=== PATIENT | male | born 1945 | race Caucasian/White ===

== ENCOUNTER → 2020-04-25 10:01 | Outpatient (BNVA) | payer OTHER, SELFPAY | PROVIDERS: PCP Internal Medicine; Referring Provider Internal Medicine; Visit Provider Urology | DX: Z13.89 Encounter for screening for other disorder (principal) ==

== ENCOUNTER 2020-10-21 10:26 | Outpatient (REF) | payer OTHER, SELFPAY ==
[2020-10-21 12:50] LABS: PSA,Total (Free>4and<10) 3.11 ng/mL (0.00-4.00)
== END 2020-10-21 10:27 | disposition home or self-care (01) ==
LOC: HO.LAB 10:26
PROVIDERS: Visit Provider Urology
DX: Z12.5 Encounter for screening for malignant neoplasm of prostate (principal); N13.8 Other obstructive and reflux uropathy; N40.1 Benign prostatic hyperplasia with lower urinary tract symptoms
CPT/HCPCS: 36415; 84153

== ENCOUNTER → 2020-10-23 09:56 | Outpatient (BNVA) | payer OTHER, SELFPAY | PROVIDERS: Visit Provider Urology | DX: Z13.89 Encounter for screening for other disorder (principal) | CPT/HCPCS: 99212 ==

== ENCOUNTER → 2021-04-22 08:36 | Outpatient (BNVA) | payer OTHER, SELFPAY | PROVIDERS: PCP Internal Medicine; Visit Provider Urology | DX: N52.9 Male erectile dysfunction, unspecified (principal); N40.1 Benign prostatic hyperplasia with lower urinary tract symptoms; R31.0 Gross hematuria | CPT/HCPCS: 99212 ==

== ENCOUNTER 2022-02-08 10:19 | Outpatient (REF) | payer OTHER, SELFPAY ==
[2022-02-08 14:07] LABS: Prostate Specific Antigen 2.03 ng/mL (<0.05-4.0)
== END 2022-02-08 10:20 | disposition home or self-care (01) ==
LOC: HO.10HDL 10:19
PROVIDERS: Visit Provider Urology
DX: Z12.5 Encounter for screening for malignant neoplasm of prostate (principal); N13.8 Other obstructive and reflux uropathy; N40.1 Benign prostatic hyperplasia with lower urinary tract symptoms
CPT/HCPCS: 36415; 84153

== ENCOUNTER → 2022-02-09 12:34 | Outpatient (BNVA) | payer OTHER, SELFPAY | PROVIDERS: PCP Internal Medicine; Visit Provider Urology | DX: N40.0 Benign prostatic hyperplasia without lower urinary tract symptoms (principal); N52.9 Male erectile dysfunction, unspecified | CPT/HCPCS: 51798; 99212 ==

== ENCOUNTER 2023-03-08 13:13 | Outpatient (AMB) | payer OTHER, SELFPAY ==
--- NOTE | 2023-03-08 13:35 | A.OFFVIS_ITS ---
Intake Intake Visit Reasons: 1Y PSA(will bring report) Intake Note: Patient is Present for Follow Up PSA Urology Medication: Finasteride Antibiotic Allergies: None Blood Thinners: Eliquis Allergies gabapentin Allergy (Unknown, Verified 03/08/23 13:36) Unknown No Known Allergies [No Known Allergies*] Allergy (Verified 03/08/23 13:36) HPI HPI Comments History of Present Illness Details Timo is a pleasant male. He is a patient of Dr.Nadazdin- Mathew. He is seen for the following urologic conditions - lower urinary tract symptoms - gross hematuria PSA 1.0 Continues with finasteride Tuesday, Tuesday, Tuesday Noted to have an since to voiding and occasional bowel urgency Involved in bathroom planning Discussed trial of overactive bladder medications Oxybutynin prescription provided May benefit from InterStim to control both fecal incontinence and urinary urge Follow-up 2 months for oxybutynin review Gross hematuria Repeat episode of gross hematuria Investigations - cystoscopy 05/09 neovascularity of pros herrera Gross hematuria response to finasteride Continue finasteride Lower urinary tract symptoms Underwent laser prostatectomy 2018 Improved symptoms since then with effective stream and emptying Has had episode of hematuria Placed on finasteride for recurrent hematuria PSA 11/05 3.1, 02/06 2.0, 02/07 1.0 PFSH Medical History Spinal stenosis Hyperlipidemia Erectile dysfunction Benign prostatic hyperplasia with lower urinary tract symptoms Surgical History History of prostate surgery Review of Systems Const Denies chills and Denies fever(s) Card Reports no additional complaints and Denies syncope Resp Denies cough GI Denies abdominal pain and Denies heartburn Reports as per HPI and Denies change in libido Neuro Denies syncope Psych Denies change in libido Endo Denies change in libido Physical Exam Const General: cooperative, healthy appearing, comfortable and no acute distress Orientation/consciousness: patient oriented x3 HEENT Face and sinus: Yes normal facial exam Mouth: moist mucous membranes Neck Neck: Yes normal visual inspection, Yes full ROM and Yes trachea midline Chest Chest palpation & inspection: normal inspection of the chest Resp Effort & Inspection: normal respiratory effort, able to speak in complete sente nces and no respiratory distress GI Inspection: Yes normal to inspection Back/Spine/Pelvis Cervical Spine: normal cervical lordosis Thoracic/Lumbar Spine: thoracic and lumbar spine normal to inspection Skin General skin exam: no rashes or lesions noted Neuro General: patient oriented x3, gait normal, tone normal and moves all extremities Extrem General: Yes normal to inspection and Yes capillary refill normal Assessment & Plan Assessment & Plan (1) Overactive bladder: Code(s): N32.81 - Overactive bladder (2) Benign prostatic hyperplasia with lower urinary tract symptoms: Code(s): N40.1 - Benign prostatic hyperplasia with lower urinary tract symptoms Plan Three month follow-up review Medications: New oxybutynin chloride ER 10 mg PO DAILY 90 days 90 tabs 0RF N32.81 - Overactive bladder Patient Instructions: Imaging studies, laboratory and physical exam results were discussed and reviewed in detail. No major barriers to patient understanding were identified. An opportunity to ask questions regarding the treatment plan was provided. All questions were answered. The patient expressed understanding and agreement with the above treatment plan. The patient is aware they should contact our office by phone for worsening of their current condition or the appearance of new urologic symptoms. Compliance is encouraged with any medications and followup testing that is ordered. It is a privilege to participate in the urologic care of your patient. If you have any questions or concerns regarding treatment for the above conditions, or other urologic issues, please do not hesitate to contact me. The office telephone contact is [phone]. This note is constructed using voice recognition software. While every effort has been made to ensure accuracy grain origination specialist errors may have been included. Yours sincerely, Dr Jignesh Mckeon MD, [facility] - Urology Providers of Expert, Compassionate Care for the Genitourinary System Coding Level of Care Code Est Pt Level 4 (37403) Diagnoses Overactive bladder N32.81 Benign prostatic hyperplasia with lower urinary tract symptoms N40.1
== END 2023-03-08 14:09 | disposition home or self-care (01) ==
PROVIDERS: Visit Provider Urology
DX: N32.81 Overactive bladder (principal); N40.1 Benign prostatic hyperplasia with lower urinary tract symptoms
CPT/HCPCS: 99214

== ENCOUNTER → 2023-03-08 13:13 | Outpatient (BNVA) | payer OTHER, SELFPAY | PROVIDERS: Visit Provider Urology | DX: N40.1 Benign prostatic hyperplasia with lower urinary tract symptoms (principal); N32.81 Overactive bladder | CPT/HCPCS: 99212 ==

== ENCOUNTER 2023-06-15 09:03 | Outpatient (AMB) | payer OTHER, SELFPAY ==
--- NOTE | 2023-06-15 09:08 | A.OFFVIS_ITS ---
Intake Intake Visit Reasons: 3M PVR/Med Review(Oxybutynin)Confirmed Intake Note: Patient is Present for Follow Up Med Review Urology Medication: Finasteride, Oxybutynin Antibiotic Allergies: None Blood Thinners: Eliquis PVR: 88 Patient states that medication oxybutynin has been great and he has seen improvement. Allergies gabapentin Allergy (Unknown, Verified 06/15/23 09:14) Unknown No Known Allergies [No Known Allergies*] Allergy (Verified 06/15/23 09:14) HPI HPI Comments History of Present Illness Details Timo is a pleasant male. He is a patient of Dr.Nadazdin- Mathew. He is seen for the following urologic conditions - lower urinary tract symptoms - gross hematuria PSA 1.0 Continues with finasteride Tuesday, Tuesday, Tuesday Here for oxybutynin review Involved in bathroom planning Completed trial of overactive bladder medications Success, discussed memory side effects with oxybutynin in patient's age over 65. Will prescribe tolterodine 4 mg. [facility] May benefit from InterSti to control both fecal incontinence and urinary urge Gross hematuria Repeat episode of gross hematuria Investigations - cystoscopy 05/09 neovascularity of pros herrera Gross hematuria response to finasteride Continue finasteride Lower urinary tract symptoms Underwent laser prostatectomy 2018 Improved symptoms since then with effective stream and emptying Has had episode of hematuria Placed on finasteride for recurrent hematuria PSA 11/05 3.1, 02/06 2.0, 02/07 1.0, 06/11 Urinary urgency and frequency PFSH Medical History Spinal stenosis Hyperlipidemia Erectile dysfunction Benign prostatic hyperplasia with lower urinary tract symptoms Surgical History History of prostate surgery Review of Systems Const Denies chills and Denies fever(s) Card Reports no additional complaints and Denies syncope Resp Denies cough GI Denies abdominal pain and Denies heartburn Reports as per HPI and Denies change in libido Neuro Denies syncope Psych Denies change in libido Endo Denies change in libido Physical Exam Const General: cooperative, healthy appearing, comfortable and no acute distress Orientation/consciousness: patient oriented x3 HEENT Face and sinus: Yes normal facial exam Mouth: moist mucous membranes Neck Neck: Yes normal visual inspection, Yes full ROM and Yes trachea midline Chest Chest palpation & inspection: normal inspection of the chest Resp Effort & Inspection: normal respiratory effort, able to speak in complete s entences and no respiratory distress GI Inspection: Yes normal to inspection Back/Spine/Pelvis Cervical Spine: normal cervical lordosis Thoracic/Lumbar Spine: thoracic and lumbar spine normal to inspection Skin General skin exam: no rashes or lesions noted Neuro General: patient oriented x3, gait normal, tone normal and moves all extremities Extrem General: Yes normal to inspection and Yes capillary refill normal Office Procedures Post Void Residual Post Residual Void Post Void Residual (PVR): 88 10984-Fokt Void Residual by ultrasound Assessment & Plan Assessment & Plan (1) Erectile dysfunction: Code(s): N52.9 - Male erectile dysfunction, unspecified (2) Benign prostatic hyperplasia with lower urinary tract symptoms: Code(s): N40.1 - Benign prostatic hyperplasia with lower urinary tract symptoms (3) Overactive bladder: Code(s): N32.81 - Overactive bladder Plan Six-month follow-up PVR Orders: Orders AMB Post Void Residual by ultrasound Today N32.81 - Overactive bladder Medications: New tolterodine ER 4 mg PO DAILY 90 days 90 caps 1RF N32.81 - Overactive bladder Patient Instructions: Imaging studies, laboratory and physical exam results were discussed and reviewed in detail. No major barriers to patient understanding were identified. An opportunity to ask questions regarding the treatment plan was provided. All questions were answered. The patient expressed understanding and agreement with the above treatment plan. The patient is aware they should contact our office by phone for worsening of their current condition or the appearance of new urologic symptoms. Compliance is encouraged with any medications and followup testing that is ordered. It is a privilege to participate in the urologic care of your patient. If you have any questions or concerns regarding treatment for the above conditions, or other urologic issues, please do not hesitate to contact me. The office telephone contact is [phone]. This note is constructed using voice recognition software. While every effort has been made to ensure accuracy liquor commissioner errors may have been included. Yours sincerely, Dr Jignesh Mckeon MD, [facility] - Urology Providers of Expert, Compassionate Care for the Genitourinary System Coding Level of Care Code Est Pt Level 3 (35161) Diagnoses Erectile dysfunction N52.9 Benign prostatic hyperplasia with lower urinary tract symptoms N40.1 Overactive bladder N32.81 CPT Codes Post Residual Void - PVR CPT Code: 29496-Rwsr Void Residual by ultrasound ([id number])
== END 2023-06-15 09:21 | disposition home or self-care (01) ==
PROVIDERS: PCP Internal Medicine; Visit Provider Urology
DX: N52.9 Male erectile dysfunction, unspecified (principal); N40.1 Benign prostatic hyperplasia with lower urinary tract symptoms; N32.81 Overactive bladder
CPT/HCPCS: 99213

== ENCOUNTER → 2023-06-15 09:03 | Outpatient (BNVA) | payer OTHER, SELFPAY | PROVIDERS: PCP Internal Medicine; Visit Provider Urology | DX: N52.9 Male erectile dysfunction, unspecified (principal); N40.1 Benign prostatic hyperplasia with lower urinary tract symptoms; N32.81 Overactive bladder | CPT/HCPCS: 51798; 99212 ==

== ENCOUNTER 2023-11-16 10:44 | Outpatient (REF) | payer OTHER, SELFPAY ==
[2023-11-16 13:29] LABS: Prostate Specific Antigen 1.66 ng/mL (<0.05-4.0)
== END 2023-11-16 10:45 | disposition home or self-care (01) ==
LOC: HO.10HDL 10:44
PROVIDERS: Visit Provider Urology
DX: N40.1 Benign prostatic hyperplasia with lower urinary tract symptoms (principal); Z12.5 Encounter for screening for malignant neoplasm of prostate
CPT/HCPCS: 36415; 84153

== ENCOUNTER 2024-01-31 09:54 | Outpatient (AMB) | payer OTHER, SELFPAY ==
--- NOTE | 2024-01-31 09:58 | A.OFFVIS_ITS ---
Intake Visit Reasons: Follow Up-PVR/PSA(set) Intake Note: Patient is present for PVR/PSA F/U Urology Medication:TOLTERODINE, FINASTERIDE, OXYBUTYNIN Antibiotic Allergy:GABAPENTIN Blood Thinner:ELIQUIS Last PVR:88ML'S Todays PVR: Lead Burner Apprentice Required: No Allergies gabapentin Allergy (Unknown, Verified 01/31/24 10:00) Unknown No Known Allergies [No Known Allergies*] Allergy (Verified 01/31/24 10:00) HPI Comments Details: Timo is a pleasant male. He is a patient of . He is seen for the following urologic conditions - lower urinary tract symptoms - gross hematuria Six-month follow-up PSA 1.4 PSA 1.0 Continues with finasteride Tuesday, Tuesday, Tuesday Has overactive bladder symptoms Prior response to oxybutynin, switched to tolterodine due to age over 77 and non tolerance May benefit from InterStim to control both fecal incontinence and urinary urge Found tolterodine to not be as effective as oxybutynin. Will trial Toviaz which is the strongest of the anticholinergics. May have to switch to beta 3 agonist Gross hematuria Repeat episode of gross hematuria Investigations - cystoscopy 05/09 neovascularity of prostate Gross hematuria response to finasteride Continue finasteride Lower urinary tract symptoms Underwent laser prostatectomy 2018 Improved symptoms since then with effective stream and emptying Has had episode of hematuria Placed on finasteride for recurrent hematuria PSA 11/05 3.1, 02/06 2.0, 02/07 1.0, 06/11 1.0, 11/08 1.7 Urinary urgency and frequency PFSH Medical History Spinal stenosis Hyperlipidemia Erectile dysfunction Benign prostatic hyperplasia with lower urinary tract symptoms Surgical History History of prostate surgery Review of Systems Const Denies chills and Denies fever(s) Card Reports no additional complaints and Denies syncope Resp Denies cough GI Denies abdominal pain and Denies heartburn Reports as per HPI and Denies change in libido Neuro Denies syncope Psych Denies change in libido Endo Denies change in libido Physical Exam Const General: cooperative, healthy appearing, comfortable and no acute distress Orientation/consciousness: patient oriented x3 HEENT Face and sinus: Yes normal facial exam Mouth: moist mucous membranes Neck Neck: Yes normal visual inspection, Yes full ROM and Yes trachea midline Chest Chest palpation & inspection: normal inspection of the chest Resp Effort & Inspection: normal respiratory effort, able to speak in complete sentences and no respiratory distress GI Inspection: Yes normal to inspection Back/Spine/Pelvis Cervical Spine: normal cervical lordosis Thoracic/Lumbar Spine: thoracic and lumbar spine normal to inspection Skin General skin exam: no rashes or lesions noted Neuro General: patient oriented x3, gait normal, tone normal and moves all extremities Extrem General: Yes normal to inspection and Yes capillary refill normal Results AMB Urinalysis, Automated UA Leukoctes 0 Bran/uL Last Edit by DREA Cisneros on 01/31/24 10:11 UA Nitrite Negative Last Edit by Julieta Almeida CCM on 01/31/24 10:11 UA Urobilinogen 0.2 mg/dL Last Edit by Julieta Almeida CCM on 01/31/24 10:1 1 UA Protein 15 mg/dL Last Edit by Julieta Almeida [facility] on 01/31/24 10:11 UA pH 5.5 Last Edit by Julieta Almeida CCM on 01/31/24 10:11 UA Blood 0 Chandana/uL Last Edit by Julieta Almeida CCM on 01/31/24 10:11 UA Specific Hundred 1.030 Last Edit by Julieta Almeida CCM on 01/31/24 10: 11 UA Ketone Positive Last Edit by Julieta Almeida CCM on 01/31/24 10:11 UA Bilirubin 1 mg/dL Last Edit by Julieta Almeida [facility] on 01/31/24 10:11 UA Glucose 0 mg/dL Last Edit by Julieta Almeida CCM on 01/31/24 10:11 Results Reviewed Results Reviewed: Laboratory Last Values Urine pH (Auto) 5.5 01/31/24 10:10 Specific Hundred (Auto) 1.030 01/31/24 10:10 Urine Protein (Auto) 15 mg/dL 01/31/24 10:10 Glucose (UA)(Auto) 0 mg/dL 01/31/24 10:10 Urine Ketones (Auto) Positive 01/31/24 10:10 Urine Blood (Auto) 0 Chandana/uL 01/31/24 10:10 Urine Nitrite (Auto) Negative 01/31/24 10:10 Urine Bilirubin (Auto) 1 mg/dL 01/31/24 10:10 Urine Urobilinogen (Auto) 0.2 mg/dL 01/31/24 10:10 Leukocyte Esterase (Auto) 0 Bran/uL 01/31/24 10:10 Assessment & Plan Assessment & Plan (1) Overactive bladder: Code(s): N32.81 - Overactive bladder Category: Medical (2) Erectile dysfunction: Code(s): N52.9 - Male erectile dysfunction, unspecified Category: Medical (3) Benign prostatic hyperplasia with lower urinary tract symptoms: Code(s): N40.1 - Benign prostatic hyperplasia with lower urinary tract symptoms Category: Medical Plan Two month follow-up tele Orders: Orders AMB Urinalysis Automated Today Z13.9 - Encounter for screening, unspecified Medications: New fesoterodine ER (Toviaz) 8 mg PO DAILY 30 days 30 tabs 1RF N32.81 - Overactive bladder Patient Instructions: Imaging studies, laboratory and physical exam results were discussed and reviewed in detail. No major barriers to patient understanding were identified. An opportunity to ask questions regarding the treatment plan was provided. All questions were answered. The patient expressed understanding and agreement with the above treatment plan. The patient is aware they should contact our office by phone for worsening of their current condition or the appearance of new urologic symptoms. Compliance is encouraged with any medications and followup testing that is ordered. It is a privilege to participate in the urologic care of your patient. If you have any questions or concerns regarding treatment for the above conditions, or other urologic issues, please do not hesitate to contact me. The office telephone contact is [phone]. This note is constructed using voice recognition software. While every effort has been made to ensure accuracy manager gallery errors may have been included. Yours sincerely, Dr Jignesh Mckeon MD, [facility] - Urology Providers of Expert, Compassionate Care for the Genitourinary System Coding Level of Care Code Est Pt Level 4 (55907) Diagnoses Overactive bladder N32.81 Erectile dysfunction N52.9 Benign prostatic hyperplasia with lower urinary tract symptoms N40.1
== END 2024-01-31 10:21 | disposition home or self-care (01) ==
PROVIDERS: PCP Internal Medicine; Visit Provider Urology
DX: N32.81 Overactive bladder (principal); N52.9 Male erectile dysfunction, unspecified; N40.1 Benign prostatic hyperplasia with lower urinary tract symptoms; Z13.9 Encounter for screening, unspecified
CPT/HCPCS: 99214

== ENCOUNTER → 2024-01-31 09:54 | Outpatient (BNVA) | payer OTHER, SELFPAY | PROVIDERS: PCP Internal Medicine; Visit Provider Urology | DX: N40.1 Benign prostatic hyperplasia with lower urinary tract symptoms (principal); N13.8 Other obstructive and reflux uropathy; N32.81 Overactive bladder; N52.9 Male erectile dysfunction, unspecified | CPT/HCPCS: 81003; 99212 ==

== ENCOUNTER 2024-04-03 10:34 | Outpatient (AMB) | payer OTHER, SELFPAY ==
--- NOTE | 2024-04-03 10:35 | A.OFFVIS_ITS ---
Intake Visit Reasons: 2M Med Review(fesoterodine ER) Intake Note: Patient is present for 2M MED REVIEW Urology Medication:TOLTERODINE,FINASTERIDE,FESOTERODINE Antibiotic Allergy:GABAPENTIN Blood Thinner:APIXABAN Fire Investigation Manager Required: No Allergies gabapentin Allergy (Unknown, Verified 04/03/24 10:49) Unknown No Known Allergies [No Known Allergies*] Allergy (Verified 04/03/24 10:49) HPI Comments Details: Timo is a pleasant male. He is a patient of . He is seen for the following urologic conditions - lower urinary tract symptoms - gross hematuria Telemedicine Evaluation 15 min Consultation [facility] Video attempted Two month follow-up Had episode of urinary frequency - associated with probable small stone - had some hematuria. Recommend holding Eliquis for a week. Has overactive bladder symptoms Prior response to oxybutynin, switched to Toviaz due to age over 75 and non tolerance Good response to Toviaz. Refill provided May benefit from InterStim to control both fecal incontinence and urinary urge Gross hematuria Repeat episode of gross hematuria Investigations - cystoscopy 05/09 neovascularity of prostate Gross hematuria response to finasteride - 3x a week Continue finasteride Lower urinary tract symptoms Underwent laser prostatectomy 2018 Improved symptoms since then with effective stream and emptying Has had episode of hematuria Placed on finasteride for recurrent hematuria PSA 11/05 3.1, 02/06 2.0, 02/07 1.0, 06/11 1.0, 11/08 1.7 Urinary urgency and frequency PFSH Medical History Spinal stenosis Hyperlipidemia Erectile dysfunction Benign prostatic hyperplasia with lower urinary tract symptoms Surgical History History of prostate surgery Review of Systems Const All systems reviewed & are unremarkable except as noted in HPI and below Reports no additional complaints Resp Reports no additional complaints GI Reports no additional complaints Reports as per HPI Musc Reports no additional complaints Physical Exam Telemedicine evaluation Appropriate responses Regular breathing rate and rhythm HEENT Head: Yes normal to inspection Ears: hearing grossly normal bilaterally Eyes General: appearance normal, both eyes and all related structures Neck Neck: Yes normal visual inspection Chest Chest palpation & inspection: normal inspection of the chest Resp Effort & Inspection: normal respiratory effort and able to speak in complete sentences Telehealth Telehealth Telehealth [facility]: [facility] Location of provider rendering services: practice address Location of patient: address on file Patient Identification confirmed using: Name, : Yes Telehealth method: video Patient verbally consented to treatment: Yes Patient verbally consented to billing insurance company: Yes Patient informed of any privacy concerns related to visit: Yes Minutes spent on Phone/Video with Pt.: 15 Assessment & Plan Assessment & Plan (1) Benign prostatic hyperplasia with lower urinary tract symptoms: Code(s): N40.1 - Benign prostatic hyperplasia with lower urinary tract symptoms Category: Medical (2) Overactive bladder: Code(s): N32.81 - Overactive bladder Category: Medical Plan Six-month follow-up office PVR Medications: Changed From fesoterodine ER (Toviaz) 8 mg PO DAILY 30 days 30 tabs 1RF N32.81 - Overactive bladder To fesoterodine ER (Toviaz) 8 mg PO DAILY 90 tabs 1RF 90 days N32.81 - Overactive bladder Patient Instructions: Imaging studies, laboratory and physical exam results were discussed and reviewed in detail. No major barriers to patient understanding were identified. An opportunity to ask questions regarding the treatment plan was provided. All questions were answered. The patient expressed understanding and agreement with the above treatment plan. The patient is aware they should contact our office by phone for worsening of their current condition or the appearance of new urologic symptoms. Compliance is encouraged with any medications and followup testing that is ordered. It is a privilege to participate in the urologic care of your patient. If you have any questions or concerns regarding treatment for the above conditions, or other urologic issues, please do not hesitate to contact me. The office telephone contact is [phone]. This note is constructed using voice recognition software. While every effort has been made to ensure accuracy maintenance technician 3rd shift errors may have been included. Yours sincerely, Dr Jignesh Mckeon MD, [facility] - Urology Providers of Expert, Compassionate Care for the Genitourinary System Coding Level of Care Code Tele Est Pt Level 3 (93844) Diagnoses Benign prostatic hyperplasia with lower urinary tract symptoms N40.1 Overactive bladder N32.81
--- OUTSIDE RECORDS SUMMARY | 2024-04-03 10:36 | XMS_ITS | Encounter Summary ---
Author Name [facility] [facility] [place] [facility] [place] Address [address] [place] [address] Care Team Providers Care Milk Hauler Name Role Phone JARETH MELGAR Primary Care Provide r Unavailable Insurance Providers: All historical and current Section Date Range: From patient's date of to the date document was created. This section includes the names of all active insurance providers for the patient. Insurance Provider Type of Coverage Plan Name Start of Policy Coverage End of Policy Coverage Group Number Member ID Insurance Provider's Telephone Number Policy Lucia's Name Patient's Relationship to Policy Lucia ANURAG [facility] MEDICARE SUPPLEMEN RONNA HAMPS HIRE COUNT Y LASHAE Apr 18, 2014 [id number] KODAK CESAR PATIENT BCBS [place] MEDICARE SUPPLEMEN RONNA MEDEX 2 Apr 18, 2014 [id number] KODAK CESAR PATIENT [place] MED[place] SUPPLEMEN RON[place] MEDEX 2 Apr 18, 2014 [id number] KODAK CESAR PATIENT [place] MED[place] SUPPLEMEN RONNA HAMPS HIRE COUNT Y LASHAE Apr 18, 2014 [id number] KODAK CESAR PATIENT BS [place] MEDICARE SUPPLEMEN RONNA MEDEX 2 Apr 18, 2014 [id number] KODAK CESAR PATIENT [place] MED[place] SUPPLEMEN RONNA HAMPS HIRE COUNT Y LASHAE Apr 18, 2014 [id number] KODAK CESAR PATIENT CAMP [place]WN R [place] SPECIAL CLASS C[place] August 23, 2023 NING DUTTA [id number] KODAK CESAR PATIENT MEDICARE (WNR) MEDICARE () PART A Nov 16, 2012 PART A [id number] MR49 KODAK CESAR PATIENT MEDICARE (WNR) MEDICARE () PART B Nov 16, 2012 PART B [id number] MR49 KODAK CESAR PATIENT MEDICARE (WNR) MEDICARE () PART A Nov 16, 2012 PART A [id number] [phone] KODAK CESAR PATIENT MEDICARE (WNR) MEDICARE () PART B Nov 16, 2012 PART B [id number] [phone] KODAK CESAR PATIENT MEDICARE (WNR) MEDICARE () PART A Nov 16, 2012 PART A [id number] MR49 KODAK CESAR PATIENT MEDICARE (WNR) MEDICARE () PART B Nov 16, 2012 PART B [id number] MR49 KODAK CESAR PATIENT MEDICARE (WNR) MEDICARE () PART A Nov 16, 2012 PART A [id number] KODAK CESAR PATIENT MEDICARE (WNR) MEDICARE (M) PART B Nov 16, 2012 PART B [id number] KODAK CESAR PATIENT MEDICARE (WNR) MEDICARE () PART A Nov 16, 2012 PART A [id number] MR49 KODAK CESAR PATIENT MEDICARE (WNR) MEDICARE (M) PART B Nov 16, 2012 PART B [id number] MR49 KODAK CESAR PATIENT MEDICARE (WNR) MEDICARE () PART A Nov 16, 2012 PART A [id number] MR49 [phone] KODAK CESAR PATIENT MEDICARE (WNR) MEDICARE (M) PART B Nov 16, 2012 PART B [id number] MR49 KODAK CESAR PATIENT Selected Encounter This section includes the information on record at [place] for the Encounter. Date/Time Encounter Type Encounter Description Reason Provider Source Apr 15, 2023 08:00 AM SELF CARE MNGMENT TRAINING PHYSICAL THERAPY ICD-10-CM M25.551 Pain in right hip RIOJAS,MILIND ABDUL [facility] Encounter Template Text not used by [place] Assessments - Encounter Diagnoses This section includes the primary and secondary diagnoses documented for the Encounter. Date/Time Primary/Secondary Diagnosis Diagnosis Name Provider Source Apr 27, 2023 02:02 PM PRIMARY Pain in right hip RIOJASMILIND [facility] Plan of Treatment: Future Appointments (+ 6 months) and Future Tests (+/- 45 days) The Plan of Treatment section includes future care activities for the patient from all [place] treatmentfacilities. This section includes future appointments and future orders which are active, pending or scheduled. Future Appointments This section includes appointments that were scheduled to occur 6 months from the date of the Encounter, up to a maximum of 20 appointments. The data comes from all [place] treatment facilities. Appointment Date/Time Appointment Type Appointme nt Facility Name Apr 25, 2023 02:30 PM AMBULATORY - RE[facility]AB [facility] May 27, 2023 07:15 AM AMBULATORY - NONE [place] [facility] [place] [facility] May 27, 2023 07:30 AM AMBULATORY - NONE [place] [facility] [place] [facility] May 30, 2023 03:30 PM AMBULATORY - MEDICINE [place] [facility] [place] [facility] Jun 28, 2023 12:50 PM AMBULATORY - MEDICINE [place] [facility] [place] [place] [facility] Jun 30, 2023 09:00 AM AMBULATORY - REHAB MEDICIN [facility] Jul 11, 2023 02:30 PM AMBULATORY - REHAB MEDIC[facility] [place] Jul 18, 2023 02:30 PM AMBULATORY - REHAB MEDICIN E [facility] [place] Jul 26, 2023 02:30 PM AMBULATORY - REHAB MEDICIN [facility] Aug 02, 2023 02:00 PM AM[facility]ULATORY [facility]INE [facility] Social History: Smoking Status (Most current) and Tobacco Use (All prior to encounter date) This section includes the most current, and the historical, smoking and tobacco- related health factors from the [place] facility where the Encounter took place. Current Smoking Status This section includes the most current smoking, or tobacco-related health factor, from the [place] facility where the Encounter took place. Date/Time Current Smoking Status Comment Conrad ity Feb 23, 2022 02:00 PM [place]-TOBACCO QUIT 15 YRS OR MORE [facility] [place] Tobacco Use History This section includes a history of the smoking, or tobacco-related health factors, that were collected on or before the date of the Encounter. The data comes from the [place] facility where the Encounter took place. Date/Time Smoking Status/Tobacco Use Comment F acility Feb 23, 2022 02:00 PM VA-TOBACCO QUIT 15 YRS OR MORE [facility] [place] Feb 23, 2021 01:30 PM VA-TOBACCO FORMER USER [facility] Feb 23, 2021 01:30 PM VA-TOBACCO QUIT 15 YRS OR MORE [facility] Jan 29, 2020 10:00 AM VA-TOBACCO FORMER USER [facility] [place] Jan 29, 2020 10:00 AM VA-TOBACCO QUIT 5 TO < 15 YRS [facility] Jun 27, 2018 10:40 AM VA-TOBACCO FORMER USER [facility] Jun 27, 2018 10:40 AM VA-TOBACCO QUIT 15 YRS OR MORE [facility] Jan 10, 2018 01:34 PM QUIT TOBACCO USE > 7 YEARS AGO [facility] Jun 01, 2016 08:49 AM LIFETIME NON-TOBACCO USER [facility] May 12, 2015 08:23 AM QUIT TOBACCO USE > 7 YEARS AGO quit > 30 yrs ago [facility] Nov 14, 2007 02:44 PM QUIT TOBACCO USE > 7 YEARS AGO Patient states he quit smoking in 1982. [facility] Advance Directives: All historical and current Section Date Range: From patient's date of to the date document was created. This section includes ALL of a patient's completed or amended [place] Advance and Rescinded Directives. The entries below indicate that a directive exists for the patient, but an actual copy is not included with this document. The data comes from all [facility]. Date Advance Directives Provider Source Feb 20, 2014 ADVANCE DIRECTIVE DISCUSSION KASANDRA [facility] September 15, 2012 ADVANCE DIRECTIVE ARISTEO LOVELL Encounter Notes: All associated encounter notes This section contains the clinical notes associated to the Encounter. Date/Time Encounter Note(s) Provider Source Apr 15, 2023 08:32 AM PHYSICAL THERAPY C ONSULT: LOCAL TITLE: PHYSICAL THERAPY CONSULT STANDARD TITLE: PHYSICAL THERAPY CONSULT DATE OF NOTE: APR 15, 2023@08:32 ENTRY DATE: APR 15, 2023@08:33:10 AUTHOR: VAN RIOJAS COSIGNER: URGENCY: STATUS: COMPLETED Initial Evaluation date: 04/15/23 Treatment #: eval Treatment time: 40 min Diagnosis: Pain in right Hip (ICD-10-CM M25.551) (Primary) Provider: ROB Pt. identified by full name and SUBJECTIVE: [place] states he began experiencing severe right hip pain 4-6 weeks ago from an unknown cause. He was advised to attend urgent care where x- rays were performed. He was informed that the right hip is bone on bone and expresses uncertainty that physical therapy will be helpful. Prior to the hip pain he endorses being able to walk 2-3 miles, however, recently it has been difficult to move from the couch. Four years ago he had a lumbar decompression surgery due to spinal stenosis. He does not feel this hip pain is related to nerve compression. Date of onset: 4-6 weeks ago ( ) Gradual (x) Rapid MARCOS: Unknown Since onset: (x) Worsening ( ) Improving ( ) Staying the same C/O: (x) Pain: Right hip, inner groin (x) ROM: Painful hip motions (x) Strength: Impaired right hip strength ( ) Sensation: Pain 0-10: Current 8/10 Improves w/: Rest Increases w/: Stairs, walking, carrying objects Pt. goal: Informed to attend by PCP, willing to try PT. OBJECTIVE: Observation: Large body habitus LE Neuro Screen: (R) (L) Reflexes: (0, 1+, 2+, 3+, 4+) L4 Patellar 2+ 2+ S1 Achilles 2+ 2+ Myotomes: See MMT LE Neural Tension Sitting slump (-) (-) SLR: (-) (-) Prone knee flex (-) (-) ROM: AROM: (R) (L) PROM (R) (L) *Pain Hip flex: WNL WNL Prone IR: 40 35 MMT / Myotomes (R) (L) *pain Hip flex L2 5 5 Int rot: 4 4 Ext rot: 4 4 Knee flex L5: 5 5 Extension L3 5 5 Hip Special Tests Scour test (+) (-) FADDIR Test (+) (-) Trendelenburg (-) (-) (Sn .73 Sp .77) PALPATION: Slight discomfort with palpation to the right glute med insertion ASSESSMENT: [place] is a 77 year old male presenting to PT with right hip pain. No significant crepitus was noted in the hip with passive range of motion, however, he did have some pain with FADDIR & hip scour testing. Suggest exam should be correlated with imaging (not available in [facility] records) or diagnostic injection to determine if hip OA is the cause of his primary complaint. Will begin with gentle physical therapy to improve the joint health and surrounding muscles. GOALS: 1.)Pain no greater than a 2/10 2.)No pain with stairs 3.)Walk 1 mile without difficulty 4.)Rx HEP in 4 appointments PLAN OF CARE: Aerobic exercise. Gentle hip and lower extremity stretches. Standing open chain strengthening. Balance and proprioception training. Functional movement patterns as tolerated. Posterior and lateral glute stabilization. Issue of cane or other assistive device as needed. 4 appointments scheduled. TODAYS TREATMENT: Edu on findings and plan of care Thank you for this consultation and allowing the PT team to participate in this patient's care. Please do not hesitate to contact us if you have any questions. All treatments to be implemented at tolerance of pt. and discretion of therapist(s). Pt is in agreement with above goals and plan of care and will be discharged when goals are met or pt. has plateaued in progress. /luis m/ VAN RIOJAS DPT Physical Therapist Signed: 04/15/2023 09:20 VAN RIOJAS [facility] [place]
--- OUTSIDE RECORDS SUMMARY | 2024-04-03 10:36 | XMS_ITS | Encounter Summary ---
Author Name [facility] [place] Address [address] [place] [address] Care Team Providers Care In Home Sales Consultant Name Role Phone JARETH MELGAR Primary Care [...] Name Patient's Relationship to Policy Lucia ANURAG [facility] MEDICARE SUPPLEMEN RONNA HAMPS HIRE COUNT Y LASHAE Apr 18, 2014 [id number] KODAK CESAR PATIENT [place] SUPPLEMEN RONNA MEDEX 2 Apr 18, 2014 [id number] KODAK CESAR PATIENT [place] MED[place] SUPPLEMEN RONNA MEDEX 2 Apr 18, 2014 [id number] KODAK CESAR PATIENT [place] MED[place] SUPPLEMEN RONNA HAMPS HIRE COUNT Y LASHAE Apr 18, 2014 [id number] KODAK CESAR PATIENT [place] SUPPLEMEN RONNA MEDEX 2 Apr 18, 2014 [id number] KODAK CESAR PATIENT BCBS OF [facility] MEDICARE SUPPLEMEN RONNA HAMPS HIRE COUNT Y LASHAE Apr 18, 2014 [id number] [phone] KODAK CESAR PATIENT CAMP LUZMARIA-WN R [place] SPECIAL CLASS CAMP [place] August 23, 2023 CAMP LUZMARIA [id number] [phone] KODAK CESAR PATIENT MEDICARE (WNR) MEDICARE () PART A Nov 16, 2012 PART A [id number] MR49 KODAK CESAR PATIENT MEDICARE (WNR) MEDICARE () PART B Nov 16, 2012 PART B [id number] MR49 KODAK CESAR PATIENT MEDICARE (WNR) MEDICARE () PART A Nov 16, 2012 PART A [id number] [phone] KODAK CESAR PATIENT MEDICARE (WNR) MEDICARE () PART A Nov 16, 2012 PART A [id number] KODAK CESAR PATIENT MEDICARE (WNR) MEDICARE () PART B Nov 16, 2012 PART B [id number] KODAK CESAR PATIENT MEDICARE (WNR) MEDICARE () PART B Nov 16, 2012 PART B [id number] [phone] KODAK CESAR PATIENT MEDICARE (WNR) MEDICARE () PART A Nov 16, 2012 PART A [id number] MR49 [phone] KODAK CESAR PATIENT MEDICARE (WNR) MEDICARE () PART B Nov 16, 2012 PART B [id number] MR49 [phone] KODAK CESAR PATIENT MEDICARE (WNR) MEDICARE () PART A Nov 16, 2012 PART A [id number] MR49 KODAK CESAR PATIENT MEDICARE (WNR) MEDICARE () PART B Nov 16, 2012 PART B [id number] MR49 [phone] KODAK CESAR PATIENT MEDICARE (WNR) MEDICARE () PART A Nov 16, 2012 PART A [id number] MR49 KODAK CESAR PATIENT MEDICARE (WNR) MEDICARE (M) PART B Nov 16, 2012 PART B [id number] MR49 KODAK CESAR PATIENT Selected Encounter This section includes the information on record at [place] for the Encounter. Date/Time Encounter Type Encounter Description Reason Pro vider Source Apr 15, 2023 08:37 AM Outpatient Encounter PRIMARY CARE/MEDICINE I[facility] Encounter Template Text not used by [place] Plan of Treatment: Future Appointments (+ 6 months) and Future Tests (+/- 45 days) The Plan of Treatment section includes future care activities for the patient [facility] [place] [facility] This section includes future appointments and future orders which are active, pending or scheduled. Future Appointments This section includes appointments that were scheduled to occur 6 months from the date of the Encounter, up to a maximum of 20 appointments. The data comes from all [place] treatment facilities. Appointment Date/Time Appointment Type Appointme nt Facility Name Apr 25, 2023 02:30 PM AMBULATORY - REHAB MEDICIN [facility] May 27, 2023 07:15 AM AMBULATORY - NONE [place] [facility] [place] [facility] May 27, 2023 07:30 AM AMBULATORY - NONE [place] [facility] [place] [facility] May 30, 2023 03:30 PM AMBULATORY - MEDICINE [place] [facility] Jun 28, 2023 12:50 PM AMBULATORY - MEDICINE [place] [facility] [place] [facility] Jun 30, 2023 09:00 AM AMBULATORY - REHAB MEDICIN [facility] Jul 11, 2023 02:30 PM AMBULATORY - REHAB MEDICIN [facility] Jul 18, 2023 02:30 PM AMBULATORY - REHAB MEDICIN [place] Jul 26, 2023 02:30 PM AMBULATORY - REHAB MEDICIN [facility] Aug 02, 2023 02:00 PM AMBULATORY - MEDICINE [facility] Social History: Smoking Status (Most current) and Tobacco Use (All prior to encounter date) This section includes the most current, and the historical, smoking and tobacco- related health factors from the [place] facility where the Encounter took place. Current Smoking Status This section includes the most current smoking, or tobacco-related health factor, from the [place] facility where the Encounter took place. Date/Time Current Smoking Status Comment Facil ity Feb 24, 2023 10:28 AM [place]-TOBACCO FORMER USER [facility] Tobacco Use History This section includes a history of the smoking, or tobacco-related health factors, that were collected on or before the date of the Encounter. The data comes from the [place] facility where the Encounter took place. Date/Time Smoking Status/Tobacco Use Comment F acility Feb 24, 2023 10:28 AM [place]-TOBACCO QUIT 15 YRS OR MORE [facility] Feb 20, 2014 02:07 PM TOBACCO INPATIENT NO USE 30 DAYS [facility] Advance Directives: All historical and current Section Date Range: From patient's date of to the date document was created. This section includes ALL of a patient's completed or amended [place] Advance and Rescinded Directives. The entries below indicate that a directive exists for the patient, but an actual copy is not included with this document. The data comes from all [place] facilities. Date Advance Directives Provider Source Feb 20, 2014 ADVANCE DIRECTIVE DISCUSSION KASANDRA HERMAN JR [facility] September 15, 2012 ADVANCE DIRECTIVE ARISTEO LOVELL Encounter Notes: All associated encounter notes This section contains the clinical notes associated to the Encounter. Date/Time Encounter Note(s) Provider Source Apr 15, 2023 08:37 AM PRIMARY CARE NOTE: LOCAL TITLE: WALK-IN NOTE PRIMARY CARE (T) STANDARD TITLE: PRIMARY CARE NOTE DATE OF NOTE: APR 15, 2023@08:37 ENTRY DATE: APR 15, 2023@08:37:28 AUTHOR: SAM HERNANDEZ COSIGNER: URGENCY: STATUS: COMPLETED <====Click to Start Advanced Medical Support Sheldon presents to the Primary Care clinic with the following request: [ X ]Medication Renewal/Refill [ ]Consultation with Team RN [ ]Symptoms [ ]Other The Sheldon states they are: [ X ]Waiting [ ]Not Waiting No Walk in visit scheduled with PACT Nurse [ X ] At this encounter the 's demographics were verified. [ X ] At this encounter the 's Insurance information was verified. [ X ] At this encounter the below scheduled visits for the Sheldon were discussed and appointment reminder card was offered. IS REQUESTING PRESCRIPTION RENEWAL/REFILL FOR DIVALPROEX. PLEASE MAIL OUT PRESCRIPTION TO . Future appointments: 04/25/2023 14:30 CWM/SO/PHYSICAL THERAPY B 05/06/2023 14:30 CWM/SO/PHYSICAL THERAPY B 05/09/2023 14:30 CWM/SO/PHYSICAL THERAPY B 05/13/2023 14:30 CWM/SO/PHYSICAL THERAPY B 05/27/2023 07:15 CWM/NO/DENTAL/RDH2 AM 08/19/2023 10:00 CWM/SO/PACT 5 /es/ ZAK HERNANDEZ ADVANCED ELECTRICAL DESIGN TECHNOLOGIST Signed: 04/15/2023 08:40 Receipt Acknowledged By: 04/15/2023 11:38 /es/ RYAN FINN RN REGISTERED NURSE 04/15/2023 09:44 /es/ THIERNO HUGHES LPN, SHARI K [place]
--- OUTSIDE RECORDS SUMMARY | 2024-04-03 10:36 | XMS_ITS | Continuity of Care Document ---
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 It does not include entries that were removed or entered in error. Problem Status Onset Date Problem Type Date of Resolution Comments Source Patient post angiography Active 017 Condition Oct 14, 2016 Entered By: DAHIANA VAN Comment: 07/29/16 Coronary angio showed 50% stenosis of the distal RCA and 30% left Cx [facility] Permanent cardiac pacemaker Active 016 Condition Oct 14, 2016 Entered By: JACOB JEFFERS Comment: 07/27/16 [facility]. [employer] MRI pacer DDD [id number] 14, 2016 Entered By: JACOB JEFFERS Comment: Dx: 07/26/16 with complete heart block, transient [facility] ADJUSTMENT Disorder with depressed mood (ICD-9-CM 309.0) Active Condition [facility] Adjustment reaction with mixed emotional features (ICD-9-CM 309.28) Active Condition [facility] AV block Active Condition [place] Basal cell carcinoma - primary Active Condition Feb 23, 2023 Entered By: JARETH MELGAR Comment: 2022 [facility] Benign prostatic hyperplasia Active Condition [facility] Cardiac pacemaker in situ Active Condition [place] Chronic post-traumatic stress disorder (SNOMED CT 573658081) Active Condition [facility] Colonoscopy Active Condition Nov 14, 2007 Entered By: TIMO ARANA Comment: 2004 [place] single benign polyp [facility] Coronary atherosclerosis Active Condition [facility] Exposure to potentially hazardous substance Active Condition Jul 05, 2023 Entered By: TYRON ESCALANTE Comment: Original DAIN Screen completed 05/13/22 [facility] Gastroesophageal Reflux Disorder Active Condition Nov 14, 2007 Entered By: TIMO ARANA Comment: EGD 2004 wnlNov 2007 Entered By: AMADEO HOOVER Comment: Pernicious Anemia (B12 defici) happened as result [facility] Gross hematuria Active Condition Feb 23, 2021 Entered By: JARETH MELGAR Comment: 2019 negative work up [facility] Headache disorder Active Condition [place] Hip pain Active Condition Aug 01 Entered By: JARETH MELGAR Comment: 2023 iliopsoas tendonitis right side - resolved with injection and PT [facility] Hyperlipidemia Active Condition 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 Inactive Condition 01/15/2015 [facility] Hyperlipidemia (SNOMED CT 21197437) Inactive Condition 07/02/2018 [facility] Impaired fasting glycaemia Inactive Condition 03/22/2018 Mar 04, 2014 Entered By: YARI HARO Comment: 4/3/14- Hgb A1C 5.7- pc follows [facility] Lumbar spinal stenosis Inactive Condition 03/22/2018 [facility] PMD Dr. Toney Inactive Condition 01/15/2015 Michael [place]AHONA Diagnosis: ICD-10-CM I48.91 Unspecified atrial fibrillation Active Diagnosis [facility] Diagnosis: ICD-10-CM K03.6 Deposits [accretions] on teeth Active Diagnosis [facility] Diagnosis: ICD-10-CM M25.551 Pain in right hip Active Diagnosis [facility] [place] [place] Diagnosis: ICD-10-CM K08.9 Disorder of teeth and supporting structures, unspecified Active Diagnosis [facility] Diagnosis: ICD-10-CM F43.12 Post-traumatic stress disorder, chronic Active Diagnosis [facility] Diagnosis: ICD-10-CM G47.33 Obstructive sleep apnea (adult) (pediatric) Active Diagnosis [facility] Medications Combined list of outpatient medications from Department of Defense and [facility] Affairs facilities.Medications provided include 1) outpatient medications from the last 15 months, and 2) patient-reported medications. Medication Details Route Status Patient Instructions Prescription Expires Prescription Number Last Dispense Date Ordering Provider Order Date Order Qty Source AMOXICILLIN TRIHYDRATE 875MG/CLAVU LANATE K 125MG TAB TAKE 1 TABLET BY MOUTH EVERY 12 HOURS FOR INFECTIO N ORAL ACTIVE 02/04/2023 [id number] Meredith LARA [address] [facility] [place] APIXABAN 5MG TAB TAKE ONE TABLET BY MOUTH TWICE DAILY ORAL ACTIVE 02/14/2025 [id number] 4 JARETH POSADAS [address] [facility] [place] APIXABAN 5MG TAB TAKE ONE TABLET BY MOUTH TWICE DAILY ORAL DISCONT INUED 12/16/2024 [id number] 4 Maury TANG [address] [facility] [place] [facility] APIXABAN 5MG TAB TAKE ONE TABLET BY MOUTH TWICE DAILY ORAL DISCONT INUED 05/21/2024 [id number] 4 JARETH POSADAS 2023 180 [place] APIXABAN 5MG TAB TAKE ONE TABLET BY MOUTH TWICE DAILY ORAL DISCONT INUED 11/11/2023 [id number] 3 ABRIL KENTKHRISRODNEY Titi 2022 180 [place] CHLORHEXIDI NE GLUCONATE 0.12% RINSE,ORAL RINSE 15ML BY MOUTH TWICE DAILY ORAL 02/04/2023 [id number] Meredith LARA 2022 473 [place] CYANOCOBALA MIN 1000MCG/ML INJ INJECT 1ML (1000 MCG) INTRAMUS CULARLY EVERY FOUR WEEKS INTRAM USCULA R ACTIVE 02/14/2025 [id number] 4 TYLER POSADASDIAZGONZÁLEZ Titi 2023 3 [place] CYANOCOBALA MIN 1000MCG/ML INJ INJECT 1ML (1000 MCG) INTRAMUS CULARLY EVERY FOUR WEEKS INTRAM USCULA R DISCONT INUED 10/26/2024 [id number] 4 TYLER POSADASDIAZGONZÁLEZ 2023 3 [place] CYANOCOBALA MIN 1000MCG/ML INJ INJECT 1ML (1000 MCG) INTRAMUS CULARLY EVERY FOUR WEEKS INTRAM USCULA R DISCONT INUED 10/23/2023 [id number] ABRIL YANITYLER QUINONESDIAZGONZÁLEZ Titi 2022 3 [place] DIVALPROEX NA 500MG TAB,SA TAKE ONE TABLET BY MOUTH EVERY MORNING FOR HEADACHE ORAL SUSPEND ED 01/25/2025 [id number] 4 Maury TANG 2023 90 [place] DIVALPROEX NA 500MG TAB,SA TAKE ONE TABLET BY MOUTH EVERY MORNING FOR HEADACHE ORAL DISCONT INUED 04/15/2024 [id number] 4 DEONDRE HOOVER 2023 90 [place] DIVALPROEX NA 500MG TAB,SA TAKE ONE TABLET BY MOUTH EVERY MORNING FOR HEADACHE ORAL DISCONT INUED 07/20/2023 [id number] 3 JARETH POSADAS Titi 2022 90 [place] DOXYCYCLINE HYCLATE 100MG TAB TAKE ONE TABLET BY MOUTH TWICE DAILY FOR NASAL INFECTIO N ORAL 09/01/2023 [id number] KHRIS POSADASSammDIAZSammCHHAYA Titi 2023 14 [place] FINASTERIDE 5MG TAB TAKE ONE TABLET BY MOUTH ONCE DAILY FOR PROSTATE ORAL ACTIVE 01/25/2025 [id number] 4 Maury TANG 2023 90 [place] FINASTERIDE 5MG TAB TAKE ONE TABLET BY MOUTH ONCE DAILY FOR PROSTATE ORAL DISCONT INUED 02/25/2024 [id number] KHRIS POSADASSammDIAZSammCHHAYA Titi 2022 90 [place] GALANTAMINE HYDROBROMID E 24MG CAP,SA TAKE ONE CAPSULE BY MOUTH EVERY MORNING (TAKE IN THE MORNING, PREFERAB LY WITH FOOD) ORAL ACTIVE 12/27/2024 [id number] TORREY CHAUDHARY 2023 90 [place] GALANTAMINE HYDROBROMID E 24MG CAP,SA TAKE ONE CAPSULE BY MOUTH EVERY MORNING (TAKE IN THE MORNING, PREFERAB LY WITH FOOD) ORAL DISCONT INUED 11/24/2023 [id number] 4 TORREY CHAUDHARY 2022 90 [place] OXYBUTYNIN CL 10MG TAB,SA TAKE ONE TABLET BY MOUTH ONCE DAILY ORAL DISCONT INUED 09/06/2023 [id number] 4 CONNIELEAHLia YOLI KHRISSammDIAZSammCHHAYA Titi 2023 90 [place] OXYBUTYNIN CL 10MG TAB,SA TAKE ONE TABLET BY MOUTH ONCE DAILY ORAL DISCONT INUED 06/06/2023 [id number] ALBERTINA MORA MD 2022 90 [facility] PAROXETINE HCL 30MG TAB TAKE TWO TABLETS BY MOUTH ONCE DAILY ORAL ACTIVE 07/05/2024 [id number] 4 TORREY CHAUDHARY 2023 180 [place] PAROXETINE HCL 30MG TAB TAKE TWO TABLETS BY MOUTH ONCE DAILY ORAL DISCONT INUED 06/09/2023 [id number] TORREY CHAUDHARY 2022 180 [place] PRAZOSIN HCL 1MG CAP TAKE ONE CAPSULE BY MOUTH AT BEDTIME -FOR NIGHTMAR ES ORAL ACTIVE 12/27/2024 [id number] 4 TORREY CHAUDHARY F 2023 90 [place] PRAZOSIN HCL 1MG CAP TAKE ONE CAPSULE BY MOUTH AT BEDTIME -FOR NIGHTMAR ES ORAL DISCONT INUED 11/24/2023 [id number] 4 TORREY CHAUDHARY 2022 90 [place] ROSUVASTATI N CA 40MG TAB TAKE ONE TABLET BY MOUTH ONCE DAILY FOR CHOLESTE ROL ORAL ACTIVE 01/25/2025 [id number] 4 Maury TANG 2023 90 [place] ROSUVASTATI N CA 40MG TAB TAKE ONE TABLET BY MOUTH ONCE DAILY FOR CHOLESTE ROL ORAL DISCONT INUED 06/29/2024 [id number] 4 JARETH POSADAS 2023 90 [place] ROSUVASTATI N CA 40MG TAB TAKE ONE TABLET BY MOUTH ONCE DAILY FOR CHOLESTE ROL ORAL DISCONT INUED 05/01/2023 [id number] 3 JARETH POSADAS 2022 90 [place] SODIUM FLUORIDE 1.1% TOOTHPASTE BRUSH SMALL AMOUNT TO TEETH TWICE DAILY DENTAL 02/16/2023 [id number] CAMILLE CONN 2021 100 [facility] TOLTERODINE TARTRATE 4MG CAP,SA TAKE ONE CAPSULE BY MOUTH ONCE DAILY ORAL ACTIVE 12/27/2024 [id number] ALBERTINA MORA MD 2023 90 [facility] TOLTERODINE TARTRATE 4MG CAP,SA TAKE ONE CAPSULE BY MOUTH ONCE DAILY FOR FREQUENT URINATIO N ORAL DISCONT INUED 06/15/2024 [id number] ALBERTINA MORA MD 2023 90 [facility] TOPIRAMATE 25MG TAB TAKE THREE TABLETS BY MOUTH AT BEDTIME FOR MIGRAINE PREVENTI ON ORAL DISCONT INUED BY MATHIEU R 06/08/2024 [id number] JARETH POSADAS [address] [facility] [place] TOPIRAMATE 25MG TAB TAKE ONE TABLET BY MOUTH ONCE DAILY AT DINNER TIME FOR 1 WEEK, INCREASE BY 1 TABLET UP TO 3 TABLETS AND CONTINUE AT DINNER TIME ORAL DISCONT INUED 11/19/2023 [id number] VDARI REAALL 2022 90 [facility] [place] TOPIRAMATE 50MG TAB TAKE ONE TABLET BY MOUTH TWICE DAILY ORAL ACTIVE 11/24/2024 [id number] VYDRINNJ KHALL 2023 60 [facility] [place] TRAZODONE HCL 100MG TAB TAKE ONE TABLET BY MOUTH AT BEDTIME FOR SLEEP ORAL ACTIVE 06/13/2024 [id number] TORREY CHAUDHARY [address] [facility] [place] TRAZODONE HCL 100MG TAB TAKE ONE TABLET BY MOUTH AT BEDTIME FOR SLEEP ORAL DISCONT INUED 06/09/2023 [id number] 3 TORREY CHAUDHARY [address] [facility] [place] UBROGEPANT 100MG TAB TAKE ONE TABLET BY MOUTH ONE TIME (TAKE AT ONSET OF HEADACHE . IF NEEDED, SECOND DOSE MAY BE TAKEN AT LEAST 2 HOURS AFTER INITIAL DOSE) ORAL DISCONT INUED 08/10/2024 [id number] 4 JARETH POSADAS 2023 9 [place] UBROGEPANT 100MG TAB TAKE ONE TABLET BY MOUTH ONE TIME (TAKE AT ONSET OF HEADACHE . IF NEEDED, SECOND DOSE MAY BE TAKEN AT LEAST 2 HOURS AFTER INITIAL DOSE) ORAL DISCONT INUED 09/21/2023 [id number] 4 JARETH POSADAS [address] [facility] UBROGEPANT 100MG TAB TAKE ONE TABLET BY MOUTH ONE TIME (TAKE AT ONSET OF HEADACHE . IF NEEDED, SECOND DOSE MAY BE TAKEN AT LEAST 2 HOURS AFTER INITIAL DOSE) ORAL 01/14/2024 [id number] JARETH POSADAS [address] [facility] [place] Allergies, Adverse Reactions, Alerts Combined list of allergies from Department of Defense and Veterans Affairs facilities. It does not include entries that were removed or entered in error. Substance Category Reaction Severity Reaction type Status Date Reported Comments Source GABAPENTIN Propensity to adverse reactions to drug (finding) Eruption active 8 [facility] Immunizations Combined list of available immunizations from the Department of Defense and Veterans Affairs facilities. Immunization Series Date Given Administered By Site Reaction Lot Number CVX Code Drug Outlet Manager Status Comments Source INFLUENZA, HIGH-DOSE, TRIVALENT, PF 2023 FABIENNE,SHOAIB ANISA RIGHT DELTO ID [id number] 135 [facility] INFLUENZA, HIGH-DOSE, QUADRIVALENT 2022 SHOAIB LOVING LEFT DELTO ID [id number] 197 complet [facility] COVID-19 (MODERNA), MRNA, LNP-S, BIVALENT BOOSTER, PF, 50 MCG/0.5 ML OR 25MCG/0.25 ML DOSE 4 2022 ANGELICA FINN LEFT DELTO ID [id number] 229 complet ed [place] INFLUENZA VACCINE, QUADRIVALENT, ADJUVANTED 2021 205 complet ed [place] COVID-19 (MODERNA), MRNA, LNP-S, PF, 100 MCG OR 50 MCG DOSE 3 2021 207 complet ed MOD; [id number]; 2 [facility] INFLUENZA VACCINE, QUADRIVALENT, ADJUVANTED 2020 205 complet ed [place] PNEUMOCOCCAL POLYSACCHARID E PPV23 2020 33 complet ed [place] COVID-19 (MODERNA), MRNA, LNP-S, PF, 100 MCG/0.5 ML DOSE 2 2020 207 complet ed MOD; [id number]; 1 [place] COVID-19 (MODERNA), MRNA, LNP-S, PF, 100 MCG/0.5 ML DOSE 1 2020 207 complet ed MOD; [id number]; 1 [place] TDAP 2019 115 complet ed [place] INFLUENZA VACCINE, QUADRIVALENT, ADJUVANTED 2019 205 complet ed MORENITA ALMANZA [facility] INFLUENZA, UNSPECIFIED FORMULATION 2019 88 complet ed [facility] HEP A-HEP B 3 2018 NONE 104 complet ed [place] INFLUENZA, INJECTABLE, QUADRIVALENT, PRESERVATIVE FREE 2018 150 complet ed Site: Right Deltoid [place] ZOSTER RECOMBINANT 2 2018 187 complet ed [place] HEP A-HEP B 2 2018 NONE 104 complet ed [place] HEP A-HEP B 1 2018 NONE 104 complet ed [place] ZOSTER RECOMBINANT 1 2018 187 complet ed [place] INFLUENZA, SEASONAL, INJECTABLE 2017 141 complet ed Site: Left Deltoid, Site: Right Deltoid [place] INFLUENZA, SEASONAL, INJECTABLE 2016 141 complet ed Site: Right Deltoid [place] FLU,3 YRS (HISTORICAL) 2015 88 complet ed Site: Left Deltoid [place] FLU,3 YRS (HISTORICAL) 2014 88 complet ed Site: Left Deltoid [place] PNEUMOCOCCAL CONJUGATE PCV 13 2014 133 complet ed [place] FLU,3 YRS (HISTORICAL) 2013 88 complet ed Site: Left Deltoid [place] FLU,3 YRS (HISTORICAL) 2012 88 complet ed Site: Left Deltoid [place] PNEUMOCOCCAL, UNSPECIFIED FORMULATION 2012 109 complet ed [place] ZOSTER LIVE 2012 121 complet ed [place] FLU,3 YRS (HISTORICAL) 2011 88 complet ed [facility] FLU,3 YRS (HISTORICAL) 2010 88 complet ed Site: Left Deltoid [place] DTAP, UNSPECIFIED FORMULATION 2010 107 complet ed Site: Right Deltoid [place] FLU,3 YRS (HISTORICAL) 2009 88 complet ed at work [facility] FLU,3 YRS (HISTORICAL) 2008 88 complet ed [facility] NOVEL INFLUENZA-H1N 1-09, ALL FORMULATIONS 2008 128 complet ed [facility] FLU,3 YRS (HISTORICAL) 2008 88 complet ed [facility] FLU,3 YRS (HISTORICAL) 2007 88 complet ed [facility] PNEUMOCOCCAL, UNSPECIFIED FORMULATION 2007 109 complet ed [place] Results Combined list of recent chemistry, hematology and other laboratory results from Department of Defense and Veterans Affairs, ranging from 15 months to all on record, depending upon the facility. Order Name Results Value Reference Range Date Interpretation Specimen Comments Source PSA PROSTATE SPECIFIC AG [MASS/VOLUM E] IN SERUM OR PLASMA 0.91 ng/mL 0.00 - 4.00 02/12 Specimen Type: SERUM No comment entered. Ordering Provider: ANDREEA BROWN Report Released Date/Time: Feb 10, 2024 03:59 PM Reporting [facility] [address] Performing Lab: [facility] [place] [address] [address] [place] LIPID PANEL, NON FASTING CHOLESTEROL [MASS/VOLUM E] IN SERUM OR PLASMA 155 mg/dL 02/12 Specimen Type: SERUM No comment entered. Ordering Provider: ANDREEA BROWN Report Released Date/Time: Feb 10, 2024 03:59 PM Reporting Lab: [facility] [place] [facility] [address] [address] Performing Lab: [facility] [address] [place] LIPID PANEL, NON FASTING TRIGLYCERID E [MASS/VOLUM E] IN SERUM OR PLASMA 248 mg/dL 0 - 150 02/12 H Specimen Type: SERUM No comment entered. Ordering Provider: ANDREEA BROWN Report Released Date/Time: Feb 10, 2024 03:59 PM Reporting Lab: [address] [address] Performing Lab: [address] [address] [place] LIPID PANEL, NON FASTING CHOLESTEROL IN LDL [MASS/VOLUM E] IN SERUM OR PLASMA BY CALCULATION 66 mg/dL 0 - 129 02/12 Specimen Type: SERUM No comment entered. Ordering Provider: ANDREEA BROWN Report Released Date/Time: Feb 10, 2024 03:59 PM Reporting Lab: [address] [address] Performing Lab: [address] [address] [place] LIPID PANEL, NON FASTING CHOLESTEROL .TOTAL/CHOL ESTEROL IN HDL [MASS RATIO] IN SERUM OR PLASMA 4.0 02/12 Specimen Type: SERUM No comment entered. Ordering Provider: ANDREEA BROWN Report Released Date/Time: Feb 10, 2024 03:59 PM Reporting Lab: [address] [address] Performing Lab: [address] [address] [place] LIPID PANEL, NON FASTING CHOLESTEROL IN HDL [MASS/VOLUM E] IN SERUM OR PLASMA 39 mg/dL 40 - 60 02/12 L Specimen Type: SERUM No comment entered. Ordering Provider: ANDREEA BROWN Report Released Date/Time: Feb 10, 2024 03:59 PM Reporting Lab: [address] [address] Performing Lab: [place] [address] [address] [address] [place] LIVER FUNCTION PROTEIN [MASS/VOLUM E] IN SERUM OR PLASMA 6.2 g/dL 6.0 - 8.3 02/12 Specimen Type: SERUM No comment entered. Ordering Provider: ANDREEA BROWN Report Released Date/Time: Feb 10, 2024 03:59 PM Reporting Lab: [facility] [address] Performing Lab: [facility] [address] [place] LIVER FUNCTION ALBUMIN [MASS/VOLUM E] IN SERUM OR PLASMA 3.8 g/dL 3.5 - 5.0 02/12 Specimen Type: SERUM No comment entered. Ordering Provider: ANDREEA BROWN Report Released Date/Time: Feb 10, 2024 03:59 PM Reporting Lab: [facility] [address] Performing Lab: [facility] [address] [place] LIVER FUNCTION ALKALINE PHOSPHATASE [ENZYMATIC ACTIVITY/VO LUME] IN SERUM OR PLASMA 48 U/L 40 - 150 02/12 Specimen Type: SERUM No comment entered. Ordering Provider: ANDREEA BROWN Report Released Date/Time: Feb 10, 2024 03:59 PM Reporting Lab: [facility] [address] [address] Performing Lab: [facility] [address] [address] [place] LIVER FUNCTION ASPARTATE AMINOTRANSF ERASE [ENZYMATIC ACTIVITY/VO LUME] IN SERUM OR PLASMA 12 U/L 5 - 34 02/12 Specimen Type: SERUM No comment entered. Ordering Provider: ANDREEA BROWN Report Released Date/Time: Feb 10, 2024 03:59 PM Reporting Lab: [facility] [address] Performing Lab: [facility]ITALN [facility] [address] [address] [place] LIVER FUNCTION ALANINE AMINOTRANSF ERASE [ENZYMATIC ACTIVITY/VO LUME] IN SERUM OR PLASMA 11 U/L 02/12 Specimen Type: SERUM No comment entered. Ordering Provider: ANDREEA BROWN Report Released Date/Time: Feb 10, 2024 03:59 PM Reporting Lab: [facility] TRN [address] [address] Performing Lab: [address] [address] [place] LIVER FUNCTION BILIRUBIN.T OTAL [MASS/VOLUM E] IN SERUM OR PLASMA 0.4 mg/dL 0.2 - 1.2 02/12 Specimen Type: SERUM No comment entered. Ordering Provider: ANDREEA BROWN Report Released Date/Time: Feb 10, 2024 03:59 PM Reporting Lab: [facility] [address] [address] Performing Lab: [facility]ITALN [address] [address] [place] BASIC METABOLIC PANEL (non-fast ing) UREA NITROGEN [MASS/VOLUM E] IN SERUM OR PLASMA 19 mg/dL 7 - 25 02/12 Specimen Type: SERUM No comment entered. Ordering Provider: ANDREEA BROWN Report Released Date/Time: Feb 10, 2024 03:59 PM Reporting Lab: [facility]ITALR[facility]ENTERTRN [address] [address] Performing Lab: [facility] [address] [place] BASIC METABOLIC PANEL (non-fast ing) GLUCOSE [MASS/VOLUM E] IN SERUM OR PLASMA 132 mg/dL 65 - 100 02/12 H Specimen Type: SERUM No comment entered. Ordering Provider: ANDREEA BROWN Report Released Date/Time: Feb 10, 2024 03:59 PM Reporting Lab: [facility] [address] [address] Performing Lab: [facility] [address] [address] [place] BASIC METABOLIC PANEL (non-fast ing) SODIUM [MOLES/VOLU ME] IN SERUM OR PLASMA 140 mmol/L 135 - 145 02/12 Specimen Type: SERUM No comment entered. Ordering Provider: ANDREEA BROWN Report Released Date/Time: Feb 10, 2024 03:59 PM Reporting Lab: [facility] [address] [address] Performing Lab: [address] [address] [place] BASIC METABOLIC PANEL (non-fast ing) POTASSIUM [MOLES/VOLU ME] IN SERUM OR PLASMA 4.0 mmol/L 3.5 - 5.0 02/12 Specimen Type: SERUM No comment entered. Ordering Provider: ANDREEA BROWN Report Released Date/Time: Feb 10, 2024 03:59 PM Reporting Lab: [facility] [address] [address] Performing Lab: [facility] [address] [address] [place] BASIC METABOLIC PANEL (non-fast ing) CHLORIDE [MOLES/VOLU ME] IN SERUM OR PLASMA 110 mmol/L 100 - 110 02/12 Specimen Type: SERUM No comment entered. Ordering Provider: ANDREEA BROWN Report Released Date/Time: Feb 10, 2024 03:59 PM Reporting Lab: [facility] [address] [address] Performing Lab: [facility] [address] [address] [place] BASIC METABOLIC PANEL (non-fast ing) CARBON DIOXIDE, TOTAL [MOLES/VOLU ME] IN SERUM OR PLASMA 22 meq/L 20 - 30 02/12 Specimen Type: SERUM No comment entered. Ordering Provider: ANDREEA BROWN Report Released Date/Time: Feb 10, 2024 03:59 PM Reporting Lab: [facility] [address] [address] Performing Lab: [address] [address] [place] BASIC METABOLIC PANEL (non-fast ing) CREATININE [MASS/VOLUM E] IN SERUM OR PLASMA 1.23 mg/dL 0.50 - 1.40 02/12 Specimen Type: SERUM No comment entered. Ordering Provider: ANDREEA BROWN Report Released Date/Time: Feb 10, 2024 03:59 PM Reporting Lab: [address] [address] Performing Lab: [address] [address] [place] BASIC METABOLIC PANEL (non-fast ing) GLOMERULAR FILTRATION RATE/1.73 SQ M.PREDICTED [VOLUME RATE/AREA] IN SERUM, PLASMA OR BLOOD BY CREATININE- BASED FORMULA (CKD-EPI 2020) 61 mL/min 60 02/12 Specimen Type: SERUM No comment entered. Ordering Provider: ANDREEA BROWN Report Released Date/Time: Feb 10, 2024 03:59 PM Reporting Lab: [address] [address] Performing Lab: [facility] [address] [address] [place] MICROALBU MIN CREATININ E RATIO PANEL MICROALBUMI N/CREATININ E [MASS RATIO] IN URINE 8.5 mg/g 0 - 29.9 02/12 Specimen Type: URINE No comment entered. Ordering Provider: ANDREEA BROWN Report Released Date/Time: Feb 10, 2024 03:59 PM Reporting Lab: [address] [address] Performing Lab: [facility] [place] [facility] [address] [address] [place] MICROALBU MIN CREATININ E RATIO PANEL MICROALBUMI N [MASS/VOLUM E] IN URINE 2.2 mg/dL 02/12 Specimen Type: URINE No comment entered. Ordering Provider: ANDREEA BROWN Report Released Date/Time: Feb 10, 2024 03:59 PM Reporting Lab: [facility] [place] [facility] [address] [address] Performing Lab: [facility]ITALRMOBI[facility] CENTERTRN [facility]USE[address] [address] [place] MICROALBU MIN CREATININ E RATIO PANEL CREATININE [MASS/VOLUM E] IN URINE 259.58 mg/dL 02/12 Specimen Type: URINE No comment entered. Ordering Provider: ANDREEA BROWN Report Released Date/Time: Feb 10, 2024 03:59 PM Reporting Lab: [facility] [place] [address] [address] Performing Lab: [facility] CENTERTRN [facility]ITALUSE[address] [address] [place] HEMOGLOBI N A1C PANEL HEMOGLOBIN A1C/HEMOGLO BIN.TOTAL IN BLOOD BY HPLC 5.7 4.0 - 5.6 02/12 H Specimen Type: BLOOD Comment: Values obtained from A1C measurement s can vary. For atypical A1C assays, a reported value of 7.0 could actually be between 6.72 and 7.28 if measured by a reference method. A reported value of 9.0 could actually be between 8.73 and 9.27. Ref: http://www. ngsp.org/[place] Pdata.asp Ordering Provider: ANDREEA BROWN Report Released Date/Time: Feb 10, 2024 03:59 PM Reporting Lab: [facility]ITALRMOODY HOSPITALN [address] [address] Performing Lab: [facility] [address] [address] [place] TSH THYROTROPIN [UNITS/VOLU ME] IN SERUM OR PLASMA 3.86 u[IU]/ mL 0.35 - 5.00 02/12 Specimen Type: SERUM No comment entered. Ordering Provider: ANDREEA BROWN Report Released Date/Time: Feb 10, 2024 03:59 PM Reporting Lab: [facility] [place] [address] [address] Performing Lab: [facility] [place] [address] [address] [place] CBC AND DIFF (AUTO) LEUKOCYTES [#/VOLUME] IN BLOOD BY AUTOMATED COUNT 8.03 10*3/u L 4.50 - 11.00 02/12 Specimen Type: BLOOD No comment entered. Ordering Provider: ANDREEA BROWN Report Released Date/Time: Feb 10, 2024 03:59 PM Reporting Lab: [facility] [place] [address] [address] Performing Lab: [facility] [place] [address] [address] [place] CBC AND DIFF (AUTO) ERYTHROCYTE S [#/VOLUME] IN BLOOD BY AUTOMATED COUNT 5.03 10*6/u L 4.23 - 5.66 02/12 Specimen Type: BLOOD No comment entered. Ordering Provider: ANDREEA BROWN Report Released Date/Time: Feb 10, 2024 03:59 PM Reporting Lab: [facility] [place] [place] [address] [address] Performing Lab: [facility] [place] [address] [address] [place] CBC AND DIFF (AUTO) HEMOGLOBIN [MASS/VOLUM E] IN BLOOD 14.1 g/dL 12.8 - 17 02/12 Specimen Type: BLOOD No comment entered. Ordering Provider: ANDREEA BROWN Report Released Date/Time: Feb 10, 2024 03:59 PM Reporting Lab: [facility] [address] [address] Performing Lab: [facility] [address] [address] [place] CBC AND DIFF (AUTO) HEMATOCRIT [VOLUME FRACTION] OF BLOOD BY AUTOMATED COUNT 43.1 39.2 - 50.4 02/12 Specimen Type: BLOOD No comment entered. Ordering Provider: ANDREEA BROWN Report Released Date/Time: Feb 10, 2024 03:59 PM Reporting Lab: [facility] [address] [address] Performing Lab: [address] [address] [place] CBC AND DIFF (AUTO) MCV [ENTITIC VOLUME] BY AUTOMATED COUNT 85.7 fL 82 - 99 02/12 Specimen Type: BLOOD No comment entered. Ordering Provider: ANDREEA BROWN Report Released Date/Time: Feb 10, 2024 03:59 PM Reporting Lab: [facility] [address] [address] Performing Lab: [facility] [address] [address] [place] CBC AND DIFF (AUTO) MCHC [MASS/VOLUM E] BY AUTOMATED COUNT 32.7 g/dL 30.8 - 35.1 02/12 Specimen Type: BLOOD No comment entered. Ordering Provider: ANDREEA BROWN Report Released Date/Time: Feb 10, 2024 03:59 PM Reporting Lab: [facility] [address] [address] Performing Lab: [address] [address] [place] CBC AND DIFF (AUTO) PLATELETS [#/VOLUME] IN BLOOD BY AUTOMATED COUNT 235 10*3/u L 140 - 360 02/12 Specimen Type: BLOOD No comment entered. Ordering Provider: ANDREEA BROWN Report Released Date/Time: Feb 10, 2024 03:59 PM Reporting Lab: [facility] [place] [facility] [address] [address] Performing Lab: [facility] [place] [address] [address] [place] CBC AND DIFF (AUTO) ERYTHROCYTE DISTRIBUTIO N WIDTH [RATIO] BY AUTOMATED COUNT 14.3 12.0 - 16.0 02/12 Specimen Type: BLOOD No comment entered. Ordering Provider: ANDREEA BROWN Report Released Date/Time: Feb 10, 2024 03:59 PM Reporting Lab: [facility] [place] [address] [address] Performing Lab: [facility]USE[address] [address] [place] CBC AND DIFF (AUTO) MONOCYTES [#/VOLUME] IN BLOOD BY AUTOMATED COUNT 0.72 10*3/u L 0.30 - 1.10 02/12 Specimen Type: BLOOD No comment entered. Ordering Provider: ANDREEA BROWN Report Released Date/Time: Feb 10, 2024 03:59 PM Reporting Lab: [facility] [place] [address] [address] Performing Lab: [facility] [place] [address] [address] [place] CBC AND DIFF (AUTO) MCH [ENTITIC MASS] BY AUTOMATED COUNT 28.0 pg 26.2 - 32.6 02/12 Specimen Type: BLOOD No comment entered. Ordering Provider: ANDREEA BROWN Report Released Date/Time: Feb 10, 2024 03:59 PM Reporting Lab: [facility] [place] [address] [address] Performing Lab: [facility] [place] [address] [address] [place] CBC AND DIFF (AUTO) NEUTROPHILS /100 LEUKOCYTES IN BLOOD BY AUTOMATED COUNT 51.9 43.7 - 75.8 02/12 Specimen Type: BLOOD No comment entered. Ordering Provider: ANDREEA BROWN Report Released Date/Time: Feb 10, 2024 03:59 PM Reporting Lab: [facility] [place] [address] [address] Performing Lab: [facility] [address] [address] [place] CBC AND DIFF (AUTO) LYMPHOCYTES /100 LEUKOCYTES IN BLOOD BY AUTOMATED COUNT 33.9 14.0 - 42.3 02/12 Specimen Type: BLOOD No comment entered. Ordering Provider: ANDREEA BROWN Report Released Date/Time: Feb 10, 2024 03:59 PM Reporting Lab: [facility]ITALCH[facility] [address] [address] Performing Lab: [facility] [address] [address] [place] CBC AND DIFF (AUTO) MONOCYTES/1 00 LEUKOCYTES IN BLOOD BY AUTOMATED COUNT 9.0 5.1 - 13.7 02/12 Specimen Type: BLOOD No comment entered. Ordering Provider: ANDREEA BROWN Report Released Date/Time: Feb 10, 2024 03:59 PM Reporting Lab: [facility] [address] [address] Performing Lab: [facility] [address] [address] [place] CBC AND DIFF (AUTO) EOSINOPHILS /100 LEUKOCYTES IN BLOOD BY AUTOMATED COUNT 4.5 0.4 - 6.8 02/12 Specimen Type: BLOOD No comment entered. Ordering Provider: ANDREEA BROWN Report Released Date/Time: Feb 10, 2024 03:59 PM Reporting Lab: [facility] [place] [address] [address] Performing Lab: [facility] [address] [address] [place] CBC AND DIFF (AUTO) BASOPHILS/1 00 LEUKOCYTES IN BLOOD BY AUTOMATED COUNT 0.5 0.1 - 2.0 10/28 /2024 Specimen Type: BLOOD No comment entered. Ordering Provider: ANDREEA BROWN Report Released Date/Time: Feb 10, 2024 03:59 PM Reporting Lab: [facility] [address] [address] Performing Lab: [facility] TRN [facility]ITALUSETS [address] [address] [place] CBC AND DIFF (AUTO) NEUTROPHILS [#/VOLUME] IN BLOOD BY AUTOMATED COUNT 4.17 10*3/u L 2.20 - 7.60 02/12 Specimen Type: BLOOD No comment entered. Ordering Provider: ANDREEA BROWN Report Released Date/Time: Feb 10, 2024 03:59 PM Reporting Lab: [facility] TR[facility]USE[address] [address] Performing Lab: [facility] TRN [facility]PITALUSETS [place] [address] [place] CBC AND DIFF (AUTO) LYMPHOCYTES [#/VOLUME] IN BLOOD BY AUTOMATED COUNT 2.72 10*3/u L 1.00 - 3.20 02/12 Specimen Type: BLOOD No comment entered. Ordering Provider: ANDREEA BROWN Report Released Date/Time: Feb 10, 2024 03:59 PM Reporting Lab: [facility]ITAL[facility] [address] [address] Performing Lab: [facility] [address] [address] [place] CBC AND DIFF (AUTO) EOSINOPHILS [#/VOLUME] IN BLOOD BY AUTOMATED COUNT 0.36 10*3/u L 0.03 - 0.44 02/12 Specimen Type: BLOOD No comment entered. Ordering Provider: ANDREEA BROWN Report Released Date/Time: Feb 10, 2024 03:59 PM Reporting Lab: [facility]ITAL[facility] [address] [address] Performing Lab: [facility] [address] [address] [place] CBC AND DIFF (AUTO) BASOPHILS [#/VOLUME] IN BLOOD BY AUTOMATED COUNT 0.04 10*3/u L 0.01 - 0.13 02/12 Specimen Type: BLOOD No comment entered. Ordering Provider: ANDREEA BROWN Report Released Date/Time: Feb 10, 2024 03:59 PM Reporting Lab: [facility]RL TRN [facility]USE[address] [address] Performing Lab: [facility]RL TRN [facility]USE[address] [address] [place] CBC AND DIFF (AUTO) IMMATURE GRANULOCYTE S/100 LEUKOCYTES IN BLOOD BY AUTOMATED COUNT 0.2 0.0 - 0.7 02/12 Specimen Type: BLOOD No comment entered. Ordering Provider: ANDREEA BROWN Report Released Date/Time: Feb 10, 2024 03:59 PM Reporting Lab: [facility]RL TRN [facility]USE[address] [address] Performing Lab: [facility]PITALRMOODY HOSPITALN [address] [address] [place] CBC AND DIFF (AUTO) IMMATURE GRANULOCYTE S [#/VOLUME] IN BLOOD 0.02 10*3/u L 0.00 - 0.06 02/12 Specimen Type: BLOOD No comment entered. Ordering Provider: ANDREEA BROWN Report Released Date/Time: Feb 10, 2024 03:59 PM Reporting Lab: [facility]RL TRN [facility]USE[address] [address] Performing Lab: [facility]PITALRMOODY HOSPITALN [facility]ITALUSE[address] [address] [place] CBC AND DIFF (AUTO) NRBC % 0.0 0.0 - 0.0 02/12 Specimen Type: BLOOD No comment entered. Ordering Provider: ANDREEA BROWN Report Released Date/Time: Feb 10, 2024 03:59 PM Reporting Lab: [facility]ITALRL [facility] [address] [address] Performing Lab: [address] [address] [place] CBC AND DIFF (AUTO) NRBC, ABS 0.00 10*3/u L 0.00 - 0.00 02/12 Specimen Type: BLOOD No comment entered. Ordering Provider: ANDREEA BROWN Report Released Date/Time: Feb 10, 2024 03:59 PM Reporting Lab: [address] [address] Performing Lab: [address] [address] [place] PSA PROSTATE SPECIFIC AG [MASS/VOLUM E] IN SERUM OR PLASMA 1.03 ng/mL 0.00 - 4.00 02/21 Specimen Type: SERUM No comment entered. Ordering Provider: ANDREEA BROWN Report Released Date/Time: May 16, 2022 02:07 PM Reporting Lab: [address] [address] Performing Lab: [address] [address] [place] LIPID PANEL FASTING CHOLESTEROL [MASS/VOLUM E] IN SERUM OR PLASMA 121 mg/dL 11/18 Specimen Type: SERUM No comment entered. Ordering Provider: ANDREEA BROWN Report Released Date/Time: Nov 05, 2022 10:04 AM Reporting Lab: [address] [address] Performing Lab: [address] [address] [place] LIPID PANEL FASTING TRIGLYCERID E [MASS/VOLUM E] IN SERUM OR PLASMA 219 mg/dL 0 - 150 11/18 H Specimen Type: SERUM No comment entered. Ordering Provider: ANDREEA BROWN Report Released Date/Time: Nov 05, 2022 10:04 AM Reporting Lab: [facility] [place] [facility] [address] [address] Performing Lab: FOR[facility]ITALRL WSTRN [facility]ITALUSETS [facility] [address] [address] [place] LIPID PANEL FASTING CHOLESTEROL IN LDL [MASS/VOLUM E] IN SERUM OR PLASMA BY CALCULATION 45 mg/dL 0 - 129 11/18 Specimen Type: SERUM No comment entered. Ordering Provider: ANDREEA BROWN Report Released Date/Time: Nov 05, 2022 10:04 AM Reporting Lab: [facility]ITALRMOBILE INF[facility] MEDICAL CENTERTRN [facility] [address] [address] Performing Lab: [facility]ITALRMOBILE IN[facility]IR[facility] CENTERTRN [facility]ITALUSEPECON[facility] [address] [address] [facility] LIPID PANEL FASTING CHOLESTEROL .TOTAL/CHOL ESTEROL IN HDL [MASS RATIO] IN SERUM OR PLASMA 3.8 11/18 Specimen Type: SERUM No comment entered. Ordering Provider: ANDREEA BROWN Report Released Date/Time: Nov 05, 2022 10:04 AM Reporting Lab: [facility]ITALRMOBILE IN[facility] CENTERTRN [facility]OSPITALUSETS [facility] [address] [address] Performing Lab: [facility]ITALRMOBI[facility] IN[facility] CENTERTRN [facility]OSPITALUSETS [facility] [address] [address] [place] LIPID PANEL FASTING CHOLESTEROL IN HDL [MASS/VOLUM E] IN SERUM OR PLASMA 32 mg/dL 40 - 60 11/18 L Specimen Type: SERUM No comment entered. Ordering Provider: ANDREEA BROWN Report Released Date/Time: Nov 05, 2022 10:04 AM Reporting Lab: [facility]ITALRMOBI[facility] CENTERTRN [facility]ITALUSEPECON[facility] [address] [address] Performing Lab: FOR[facility]PITALRMOODY HOSPITALN [facility]ITALUSE[address] [address] [facility] Vital Signs Combined list of inpatient and outpatient Vital Signs from Department of Defense and Veterans Affairs, ranging from 12 months to all on record, depending upon the facility. Vital Sign Value Date Comments Source SYSTOLIC BLOOD PRESSURE 119 02/14/20 24 12:38:11 [facility] DIASTOLIC BLOOD PRESSURE 79 024 12:38:11 [facility] PULSE OXIMETRY 95 02/14/2024 12:38:11 [facility] WEIGHT 260 02/14/2024 12:38:11 [facility] BMI 38kg/m2 02/14/2024 12:38:11 [facility] TEMPERATURE 98.2 02/14/2024 12:38:11 [facility] PULSE 92 02/14/2024 12:38:11 [facility] SYSTOLIC BLOOD PRESSURE 130 08/02/19 14:10:35 [facility] DIASTOLIC BLOOD PRESSURE 81 024 14:10:35 [facility] PULSE OXIMETRY 95 08/02/2023 14:10:35 [facility] WEIGHT 267 08/02/2023 14:10:35 [facility] BMI 39kg/m2 08/02/2023 14:10:35 [facility] TEMPERATURE 98.6 08/02/2023 14:10:35 [facility] PULSE 68 08/02/2023 14:10:35 [facility] SYSTOLIC BLOOD PRESSURE 131 05/27/19 07:21:46 [facility] [place] [facility] DIASTOLIC BLOOD PRESSURE 76 024 07:21:46 [facility] [place] [facility] PULSE OXIMETRY 05/27/2023 07:21:46 [facility] [place] [facility] WEIGHT 05/27/2023 07:21:46 [facility] [place] [facility] PAIN 05/27/2023 07:21:46 [facility] [place] [facility] HEIGHT 05/27/2023 07:21:46 [facility] [place] [facility] TEMPERATURE 05/27/2023 07:21:46 [facility] [place] [facility] PULSE 77 05/27/2023 07[facility]21:46 [facility] [place] [facility] RESPIRATION 05/27/2023 07:21:46 [facility] [place] [facility] Encounters Combined list of: 1) Encounters from Department of Veterans Affairs facilities going back up to thelast 18 months. 2) Encounters from the Department of Defense facilities going back up to 280 months. Location Location Details Encounter Type Encounter Number Reason For Visit Attending Provider ADM Date DC Date Status Disposition Source [facility] En[facility] [id number] 10[facility]21 [facility] En[facility] [id number] 11/03 [facility] En[facility] [id number] 11/03 [facility] [place] En[facility] [id number] 11/08 [facility] [place] Out[place] [facility] [id number] 11/12 [place] [facility] En[facility] [id number] 11/18 [facility] En[facility] [id number] 11/18 [facility] En[facility] [id number] 11/19 [facility] CASE MGMT-ORAL HE[facility] LIT [id number] Diagnos is: ICD-10- CM K03.6 Deposit s [accret ions] on teeth<b r/> BELBHARATHHEDwayne,N ADEZHDA 11/19 [facility] [place] Outpatient Encounter [id number] 11/22 [place] [facility] OFFICE O/P EST LOW 20-29 MIN [id number] Diagnos is: ICD-10- CM F43.12 Post-tr aumatic stress disorde r, chronic
YANIRA CHAUDHARY OY F 11/23 [place] EST LOW 20-29 MIN [id number] Diagnos is: ICD-10- CM I48.91 Unspeci fied atrial fibrill ation<b r/> NAKITA TANG A 11/25 [place] [facility] Outpatient Encounter [id number] 11/25 [facility] [place] [facility] Outpatient Encounter [id number] 12/28 [facility] POS AIRWAY PRESSURE CPAP [id number] Diagnos is: ICD-10- CM G47.33 Obstruc tive sleep apnea (adult) (pediat andre)
MARIETTA PEGUERO A 12/28 [facility] [place] [facility] Outpatient Encounter [id number] 01/05 [facility] [place] [facility] Outpatient Encounter [id number] 01/05 [facility] [place] [facility] Outpatient Encounter [id number] 01/18 [facility] [place] [facility] [place] Outpatient Encounter [id number] 01/21 [facility] [place] [facility] OFFICE O/P EST MOD 30-39 MIN [id number] Diagnos is: ICD-10- CM I48.91 Unspeci fied atrial fibrill ation<b r/> KHRIS LOPEZ M 02/24 [place] [facility] [place] ADMIN [id number] DORETHA KHRIS WILD 02/24 [facility] En[facility] [id number] 02/28 [facility] En[facility] [id number] 03/02 [facility] En[facility] [id number] SONU HALEY 03/02 [facility] En[facility] [id number] 03/03 [facility] En[facility] [id number] 03/07 [facility] En[facility] [id number] 03/17 [facility] Encounter [id number] 03/21 [facility] [place] [facility] [place] OFFICE O/P EST LOW 20-29 MIN [id number] Diagnos is: ICD-10- CM F43.12 Post-tr aumatic stress disorde r, chronic
YANIRA CHAUDHARY OY F 03[facility]22 [facility] [facility] MNG[facility] TRAINING [id number] Diagnos is: ICD-10- CM M25.551 Pain in right hip<br/ > VAN RIOJAS FRANKO 04/15 [place] [facility] En[facility] [id number] 04/15 [facility] En[facility] [id number] 04/15 [facility] En[facility] [id number] 04/18 [facility] [place] [place] [facility] THERAPEUTI C EXERCISES [id number] Diagnos is: ICD-10- CM M25.551 Pain in right hip<br/ > RIOJAS VAN FRANKO 04/25 [place] [facility] En[facility] [id number] 04/27 [facility] En[facility] [id number] 05/04 [facility] En[facility] [id number] 05/11 [facility] [id number] 05/11 [facility] En[facility] [id number] 05/18 [facility] CLEAN/INSP ECT ANDRE PART DENT [id number] Diagnos is: ICD-10- CM K03.6 Deposit s [accret ions] on teeth<b r/> BELYSHEVSamm ADEZHDA 05/27 [facility] DENTAL BITEWING FOUR IMAGES [id number] Diagnos is: ICD-10- CM 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
CAMILLE CONN 05/27 [facility] En[facility] [id number] 05/31 [facility] [id number] 06/08 [facility] En[facility] [id number] 06/08 [facility] En[facility] [id number] ONEAL VERDUGO 06/08 [facility] Encounter [id number] 06/15 [facility] [id number] 06/16 [facility] Encounter [id number] 06/27 [facility] SELF CARE MNGMENT TRAINING [id number] Diagnos is: ICD-10- CM M25.551 Pain in right hip<br/ > VAN RIOJAS 06/29 [place] [facility] Outpatient Encounter [id number] 07/03 [facility] LD THERAPEUTI C EXERCISES [id number] Diagnos is: ICD-10- CM M25.551 Pain in right hip<br/ > VAN RIOJAS 07/10 [place] THERAPEUTI C EXERCISES [id number] Diagnos is: ICD-10- CM M25.551 Pain in right hip<br/ > VAN RIOJAS 07/17 [place] THERAPEUTI C EXERCISES [id number] Diagnos is: ICD-10- CM M25.551 Pain in right hip<br/ > VAN RIOJAS 07/25 [place] [facility] Outpatient Encounter [id number] 08/01 [facility] OFFICE O/P EST MOD 30 MIN [id number] Diagnos is: ICD-10- CM I48.91 Unspeci fied atrial fibrill ation<b r/> KHRIS LOPEZ 08/01 [place] [facility] Out[facility] Encounter [id number] 08/07 [facility] En[facility] [id number] 09/29 [facility] [id number] 10/24 [facility] [id number] 11/08 [facility] [id number] 11/11 [facility] Outpatient Encounter [id number] 11/23 [facility] Encounter [id number] 11/23 [facility] Outpatient Encounter [id number] 11/23 [facility] CLEAN/INSP ECT ANDRE PART DENT [id number] Diagnos is: ICD-10- CM K03.6 Deposit s [accret ions] on teeth<b r/> Samm RODRIGUEZ 11/24 [facility] Outpatient Encounter [id number] 12/12 [facility] Outpatient Encounter [id number] 12/26 [facility] Out[facility] Encounter [id number] 01/22 [facility] Outpatient Encounter [id number] 01/30 [facility] IMMUNIZATI ON ADMIN [id number] KHRIS LOPEZ 02/09 [facility] OFFICE O/P EST MOD 30 MIN [id number] 1BY. 04 Diagnos is: ICD-10- CM I48.91 Unspeci fied atrial fibrill ation<b r/> DORETHA KHRIS WILD 02/13 [facility] ([place] [place]) IELD Social History Combined list of available smoking, tobacco, and other social history from Department of Defense and Veterans Affairs facilities. Social History Type Response Date Comment Source Tobacco smoking status NHIS [facility]BACCO [facility] History of tobacco use MD-TOBACCO QUIT 15 YRS OR MORE 02/10/20[facility] History of tobacco use MD-TOBACCO FORMER USER 02/[facility] History of tobacco use MD-TOBACCO FORMER USER 02/23/2022 [facility]21 [facility] 15 YRS 01/29/2020 [facility] History of tobacco use MD-TOBACCO QUIT 15 YRS OR MORE 06/27/2018 [facility] History of tobacco use QUIT TOBACCO USE > 7 YEARS AGO 01/10/2018 [facility] History of tobacco use LIFETIME NON-TOBACCO USER 06/01/2016 [facility] History of tobacco use QUIT TOBACCO USE > 7 YEARS AGO 05/12/2015 quit > 30 yrs ago [facility] History of tobacco use TOBACCO INPATIENT NO USE 30 DAYS 02/20[facility] History of tobacco use QUIT TOBACCO USE > 7 YEARS AGO 11/14/2007 Patient states he quit smoking in 1982. [facility] Plan of Care List of future care activities from [facility] facilities. Additional future care activities may be listed in the Assessment and Plan section. Date/Time Care Activity Care Activity Detail Facili ty 05/24/2024 [facility]BUL[facility] [place] [facility] 09/18/2024 AMBULATORY - MEDICINE [facility] - [facility]ICI [facility] Advance Directives List of completed, amended, or rescinded Advance Directives on record at Department of Veterans Affairs facilities. An actual copy of the Directive is not included. Date Advance Directive Provider Source 02/20/2014 ADVANCE DIRECTIVE DISCUSSION [facility]ASANDRA HERMAN [facility] 09/15/2012 ADVANCE DIRECTIVE ARISTEO LOVELL
--- OUTSIDE RECORDS SUMMARY | 2024-04-03 10:37 | XMS_ITS | Encounter Summary ---
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 Name Role Phone JARETH MELGAR Primary Care [...] Name Patient's Relationship to Policy Lucia ANURAG [facility] MEDICARE SUPPLEMEN RONNA HAMPS HIRE COUNT Y LASHAE Apr 18, 2014 [id number] KODAK CESAR PATIENT [place] SUPPLEMEN [place]ON[place] MEDEX 2 Apr 18, 2014 [id number] [place] 2 Apr 18, 2014 [id number] K[place] C[place] 2 Apr 18, 2014 [id number] [phone] [place] HAMPS HIRE COUNT Y LASHAE Apr 18, 2014 [id number] KODAK CESAR PATIENT [place] SUPPLEMEN RONNA LEIFPS HIRE COUNT Y LASHAE Apr 18, 2014 [id number] KODAK CEASR PATIENT CAMP LUZMARIA-WN R [place] SPECIAL CLASS CAMP [place] August 23, 2023 NING DUTTA [id number] KODAK CESAR PATIENT MEDICARE (WNR) MEDICARE () PART A Nov 16, 2012 PART A [id number] MR49 [phone] KODAK CESAR PATIENT MEDICARE (WNR) MEDICARE () PART B Nov 16, 2012 PART B [id number] MR49 [phone] KODAK CESAR PATIENT MEDICARE (WNR) MEDICARE () PART A Nov 16, 2012 PART A [id number] KODAK CESAR PATIENT MEDICARE (WNR) MEDICARE () PART B Nov 16, 2012 PART B [id number] [phone] KODAK CESAR PATIENT MEDICARE (WNR) MEDICARE () PART A Nov 16, 2012 PART A [id number] [phone] KODAK CESAR PATIENT MEDICARE (WNR) MEDICARE () PART A Nov 16, 2012 PART A [id number] MR49 [phone] KODAK CESAR PATIENT MEDICARE (WNR) MEDICARE () PART A Nov 16, 2012 PART A [id number] MR49 KODAK CESAR PATIENT MEDICARE (WNR) MEDICARE (M) PART B Nov 16, 2012 PART B [id number] [phone] KODAK CESAR PATIENT MEDICARE (WNR) MEDICARE (M) PART B Nov 16, 2012 PART B [id number] MR49 [phone] KODAK CESAR PATIENT MEDICARE (WNR) MEDICARE (M) PART A Nov 16, 2012 PART A [id number] MR49 KODAK CESAR PATIENT MEDICARE (WNR) MEDICARE (M) PART B Nov 16, 2012 PART B [id number] MR49 KODAK CESAR PATIENT MEDICARE (WNR) MEDICARE (M) PART B Nov 16, 2012 PART B [id number] MR49 KODAK CESAR PATIENT Selected Encounter This section includes the information on record at [place] for the Encounter. Date/Time Encounter Type Encounter Description Reason Provider Source Apr 25, 2023 02:30 PM THERAPEUTIC EXERCISES PHYSICAL THERAPY ICD-10-CM M25.551 Pain in right hip MIKAYLA RIOJAS [facility] Encounter Template Text not used by [place] Assessments - Encounter Diagnoses This section includes the primary and secondary diagnoses documented for the Encounter. Date/Time Primary/Secondary Diagnosis Diagnosis Name Provider Source May 04, 2023 02:23 PM PRIMARY Pain in right hip MILIND RIOJAS ROSHAN ABDUL [facility] Plan of Treatment: Future Appointments (+ 6 months) and Future Tests (+/- 45 days) The Plan of Treatment section includes future care activities for the patient from all [place] treatmentfacilities. This section includes future appointments and future orders which are active, pending or scheduled. Future Appointments This section includes appointments that were scheduled to occur 6 months from the date of the Encounter, up to a maximum of 20 appointments. The data comes from all [place] treatment facilities. Appointment Date/Time Appointment Type Appointme nt Facility Name May 27, 2023 07:15 AM AMBULATORY - NONE [place] [facility] [place] [facility] May 27, 2023 07:30 AM AMBULATORY - NONE [facility] [place] [facility] May 30, 2023 03:30 PM AMBULATORY - MEDICINE [facility] [place] [facility] Jun 28, 2023 12:50 PM AMBULATORY - MEDICINE [facility] [place] [facility] Jun 30, 2023 09:00 AM AMBULATORY - REHAB [facility] Jul 11, 2023 02:30 PM AMBULATORY - REHAB MEDICIN [facility] Jul 18, 2023 02:30 PM AMBULATORY - REHAB MEDICIN [facility] Jul 26, 2023 02:30 PM AMBULATORY - RE[facility]AB [facility] Aug 02, 2023 02:00 PM AMBULATORY - MEDICINE [facility] Social History: Smoking Status (Most current) and Tobacco Use (All prior to encounter date) This section includes the most current, and the historical, smoking and tobacco- related health factors from the [place] facility where the Encounter took place. Current Smoking Status This section includes the most current smoking, or tobacco-related health factor, from the [place] facility where the Encounter took place. Date/Time Current Smoking Status Comment Conrad ity Feb 23, 2022 02:00 PM VA-TOBACCO FORMER USER [facility] Tobacco Use History This section includes a history of the smoking, or tobacco-related health factors, that were collected on or before the date of the Encounter. The data comes from the [place] facility where the Encounter took place. Date/Time Smoking Status/Tobacco Use Comment F acility Feb 23, 2022 02:00 PM VA-TOBACCO QUIT 15 YRS OR MORE [facility] Feb 23, 2021 01:30 PM VA-TOBACCO FORMER USER [facility] Feb 23, 2021 01:30 PM VA-TOBACCO QUIT 15 YRS OR MORE [facility] Jan 29, 2020 10:00 AM VA-TOBACCO FORMER USER [facility] Jan 29, 2020 10:00 AM VA-TOBACCO QUIT 5 TO < 15 YRS [facility] Jun 27, 2018 10:40 AM VA-TOBACCO FORMER USER [facility] Jun 27, 2018 10:40 AM VA-TOBACCO QUIT 15 YRS OR MORE [facility] Jan 10, 2018 01:34 PM QUIT TOBACCO USE > 7 YEARS AGO [facility] Jun 01, 2016 08:49 AM LIFETIME NON-TOBACCO USER [facility] May 12, 2015 08:23 AM QUIT TOBACCO USE > 7 YEARS AGO quit > 30 yrs ago [facility] Nov 14, 2007 02:44 PM QUIT TOBACCO USE > 7 YEARS AGO Patient states he quit smoking in 1982. [facility] Advance Directives: All historical and current Section Date Range: From patient's date of to the date document was created. This section includes ALL of a patient's completed or amended [place] Advance and Rescinded Directives. The entries below indicate that a directive exists for the patient, but an actual copy is not included with this document. The data comes from all [facility]. Date Advance Directives Provider Source Feb 20, 2014 ADVANCE DIRECTIVE DISCUSSION KASANDRA HERMAN [facility] September 15, 2012 ADVANCE DIRECTIVE ARISTEO LOVELL Encounter Notes: All associated encounter notes This section contains the clinical notes associated to the Encounter. Date/Time Encounter Note(s) Provider Source Apr 25, 2023 02:24 PM PHYSICAL THERAPY N OTE: LOCAL TITLE: PHYSICAL THERAPY STANDARD TITLE: PHYSICAL THERAPY NOTE DATE OF NOTE: APR 25, 2023@14:24 ENTRY DATE: APR 25, 2023@14:24:26 AUTHOR: NEGRO RIOJAS COSIGNER: URGENCY: STATUS: COMPLETED Initial Evaluation date: 04/15/23 Treatment #: eval+1 Treatment time: 30 min Diagnosis: Pain in right Hip (ICD-10-CM M25.551) (Primary) Provider: ROB Pt. identified by full name and SUBJECTIVE: [place] states that the hip was sore after the initial evaluation. Ready to begin PT. OBJECTIVE: Today's treatment: THERAPEUTIC EXERCISE: MINUTES: 28 Access Code: [email or web address] URL: [email or web address] Date: 04/25/2023 Prepared by: Negro Riojas Exercises - Nu step 5 min - Standing Hamstring Stretch with Step - 1 x daily - 5 x weekly - 2 sets - 2 reps - 30 hold - Standing Hip Abduction with Counter Support - 1 x daily - 5 x weekly - 2 sets - 15-25 reps - Standing Hip Adduction with Anchored Resistance - 1 x daily - 5 x weekly - 2 sets - 15-25 reps - Standing Hip Flexor Stretch - 1 x daily - 5 x weekly - 2 sets - 2 reps - 30 hold SELF CARE/EDUCATION: MINUTES: -- was educated on the implementation of the home exercise routine. They were able to verbalize and comprehend the purpose of the movements and could perform the activities independently. ASSESSMENT: Focused on gentle hip strengthening and stretching exercises during today's session. Encouraged gentle cycling. PLAN: Cont. per POC /es/ NEGRO RIOJAS DPT Physical Therapist Signed: 04/25/2023 14:58 NEGRO RIOJAS [facility]
--- OUTSIDE RECORDS SUMMARY | 2024-04-03 10:38 | XMS_ITS | Encounter Summary ---
Author Name [place] Address [address] [place] [address] Care Team Providers Care Supervisor Volunteer Services Name Role Phone JARETH MELGAR Primary Care [...] Patient's Relationship to Policy Lucia ANURAG [facility] MEDICARE SUPPLEMEN RONNA HAMPS HIRE COUNT Y LASHAE Apr 18, 2014 [id number] KODAK CESAR PATIENT [place] SUPPLE[place]ON[place] MEDEX 2 Apr 18, 2014 [id number] KODAK CESAR [place] MEDEX 2 Apr 18, 2014 [id number] KODAK CESAR [place] HAMPS HIRE COUNT Y LASHAE Apr 18, 2014 [id number] KODAK CESAR PAT[place] MEDEX 2 Apr 18, 2014 [id number] KODAK CESAR PATIENT [place] SUPPLEMEN RONNA HAMPS HIRE COUNT Y LASHAE Apr 18, 2014 [id number] KODAK CESAR PATIENT CAMP LUZMARIA-WN R [place] SPECIAL CLASS CAMP [place] August 23, 2023 NING DUTTA [id number] KODAK CESAR PATIENT MEDICARE (WNR) MEDICARE () PART A Nov 16, 2012 PART A [id number] MR49 KODAK CESAR PATIENT MEDICARE (WNR) MEDICARE () PART B Nov 16, 2012 PART B [id number] MR49 [phone] KODAK CESAR PATIENT MEDICARE (WNR) MEDICARE () PART A Nov 16, 2012 PART A [id number] KODAK CESAR PATIENT MEDICARE (WNR) MEDICARE () PART B Nov 16, 2012 PART B [id number] KODAK CESAR PATIENT MEDICARE (WNR) MEDICARE () PART A Nov 16, 2012 PART A [id number] MR49 [phone] KODAK CESAR PATIENT MEDICARE (WNR) MEDICARE () PART B Nov 16, 2012 PART B [id number] MR49 KODAK CESAR PATIENT MEDICARE (WNR) MEDICARE () PART A Nov 16, 2012 PART A [id number] KODAK CESAR PATIENT MEDICARE (WNR) MEDICARE () PART B Nov 16, 2012 PART B [id number] [phone] KODAK CESAR PATIENT MEDICARE (WNR) MEDICARE () PART A Nov 16, 2012 PART A [id number] MR49 KODAK CESAR PATIENT MEDICARE (WNR) MEDICARE () PART B Nov 16, 2012 PART B [id number] MR49 KODAK CESAR PATIENT MEDICARE (WNR) MEDICARE () PART A Nov 16, 2012 PART A [id number] MR49 [phone] KODAK CESAR PATIENT MEDICARE (WNR) MEDICARE (M) PART B Nov 16, 2012 PART B [id number] MR49 KODAK CESAR PATIENT Selected Encounter This section includes the information on record at [place] for the Encounter. Date/Time Encounter Type Encounter Description Reason Pro vider Source Apr 27, 2023 02:09 PM Outpatient Encounter PHYSICAL THERAPY IHE Encounter Template Text not used by [place] Plan of Treatment: Future Appointments (+ 6 months) and Future Tests (+/- 45 days) The Plan of Treatment section includes future care activities for the patient from all [place] treatmentfacilities. This section includes future appointments and future orders which are active, pending or scheduled. Future Appointments This section includes appointments that were scheduled to occur 6 months from the date of the Encounter, up to a maximum of 20 appointments. The data comes from all [place] treatment facilities. Appointment Date/Time Appointment Type Appointme nt Facility Name May 27, 2023 07:15 AM AMBULATORY - NONE [place] [facility] [place] [facility] May 27, 2023 07:30 AM AMBULATORY - NONE [place] [facility] [place] [facility] May 30, 2023 03:30 PM AMBULATORY - MEDICINE [facility] [place] [facility] Jun 28, 2023 12:50 PM AMBULATORY - MEDICINE [facility] [place] [facility] Jun 30, 2023 09:00 AM AMBULATORY - REHAB [facility]IC[facility] Jul 11, 2023 02:30 PM AMBULATORY - REHAB MEDICIN [facility] Jul 18, 2023 02:30 PM AMBULATORY - REHAB MEDICIN [facility] Jul 26, 2023 02:30 PM AMBULATORY - REHAB [facility]IC[facility] Aug 02, 2023 02:00 PM AMBULATORY - MEDICINE [facility] Social History: Smoking Status (Most current) and Tobacco Use (All prior to encounter date) This section includes the most current, and the historical, smoking and tobacco- related health factors from the [place] facility where the Encounter took place. Current Smoking Status This section includes the most current smoking, or tobacco-related health factor, from the [place] facility where the Encounter took place. Date/Time Current Smoking Status Dilia hinds Feb 24, 2023 10:28 AM VA-TOBACCO FORMER USER [place] [facility] Tobacco Use History This section includes a history of the smoking, or tobacco-related health factors, that were collected on or before the date of the Encounter. The data comes from the [place] facility where the Encounter took place. Date/Time Smoking Status/Tobacco Use Comment F acility Feb 24, 2023 10:28 AM [place]-TOBACCO QUIT 15 YRS OR MORE [facility] Feb 20, 2014 02:07 PM TOBACCO INPATIENT NO USE 30 DAYS [facility] Advance Directives: All historical and current Section Date Range: From patient's date of to the date document was created. This section includes ALL of a patient's completed or amended [place] Advance and Rescinded Directives. The entries below indicate that a directive exists for the patient, but an actual copy is not included with this document. The data comes from all [facility]. Date Advance Directives Provider Source Feb 20, 2014 ADVANCE DIRECTIVE DISCUSSION KASANDRA HERMAN JR [facility] September 15, 2012 ADVANCE DIRECTIVE ARISTEO LOVELL Encounter Notes: All associated encounter notes This section contains the clinical notes associated to the Encounter. Date/Time Encounter Note(s) Provider Source May 03, 2023 01:07 PM ADDENDUM: LOCAL TITLE: Addendum STANDARD TITLE: ADDENDUM DATE OF NOTE: MAY 03, 2023@13:07:17 ENTRY DATE: MAY 03, 2023@13:07:19 AUTHOR: RYAN FINN EXP COSIGNER: URGENCY: STATUS: COMPLETED Consult placed and held for provider signature. /luis m/ RYAN FINN RN REGISTERED NURSE Signed: 05/03/2023 13:07 Receipt Acknowledged By: 05/03/2023 14:02 /luis m/ JRAETH MELGAR MD PHYSICIAN --- Original Document --- 01/10/24 ADMINISTRATIVE NOTE: called and is cancelling appt for 05/06. He would like Negro to speak with PCP and get him a referral to [facility] for his hip. Fell down the stairs yesterday in [place] and hurt his shoulder and hip. Confirmed phone number /es/ MATT SCHUSTER GEOR[place]IANAEY Signed: 04/27/2023 14:11 Receipt Acknowledged By: 04/28/2023 08:46 /es/ NEGRO DIAZT Physical Therapist 04/28/2023 ADDENDUM STATUS: COMPLETED Alerting PCP to this request. /es/ NEGRO RIOJAS DPT Physical Therapist Signed: 04/28/2023 08:46 Receipt Acknowledged By: 05/02/2023 21:06 /luis m/ JARETH MELGAR MD PHYSICIAN 05/02/2023 ADDENDUM STATUS: COMPLETED Please place referral to [facility] for right hip pain Right hip x-ray showed osteoarthritis, calcific tendinitis/bursitis. /luis m/ JARETH MELGAR MD PHYSICIAN Signed: 05/02/2023 21:07 Receipt Acknowledged By: 05/03/2023 13:07 /luis m/ RYAN FINN RN REGISTERED NURSE RYAN FINN May 02, 2023 09:06 PM ADDENDUM: LOCAL TITLE: Addendum STANDARD TITLE: ADDENDUM DATE OF NOTE: MAY 02, 2023@21:06:14 ENTRY DATE: MAY 02, 2023@21:06:15 AUTHOR: Keaton MELGAR COSIGNER: URGENCY: STATUS: COMPLETED Please place referral to [facility] for right hip pain Right hip x-ray showed osteoarthritis, calcific tendinitis/bursitis. /luis m/ JARETH MELGAR MD PHYSICIAN Signed: 05/02/2023 21:07 Receipt Acknowledged By: 05/03/2023 13:07 /luis m/ RYAN FINN RN REGISTERED NURSE --- Original Document --- 04/27/23 ADMINISTRATIVE NOTE: [place] called and is cancelling appt for 05/06. He would like Negro to speak with PCP and get him a referral to [facility] for his hip. Fell down the stairs yesterday in [place] and hurt his shoulder and hip. Confirmed phone number /es/ MATT LANDEN KRYSTAL Signed: 04/27/2023 14:11 Receipt Acknowledged By: 04/28/2023 08:46 /es/ NEGRO RIOJAS DPT Physical Therapist 04/28/2023 ADDENDUM STATUS: COMPLETED Alerting PCP to this request. /luis m/ NEGRO RIOJAS DPT Physical Therapist Signed: 04/28/2023 08:46 Receipt Acknowledged By: 05/02/2023 21:06 /luis m/ JARETH MELGAR MD PHYSICIAN ANDREEA MELGARFIELD Apr 28, 2023 08:46 AM ADDENDUM: LOCAL TITLE: Addendum STANDARD TITLE: ADDENDUM DATE OF NOTE: APR 28, 2023@08:46:10 ENTRY DATE: APR 28, 2023@08:46:11 AUTHOR: NEGRO RIOJAS COSIGNER: URGENCY: STATUS: COMPLETED Alerting PCP to this request. /lius m/ NEGRO RIOJAS DPStella Physical Therapist Signed: 04/28/2023 08:46 Receipt Acknowledged By: 05/02/2023 21:06 /luis m/ JARETH MELGAR MD PHYSICIAN --- Original Document --- 04/27/23 ADMINISTRATIVE NOTE: [place] called and is cancelling appt for 05/06. He would like Negro to speak with PCP and get him a referral to [facility] for his hip. Fell down the stairs yesterday in [place] and hurt his shoulder and hip. Confirmed phone number /es/ MATT RICE Signed: 04/27/2023 14:11 Receipt Acknowledged By: 04/28/2023 08:46 /luis m/ NEGRO RIOJAS DPT Physical Therapist 05/02/2023 ADDENDUM STATUS: UNSIGNED You may not VIEW this UNSIGNED Addendum. NEGRO RIOJAS FRANKO [place] Apr 27, 2023 02:09 PM ADMINISTRATIVE NOT E: LOCAL TITLE: ADMINISTRATIVE NOTE STANDARD TITLE: ADMINISTRATIVE NOTE DATE OF NOTE: APR 27, 2023@14:09 ENTRY DATE: APR 27, 2023@14:09:57 AUTHOR: MATT RICE COSIGNER: URGENCY: STATUS: COMPLETED ADMINISTRATIVE NOTE Has ADDENDA [place] called and is cancelling appt for 05/06. He would like Negro to speak with PCP and get him a referral to [facility] for his hip. Fell down the stairs yesterday in [place] and hurt his shoulder and hip. Confirmed phone number /es/ MATT RICE Signed: 04/27/2023 14:11 Receipt Acknowledged By: 04/28/2023 08:46 /es/ NEGRO RIOJAS DPT Physical Therapist 04/28/2023 ADDENDUM STATUS: COMPLETED Alerting PCP to this request. /luis m/ NEGRO RIOJAS DPT Physical Therapist Signed: 04/28/2023 08:46 Receipt Acknowledged By: 05/02/2023 21:06 /luis m/ JARETH MELGAR MD PHYSICIAN 05/02/2023 ADDENDUM STATUS: COMPLETED Please place referral to [facility] for right hip pain Right hip x-ray showed osteoarthritis, calcific tendinitis/bursitis. /luis m/ JARETH MELGAR MD PHYSICIAN Signed: 05/02/2023 21:07 Receipt Acknowledged By: 05/03/2023 13:07 /luis m/ RYAN FINN RN REGISTERED NURSE 05/03/2023 ADDENDUM STATUS: COMPLETED Consult placed and held for provider signature. /luis m/ RYAN FINN RN REGISTERED NURSE Signed: 05/03/2023 13:07 Receipt Acknowledged By: * AWAITING SIGNATURE * JARETH MELGAREY,MATT SAMPSON
--- OUTSIDE RECORDS SUMMARY | 2024-04-03 10:38 | XMS_ITS | Encounter Summary ---
Author Name [place] Address [address] [place] [address] Care Team Providers Care Information Technology Manager Name Role Phone JARETH MELGAR Primary Care [...] Patient's Relationship to Policy Lucia ANURAG REYES [facility] MEDICARE SUPPLEMEN RONNA HAMPS HIRE COUNT Y LASHAE Apr 18, 2014 [id number] KODAK CESAR PATIENT [place] SUPPLEMEN RONNA MEDEX 2 Apr 18, 2014 [id number] KODAK CESAR PATIENT BCBS [place] MEDICARE SUPPLEMEN RONNA MEDEX 2 Apr 18, 2014 [id number] KODAK CESAR PATIENT [place] HAMPS HIRE COUNT Y LASHAE Apr 18, 2014 [id number] KODAK CESAR PATIENT [place] MEDEX 2 Apr 18, 2014 [id number] KODAK CESAR PATIENT [facility] MEDICARE SUPPLEMEN RONNA LEIFPS HIRE COUNT Y LASHAE Apr 18, 2014 [id number] KODAK CESAR PATIENT [place] [facility] [place] August 23, 2023 CAMP LUZMARIA [id number] [phone] KODAK CESAR PATIENT MEDICARE (WNR) MEDICARE () PART A Nov 16, 2012 PART A [id number] MR49 KODAK CESAR PATIENT MEDICARE (WNR) MEDICARE () PART B Nov 16, 2012 PART B [id number] MR49 KODAK CESAR PATIENT MEDICARE (WNR) MEDICARE () PART A Nov 16, 2012 PART A [id number] KODAK CESAR PATIENT MEDICARE (WNR) MEDICARE () PART B Nov 16, 2012 PART B [id number] KODAK CESAR PATIENT MEDICARE (WNR) MEDICARE () PART A Nov 16, 2012 PART A [id number] MR49 [id number] KODAK CESAR PATIENT MEDICARE (WNR) MEDICARE () PART B Nov 16, 2012 PART B [id number] MR49 [id number] KODAK CESAR PATIENT MEDICARE (WNR) MEDICARE () PART A Nov 16, 2012 PART A [id number] KODAK CESAR PATIENT MEDICARE (WNR) MEDICARE () PART B Nov 16, 2012 PART B [id number] KODAK CESAR PATIENT MEDICARE (WNR) MEDICARE () PART A Nov 16, 2012 PART A [id number] MR49 KODAK CESAR PATIENT MEDICARE (WNR) MEDICARE () PART B Nov 16, 2012 PART B [id number] MR49 KODAK CESAR PATIENT MEDICARE (WNR) MEDICARE () PART A Nov 16, 2012 PART A [id number] MR49 KODAK CESAR PATIENT MEDICARE (WNR) MEDICARE (M) PART B Nov 16, 2012 PART B [id number] MR49 KODAK CESAR PATIENT Selected Encounter This section includes the information on record at [place] for the Encounter. Date/Time Encounter Type Encounter Description Reason Pro vider Source May 11, 2023 09:56 AM Outpatient Encounter ADMIN PAT ACTIVTIES (MASNONCT) IHE Encounter Template Text not used by [place] Plan of Treatment: Future Appointments (+ 6 months) and Future Tests (+/- 45 days) The Plan of Treatment section includes future care activities for the patient from all [place] treatmentfacilities. This section includes future appointments and future orders which are active, pending or scheduled. Future Appointments This section includes appointments that were scheduled to occur 6 months from the date of the Encounter, up to a maximum of 20 appointments. The data comes from all [place] treatment facilities. Appointment Date/Time Appointment Type Appointme nt Facility Name May 27, 2023 07:15 AM AMBULATORY - NONE [place] [facility] [facility] May 27, 2023 07:30 AM AMBULATORY - NONE [place] [facility] [place] [facility] May 30, 2023 03:30 PM [place] [place] [facility] [place] [facility] Jun 28, 2023 12:50 PM AMBULATORY - MEDICINE [facility] [place] [facility] Jun 30, 2023 09:00 AM AMBULATORY - [facility] Jul 11, 2023 02:30 PM AMBULATORY - REHAB [facility] Jul 18, 2023 02:30 PM AMBULATORY - [facility] [place] Jul 26, 2023 02:30 PM AMBULATORY - REHAB [facility] Aug 02, 2023 02:00 PM AMBULATORY - MEDICINE [facility] Social History: Smoking Status (Most current) and Tobacco Use (All prior to encounter date) This section includes the most current, and the historical, smoking and tobacco- related health factors from the [place] facility where the Encounter took place. Current Smoking Status This section includes the most current smoking, or tobacco-related health factor, from the [place] facility where the Encounter took place. Date/Time Current Smoking Status Comment Conrad hinds Feb 24, 2023 10:28 AM [place]-TOBACCO FORMER USER [facility] Tobacco Use History This section includes a history of the smoking, or tobacco-related health factors, that were collected on or before the date of the Encounter. The data comes from the [place] facility where the Encounter took place. Date/Time Smoking Status/Tobacco Use Comment Danny acility Feb 24, 2023 10:28 AM [place]-TOBACCO QUIT 15 YRS OR MORE [facility] Feb 20, 2014 02:07 PM TOBACCO INPATIENT NO USE 30 DAYS [facility] Advance Directives: All historical and current Section Date Range: From patient's date of to the date document was created. This section includes ALL of a patient's completed or amended [place] Advance and Rescinded Directives. The entries below indicate that a directive exists for the patient, but an actual copy is not included with this document. The data comes from all [place] facilities. Date Advance Directives Provider Source Feb 20, 2014 ADVANCE DIRECTIVE DISCUSSION KASANDRA HERMAN JR [facility] September 15, 2012 ADVANCE DIRECTIVE ARISTEO LOVELL Encounter Notes: All associated encounter notes This section contains the clinical notes associated to the Encounter. Date/Time Encounter Note(s) Provider Source May 11, 2023 09:56 AM ADMINISTRATIVE NOT E: LOCAL TITLE: CCC: SCHEDULING ADMINISTRATION STANDARD TITLE: ADMINISTRATIVE NOTE DATE OF NOTE: MAY 11, 2023@09:56:51 ENTRY DATE: MAY 11, 2023@09:56:51 AUTHOR: ARIEL SINGH EXP COSIGNER: URGENCY: STATUS: COMPLETED CCC: SCHEDULING ADMINISTRATION Has ADDENDA Patient Demographics Patient Name: KODAK CESAR Patient Primary Phone: [phone] Patient Primary Address: [address] [place] [id number] Patient : 1945 Patient Age: 77 Call Back Number: [phone] Caller/Recipient Relation to Patient: Self Scheduling Scheduling Note Comments: Patient is requesting a call back. Reason: Patient would like to mixing picker tender the disc of his right hip that he dropped of a couple of weeks ago. The patient can be reached anytime for a call back. Administrative Administrative Note Reason: Other Administrative Note Comments: pact /es/ ARIEL FUENTES 1 [facility] AMSA Signed: 05/11/2023 09:56 Receipt Acknowledged By: 05/11/2023 12:25 /luis m/ RYAN FINN RN REGISTERED NURSE 05/11/2023 13:45 /luis m/ BYRON LOVING LPN LPN 05/11/2023 ADDENDUM STATUS: COMPLETED [place] walked inot the clinic looking for the imaging disc. Advised that the provider does not have the disc and suggested going back to the he went to in order to get another disc. /luis m/ RYAN FINN RN REGISTERED NURSE Signed: 05/11/2023 12:26 05/11/2023 ADDENDUM STATUS: COMPLETED [place] contacted and advised that he can come mixing picker tender the disc, it will be left at the front end mechanic. /luis m/ BYRON LOVING LPN LPN Signed: 05/11/2023 13:48 ARIEL SINGH [place] [facility]
--- OUTSIDE RECORDS SUMMARY | 2024-04-03 10:38 | XMS_ITS | Encounter Summary ---
Author Name [facility] [place] Address [address] [place] [address] Care Team Providers Care Ice Cream Scooper Name Role Phone JARETH MELGAR Primary Care [...] Patient's Relationship to Policy Lucia ANURAG REYES [facility] MEDICARE SUPPLEMEN RONNA HAMPS HIRE COUNT Y LASHAE Apr 18, 2014 [id number] KODAK CESAR PATIENT [place] SUPPLEMEN RONNA MEDEX 2 Apr 18, 2014 [id number] KODAK CESAR PATIENT BCBS [place] MEDICARE SUPPLEMEN RONNA MEDEX 2 Apr 18, 2014 [id number] KODAK CESAR PATIENT [place] SUPPLEMEN RONNA HAMPS HIRE COUNT Y LASHAE Apr 18, 2014 [id number] [phone] KODAK CESAR PATIENT [place] SUPPLEMEN RONNA MEDEX 2 Apr 18, 2014 [id number] KODAK CESAR PATIENT [facility] MEDICARE SUPPLEMEN RONNA LEIFPS HIRE COUNT Y LASHAE Apr 18, 2014 [id number] [phone] KODAK CESAR PATIENT CAMP [place]-WN R [place] SPECIAL CLASS CAMP [place] August 23, 2023 CAMP LUZMARIA [id number] [phone] KODAK CESAR PATIENT MEDICARE (WNR) MEDICARE () PART A Nov 16, 2012 PART A [id number] MR49 KODAK CESAR PATIENT MEDICARE (WNR) MEDICARE () PART B Nov 16, 2012 PART B [id number] MR49 [phone] [id number] KODAK CESAR PATIENT MEDICARE (WNR) MEDICARE () PART A Nov 16, 2012 PART A [id number] KODAK CESAR PATIENT MEDICARE (WNR) MEDICARE () PART B Nov 16, 2012 PART B [id number] KODAK CESAR PATIENT MEDICARE (WNR) MEDICARE () PART A Nov 16, 2012 PART A [id number] MR49 [id number] KODAK CESAR PATIENT MEDICARE (WNR) MEDICARE () PART B Nov 16, 2012 PART B [id number] [id number] KODAK CESAR PATIENT MEDICARE (WNR) MEDICARE () PART A Nov 16, 2012 PART A [id number] KODAK CESAR PATIENT MEDICARE (WNR) MEDICARE () PART B Nov 16, 2012 PART B [id number] KODAK CESAR PATIENT MEDICARE (WNR) MEDICARE () PART A Nov 16, 2012 PART A [id number] MR49 KODAK CESAR PATIENT MEDICARE (WNR) MEDICARE () PART B Nov 16, 2012 PART B [id number] MR49 KODAK CESAR PATIENT MEDICARE (WNR) MEDICARE () PART A Nov 16, 2012 PART A [id number] MR49 KODAK CESAR PATIENT MEDICARE (WNR) MEDICARE (M) PART B Nov 16, 2012 PART B [id number] MR49 KODAK CESAR PATIENT Selected Encounter This section includes the information on record at [place] for the Encounter. Date/Time Encounter Type Encounter Description Reason Pro vider Source May 04, 2023 10:40 AM Outpatient Encounter ADMIN PAT ACTIVTIES (MASNONCT) IHE Encounter Template Text not used by [place] Plan of Treatment: Future Appointments (+ 6 months) and Future Tests (+/- 45 days) The Plan of Treatment section includes future care activities for the patient [facility] [place] [facility] This section includes future appointments and [...] AMBULATORY - NONE [place] [facility] [facility] May 27, 2023 07:30 AM AMBULATORY - NONE [place] [facility] [place] [facility] May 30, 2023 03:30 PM [facility] [place] [facility] Jun 28, 2023 12:50 PM AMBULATORY - MEDICINE [facility] [place] [facility] Jun 30, 2023 09:00 AM AMBULATORY - REHAB [facility]IC[facility] Jul 11, 2023 02:30 PM AMBULATORY - REHAB [facility] Jul 18, 2023 02:30 PM AM[place]ORY [place] Jul 26, 2023 02:30 PM AMBULATORY - [...] 24, 2023 10:28 AM VA-TOBACCO FORMER USER [facility] Tobacco Use History This section includes a history of the smoking, or tobacco-related health factors, that were collected on or before the date of the Encounter. The data comes from the [place] facility where the Encounter took place. Date/Time Smoking Status/Tobacco Use Comment F acility Feb 24, 2023 10:28 AM [place]-TOBACCO QUIT 15 YRS OR MORE [facility] Feb 20, 2014 02:07 PM TOBACCO INPATIENT NO USE 30 DAYS [facility] Advance Directives: All historical and current [...] 2014 ADVANCE DIRECTIVE DISCUSSION KASANDRA HERMAN JR [facility] September 15, 2012 ADVANCE DIRECTIVE ARISTEO LOVELL Encounter Notes: All associated encounter notes This section contains the clinical notes associated to the Encounter. Date/Time Encounter Note(s) Provider Source May 04, 2023 10:40 AM ADMINISTRATIVE NOT E: LOCAL TITLE: CCC: SCHEDULING ADMINISTRATION STANDARD TITLE: ADMINISTRATIVE NOTE DATE OF NOTE: MAY 04, 2023@10:40:26 ENTRY DATE: MAY 04, 2023@10:40:26 AUTHOR: MICHAELA DEAN EXP COSIGNER: URGENCY: STATUS: COMPLETED CCC: SCHEDULING ADMINISTRATION Has ADDENDA Patient Demographics Patient Name: KODAK CESAR Patient Primary Phone: [phone] Patient Primary Address: [address] [place] [id number] Patient : 1945 Patient Age: 77 Caller/Recipient Relation to Patient: Self Administrative Administrative Note Reason: Other Administrative Note Comments: PT states that Physical Therapy is NOT working for him. PT also states that he is still falling. Please call PT with options. /luis m/ MICHAELA DEAN amsa Signed: 05/04/2023 10:40 Receipt Acknowledged By: 05/04/2023 13:27 /es/ RYAN FINN RN REGISTERED NURSE 05/05/2023 10:43 /es/ BYRON LOVING LPN LPN 05/04/2023 15:49 /es/ JARETH MELGAR MD PHYSICIAN 05/04/2023 ADDENDUM STATUS: COMPLETED Will defer to provider to review and advise. /finn FINN RN REGISTERED NURSE Signed: 05/04/2023 13:27 05/04/2023 ADDENDUM STATUS: COMPLETED Left a VM for the stating that a consult was placed for him to be seen by [facility] and to be on a lookout for a call from the CC team. /finn FINN RN REGISTERED NURSE Signed: 05/04/2023 15:58 MICHAELA DEAN [place] [facility]
--- OUTSIDE RECORDS SUMMARY | 2024-04-03 10:39 | XMS_ITS | Encounter Summary ---
Author Name Department [place] Organization [place] Address [address] [place] [address] Care Team Providers Care Test Automation Architect Name Role Phone JARETH MELGAR Primary Care [...] Patient's Relationship to Policy Lucia ANURAG REYES [facility] MEDICARE SUPPLEMEN RONNA HAMPS HIRE COUNT Y LASHAE Apr 18, 2014 [id number] KODAK CESAR PATIENT [place] SUPPLEMEN RONNA MEDEX 2 Apr 18, 2014 [id number] KOADK CESAR PATIENT [place] MED[place] SUPPLEMEN RONNA MEDEX 2 Apr 18, 2014 [id number] KODAK CESAR PATIENT [place]ARE SUPPLEMEN RONNA HAMPS HIRE COUNT Y LASHAE Apr 18, 2014 [id number] KODAK CESAR PATIENT [place] MED[place]ARE SUPPLEMEN RONNA MEDEX 2 Apr 18, 2014 [id number] KODAK CESAR PATIENT [facility] MEDICARE SUPPLEMEN RONNA HAMPS HIRE COUNT Y LASHAE Apr 18, 2014 [id number] KODAK CESAR PATIENT CAMP [place]-WN R [place] SPECIAL CLASS CAMP [place] August 23, 2023 CAMP LUZMARIA [id number] [phone] KODAK CESAR PATIENT MEDICARE (WNR) MEDICARE () PART B Nov 16, 2012 PART B [id number] MR49 KODAK CESAR PATIENT MEDICARE (WNR) MEDICARE () PART A Nov 16, 2012 PART A [id number] MR49 [phone] [id number] KODAK CESAR PATIENT MEDICARE (WNR) MEDICARE () PART A Nov 16, 2012 PART A [id number] KODAK CESAR PATIENT MEDICARE (WNR) MEDICARE () PART B Nov 16, 2012 PART B [id number] [phone] KODAK CESAR PATIENT MEDICARE (WNR) MEDICARE () PART A Nov 16, 2012 PART A [id number] KODAK CESAR PATIENT MEDICARE (WNR) MEDICARE () PART B Nov 16, 2012 PART B [id number] KODAK CESAR PATIENT MEDICARE (WNR) MEDICARE () PART A Nov 16, 2012 PART A [id number] MR49 [phone] KODAK CESAR PATIENT MEDICARE (WNR) MEDICARE () PART B Nov 16, 2012 PART B [id number] MR49 KODAK CESAR PATIENT MEDICARE (WNR) MEDICARE () PART A Nov 16, 2012 PART A [id number] MR49 [phone] KODAK CESAR PATIENT MEDICARE (WNR) MEDICARE () PART B Nov 16, 2012 PART B [id number] MR49 KODAK CESAR PATIENT MEDICARE (WNR) MEDICARE () PART A Nov 16, 2012 PART A [id number] MR49 KODAK CESAR PATIENT MEDICARE (WNR) MEDICARE (M) PART B Nov 16, 2012 PART B [id number] MR49 KODAK CESAR PATIENT Selected Encounter This section includes the information on record at [place] for the Encounter. Date/Time Encounter Type Encounter Description Reason Pro vider Source Jun 08, 2023 09:55 AM Outpatient Encounter ADMIN PAT ACTIVTIES (MASNONCT) IHE Encounter Template Text not used by [place] Plan of Treatment: Future Appointments (+ 6 months) and Future Tests (+/- 45 days) The Plan of Treatment section includes future care activities for the patient from [facility] [place] [facility] This section includes future appointments and future orders which are active, pending or scheduled. Future Appointments This section includes appointments that were scheduled to occur 6 months from the date of the Encounter, up to a maximum of 20 appointments. The data comes from all [place] treatment facilities. Appointment Date/Time Appointment Type Appointme nt Facility Name Jun 28, 2023 12:50 PM AMBULATORY - MEDICINE [facility] [place] [place] [facility] Jun 30, 2023 09:00 AM AMBULATORY - REHAB [facility] Jul 11, 2023 02:30 PM AMBULATORY - REHAB MEDICIN [facility] Jul 18, 2023 02:30 PM AMBULATORY - REHAB MEDICIN [facility] Jul 26, 2023 02:30 PM AMBULATORY - REHAB MEDICIN [facility] Aug 02, 2023 02:00 PM AMBULATORY - MEDICINE [facility] Nov 24, 2023 12:30 PM AMBULATORY - MEDICINE [facility] [place] [facility] Nov 24, 2023 03:30 PM AMBULATORY - MEDICINE [facility] [place] [facility] Nov 25, 2023 08:30 AM [facility]AT[facility] - NONE [place] [facility] Social History: Smoking Status (Most current) and Tobacco Use (All prior to encounter date) This section includes the most current, and the historical, smoking and tobacco- related health factors from the [place] facility where the Encounter took place. Current Smoking Status This section includes the most current smoking, or tobacco-related health factor, from the [place] facility where the Encounter took place. Date/Time Current Smoking Status Dilia hinds Feb 24, 2023 10:28 AM [place]-TOBACCO QUIT 15 YRS OR MORE [facility] Tobacco Use History This section includes a history of the smoking, or tobacco-related health factors, that were collected on or before the date of the Encounter. The data comes from the [place] facility where the Encounter took place. Date/Time Smoking Status/Tobacco Use Comment F acility Feb 24, 2023 10:28 AM [place]-TOBACCO QUIT 15 YRS OR MORE [facility] Feb 20, 2014 02:07 PM TOBACCO INPATIENT NO USE 30 DAYS [facility] Advance Directives: All historical and current Section Date Range: From patient's date of to the date document was created. This section includes ALL of a patient's completed or amended [place] Advance and Rescinded Directives. The entries below indicate that a directive exists for the patient, but an actual copy is not included with this document. The data comes from all [facility]. Date Advance Directives Provider Source Feb 20, 2014 ADVANCE DIRECTIVE DISCUSSION KASANDRA HERMAN JR [facility] September 15, 2012 ADVANCE DIRECTIVE ARISTEO LOVELL Encounter Notes: All associated encounter notes This section contains the clinical notes associated to the Encounter. Date/Time Encounter Note(s) Provider Source Jun 08, 2023 08:37 PM ADDENDUM: LOCAL TITLE: Addendum STANDARD TITLE: ADDENDUM DATE OF NOTE: JUN 08, 2023@20:37:49 ENTRY DATE: JUN 08, 2023@20:37:50 AUTHOR: Keaton MELGAR COSIGNER: URGENCY: STATUS: COMPLETED Forwarding to prescribing provider TRAZODONE HCL 100MG TAB TAKE ONE TABLET BY MOUTH AT BEDTIME FOR SLEEP /es/ JARETH MELGAR MD PHYSICIAN Signed: 06/08/2023 20:38 Receipt Acknowledged By: 06/13/2023 13:16 /luis m/ Leonel Chaudhary APRN, STAFF CLINICAL NURSE SPECIALIST === --- Original Document --- 06/08/23 CCC: SCHEDULING ADMINISTRATION: Patient Demographics Patient Name: KODAK CESAR Patient Primary Phone: [phone] Patient Primary Address: [place] [address] Patient : 1945 Patient Age: 77 Caller/Recipient Relation to Patient: Self Administrative Administrative Note Reason: Medication Renewal Medications Refill/Renewal Request: Medication Renewal Request Caller is requesting medication renewal of TOPIRAMATE 25MG TAB TAKE ONE TABLET BY MOUTH ONCE DAILYAT DINNER TIME FOR 1 WEEK, INCREASE BY 1 TABLET UP TO 3 TABLETS AND CONTINUE ATDINNER TIME OXYBUTYNIN CHLORIDE 10MG SA TAB TAKE ONE TABLET BY MOUTH ONCE DAILY TRAZODONE HCL 100MG TAB TAKE ONE TABLET BY MOUTH AT BEDTIME FOR SLEEP Caller is requesting to have prescription renewed and mailed to address on file. Thank you /luis m/ JOAN FUENTES 1 [facility] Signed: 06/08/2023 09:56 Receipt Acknowledged By: 06/10/2023 15:04 /luis m/ BOO SILVA RN REGISTERED NURSE 06/08/2023 20:37 /luis m/ JARETH MELGAR MD PHYSICIAN Keaton MELGAR [place] [facility] Jun 08, 2023 09:55 AM ADMINISTRATIVE NOTE: LOCAL TITLE: CCC: SCHEDULING ADMINISTRATION STANDARD TITLE: ADMINISTRATIVE NOTE DATE OF NOTE: JUN 08, 2023@09:55:53 ENTRY DATE: JUN 08, 2023@09:55:53 AUTHOR: JOAN DEAN COSIGNER: URGENCY: STATUS: COMPLETED CCC: SCHEDULING ADMINISTRATION Has ADDENDA Patient Demographics Patient Name: KODAK CESAR Patient Primary Phone: [phone] Patient Primary Address: [place] [address] Patient : 1945 Patient Age: 77 Caller/Recipient Relation to Patient: Self Administrative Administrative Note Reason: Medication Renewal Medications Refill/Renewal Request: Medication Renewal Request Caller is requesting medication renewal of TOPIRAMATE 25MG TAB TAKE ONE TABLET BY MOUTH ONCE DAILYAT DINNER TIME FOR 1 WEEK, INCREASE BY 1 TABLET UP TO 3 TABLETS AND CONTINUE ATDINNER TIME OXYBUTYNIN CHLORIDE 10MG SA TAB TAKE ONE TABLET BY MOUTH ONCE DAILY TRAZODONE HCL 100MG TAB TAKE ONE TABLET BY MOUTH AT BEDTIME FOR SLEEP Caller is requesting to have prescription renewed and mailed to address on file. Thank you /luis m/ JOAN FUENTES 1 [facility] Signed: 06/08/2023 09:56 Receipt Acknowledged By: 06/10/2023 15:04 /luis m/ BOO SILVA RN REGISTERED NURSE 06/08/2023 20:37 /luis m/ JARETH MELGAR MD PHYSICIAN 06/08/2023 ADDENDUM STATUS: COMPLETED Forwarding to prescribing provider TRAZODONE HCL 100MG TAB TAKE ONE TABLET BY MOUTH AT BEDTIME FOR SLEEP /luis m/ JARETH MELGAR MD PHYSICIAN Signed: 06/08/2023 20:38 Receipt Acknowledged By: * AWAITING SIGNATURE * LEONEL CHAUDHARY JENNIFER A [facility]
--- OUTSIDE RECORDS SUMMARY | 2024-04-03 10:39 | XMS_ITS | Encounter Summary ---
Author Name [place] Address [address] [place] [address] Care Team Providers Care Life Insurance Salesperson Name Role Phone JARETH MELGAR Primary Care [...] Patient's Relationship to Policy Lucia ANURAG [facility] MEDICARE SUPPLEMEN RONNA HAMPS HIRE COUNT Y LASHAE Apr 18, 2014 [id number] KODAK CESAR PATIENT [place] MED[place] SUPPLEMEN RONNA MEDEX 2 Apr 18, 2014 [id number] KODAK CESAR PATIENT [place] MED[place] SUPPLEMEN RONNA MEDEX 2 Apr 18, 2014 [id number] KODAK CESAR PAT[place] SUPPLEMEN RONNA HAMPS HIRE COUNT Y LASHAE Apr 18, 2014 [id number] KODAK CESAR PATIENT [place] SUPPLEMEN RON[place] MEDEX 2 Apr 18, 2014 [id number] KODAK CESAR PATIENT [facility] MEDICARE SUPPLEMEN RONNA LEIFPS HIRE COUNT Y LASHAE Apr 18, 2014 [id number] KODAK CESAR PATIENT [place] SPECIAL [place] August 23, 2023 CAMP LUZMARIA [id number] [phone] KODAK CESAR PATIENT MEDICARE (WNR) MEDICARE () PART A Nov 16, 2012 PART A [id number] MR49 KODAK CESAR PATIENT MEDICARE (WNR) MEDICARE () PART B Nov 16, 2012 PART B [id number] MR49 KODAK CESAR PATIENT MEDICARE (WNR) MEDICARE () PART A Nov 16, 2012 PART A [id number] KODAK CESAR PATIENT MEDICARE (WNR) MEDICARE () PART B Nov 16, 2012 PART B [id number] KODAK CESAR PATIENT MEDICARE (WNR) MEDICARE () PART A Nov 16, 2012 PART A [id number] MR49 [id number] KODAK CESAR PATIENT MEDICARE (WNR) MEDICARE () PART B Nov 16, 2012 PART B [id number] MR49 [id number] KODAK CESAR PATIENT MEDICARE (WNR) MEDICARE () PART A Nov 16, 2012 PART A [id number] KODAK CESAR PATIENT MEDICARE (WNR) MEDICARE () PART B Nov 16, 2012 PART B [id number] [phone] KODAK CESAR PATIENT MEDICARE (WNR) MEDICARE () PART A Nov 16, 2012 PART A [id number] MR49 KODAK CESAR PATIENT MEDICARE (WNR) MEDICARE () PART B Nov 16, 2012 PART B [id number] MR49 KODAK CESAR PATIENT MEDICARE (WNR) MEDICARE () PART A Nov 16, 2012 PART A [id number] MR49 KODAK CESAR PATIENT MEDICARE (WNR) MEDICARE (M) PART B Nov 16, 2012 PART B [id number] MR49 KODAK CESAR PATIENT Selected Encounter This section includes the information on record at [place] for the Encounter. Date/Time Encounter Type Encounter Description Reason Pro vider Source May 18, 2023 11:28 AM Outpatient Encounter ADMIN PAT ACTIVTIES (MASNONCT) IHE Encounter Template Text not used by [place] Plan of Treatment: Future Appointments (+ 6 months) and Future Tests (+/- 45 days) The Plan of Treatment section includes future care activities for the patient from all [place] treatmentfacilities. This section includes future appointments and future orders which are active, pending or scheduled. Future Appointments This section includes appointments that were scheduled to occur 6 months from the date of the Encounter, up to a maximum of 20 appointments. The data comes from all [place] treatment facilities. Appointment Date/Time Appointment Type Appointme nt Facility Name May 27, 2023 07:15 AM AMBULATORY - NONE [place] [facility] [facility] May 27, 2023 07:30 AM AMBULATORY - NONE [place] [facility] [place] [facility] May 30, 2023 03:30 PM [facility] Jun 28, 2023 12:50 PM [facility] [place] [facility] Jun 30, 2023 09:00 AM AMBULATORY - RE[facility]AB [facility] Jul 11, 2023 02:30 PM AMBULATORY - REHAB MEDICIN [facility] Jul 18, 2023 02:30 PM AMBULATORY - [facility]AB [facility] [place] Jul 26, 2023 02:30 PM AMBULATORY - REHAB MEDICIN [facility] Aug 02, 2023 02:00 PM AMBULATORY - MEDICINE [facility] Social History: Smoking Status (Most current) and Tobacco Use (All prior to encounter date) This section includes the most current, and the historical, smoking and tobacco- related health factors from the [place] facility where the Encounter took place. Current Smoking Status This section includes the most current smoking, or tobacco-related health factor, from the [place] facility where the Encounter took place. Date/Time Current Smoking Status Comment Conrad hinds Feb 24, 2023 10:28 AM VA-TOBACCO FORMER USER [facility] Tobacco Use History This section includes a history of the smoking, or tobacco-related health factors, that were collected on or before the date of the Encounter. The data comes from the [place] facility where the Encounter took place. Date/Time Smoking Status/Tobacco Use Comment F acility Feb 24, 2023 10:28 AM [place]-TOBACCO QUIT 15 YRS OR MORE [facility] Feb 20, 2014 02:07 PM TOBACCO INPATIENT NO USE 30 DAYS [facility] Advance Directives: All historical and current Section Date Range: From patient's date of to the date document was created. This section includes ALL of a patient's completed or amended [place] Advance and Rescinded Directives. The entries below indicate that a directive exists for the patient, but an actual copy is not included with this document. The data comes from all [place] facilities. Date Advance Directives Provider Source Feb 20, 2014 ADVANCE DIRECTIVE DISCUSSION KASANDRA HERMAN JR [facility] September 15, 2012 ADVANCE DIRECTIVE ARISTEO LOVELL Encounter Notes: All associated encounter notes This section contains the clinical notes associated to the Encounter. Date/Time Encounter Note(s) Provider Source May 18, 2023 11:28 AM ADMINISTRATIVE NOT E: LOCAL TITLE: CCC: SCHEDULING ADMINISTRATION STANDARD TITLE: ADMINISTRATIVE NOTE DATE OF NOTE: MAY 18, 2023@11:28 ENTRY DATE: MAY 18, 2023@11:28:36 AUTHOR: RL SQUIRES EXP COSIGNER: URGENCY: STATUS: COMPLETED [place] requested to renewal and mail the medication (s) below. APIXABAN TAB,ORAL 5MG /luis m/ RL SQUIRES Signed: 05/18/2023 11:30 Receipt Acknowledged By: 05/21/2023 11:16 /es/ JARETH MELGAR MD PHYSICIAN 05/18/2023 12:10 /es/ RYAN FINN RN REGISTERED NURSE RL SQUIRES [facility]
--- OUTSIDE RECORDS SUMMARY | 2024-04-03 10:39 | XMS_ITS | Encounter Summary ---
Author Name [place] Address [address] [place] [address] Care Team Providers Care Operations Program Manager Name Role Phone JARETH MELGAR Primary [...] Name Patient's Relationship to Policy Lucia ANURAG [facility] MEDICARE SUPPLEMEN RONNA HAMPS HIRE COUNT Y LASHAE Apr 18, 2014 [id number] KODAK CESAR PATIENT [place] MED[place] SUPPLEMEN RONNA MEDEX 2 Apr 18, 2014 [id number] KODAK CESAR PATIENT [place] SUPPLEMEN RONNA MEDEX 2 Apr 18, 2014 [id number] KODAK CESAR [place] SUPPLEMEN RONNA HAMPS HIRE COUNT Y LASHAE Apr 18, 2014 [id number] KODAK CESAR PATIENT [place] MED[place] SUPPLEMEN RONNA MEDEX 2 Apr 18, 2014 [id number] KODAK CESAR PATIENT [place] MED[place] SUPPLEMEN RONNA LEIFPS HIRE COUNT Y LASHAE Apr 18, 2014 [id number] [phone] KODAK CESAR PATIENT [place]WN [place] SPECIAL [place] C[place] August 23, 2023 CAMP LUZMARIA [id number] [phone] KODAK CESAR PATIENT MEDICARE (WNR) MEDICARE () PART B Nov 16, 2012 PART B [id number] MR49 [phone] KODAK CESAR PATIENT MEDICARE (WNR) MEDICARE () PART A Nov 16, 2012 PART A [id number] MR49 KODAK CESAR PATIENT MEDICARE (WNR) MEDICARE () PART A Nov 16, 2012 PART A [id number] KODAK CESAR PATIENT MEDICARE (WNR) MEDICARE () PART B Nov 16, 2012 PART B [id number] KODAK CESAR PATIENT MEDICARE (WNR) MEDICARE () PART A Nov 16, 2012 PART A [id number] [id number] KODAK CESAR PATIENT MEDICARE (WNR) MEDICARE () PART B Nov 16, 2012 PART B [id number] KODAK CESAR PATIENT MEDICARE (WNR) MEDICARE () PART A Nov 16, 2012 PART A [id number] [id number] KODAK CESAR PATIENT MEDICARE (WNR) MEDICARE () PART B Nov 16, 2012 PART B [id number] MR49 [id number] KODAK CESAR PATIENT MEDICARE (WNR) MEDICARE () PART A Nov 16, 2012 PART A [id number] MR49 KODAK CESAR PATIENT MEDICARE (WNR) MEDICARE () PART B Nov 16, 2012 PART B [id number] MR49 [phone] KODAK CESAR PATIENT MEDICARE (WNR) MEDICARE () PART A Nov 16, 2012 PART A [id number] MR49 KODAK CESAR PATIENT MEDICARE (WNR) MEDICARE (M) PART B Nov 16, 2012 PART B [id number] MR49 KODAK CESAR PATIENT Selected Encounter This section includes the information on record at [place] for the Encounter. Date/Time Encounter Type Encounter Description Reason Provider Source May 27, 2023 07:30 AM DENTAL BITEWING FOUR IMAGES DENTAL ICD-10-CM K08.9 Disorder of teeth and supporting structures, unspecified CAMILLE CONN [facility] Encounter Template Text not used by [place] Assessments - Encounter Diagnoses This section includes the primary and secondary diagnoses documented for the Encounter. Date/Time Primary/Secondary Diagnosis Diagnosis Name Provider Source May 27, 2023 11:25 AM PRIMARY Disorder of teeth and supporting structures, unspecified CAMILLE CONN [place] [facility] [place] [facility] Plan of Treatment: Future Appointments (+ 6 months) and Future Tests (+/- 45 days) The Plan of Treatment section includes future care activities for the patient [facility] [place] [facility] This section includes future appointments and future orders which are active, pending or scheduled. Future Appointments This section includes appointments that were scheduled to occur 6 months from the date of the Encounter, up to a maximum of 20 appointments. The data comes from all [place] treatment facilities. Appointment Date/Time Appointment Type Appointme nt Facility Name May 30, 2023 03:30 PM AMBULATORY - MEDICINE [place] [facility] [place] [place] [facility] Jun 28, 2023 12:50 PM AMBULATORY - MEDICINE [place] [facility] [place] [facility] Jun 30, 2023 09:00 AM AMBULATORY - [facility] [place] Jul 11, 2023 02:30 PM AMBULATORY - [facility] [place] Jul 18, 2023 02:30 PM AMBULATORY - [facility] Jul 26, 2023 02:30 PM AMBULATORY - [facility]AB [facility] [place] Aug 02, 2023 02:00 PM AMBULATORY - MEDICINE [facility] Nov 24, 2023 12:30 PM AMBULATORY - MEDICINE [place] [facility] [place] [place] [facility] Nov 24, 2023 03:30 PM AMBULATORY - MEDICINE [place] [facility] [place] [place] [facility] Nov 25, 2023 08:30 AM AMBULATORY - NONE [facility] Vital Signs: All taken on the encounter date This section contains inpatient and outpatient Vital Signs collected on the date of the Encounter. Date/Time Temperature Pulse Blood Pressure Respiratory Rate SP02 Pain Height Weight Body Mass Index Source May 27, 2023 07:21 AM 77 131/76 [facility] Social History: Smoking Status (Most current) and Tobacco Use (All prior to encounter date) This section includes the most current, and the historical, smoking and tobacco- related health factors from the [place] facility where the Encounter took place. Current Smoking Status This section includes the most current smoking, or tobacco-related health factor, from the [place] facility where the Encounter took place. Date/Time Current Smoking Status Comment Facil ity Feb 24, 2023 10:28 [facility] Tobacco Use History This section includes a history of the smoking, or tobacco-related health factors, that were collected on or before the date of the Encounter. The data comes from the [place] facility where the Encounter took place. Date/Time Smoking Status/Tobacco Use Comment F acility Feb 24, 2023 10:28 AM [place]-TOBACCO QUIT 15 YRS OR MORE [facility] Feb 20, 2014 02:07 PM TOBACCO INPATIENT NO USE 30 DAYS [facility] Advance Directives: All historical and current Section Date Range: From patient's date of to the date document was created. This section includes ALL of a patient's completed or amended [place] Advance and Rescinded Directives. The entries below indicate that a directive exists for the patient, but an actual copy is not included with this document. The data comes from all [facility]. Date Advance Directives Provider Source Feb 20, 2014 ADVANCE DIRECTIVE DISCUSSION KASANDRA HERMAN JR [facility] September 15, 2012 ADVANCE DIRECTIVE ARISTEO LOVELL Encounter Notes: All associated encounter notes This section contains the clinical notes associated to the Encounter. Date/Time Encounter Note(s) Provider Source May 27, 2023 11:24 AM DENTISTRY NOTE: LOCAL TITLE: DENTAL NOTE STANDARD TITLE: DENTISTRY NOTE DATE OF NOTE: MAY 27, 2023@11:24 ENTRY DATE: MAY 27, 2023@11:25:16 AUTHOR: CAMILLE CONN COSIGNER: URGENCY: STATUS: COMPLETED Patient Name: KODAK CESAR, : 1945, Age: 77 Visit: V: May 27, 2023@07:30 CWM/NO/DENTAL/DMD3 AM. Primary PCE Diagnosis: K08.9 (DISORDER OF TEETH AND SUPPORTING STRUCTURES, UNSPECIFIED). Dental Category: 15-OPC, Class IV. Treatment Status: Maintenance. Completed Care: (D0120) PERIODIC ORAL EVAL EST. DX: K08.9 Disorder of Teeth and Supporting Structures, unspecified (D0274) DENTAL BITEWING FOUR IMAGES. DX: K08.9 Disorder of Teeth and Supporting Structures, unspecified The patient was identified by full name and social security number Reviewed the patient's medical/dental history, medications and allergies. I performed medication reconciliation within the scope of my practice. All medications related to dentistry are up to date. Discussed above proposed treatment plan. Patient understands and agrees with the treatment plan. Presentation/Chief Complaint: Patient presents for periodic oral evaluation Patient has no dental complaints Vital Signs: Dental Pain (0-10): 0 Blood Pressure (mmHg): 131/76 05/27/2023 07:21 Pulse (BPM): 77 05/27/2023 07:21 Past Medical History and Medications: No significant changes since the last dental visit Intraoral and Extraoral Screening Exam Findings: 05/27/2023 Head and neck assessment with oral cancer screening is negative: no apparent pathology noted. Oral Examination: Oral Health Assessment Findings: Create Date: 05/27/2023 - TRENT RODRIGUEZ Plaque Index: 1 - Slight Xerostomia: 0 - None Caries Risk: 3 - High Oral Hygiene: 3 - Poor Dentition exhibits no apparent evidence of dental pathology at this visit No Significant Tooth Mobility Noted PSR Exam: Create Date: 05/27/2023 - TRENT RODRIGUEZ X-X-X - - - 3-3-3 Periodontal Assessment: Chronic Moderate Generalized Periodontitis Assessment/Plan: No urgent dental needs or acute dental infections noted on examination. No treatment required at this time Disposition: Next visit: recall/prn - - - - - - - - - - - - - - - - - - - - - - - - - - - - - - /es/ CAMILLE CONN DMD Staff Dentist Signed: 05/27/2023 11:25 CAMILLE CONN [place] [facility] [place] [facility] May 27, 2023 10:11 AM DENTISTRY CONSULT: LOCAL TITLE: CONSULT REPORT/DENTAL STANDARD TITLE: DENTISTRY CONSULT DATE OF NOTE: MAY 27, 2023@10:11 ENTRY DATE: MAY 27, 2023@10:11:30 AUTHOR: CAMILLE CONN EXP COSIGNER: URGENCY: STATUS: COMPLETED Current PC Provider: JARETH MELGAR Current PC Team: SASCHA PACT 5 Current Pat. 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 Date: May 27, 2023 DST ID: Orderable Item: DENTAL IMAGING Consult: Consult Request Provisional Diagnosis: Dental Caries, unspecified(ICD-10-CM K02.9) Reason For Request: Orthopan Inter-facility Information This is not an inter-facility consult request. Status: PENDING Last Action: CPRS RELEASED ORDER Facility Activity Date/Time/Zone Responsible Person Entered By CPRS RELEASED ORDER 05/27/23 07:17 TRENT RODRIGUEZ NADEZHDA Note: TIME ZONE is local if not indicated No local GIORGIO results or Medicine results available for this consult ======= END ======== /luis m/ CAMILLE CONN DMD Staff Dentist Signed: 05/27/2023 10:11 CAMILLE CONN [facility] [place] [facility]
--- OUTSIDE RECORDS SUMMARY | 2024-04-03 10:39 | XMS_ITS ---
Author Name [place] Address [address] [place] [address] Care Team Providers Care Media Traffic Manager Name Role Phone JARETH MELGAR Primary [...] to Policy Lucia ANURAG REYES [facility] MEDICARE SUPPLEMEN RONNA HAMPS HIRE COUNT Y LASHAE Apr 18, 2014 [id number] KODAK CESAR PATIENT [place] MED[place] SUPPLEMEN RONNA MEDEX 2 Apr 18, 2014 [id number] KODAK CESAR PATIENT [place] MED[place] SUPPLEMEN RONNA MEDEX 2 Apr 18, 2014 [id number] KODAK CESAR PATIENT [place] SUPPLEMEN RONNA HAMPS HIRE COUNT Y LASHAE Apr 18, 2014 [id number] KODAK CESAR PATIENT [place] MEDICARE SUPPLEMEN RONNA MEDEX 2 Apr 18, 2014 [id number] [phone] KODAK CESAR PATIENT BCBS OF [facility] MEDICARE SUPPLEMEN RONNA HAMPS HIRE COUNT Y LASHAE Apr 18, 2014 [id number] KODAK CESAR PATIENT CAMP [place]WN R [place] SPECIAL [place] August 23, 2023 CAMP LUZMARIA [id number] KODAK CESAR PATIENT MEDICARE (WNR) MEDICARE () PART A Nov 16, 2012 PART A [id number] MR49 KODAK CESAR PATIENT MEDICARE (WNR) MEDICARE () PART B Nov 16, 2012 PART B [id number] MR49 KODAK CESAR PATIENT MEDICARE (WNR) MEDICARE () PART A Nov 16, 2012 PART A [id number] [phone] KODAK CESAR PATIENT MEDICARE (WNR) MEDICARE () PART B Nov 16, 2012 PART B [id number] KODAK CESAR PATIENT MEDICARE (WNR) MEDICARE () PART A Nov 16, 2012 PART A [id number] [phone] KODAK CESAR PATIENT MEDICARE (WNR) MEDICARE () PART B Nov 16, 2012 PART B [id number] KODAK CESAR PATIENT MEDICARE (WNR) MEDICARE () PART A Nov 16, 2012 PART A [id number] MR49 [phone] KODAK CESAR PATIENT MEDICARE (WNR) MEDICARE () PART B Nov 16, 2012 PART B [id number] [id number] KODAK CESAR PATIENT MEDICARE (WNR) MEDICARE () PART A Nov 16, 2012 PART A [id number] MR49 KODAK CESAR PATIENT MEDICARE (WNR) MEDICARE () PART A Nov 16, 2012 PART A [id number] MR49 KODAK CESAR PATIENT MEDICARE (WNR) MEDICARE () PART B Nov 16, 2012 PART B [id number] MR49 KODAK CESAR PATIENT MEDICARE (WNR) MEDICARE (M) PART B Nov 16, 2012 PART B [id number] MR49 KODAK CESAR PATIENT Selected Encounter This section includes the information on record at [place] for the Encounter. Date/Time Encounter Type Encounter Description Reason Pro vider Source May 11, 2023 12:02 PM Outpatient Encounter PRIMARY CARE/MEDICINE IHE Encounter Template Text not used by [place] Plan of Treatment: Future Appointments (+ 6 months) and Future Tests (+/- 45 days) The Plan of Treatment section includes future care activities for the patient [facility] all [place] [facility]. This section includes future appointments and future orders which are active, pending or scheduled. Future Appointments This section includes appointments that were scheduled to occur 6 months from the date of the Encounter, up to a maximum of 20 appointments. The data comes from all [place] treatment facilities. Appointment Date/Time Appointment Type Appointme nt Facility Name May 27, 2023 07:15 AM AMBULATORY - NONE [place] [facility] [place] [facility] May 27, 2023 07:30 AM AMBULATORY - NONE [place] [facility] [place] [facility] May 30, 2023 03:30 PM AMBULATORY - MEDICINE [facility] [place] [facility] Jun 28, 2023 12:50 PM AMBULATORY - MEDICINE [facility] [place] [facility] Jun 30, 2023 09:00 AM AMBULATORY - REHAB MEDICIN [facility] Jul 11, 2023 02:30 PM AMBULATORY - REHAB MEDICIN [facility] Jul 18, 2023 02:30 PM AMBULATORY - REHAB MEDICIN [facility] Jul 26, 2023 02:30 PM AMBULATORY - REHAB MEDICIN [facility] [place] Aug 02, 2023 02:00 PM AMBULATORY - MEDICINE [facility] Social History: Smoking Status (Most current) and Tobacco Use (All prior to encounter date) This section includes the most current, and the historical, smoking and tobacco- related health factors from the [place] facility where the Encounter took place. Current Smoking Status This section includes the most current smoking, or tobacco-related health factor, from the [place] facility where the Encounter took place. Date/Time Current Smoking Status Dilia hinds Feb 24, 2023 10:28 AM VA-TOBACCO FORMER USER [facility] Tobacco Use History This section includes a history of the smoking, or tobacco-related health factors, that were collected on or before the date of the Encounter. The data comes from the [place] facility where the Encounter took place. Date/Time Smoking Status/Tobacco Use Comment F acility Feb 24, 2023 10:28 AM [place]-TOBACCO QUIT 15 YRS OR MORE [facility] Feb 20, 2014 02:07 PM TOBACCO INPATIENT NO USE 30 DAYS [facility] Advance Directives: All historical and current Section Date Range: From patient's date of to the date document was created. This section includes ALL of a patient's completed or amended [place] Advance and Rescinded Directives. The entries below indicate that a directive exists for the patient, but an actual copy is not included with this document. The data comes from all [place] facilities. Date Advance Directives Provider Source Feb 20, 2014 ADVANCE DIRECTIVE DISCUSSION KASANDRA HERMAN JR [facility] September 15, 2012 ADVANCE DIRECTIVE ARISTEO LOVELL Encounter Notes: All associated encounter notes This section contains the clinical notes associated to the Encounter. Date/Time Encounter Note(s) Provider Source May 11, 2023 12:02 PM PRIMARY CARE NOTE: LOCAL TITLE: WALK-IN NOTE PRIMARY CARE (T) STANDARD TITLE: PRIMARY CARE NOTE DATE OF NOTE: MAY 11, 2023@12:02 ENTRY DATE: MAY 11, 2023@12:02:14 AUTHOR: SAM HERNANDEZ COSIGNER: URGENCY: STATUS: COMPLETED WALK-IN NOTE PRIMARY CARE (T) Has ADDENDA <====Click to Start Advanced Medical Support presents to the Primary Care clinic with the following request: [ ]Medication Renewal/Refill [ ]Consultation with Team RN [ ]Symptoms [ X ]Other The states they are: [ ]Waiting [ X ]Not Waiting No Walk in visit scheduled with PACT Nurse [ X ] At this encounter the 's demographics were verified. [ X ] At this encounter the [place]'s Insurance information was verified. [ X ] At this encounter the below scheduled visits for the were discussed and appointment reminder card was offered. IS REQUESTING CD IMAGING THAT WAS DROPPED OFF A FEW WEEKS TO PACT 5 PROVIDER. Future appointments: 05/27/2023 07:15 CWM/NO/DENTAL/RDH2 AM 08/19/2023 10:00 CWM/SO/PACT 5 /luis m/ ZAK HERNANDEZ ADVANCED CHEMICAL RESEARCH ENGINEER Signed: 05/11/2023 12:03 Receipt Acknowledged By: 05/11/2023 12:26 /luis m/ RYAN FINN RN REGISTERED NURSE 05/11/2023 13:45 /luis m/ BYRON LOVING LPN LPN 05/11/2023 ADDENDUM STATUS: COMPLETED See other note from today (05/11/23). /luis m/ RYAN FINN RN REGISTERED NURSE Signed: 05/11/2023 12:27 05/11/2023 ADDENDUM STATUS: COMPLETED contacted and made aware that disc is here and he can come pick it up. [place] reports he will come pick it up tomorrow morning, from the Production Analyst. /luis m/ BYRON LOVING LPN LPN Signed: 05/11/2023 13:49 ZAK HERNANDEZ
--- OUTSIDE RECORDS SUMMARY | 2024-04-03 10:39 | XMS_ITS | Encounter Summary ---
Author Name [facility] [place] Address [address] [place] [address] Care Team Providers Care Manager Heavy Equipment Name Role Phone JARETH MELGAR Primary Care [...] Name Patient's Relationship to Policy Lucia [facility] MEDIC[facility] SUPPLEMEN RONNA HAMPS HIRE COUNT Y LASHAE Apr 18, 2014 [id number] KODAK CESAR PATIENT [place] SUPPLEMEN RONNA MEDEX 2 Apr 18, 2014 [id number] KODAK CESAR PATIENT [place] MED[place] SUPPLEMEN RONNA MEDEX 2 Apr 18, 2014 [id number] KODAK CESAR [place] SUPPLEMEN [place] MEDEX 2 Apr 18, 2014 [id number] KODAK CESAR PATIENT [place] SUPPLEMEN RONNA HAMPS HIRE COUNT Y LASHAE Apr 18, 2014 [id number] [phone] KODAK CESAR PATIENT [place] MED[place] SUPPLEMEN RONNA LEIFPS HIRE COUNT Y LASHAE Apr 18, 2014 [id number] [phone] KODAK CESAR PATIENT [facility] [place] [facility] [place] August 23, 2023 CAMP LUZMARIA [id number] [phone] KODAK CESAR PATIENT MEDICARE (WNR) MEDICARE () PART A Nov 16, 2012 PART A [id number] MR49 KODAK CESAR PATIENT MEDICARE (WNR) MEDICARE () PART B Nov 16, 2012 PART B [id number] MR49 KODAK CESAR PATIENT MEDICARE (WNR) MEDICARE () PART A Nov 16, 2012 PART A [id number] KODAK CESAR PATIENT MEDICARE (WNR) MEDICARE () PART A Nov 16, 2012 PART A [id number] KODAK CESAR PATIENT MEDICARE (WNR) MEDICARE () PART B Nov 16, 2012 PART B [id number] KODAK CESAR PATIENT MEDICARE (WNR) MEDICARE () PART B Nov 16, 2012 PART B [id number] [phone] KODAK CESAR PATIENT MEDICARE (WNR) MEDICARE () PART A Nov 16, 2012 PART A [id number] [id number] [phone] KODAK CESAR PATIENT MEDICARE (WNR) MEDICARE () PART B Nov 16, 2012 PART B [id number] MR49 KODAK CESAR PATIENT MEDICARE (WNR) MEDICARE () PART A Nov 16, 2012 PART A [id number] MR49 [phone] KODAK CESAR PATIENT MEDICARE (WNR) MEDICARE () PART B Nov 16, 2012 PART B [id number] MR49 KODAK CESAR PATIENT MEDICARE (WNR) MEDICARE () PART A Nov 16, 2012 PART A [id number] MR49 KODAK CESAR PATIENT MEDICARE (WNR) MEDICARE (M) PART B Nov 16, 2012 PART B [id number] MR49 KODAK CESAR PATIENT Selected Encounter This section includes the information on record at [place] for the Encounter. Date/Time Encounter Type Encounter Description Reason Provider Source May 27, 2023 07:15 AM CLEAN/INSPECT ANDRE PART DENT DENTAL ICD-10-CM K03.6 Deposits [accretions] on teeth BELYSHEV,NADEZ HDA IHE Encounter Template Text not used by [place] Assessments - Encounter Diagnoses This section includes the primary and secondary diagnoses documented for the Encounter. Date/Time Primary/Secondary Diagnosis Diagnosis Name Provider Source May 27, 2023 11:20 AM PRIMARY Deposits [accretions] on teeth BELYSHEV,NADESTEFANIA HDA [facility] Plan of Treatment: Future Appointments (+ 6 months) and Future Tests (+/- 45 days) The Plan of Treatment section includes future care activities for the [facility] [place] [facility] This section includes future appointments and [...] 30, 2023 03:30 PM AMBULATORY - MEDICINE [facility] [place] [facility] Jun 28, 2023 12:50 PM AMBULATORY - MEDICINE [facility] [place] [facility] Jun 30, 2023 09:00 AM AMBULATORY - REHAB MEDICIN [facility] Jul 11, 2023 02:30 PM AMBULATORY - REHAB MEDICIN [facility] Jul 18, 2023 02:30 PM AM[facility]ULATORY - [facility] [place] Jul 26, 2023 02:30 PM AMBULATORY - [facility] [place] Aug 02, 2023 02:00 PM AMBULATORY - MEDICINE [facility] Nov 24, 2023 12:30 PM AMBULATORY - MEDICINE [facility] [place] [facility] Nov 24, 2023 03:30 PM AMBULATORY - MEDICINE [facility] [facility] Nov 25, 2023 08:30 AM AMBULATORY - NONE [facility] Vital Signs: All taken on the encounter date This section contains inpatient and outpatient Vital Signs collected on the date of the Encounter. Date/Time Temperature Pulse Blood Pressure Respiratory Rate SP02 Pain Height Weight Body Mass Index Source May 27, 2023 07:21 AM 77 131/76 [facility] Social History: Smoking Status (Most [...] Facil ity Feb 24, 2023 10:28 AM [place]-TOBACCO FORMER USER [facility] Tobacco Use History This section includes a history of the smoking, or tobacco-related health factors, that were collected on or before the date of the Encounter. The data comes from the [place] facility where the Encounter took place. Date/Time Smoking Status/Tobacco Use Comment F acility Feb 24, 2023 10:28 AM [place]-TOBAC[place] QUIT 15 YRS OR MORE [facility] Feb 20, 2014 02:07 PM TOBACCO INPATIENT NO USE 30 DAYS [facility] Advance Directives: All historical and current Section [...] 2014 ADVANCE DIRECTIVE DISCUSSION KASANDRA HERMAN JR [facility] September 15, 2012 ADVANCE DIRECTIVE ARISTEO LOVELL Encounter Notes: All associated encounter notes This section contains the clinical notes associated to the Encounter. Date/Time Encounter Note(s) Provider Source May 27, 2023 11:17 AM DENTISTRY NOTE: LOCAL TITLE: DENTAL NOTE STANDARD TITLE: DENTISTRY NOTE DATE OF NOTE: MAY 27, 2023@11:17 ENTRY DATE: MAY 27, 2023@11:20:11 AUTHOR: TRENT RODRIGUEZ EXP COSIGNER: URGENCY: STATUS: COMPLETED Patient Name: KODAK CESAR, : 1945, Age: 77 Visit: S: May 27, 2023@07:15 CWM/NO/DENTAL/RDH2 AM. Primary PCE Diagnosis: K03.6 (Deposits [accretions] on teeth). Dental Category: 15-OPC, Class IV. Treatment Status: Maintenance. Completed Care: (D1110) DENTAL PROPHYLAXIS ADULT. DX: K03.6 Deposits [Accretions] on Teeth (D1206) TOPICAL FLUORIDE VARNISH. DX: K03.6 Deposits [Accretions] on Teeth (D1330) ORAL HYGIENE INSTRUCTION. DX: K03.6 Deposits [Accretions] on Teeth (D9994) CASE MGMT-ORAL HEALTH LIT. DX: K03.6 Deposits [Accretions] on Teeth (D9932) CLEAN/INSPECT MAX COMP DENT. DX: K03.6 Deposits [Accretions] on Teeth (D9935) CLEAN/INSPECT ANDRE PART DENT. DX: K03.6 Deposits [Accretions] on Teeth Periodontal Screening/Recording (PSR): X-X-X - - - 3-3-3 TIME OUT/Safety goals were verified immediately prior to the procedure. (Correct patient, procedure, site, position) Full name and date used. STERILIZATION MONITOR IN INSTRUMENT PACK CHECKED AND CONFIRMED CC: NONE PAST MEDICAL HISTORY: Reviewed, no contraindications for treatment LAST RADIOGRAPHS: PANO 12/06 BWX 12/06 NEW RADIOGRAPHS: 5 pa SOFT TISSUE SCREENING: no abnormalities noted EXAMINATION: Dr Early see dr chan ORAL HYGIENE ASSESSMENT: plaque light stain light PERIODONTAL ASSESSMENT: calculus light inflamation moderate bop moderate probing deepth 2-4 mm recession general REVIEWED ORAL HEALTH REPORT: CARIES RISK: moderate GUM DISEASE: high ORAL CANCER RISK: low DENTAL TREATMENT PROVIDED: PROPHYLAXIS: hand scaling, piezo, croatian CLEAN/INSPECT MAX COMP DENT. CLEAN/INSPECT ANDRE PART DENT. TOPICAL FLUORIDE APPLICATION - V[place] pre post procedular rinse 30 sec ORAL HYGIENE INSTRUCTIONS GIVEN TO PATIENT: review cervical brushing technique recomended 2 times a day, review flossing technique 2 times a day. Explain importance of daily plaque removal. Discuss possible cause of recession. DISPOSITION: 6 MONTHS RECARE - - - - - - - - - - - - - - - - - - - - - - - - - - - - - - NV: 6 mo recall /luis m/ TRENT RODRIGUEZ RDH RD, DENTAL SERVICE Signed: 05/27/2023 11:20 TRENT RODRIGUEZ [facility]
--- OUTSIDE RECORDS SUMMARY | 2024-04-03 10:40 | XMS_ITS | Encounter Summary ---
Author Name [facility] [place] Address [address] [place] [address] Care Team Providers Care Director Of Automation Name Role Phone JARETH MELGAR Primary Care [...] Patient's Relationship to Policy Lucia ANURAG [facility] MEDICARE SUPPLEMEN RONNA HAMPS HIRE COUNT Y LASHAE Apr 18, 2014 [id number] KODAK CESAR PATIENT [place] MEDICARE SUPPLEMEN RONNA MEDEX 2 Apr 18, 2014 [id number] KODAK CEASR PATIENT [place] SUPPLEMEN RONNA MEDEX 2 Apr 18, 2014 [id number] [phone] KODAK CESAR PATIENT [place] SUPPLEMEN RONNA HAMPS HIRE COUNT Y LASHAE Apr 18, 2014 [id number] KODAK CESAR PATIENT [place] SUPPLEMEN RONNA MEDEX 2 Apr 18, 2014 [id number] KODAK CESAR PATIENT [facility] [place] MEDICARE SUPPLEMEN RONNA LEIFPS HIRE COUNT Y LASHAE Apr 18, 2014 [id number] [phone] KODAK CESAR PATIENT [place]WN [place] [facility] [place] [place] August 23, 2023 CAMP LUZMARIA [id number] KODAK CESAR PATIENT MEDICARE (WNR) MEDICARE () PART A Nov 16, 2012 PART A [id number] MR49 [phone] KODAK CESAR PATIENT MEDICARE (WNR) MEDICARE () PART B Nov 16, 2012 PART B [id number] MR49 KODAK CESAR PATIENT MEDICARE (WNR) MEDICARE () PART A Nov 16, 2012 PART A [id number] [phone] KODAK CESAR PATIENT MEDICARE (WNR) MEDICARE () PART B Nov 16, 2012 PART B [id number] KODAK CESAR PATIENT MEDICARE (WNR) MEDICARE () PART A Nov 16, 2012 PART A [id number] MR49 [id number] KODAK CESAR PATIENT MEDICARE (WNR) MEDICARE () PART B Nov 16, 2012 PART B [id number] [id number] [phone] KODAK CESAR PATIENT MEDICARE (WNR) MEDICARE () PART A Nov 16, 2012 PART A [id number] KODAK CESAR PATIENT MEDICARE (WNR) MEDICARE () PART B Nov 16, 2012 PART B [id number] KODAK CESAR PATIENT MEDICARE (WNR) MEDICARE () PART A Nov 16, 2012 PART A [id number] MR49 KODAK CESAR PATIENT MEDICARE (WNR) MEDICARE () PART B Nov 16, 2012 PART B [id number] MR49 KODAK CESAR PATIENT MEDICARE (WNR) MEDICARE () PART A Nov 16, 2012 PART A [id number] MR49 KODAK CESAR PATIENT MEDICARE (WNR) MEDICARE (M) PART B Nov 16, 2012 PART B [id number] MR49 KODAK CESAR PATIENT Selected Encounter This section includes the information on record at [place] for the Encounter. Date/Time Encounter Type Encounter Description Reason Pro vider Source Jun 28, 2023 02:48 PM Outpatient Encounter ADMIN PAT ACTIVTIES (MASNONCT) IHE Encounter Template Text not used by [place] Plan of Treatment: Future Appointments (+ 6 months) and Future Tests (+/- 45 days) The Plan of Treatment section includes future care activities for the patient from all [place] treatmentfacilities. This section includes future appointments and future orders which are active, pending or scheduled. Future Appointments This section includes appointments that were scheduled to occur 6 months from the date of the Encounter, up to a maximum of 20 appointments. The data comes from all [place] treatment [facility]. Appointment Date/Time Appointment Type Appointme nt Facility Name Jun 30, 2023 09:00 AM AMBULATORY - [facility] [place] Jul 11, 2023 02:30 PM AMBULATORY - RE[facility]AB [facility] [place] Jul 18, 2023 02:30 PM AMBULATORY - RE[facility]AB [facility] [place] Jul 26, 2023 02:30 PM AMBULATORY - RE[facility]AB [facility] [place] Aug 02, 2023 02:00 PM AMBULATORY - MEDICINE [facility] Nov 24, 2023 12:30 PM AM[place]UL[place]ORY [place] [facility] Nov 24, 2023 03:30 PM AM[facility]ULATORY - [place]IC[place] [facility] Nov 25, 2023 08:30 AM [facility] Active, Pending, and Scheduled Orders This section includes a listing of several types of active, pending, and scheduled orders, including clinic medications orders, diagnostic test orders, procedure orders and consult orders; where the start date of the order is 45 days before the date of the Encounter or 45 days after the date of theEncounter. The data comes from all [facility]. Test Date/Time Test Type Test Details Facility Name Aug 02, 2023 12:00 AM Laboratory - Chemi amy Order MICROALBUMIN CREATININE RATIO PANEL URINE (RANDOM) [facility] [place] Aug 02, 2023 12:00 AM Laboratory - Chemi stry Order BASIC METABOLIC PANEL (non-fasting) BLOOD (SST-SERUM) [facility] Aug 02, 2023 12:00 AM Laboratory - Chemi stry Order LIPID PANEL, NON FASTING BLOOD (SST-SERUM) [facility] Aug 02, 2023 12:00 AM Laboratory - Chemi stry Order LIVER FUNCTION BLOOD (SST-SERUM) [facility] Aug 02, 2023 12:00 AM Laboratory - Chemi stry Order TSH BLOOD (SST-SERUM) [facility] Aug 02, 2023 12:00 AM Laboratory - Chemi stry Order PSA BLOOD (SST-SERUM) [facility] Aug 02, 2023 12:00 AM Laboratory - Chemi stry Order HEMOGLOBIN A1C PANEL BLOOD (LAV-BLOOD) [facility] Aug 02, 2023 12:00 AM Laboratory - Chemi stry Order CBC AND DIFF (AUTO) BLOOD (LAV-BLOOD) [facility] Social History: Smoking Status (Most current) and Tobacco Use (All prior to encounter date) This section includes the most current, and the historical, smoking and tobacco- related health factors from the [place] facility where the Encounter took place. Current Smoking Status This section includes the most current smoking, or tobacco-related health factor, from the [place] facility where the Encounter took place. Date/Time Current Smoking Status Comment Facil ity Feb 24, 2023 10:28 AM [place]-TOBACCO FORMER USER [facility] Tobacco Use History This section includes a history of the smoking, or tobacco-related health factors, that were collected on or before the date of the Encounter. The data comes from the [place] facility where the Encounter took place. Date/Time Smoking Status/Tobacco Use Comment F acility Feb 24, 2023 10:28 AM [place]-TOBACCO QUIT 15 YRS OR MORE [facility] Feb 20, 2014 02:07 PM TOBACCO INPATIENT NO USE 30 DAYS [facility] Advance Directives: All historical and current Section Date Range: From patient's date of to the date document was created. This section includes ALL of a patient's completed or amended [place] Advance and Rescinded Directives. The entries below indicate that a directive exists for the patient, but an actual copy is not included with this document. The data comes from all [place] facilities. Date Advance Directives Provider Source Feb 20, 2014 ADVANCE DIRECTIVE DISCUSSION KASANDRA HERMAN JR [facility] September 15, 2012 ADVANCE DIRECTIVE ARISTEO LOVELL Encounter Notes: All associated encounter notes This section contains the clinical notes associated to the Encounter. Date/Time Encounter Note(s) Provider Source Jun 28, 2023 02:49 PM ADMINISTRATIVE NOT E: LOCAL TITLE: CCC: SCHEDULING ADMINISTRATION STANDARD TITLE: ADMINISTRATIVE NOTE DATE OF NOTE: JUN 28, 2023@14:49:07 ENTRY DATE: JUN 28, 2023@14:49:07 AUTHOR: PARRISH MACK EXP COSIGNER: URGENCY: STATUS: COMPLETED Patient Demographics Patient Name: KODAK CESAR Patient Primary Phone: [phone] Patient Primary Address: [address] [place] [address] [place] [address] Patient : 1945 Patient Age: 77 Caller/Recipient Relation to Patient: Self Administrative Administrative Note Reason: Medication Renewal Medications Refill/Renewal Request: Rx #[id number] - ROSUVASTATIN CA 40MG TAB Administrative Note Comments: Mail to address on file /luis m/ PARRISH MACK VISSamm [facility] Signed: 06/28/2023 14:49 Receipt Acknowledged By: 06/30/2023 11:53 /es/ BOO SILVA RN REGISTERED NURSE 06/29/2023 01:02 /es/ JARETH MELGAR MD PHYSICIAN PARRISH MACK [facility]
--- OUTSIDE RECORDS SUMMARY | 2024-04-03 10:40 | XMS_ITS | Encounter Summary ---
Author Name [facility] [place] Address [address] [place] [address] Care Team Providers Care Promotions Firm Accounts Manager Name Role Phone JARETH MELGAR Primary [...] Name Patient's Relationship to Policy Lucia ANURAG [facility] MEDICARE SUPPLEMEN RONNA HAMPS HIRE COUNT Y LASHAE Apr 18, 2014 [id number] [phone] KODAK CESAR PATIENT [place] MEDIC[place] SUPPLEMEN [place]ON[place] MEDEX 2 Apr 18, 2014 [id number] KODAK CESAR PATIENT [place] MED[place] SUPPLEMEN [place] MEDEX 2 Apr 18, 2014 [id number] KODAK CESAR PATIENT [place] MED[place] SUPPLEMEN [place] MEDEX 2 Apr 18, 2014 [id number] KODAK CESAR PATIENT BS [place] MEDICARE SUPPLEMEN RONNA HAMPS HIRE COUNT Y LASHAE Apr 18, 2014 [id number] KODAK CESAR PATIENT [place] [facility] RONNA HAMPS HIRE COUNT Y LASHAE Apr 18, 2014 [id number] [phone] KODAK CESAR PATIENT CAMP LUZMARIA-WN R [place] SPECIAL CLASS CAMP [place] August 23, 2023 NING DUTTA [id number] KODAK CESAR PATIENT MEDICARE (WNR) MEDICARE () PART A Nov 16, 2012 PART A [id number] MR49 KODAK CESAR PATIENT MEDICARE (WNR) MEDICARE () PART B Nov 16, 2012 PART B [id number] MR49 KODAK CESAR PATIENT MEDICARE (WNR) MEDICARE () PART A Nov 16, 2012 PART A [id number] KODAK CESAR PATIENT MEDICARE (WNR) MEDICARE () PART A Nov 16, 2012 PART A [id number] 97A KODAK CESAR PATIENT MEDICARE (WNR) MEDICARE () PART B Nov 16, 2012 PART B [id number] 97A KODAK CESAR PATIENT MEDICARE (WNR) MEDICARE () PART B Nov 16, 2012 PART B [id number] KODAK CESAR PATIENT MEDICARE (WNR) MEDICARE () PART A Nov 16, 2012 PART A [id number] [id number] [phone] KODAK CESAR PATIENT MEDICARE (WNR) MEDICARE () PART B Nov 16, 2012 PART B [id number] MR49 KODAK CESAR PATIENT MEDICARE (WNR) MEDICARE () PART A Nov 16, 2012 PART A [id number] MR49 [phone] KODAK CESAR PATIENT MEDICARE (WNR) MEDICARE () PART B Nov 16, 2012 PART B [id number] MR49 KODAK CESAR PATIENT MEDICARE (WNR) MEDICARE () PART A Nov 16, 2012 PART A [id number] MR49 KODAK CESAR PATIENT MEDICARE (WNR) MEDICARE (M) PART B Nov 16, 2012 PART B [id number] MR49 KODAK CESAR PATIENT Selected Encounter This section includes the information on record at [place] for the Encounter. Date/Time Encounter Type Encounter Description Reason Provider Source Jun 30, 2023 09:00 AM SELF CARE MNGMENT TRAINING PHYSICAL THERAPY ICD-10-CM M25.551 Pain in right hip BEULAHMILIND ABDUL [facility] Encounter Template Text not used by [place] Assessments - Encounter Diagnoses This section includes the primary and secondary diagnoses documented for the Encounter. Date/Time Primary/Secondary Diagnosis Diagnosis Name Provider Source Jul 13, 2023 08:57 AM PRIMARY Pain in right hip BEULAHMILIND ABDUL [facility] Plan of Treatment: Future Appointments (+ 6 [...] The data comes from all [place] treatment facilities. Appointment Date/Time Appointment Type Appointme nt Facility Name Jul 11, 2023 02:30 PM AMBULATORY [facility] Jul 18, 2023 02:30 [facility] Jul 26, 2023 02:30 PM [facility] - [facility]AB [facility] Aug 02, 2023 02:00 PM AMBULATORY - MEDICINE [facility] Nov 24, 2023 12:30 PM AMBULATORY [place]ICINE [place] [facility] Nov 24, 2023 03:30 PM AMBULATORY - MEDICINE [place] [facility] Nov 25, 2023 08:30 AM AMBULATORY - NONE [place] [facility] Active, Pending, and Scheduled Orders This section includes a listing of several types of active, pending, and scheduled orders, including clinic medications orders, diagnostic test orders, procedure orders and consult orders; where the start date of the order is 45 days before the date of the Encounter or 45 days after the date of theEncounter. The data comes from all [place] treatment facilities. Test Date/Time Test Type Test Details Facility Name Aug 02, 2023 12:00 AM Laboratory - Chemi stry Order MICROALBUMIN CREATININE RATIO PANEL URINE (RANDOM) [facility] Aug 02, 2023 12:00 AM Laboratory - Chemi stry Order BASIC METABOLIC PANEL (non-fasting) BLOOD (SST-SERUM) [facility] Aug 02, 2023 12:00 AM Laboratory - Chemi stry Order LIPID PANEL, NON FASTING BLOOD (SST-SERUM) [facility] Aug 02, 2023 12:00 AM Laboratory - Chemi stry Order LIVER FUNCTION BLOOD (SST-SERUM) [facility] Aug 02, 2023 12:00 AM Laboratory - Chemi stry Order CBC AND DIFF (AUTO) BLOOD (LAV-BLOOD) [facility] Aug 02, 2023 12:00 AM Laboratory - Chemi stry Order HEMOGLOBIN A1C PANEL BLOOD (LAV-BLOOD) [facility] Aug 02, 2023 12:00 AM Laboratory - Chemi stry Order TSH BLOOD (SST-SERUM) [facility] Aug 02, 2023 12:00 AM Laboratory - Chemi stry Order PSA BLOOD (SST-SERUM) [facility] Social History: Smoking Status (Most current) [...] Current Smoking Status Comment Facil ity Feb 23, 2022 02:00 PM VA-TOBACCO QUIT 15 YRS OR MORE [facility] Tobacco Use History This section includes a history of the smoking, or tobacco-related health factors, that were collected on or before the date of the Encounter. The data comes from the [place] facility where the Encounter took place. Date/Time Smoking Status/Tobacco Use Comment F acility Feb 23, 2022 02:00 PM VA-TOBACCO QUIT 15 YRS OR MORE [facility] Feb 23, 2021 01:30 PM VA-TOBACCO FORMER USER [facility] Feb 23, 2021 01:30 PM VA-TOBACCO QUIT 15 YRS OR MORE [facility] Jan 29, 2020 10:00 AM VA-TOBACCO FORMER USER [facility] Jan 29, 2020 10:00 AM VA-TOBACCO QUIT 5 TO < 15 YRS [facility] Jun 27, 2018 10:40 AM VA-TOBACCO FORMER USER [facility] Jun 27, 2018 10:40 AM VA-TOBACCO QUIT 15 YRS OR MORE [place] Jan 10, 2018 01:34 PM QUIT TOBACCO USE > 7 YEARS AGO [facility] Jun 01, 2016 08:49 AM LIFETIME NON-TOBACCO USER [facility] May 12, 2015 08:23 AM QUIT TOBACCO USE > 7 YEARS AGO quit > 30 yrs ago [facility] Nov 14, 2007 02:44 PM QUIT TOBACCO USE > 7 YEARS AGO Patient states he quit smoking in 1982. [place] Advance Directives: All historical and current Section [...] 20, 2014 ADVANCE DIRECTIVE DISCUSSION KASANDRA [facility] [place] [place] [facility] September 15, 2012 ADVANCE DIRECTIVE ARISTEO LOVELL Encounter Notes: All associated encounter notes This section contains the clinical notes associated to the Encounter. Date/Time Encounter Note(s) Provider Source Jun 30, 2023 09:35 AM PHYSICAL THERAPY I NITIAL EVALUATION NOTE: LOCAL TITLE: PHYSICAL THERAPY INITIAL NOTE STANDARD TITLE: PHYSICAL THERAPY INITIAL EVALUATION NOTE DATE OF NOTE: JUN 30, 2023@09:35 ENTRY DATE: JUN 30, 2023@09:35:33 AUTHOR: VAN RIOJAS COSIGNER: URGENCY: STATUS: COMPLETED Initial Evaluation date: 06/30/23 Treatment #: eval Treatment time: 38 min Diagnosis: Pain in right Hip (ICD-10-CM M25.551) (Primary) Provider: ROB Quinteros. identified by full name and [place] presents with a written prescription external from the [place] from Sen Waggoner PA-C at [facility] dated 05/31/23. He was diagnosed with iliopsoas tendonitis right side with recommendation to perform PT for 4-6 weeks. SUBJECTIVE: Enterprise states he initially injured his right hip in February 2023 from an unknown cause. He trialed 2 visits of physical therapy in early 2023 and felt the region was too painful to continue with exercise based PT. He received a hip injection two days ago and pain has reduced to a 0/10 today. He describes the injection being placed near the anterior hip, inside the joint. Pain can increase to a 4/10 at night but overall he is very pleased with the reduction in symptoms. He is hoping to begin PT to strength the muscles and tendons. Date of onset: Feb 2023 (x) Gradual ( ) Rapid MARCOS: ? Since onset: ( ) Worsening (x) Improving ( ) Staying the same C/O: (x) Pain: Right hip ( ) ROM: ( ) Strength: ( ) Sensation: Pain 0-10: Current 0/10; worst 4/10 Pt. goal: Strengthen the muscles and hip tendon OBJECTIVE: BP: 129/83 HR: 83 bpm Observation: Ambulates without a visible limp LE Neuro Screen: (R) (L) Reflexes: (0, 1+, 2+, 3+, 4+) L4 Patellar 2+ 2+ S1 Achilles 2+ 2+ Myotomes: See MMT Dermatomes: (N=Normal, D=Diminished) L1 Inguinal N N L2 Lat thigh N N L3 Medial knee N N L4 Great toe N N L5 2nd toe N N S1 Pinkey toe N N S2 Post thigh N N LE Neural Tension Sitting slump (-) (-) ROM: AROM: (R) (L) PROM (R) (L) *Pain Hip flex: 122 120 Prone IR: 40 30 Prone ER: 55 60 MMT / Myotomes (R) (L) *pain Hip flex L2 5 5 Int rot: 4 4 Ext rot: 4 4 Abduction: 4 4 Knee flex L5: 5 5 Extension L3 5 5 Hip Special Tests Scour test (-) (-) FADDIR Test (-) (-) Trendelenburg (-) (-) (Sn .73 Sp .77) SANDRO test (-) (-) SLS Greater than 5 seconds bilaterally ASSESSMENT: is a 77 year old presenting to PT with a history of right hip pain that has improved due to a recent injection. Suspect he was suffering from irritation to the surrounding hip tendons and possible labral tissues. Range of motion and strength was encouraging as he does not appear to demonstrate a capsular pattern consistent with compromising osteoarthritis. He should respond well with conservative PT. GOALS: 1.)Pain no greater than a 2/10 2.)30 minutes of cardio daily 3.)10 seconds of SLS 4.)Hip strength at least a 4+/5 5.)Rx HEP in 4 visits PLAN OF CARE: Aerobic exercises such as cycling, nu step, walking. Gentle hip flexor and ITB stretches. Gluteal and lateral hip strengthening. Balance and proprioception training. Modalities as required. 4 appointments scheduled. TODAYS TREATMENT: Edu on pathology and plan of care. Encouraged regular walking or cycling for joint health. Thank you for this consultation and allowing [...] plateaued in progress. /luis m/ VAN RIOJAS DPStella Physical Therapist Signed: 06/30/2023 09:55 VAN RIOJAS [facility]
--- OUTSIDE RECORDS SUMMARY | 2024-04-03 10:40 | XMS_ITS | Encounter Summary ---
Author Name [facility] [place] Organization [place] Address [address] [place] [id number] Care Team Providers [facility] Name Role Phone JARETH MELGAR Primary Care [...] Name Patient's Relationship to Policy Lucia [facility]AG [facility] MEDIC[facility] SUPPLEMEN RONNA HAMPS HIRE COUNT Y LASHAE Apr 18, 2014 [id number] KODAK CESAR PATIENT BCBS [place] MEDICARE SUPPLEMEN RONNA MEDEX 2 Apr 18, 2014 [id number] KODAK CESAR PATIENT BCBS [place] MEDICARE SUPPLEMEN RONNA MEDEX 2 Apr 18, 2014 [id number] [phone] KODAK CESAR PATIENT [place] MEDICARE SUPPLEMEN RONNA HAMPS HIRE COUNT Y LASHAE Apr 18, 2014 [id number] KODAK CESAR PATIENT BCBS [place] MEDICARE SUPPLEMEN RONNA MEDEX 2 Apr 18, 2014 [id number] KODAK CESAR [place] SUPPLEMEN RONNA LEIFPS HIRE COUNT Y LASHAE Apr 18, 2014 [id number] KODAK CESAR PATIENT CAMP LUZMARIA-WN R [place] SPECIAL CLASS CAMP [place] August 23, 2023 NING DUTTA [id number] [phone] KODAK CESAR PATIENT MEDICARE (WNR) MEDICARE () PART B Nov 16, 2012 PART B [id number] MR49 KODAK CESAR PATIENT MEDICARE (WNR) MEDICARE () PART A Nov 16, 2012 PART A [id number] [id number] [phone] KODAK CESAR PATIENT MEDICARE (WNR) MEDICARE () PART A Nov 16, 2012 PART A [id number] KODAK CESAR PATIENT MEDICARE (WNR) MEDICARE () PART B Nov 16, 2012 PART B [id number] KODAK CESAR PATIENT MEDICARE (WNR) MEDICARE () PART A Nov 16, 2012 PART A [id number] [phone] KODAK CESAR PATIENT MEDICARE (WNR) MEDICARE () PART B Nov 16, 2012 PART B [id number] [phone] KODAK CESAR PATIENT MEDICARE (WNR) MEDICARE () PART A Nov 16, 2012 PART A [id number] MR49 KODAK CESAR PATIENT MEDICARE (WNR) MEDICARE () PART B Nov 16, 2012 PART B [id number] MR49 KODAK CESAR PATIENT MEDICARE (WNR) MEDICARE () PART A Nov 16, 2012 PART A [id number] MR49 KODAK CESAR PATIENT MEDICARE (WNR) MEDICARE () PART B Nov 16, 2012 PART B [id number] MR49 KODAK CESAR PATIENT MEDICARE (WNR) MEDICARE () PART A Nov 16, 2012 PART A [id number] MR49 KODAK CESAR PATIENT MEDICARE (WNR) MEDICARE (M) PART B Nov 16, 2012 PART B [id number] MR49 KODAK CESAR PATIENT Selected Encounter This section includes the information on record at [place] for the Encounter. Date/Time Encounter Type Encounter Description Reason Provider Source Jul 18, 2023 02:30 PM THERAPEUTIC EXERCISES PHYSICAL THERAPY ICD-10-CM M25.551 Pain in right hip MIKAYLA RIOJAS [facility] Encounter Template Text not used by [place] Assessments - Encounter Diagnoses This section includes the primary and secondary diagnoses documented for the Encounter. Date/Time Primary/Secondary Diagnosis Diagnosis Name Provider Source Aug 04, 2023 01:58 PM PRIMARY Pain in right hip MILIND RIOJAS FRANKO [place] Plan of Treatment: Future Appointments (+ 6 months) and Future Tests (+/- 45 days) The Plan of Treatment section includes future care activities for the patient from all [place] treatmentfacilities. This section includes future appointments and future orders which are active, pending or scheduled. Future Appointments This section includes appointments that were scheduled to occur 6 months from the date of the Encounter, up to a maximum of 20 appointments. The data comes from all [place] treatment facilities. Appointment Date/Time Appointment Type Appointme nt Facility Name Jul 26, 2023 02:30 PM AMBULATORY - REHAB [facility] Aug 02, 2023 02:00 PM AMBULATORY - MEDICINE [facility] [place] Nov 24, 2023 12:30 PM AMBULATORY - MEDICINE [place] [facility] Nov 24, 2023 03:30 PM AMBULATORY - MEDICINE [place] C [place] [facility] Nov 25, 2023 08:30 AM AMBULATORY - NONE [facility] Active, Pending, and Scheduled Orders This section includes a listing of several types of active, pending, and scheduled orders, including clinic medications orders, diagnostic test orders, procedure orders and consult orders; where the start date of the order is 45 days before the date of the Encounter or 45 days after the date of theEncounter. The data comes from all [place] treatment facilities. Test Date/Time Test Type Test Details Facility Name Aug 02, 2023 12:00 AM Laboratory - Chemi stry Order MICROALBUMIN CREATININE RATIO PANEL URINE (RANDOM) [facility] Aug 02, 2023 12:00 AM Laboratory - Chemi stry Order BASIC METABOLIC PANEL (non-fasting) BLOOD (SST-SERUM) [facility] Aug 02, 2023 12:00 AM Laboratory - Chemi stry Order LIPID PANEL, NON FASTING BLOOD (SST-SERUM) [facility] Aug 02, 2023 12:00 AM Laboratory - Chemi stry Order LIVER FUNCTION BLOOD (SST-SERUM) [facility] Aug 02, 2023 12:00 AM Laboratory - Chemi stry Order CBC AND DIFF (AUTO) BLOOD (LAV-BLOOD) [facility] Aug 02, 2023 12:00 AM Laboratory - Chemi stry Order HEMOGLOBIN A1C PANEL BLOOD (LAV-BLOOD) [facility] Aug 02, 2023 12:00 AM Laboratory - Chemi stry Order TSH BLOOD (SST-SERUM) [facility] Aug 02, 2023 12:00 AM Laboratory - Chemi stry Order PSA BLOOD (SST-SERUM) [facility] Social History: Smoking Status (Most current) and Tobacco Use (All prior to encounter date) This section includes the most current, and the historical, smoking and tobacco- related health factors from the [place] facility where the Encounter took place. Current Smoking Status This section includes the most current smoking, or tobacco-related health factor, from the [place] facility where the Encounter took place. Date/Time Current Smoking Status Comment Facil [facility] Feb 23, 2022 02:00 PM VA-TOBACCO QUIT 15 YRS OR MORE [place] Tobacco Use History This section includes a history of the smoking, or tobacco-related health factors, that were collected on or before the date of the Encounter. The data comes from the [place] facility where the Encounter took place. Date/Time Smoking Status/Tobacco Use Comment F acility Feb 23, 2022 02:00 PM VA-TOBACCO QUIT 15 YRS OR MORE [place] Feb 23, 2021 01:30 PM VA-TOBACCO FORMER USER [place] Feb 23, 2021 01:30 PM VA-TOBACCO QUIT 15 YRS OR MORE [place] Jan 29, 2020 10:00 AM VA-TOBACCO FORMER USER [place] Jan 29, 2020 10:00 AM VA-TOBACCO QUIT 5 TO < 15 YRS [place] Jun 27, 2018 10:40 AM VA-TOBACCO FORMER USER [place] Jun 27, 2018 10:40 AM VA-TOBACCO QUIT 15 YRS OR MORE [place] Jan 10, 2018 01:34 PM QUIT TOBACCO USE > 7 YEARS AGO [place] Jun 01, 2016 08:49 AM LIFETIME NON-TOBACCO USER [place] May 12, 2015 08:23 AM QUIT TOBACCO USE > 7 YEARS AGO quit > 30 yrs ago [place] Nov 14, 2007 02:44 PM QUIT TOBACCO USE > 7 YEARS AGO Patient states he quit smoking in 1982. [place] Advance Directives: All historical and current Section Date Range: From patient's date of to the date document was created. This section includes ALL of a patient's completed or amended [place] Advance and Rescinded Directives. The entries below indicate that a directive exists for the patient, but an actual copy is not included with this document. The data comes from all [place] facilities. Date Advance Directives Provider Source Feb 20, 2014 ADVANCE DIRECTIVE DISCUSSION KASANDRA HERMAN [facility] [place] [facility] September 15, 2012 ADVANCE DIRECTIVE ARISTEO LOVELL Encounter Notes: All associated encounter notes This section contains the clinical notes associated to the Encounter. Date/Time Encounter Note(s) Provider Source Jul 18, 2023 02:50 PM PHYSICAL THERAPY N OTE: LOCAL TITLE: PHYSICAL THERAPY STANDARD TITLE: PHYSICAL THERAPY NOTE DATE OF NOTE: JUL 18, 2023@14:50 ENTRY DATE: JUL 18, 2023@14:50:28 AUTHOR: VAN RIOJAS COSIGNER: URGENCY: STATUS: COMPLETED Initial Evaluation date: 06/30/23 Treatment #: eval Treatment time: 30 min Diagnosis: Pain in right Hip (ICD-10-CM M25.551) (Primary) Provider: ROB prefers Jesus, service dog is Nicolas SUBJECTIVE: states that his hip continues to have no pain. He has been able to chop wood and walk without difficulty. Attributes symptom relief from his hip injection. OBJECTIVE: Today's treatment: THERAPEUTIC EXERCISE: MINUTES: 28 - Nu step 10 min level 6 - Sidelying Hip Abduction - 1 x daily - 5 x weekly - 2 sets - 15-25 reps - Standing Hamstring Stretch with Step - 1 x daily - 5 x weekly - 2 sets - 4 reps - 30 hold - Standing Hip Abduction with Counter Support - 1 x daily - 5 x weekly - 2 sets - 15-25 reps - Forward Step Up with Counter Support - 1 x daily - 5 x weekly - 2 sets - 15- 25 reps SELF CARE/EDUCATION: MINUTES: -- was educated on the implementation of the home exercise routine. They were able to verbalize and comprehend the purpose of the movements and could perform the activities independently. ASSESSMENT: Tolerated treatment well. Continue to focus on balance and stability of the hip while providing gentle lower extremity stretches. PLAN: 1 f/u scheduled. /es/ VAN RIOJAS DPT Physical Therapist Signed: 07/18/2023 14:54 [facility]AS [facility]
--- OUTSIDE RECORDS SUMMARY | 2024-04-03 10:40 | XMS_ITS | Encounter Summary ---
Author Name [facility] [place] Organization [place] Address [address] [place] [address] Care Team Providers Care Sizing End Bander Name Role Phone JARETH MELGAR Primary Care [...] Patient's Relationship to Policy Lucia ANURAG REYES [facility] MEDICARE SUPPLEMEN RONNA HAMPS HIRE COUNT Y LASHAE Apr 18, 2014 [id number] KODAK CESAR PATIENT [place]BS [place] MED[place] SUPPLEMEN RONNA MEDEX 2 Apr 18, 2014 [id number] KODAK CESAR PATIENT BCBS [place] MEDIC[place] SUPPLEMEN RONNA MEDEX 2 Apr 18, 2014 [id number] KODAK CESAR PATIENT [place] MED[place] SUPPLEMEN RONNA HAMPS HIRE COUNT Y LASHAE Apr 18, 2014 [id number] KODAK CESAR PATIENT [place] MED[place] SUPPLEMEN RON[place] MEDEX 2 Apr 18, 2014 [id number] [phone] KODAK CESAR PATIENT [facility] [place] MEDICARE SUPPLEMEN RONNA HAMPS HIRE COUNT Y LASHAE Apr 18, 2014 [id number] KODAK CESAR PATIENT CAMP [place]-WN R [place] [facility] [place] August 23, 2023 CAMP LUZMARIA [id number] KODAK CESAR PATIENT MEDICARE (WNR) MEDICARE () PART A Nov 16, 2012 PART A [id number] MR49 KODAK CESAR PATIENT MEDICARE (WNR) MEDICARE () PART B Nov 16, 2012 PART B [id number] MR49 [phone] KODAK CESAR PATIENT MEDICARE (WNR) MEDICARE () PART B Nov 16, 2012 PART B [id number] MR49 [phone] KODAK CESAR PATIENT MEDICARE (WNR) MEDICARE () PART A Nov 16, 2012 PART A [id number] MR49 KODAK CESAR PATIENT MEDICARE (WNR) MEDICARE () PART A Nov 16, 2012 PART A [id number] KODAK CESAR PATIENT MEDICARE (WNR) MEDICARE () PART B Nov 16, 2012 PART B [id number] KODAK CESAR PATIENT MEDICARE (WNR) MEDICARE () PART A Nov 16, 2012 PART A [id number] MR49 KODAK CESAR PATIENT MEDICARE (WNR) MEDICARE () PART A Nov 16, 2012 PART A [id number] KODAK CESAR PATIENT MEDICARE (WNR) MEDICARE () PART B Nov 16, 2012 PART B [id number] MR49 [phone] KODAK CESAR PATIENT MEDICARE (WNR) MEDICARE () PART B Nov 16, 2012 PART B [id number] KODAK CESAR PATIENT MEDICARE (WNR) MEDICARE () PART A Nov 16, 2012 PART A [id number] MR49 KODAK CESAR PATIENT MEDICARE (WNR) MEDICARE (M) PART B Nov 16, 2012 PART B [id number] MR49 KODAK CESAR PATIENT Selected Encounter This section includes the information on record at [place] for the Encounter. Date/Time Encounter Type Encounter Description Reason Pro vider Source Jul 04, 2023 11:05 AM Outpatient Encounter ADMIN PAT ACTIVTIES (MASNONCT) IHE Encounter Template Text not used by [place] Plan of Treatment: Future Appointments (+ 6 months) and Future Tests (+/- 45 days) The Plan of Treatment section includes future care activities for the patient from all [place] treatmentfacilities. This section includes future appointments and future orders which are active, pending or scheduled. Future Appointments This section includes appointments that were scheduled to occur 6 months from the date of the Encounter, up to a maximum of 20 appointments. The data comes from all [facility]. Appointment Date/Time Appointment Type Appointme nt Facility Name Jul 11, 2023 02:30 PM AMBULATORY - [facility] [place] Jul 18, 2023 02:30 PM [facility]BULATORY [facility] [place] Jul 26, 2023 02:30 PM AMBULATORY [facility] [place] Aug 02, 2023 02:00 PM [facility] Nov 24, 2023 12:30 PM [facility] [place] [facility] [place] [facility] Nov 24, 2023 03:30 PM AMBULATORY - MEDICINE [place] [facility] [place] [facility] Nov 25, 2023 08:30 AM [facility] Active, Pending, and Scheduled Orders This section includes a listing of several types of active, pending, and scheduled orders, including clinic medications orders, diagnostic test orders, procedure orders and consult orders; where the start date of the order is 45 days before the date of the Encounter or 45 days after the date of theEncounter. The data comes from all [facility]. Test Date/Time Test Type Test Details Facility Name Aug 02, 2023 12:00 AM Laboratory - Chemi stry Order MICROALBUMIN CREATININE RATIO PANEL URINE (RANDOM) [facility] Aug 02, 2023 12:00 AM Laboratory - Chemi stry Order BASIC METABOLIC PANEL (non-fasting) BLOOD (SST-SERUM) [facility] Aug 02, 2023 12:00 AM Laboratory - Chemi stry Order LIPID PANEL, NON FASTING BLOOD (SST-SERUM) [facility] Aug 02, 2023 12:00 AM Laboratory - Chemi stry Order LIVER FUNCTION BLOOD (SST-SERUM) [facility] Aug 02, 2023 12:00 AM Laboratory - Chemi stry Order CBC AND DIFF (AUTO) BLOOD (LAV-BLOOD) [facility] Aug 02, 2023 12:00 AM Laboratory - Chemi stry Order TSH BLOOD (SST-SERUM) [facility] Aug 02, 2023 12:00 AM Laboratory - Chemi stry Order PSA BLOOD (SST-SERUM) [facility] Aug 02, 2023 12:00 AM Laboratory - Chemi stry Order HEMOGLOBIN A1C PANEL BLOOD (LAV-BLOOD) [facility] Social History: Smoking Status (Most current) and Tobacco Use (All prior to encounter date) This section includes the most current, and the historical, smoking and tobacco- related health factors from the [place] facility where the Encounter took place. Current Smoking Status This section includes the most current smoking, or tobacco-related health factor, from the [place] facility where the Encounter took place. Date/Time Current Smoking Status Comment Facil ity Feb 24, 2023 10:28 AM [place]-TOBACCO FORMER USER [facility] Tobacco Use History This section includes a history of the smoking, or tobacco-related health factors, that were collected on or before the date of the Encounter. The data comes from the [place] facility where the Encounter took place. Date/Time Smoking Status/Tobacco Use Comment F acility Feb 24, 2023 10:28 AM CO-TOBACCO QUIT 15 YRS OR MORE [facility] Feb 20, 2014 02:07 PM TOBACCO INPATIENT NO USE 30 DAYS [facility] Advance Directives: All historical and current Section Date Range: From patient's date of to the date document was created. This section includes ALL of a patient's completed or amended [place] Advance and Rescinded Directives. The entries below indicate that a directive exists for the patient, but an actual copy is not included with this document. The data comes from all [place] facilities. Date Advance Directives Provider Source Feb 20, 2014 ADVANCE DIRECTIVE DISCUSSION [facility]DRA HERMAN JR [facility] September 15, 2012 ADVANCE DIRECTIVE ARISTEO LOVELL NANO Encounter Notes: All associated encounter notes This section contains the clinical notes associated to the Encounter. Date/Time Encounter Note(s) Provider Source Jul 04, 2023 12:49 PM ADDENDUM: LOCAL TITLE: Addendum STANDARD TITLE: ADDENDUM DATE OF NOTE: JUL 04, 2023@12:49:57 ENTRY DATE: JUL 04, 2023@12:49:58 AUTHOR: Keaton MELGAR EXP COSIGNER: URGENCY: STATUS: COMPLETED Forwarding to prescribing provider /luis m/ JARETH MELGAR MD PHYSICIAN Signed: 07/04/2023 12:50 Receipt Acknowledged By: 07/05/2023 07:57 /luis m/ Leonel Chaudhary APRN STAFF CLINICAL NURSE SPECIALIST === --- Original Document --- 07/04/23 CCC: SCHEDULING ADMINISTRATION: Patient Demographics Patient Name: KODAK CESAR Patient Primary Phone: [phone] Patient Primary Address: [address] [place] [id number] Patient : 1945 Patient Age: 77 Caller/Recipient Relation to Patient: Self Administrative Administrative Note Reason: Medication Renewal [place] Medications Refill/Renewal Request: Rx #[id number] - PAROXETINE HCL 30MG TAB Administrative Note Comments: Pt. requests refill/renewal of medication/s listed above, be mailed to address on file. /es/ JULY Lisseth FUENTES [facility] AMS[facility] Signed: 07/04/2023 11:05 Receipt Acknowledged By: 07/04/2023 16:00 /es/ BOO SILVA RN REGISTERED NURSE 07/04/2023 12:49 /luis m/ JARETH MELGAR MD PHYSICIAN Keaton MELGAR [facility] Jul 04, 2023 11:05 AM ADMINISTRATIVE NOTE: LOCAL TITLE: CCC: SCHEDULING ADMINISTRATION STANDARD TITLE: ADMINISTRATIVE NOTE DATE OF NOTE: JUL 04, 2023@11:05:35 ENTRY DATE: JUL 04, 2023@11:05:35 AUTHOR: KATE LARA EXP COSIGNER: URGENCY: STATUS: COMPLETED CCC: SCHEDULING ADMINISTRATION Has ADDENDA Patient Demographics Patient Name: KODAK CESAR Patient Primary Phone: [phone] Patient Primary [address]: [address] [place] [address] [place] [address] Patient : 1945 Patient Age: 77 Caller/Recipient Relation to Patient: Self Administrative Administrative Note Reason: Medication Renewal [place] Medications Refill/Renewal Request: Rx #[id number] - PAROXETINE HCL 30MG TAB Administrative Note Comments: Pt. requests refill/renewal of medication/s listed above, be mailed to address on file. /luis m/ KATE FUENTES [facility] AMS[facility] Signed: 07/04/2023 11:05 Receipt Acknowledged By: 07/04/2023 16:00 /es/ BOO SILVA RN REGISTERED NURSE 07/04/2023 12:49 /es/ JARETH MELGAR MD PHYSICIAN 07/04/2023 ADDENDUM STATUS: COMPLETED Forwarding to prescribing provider /luis m/ JARETH MELGAR MD PHYSICIAN Signed: 07/04/2023 12:50 Receipt Acknowledged By: * AWAITING SIGNATURE * LEONEL CHAUDHARY APRIL J [place] [facility]
--- OUTSIDE RECORDS SUMMARY | 2024-04-03 10:40 | XMS_ITS | Encounter Summary ---
Author Name [facility] [place] Address [address] [place] [address] Care Team Providers Care Skating Rink Ice Maker Name Role Phone JARETH MELGAR Primary Care [...] Patient's Relationship to Policy Lucia ANURAG REYES [facility] MEDICARE SUPPLEMEN RONNA HAMPS HIRE COUNT Y LASHAE Apr 18, 2014 [id number] KODAK CESAR PATIENT [place] MED[place] SUPPLEMEN RONNA MEDEX 2 Apr 18, 2014 [id number] KODAK CESAR PATIENT [place] MED[place] SUPPLEMEN RONNA MEDEX 2 Apr 18, 2014 [id number] KODAK CESAR PATIENT [place] MED[place] SUPPLEMEN RONNA HAMPS HIRE COUNT Y LASHAE Apr 18, 2014 [id number] KODAK CESAR PATIENT [place] MED[place]ARE SUPPLEMEN RONNA MEDEX 2 Apr 18, 2014 [id number] KODAK CESAR PATIENT [place] SUPPLEMEN RONNA HAMPS HIRE COUNT Y LASHAE Apr 18, 2014 [id number] KODAK CESAR PATIENT CAMP [place]-WN R [place] SPECIAL CLASS CAMP [place] August 23, 2023 CAMP LUZMARIA [id number] [phone] KODAK CESAR PATIENT MEDICARE (WNR) MEDICARE () PART A Nov 16, 2012 PART A [id number] MR49 KODAK CESAR PATIENT MEDICARE (WNR) MEDICARE () PART B Nov 16, 2012 PART B [id number] MR49 KODAK CESRA PATIENT MEDICARE (WNR) MEDICARE () PART A Nov 16, 2012 PART A [id number] KODAK CESAR PATIENT MEDICARE (WNR) MEDICARE () PART B Nov 16, 2012 PART B [id number] KODAK CESAR PATIENT MEDICARE (WNR) MEDICARE () PART A Nov 16, 2012 PART A [id number] KODAK CESAR PATIENT MEDICARE (WNR) MEDICARE () PART B Nov 16, 2012 PART B [id number] KODAK CESAR PATIENT MEDICARE (WNR) MEDICARE () PART A Nov 16, 2012 PART A [id number] MR49 KODAK CESAR PATIENT MEDICARE (WNR) MEDICARE () PART B Nov 16, 2012 PART B [id number] MR49 [id number] KODAK CESAR PATIENT MEDICARE (WNR) MEDICARE () PART A Nov 16, 2012 PART A [id number] MR49 [phone] KODAK CESAR PATIENT MEDICARE (WNR) MEDICARE () PART A Nov 16, 2012 PART A [id number] MR49 KODAK CESAR PATIENT MEDICARE (WNR) MEDICARE () PART B Nov 16, 2012 PART B [id number] MR49 [phone] [id number] KODAK CESAR PATIENT MEDICARE (WNR) MEDICARE (M) PART B Nov 16, 2012 PART B [id number] MR49 KODAK CESAR PATIENT Selected Encounter This section includes the information on record at [place] for the Encounter. Date/Time Encounter Type Encounter Description Reason Provider Source Jun 08, 2023 10:02 AM Outpatient Encounter TELEPHONE TRIAGE ABUNDIO VERDUGO IHE Encounter Template Text not used by [place] Plan of Treatment: Future Appointments (+ 6 months) and Future Tests (+/- 45 days) The Plan of Treatment section includes future care activities for the patient from all [place] [facility]. This section includes future appointments and future orders which are active, pending or scheduled. Future Appointments This section includes appointments that were scheduled to occur 6 months from the date of the Encounter, up to a maximum of 20 appointments. The data comes from all [place] treatment facilities. Appointment Date/Time Appointment Type Appointme nt Facility Name Jun 28, 2023 12:50 PM AMBULATORY - MEDICINE [facility] [place] [facility] Jun 30, 2023 09:00 AM AMBULATORY - REHAB MEDICIN [facility] Jul 11, 2023 02:30 PM AMBULATORY - REHAB MEDICIN [facility] Jul 18, 2023 02:30 PM AMBULATORY - REHAB MEDICIN [facility] Jul 26, 2023 02:30 PM AMBULATORY - REHAB MEDICIN [facility] Aug 02, 2023 02:00 PM AMBULATORY - MEDICINE [facility] Nov 24, 2023 12:30 PM AMBULATORY - MEDICINE [facility] [place] [facility] Nov 24, 2023 03:30 PM AMBULATORY - MEDICINE [facility] [place] [facility] Nov 25, 2023 08:30 AM AM[facility]UL[place]ORY - NONE [place] [facility] Social History: Smoking Status (Most current) and Tobacco Use (All prior to encounter date) This section includes the most current, and the historical, smoking and tobacco- related health factors from the [place] facility where the Encounter took place. Current Smoking Status This section includes the most current smoking, or tobacco-related health factor, from the [place] facility where the Encounter took place. Date/Time Current Smoking Status Dilia hinds Feb 24, 2023 10:28 AM [place]-TOBACCO FORMER USER [facility] Tobacco Use History This section includes a history of the smoking, or tobacco-related health factors, that were collected on or before the date of the Encounter. The data comes from the [place] facility where the Encounter took place. Date/Time Smoking Status/Tobacco Use Comment F acility Feb 24, 2023 10:28 AM [place]-TOBACCO QUIT 15 YRS OR MORE [facility] Feb 20, 2014 02:07 PM TOBACCO INPATIENT NO USE 30 DAYS [facility] Advance Directives: All historical and current Section Date Range: From patient's date of to the date document was created. This section includes ALL of a patient's completed or amended [place] Advance and Rescinded Directives. The entries below indicate that a directive exists for the patient, but an actual copy is not included with this document. The data comes from all [place] facilities. Date Advance Directives Provider Source Feb 20, 2014 ADVANCE DIRECTIVE DISCUSSION KASANDRA HERMAN [facility] September 15, 2012 ADVANCE DIRECTIVE ARISTEO LOVELL Encounter Notes: All associated encounter notes This section contains the clinical notes associated to the Encounter. Date/Time Encounter Note(s) Provider Source Jun 11, 2023 02:16 PM ADDENDUM: LOCAL TITLE: Addendum STANDARD TITLE: ADDENDUM DATE OF NOTE: JUN 11, 2023@14:16:24 ENTRY DATE: JUN 11, 2023@14:16:25 AUTHOR: Keaton MELGAR COSIGNER: URGENCY: STATUS: COMPLETED Please place referral to [facility] /luis m/ JARETH MELGAR MD PHYSICIAN Signed: 06/11/2023 14:16 Receipt Acknowledged By: 06/13/2023 15:36 /luis m/ BOO SILVA RN REGISTERED NURSE ========= --- Original Document --- 06/08/23 CCC: CLINICAL TRIAGE: Patient Demographics Patient Name: KODAK CESAR Patient Primary Address: [address] [place] [address] [place] [address] Patient Primary Phone: [phone] Patient : 1945 Patient Age: 77 Call Back Number: [phone] Caller/Recipient Relation to Patient: Self Emergency Contact: MOMO CESAR Triage Summary Chief Complaint: Referral request Nursing Plan and Disposition Other course(s) of action Generated msg to PACT/Provider Nurse Summary Nurse Summary: had consult with Nany Gilmore and they referred him to [facility]. He needs referral to [facility] from [place] PCP they would like to do injections in the tendon Forwarding request to PC team for f/u on this request please Clinical Contact Center Codes Clinic/Location: V1 CWM PHONE [facility] RN /luis m/ ABUNDIO VERDUGO VISN1 [facility] RN Signed: 06/08/2023 10:03 Receipt Acknowledged By: 06/10/2023 14:15 /luis m/ BOO SILVA RN REGISTERED NURSE * AWAITING SIGNATURE * BYRON LOVING 06/10/2023 ADDENDUM STATUS: COMPLETED Forwarding request to PCP for review. [place] requests community care consult to [facility]. Please advise. /luis m/ BOO SILVA RN REGISTERED NURSE Signed: 06/10/2023 14:15 Receipt Acknowledged By: 06/11/2023 14:16 /luis m/ JARETH MELGAR MD PHYSICIAN Keaton MELGAR [place] [facility] [place] [facility] Jun 10, 2023 02:14 PM ADDENDUM: LOCAL TITLE: Addendum STANDARD TITLE: ADDENDUM DATE OF NOTE: JUN 10, 2023@14:14:31 ENTRY DATE: JUN 10, 2023@14:14:32 AUTHOR: BOO SILVA COSIGNER: URGENCY: STATUS: COMPLETED Forwarding request to PCP for review. requests community care consult to [facility]. Please advise. /luis m/ BOO SILVA RN REGISTERED NURSE Signed: 06/10/2023 14:15 Receipt Acknowledged By: 06/11/2023 14:16 /luis m/ JARETH MELGAR MD PHYSICIAN ========= --- Original Document --- 06/08/23 CCC: CLINICAL TRIAGE: Patient Demographics Patient Name: KODAK CESAR Patient Primary Address: [facility] [place] [address] Patient Primary Phone: [phone] Patient : 1945 Patient Age: 77 Call Back Number: [phone] Caller/Recipient Relation to Patient: Self Emergency Contact: [facility] Triage Summary Chief Complaint: Referral request Nursing Plan and Disposition Other course(s) of action Generated msg to PACT/Provider Nurse Summary Nurse Summary: had consult with Nany Gilmore and they referred him to [facility]. He needs referral to [facility] from [place]CP they would like to do injections in the tendon Forwarding request to PC team for f/u on this request please Clinical Contact Center Codes Clinic/Location: V1 CWM PHONE [facility] RN /luis m/ ABUNDIO VERDUGO VISN1 [facility] RN Signed: 06/08/2023 10:03 Receipt Acknowledged By: 06/10/2023 14:15 /luis m/ BOO SILVA RN REGISTERED NURSE * AWAITING SIGNATURE * BYRON LOVING 06/11/2023 ADDENDUM STATUS: UNSIGNED You may not VIEW this UNSIGNED Addendum. BOO SILVA [facility] [place] [facility] Jun 08, 2023 10:03 AM RN PROGRESS NOTE: LOCAL TITLE: CCC: CLINICAL TRIAGE STANDARD TITLE: RN PROGRESS NOTE DATE OF NOTE: JUN 08, 2023@10:03:07 ENTRY DATE: JUN 08, 2023@10:03:07 AUTHOR: ABUNDIO VERDUGO EXP COSIGNER: URGENCY: STATUS: COMPLETED CCC: CLINICAL TRIAGE Has ADDENDA Patient Demographics Patient Name: KODAK CESAR Patient Primary Address: [facility] [place] [address] Patient Primary Phone: [phone] Patient : 1945 Patient Age: 77 Call Back Number: [phone] Caller/Recipient Relation to Patient: Self Emergency Contact: [facility] Triage Summary Chief Complaint: Referral request Nursing Plan and Disposition Other course(s) of action Generated msg to PACT/Provider Nurse Summary Nurse Summary: [place] had consult with Nany Gilmore and they referred him to [facility]. He needs referral to [facility] from [place] they would like to do injections in the tendon Forwarding request to PC team for f/u on this request please Clinical Contact Center Codes Clinic/Location: V1 CWM PHONE [facility] RN /luis m/ ABUNDIO VERDUGO VISN1 [facility] RN Signed: 06/08/2023 10:03 Receipt Acknowledged By: 06/10/2023 14:15 /luis m/ BOO SILVA RN REGISTERED NURSE 06/14/2023 11:46 /luis m/ BYRON LOVING LPN LPN 06/10/2023 ADDENDUM STATUS: COMPLETED Forwarding request to PCP for review. [place] requests community care consult to [facility]. Please advise. /luis m/ BOO SILVA RN REGISTERED NURSE Signed: 06/10/2023 14:15 Receipt Acknowledged By: 06/11/2023 14:16 /luis m/ JARETH MELGAR MD PHYSICIAN 06/11/2023 ADDENDUM STATUS: COMPLETED Please place referral to [facility] /luis m/ JARETH MELGAR MD PHYSICIAN Signed: 06/11/2023 14:16 Receipt Acknowledged By: 06/13/2023 15:36 /luis m/ BOO SILVA RN REGISTERED NURSE ABUNDIO VERDUGO [place] [facility]
--- OUTSIDE RECORDS SUMMARY | 2024-04-03 10:41 | XMS_ITS ---
Author Name [facility] [place] Address [address] [place] [address] Care Team Providers Care House Wirer Helper Name Role Phone JARETH MELGAR Primary Care [...] Patient's Relationship to Policy Lucia ANURAG [facility] MEDICARE SUPPLEMEN RONNA HAMPS HIRE COUNT Y LASHAE Apr 18, 2014 [id number] KODAK CESAR PATIENT [place] MED[place] SUPPLEMEN RONNA MEDEX 2 Apr 18, 2014 [id number] KODAK CESAR PATIENT [place]BS [place] MEDIC[place] SUPPLEMEN RONNA MEDEX 2 Apr 18, 2014 [id number] KODAK CESAR PATIENT [place] SUPPLEMEN RNONA HAMPS HIRE COUNT Y LASHAE Apr 18, 2014 [id number] KODAK CESAR [place] SUPPLEMEN RONNA MEDEX 2 Apr 18, 2014 [id number] [phone] KODAK CESAR PATIENT BCBS OF [facility] MEDICARE SUPPLEMEN RONNA HAMPS HIRE COUNT Y LASHAE Apr 18, 2014 [id number] KODAK CESAR PATIENT CAMP LU[place]-WN R [place] SPECIAL CLASS CAMP [place] August 23, 2023 CAMP LUZMARIA [id number] KODAK CESAR PATIENT MEDICARE (WNR) MEDICARE () PART B Nov 16, 2012 PART B [id number] MR49 KODAK CESAR PATIENT MEDICARE (WNR) MEDICARE () PART A Nov 16, 2012 PART A [id number] MR49 KODAK CESAR PATIENT MEDICARE (WNR) MEDICARE () PART A Nov 16, 2012 PART A [id number] KODAK CESAR PATIENT MEDICARE (WNR) MEDICARE () PART B Nov 16, 2012 PART B [id number] KODAK CESAR PATIENT MEDICARE (WNR) MEDICARE () PART A Nov 16, 2012 PART A [id number] KODAK CESAR PATIENT MEDICARE (WNR) MEDICARE () PART B Nov 16, 2012 PART B [id number] KODAK CESAR PATIENT MEDICARE (WNR) MEDICARE () PART A Nov 16, 2012 PART A [id number] MR49 KODAK CESAR PATIENT MEDICARE (WNR) MEDICARE () PART B Nov 16, 2012 PART B [id number] [id number] KODAK CESAR PATIENT MEDICARE (WNR) MEDICARE () PART A Nov 16, 2012 PART A [id number] MR49 [phone] KODAK CESAR PATIENT MEDICARE (WNR) MEDICARE () PART B Nov 16, 2012 PART B [id number] MR49 [phone] [id number] KODAK CESAR PATIENT MEDICARE (WNR) MEDICARE () PART A Nov 16, 2012 PART A [id number] MR49 KODAK CESAR PATIENT MEDICARE (WNR) MEDICARE (M) PART B Nov 16, 2012 PART B [id number] MR49 KODAK CESAR PATIENT Selected Encounter This section includes the information on record at [place] for the Encounter. Date/Time Encounter Type Encounter Description Reason Pro vider Source Aug 02, 2023 02:00 PM Outpatient Encounter PRIMARY CARE/MEDICINE IHE Encounter Template Text not used by [place] Plan of Treatment: Future Appointments (+ 6 months) and Future Tests (+/- 45 days) The Plan of Treatment section includes future care activities for the patient [facility] [place] [facility] This section includes future appointments and future orders which are active, pending or scheduled. Future Appointments This section includes appointments that were scheduled to occur 6 months from the date of the Encounter, up to a maximum of 20 appointments. The data comes from all [facility]. Appointment Date/Time Appointment Type Appointme nt Facility Name Nov 24, 2023 12:30 PM AMBULATORY - MEDICINE [facility] Nov 24, 2023 03:30 PM AM[facility]ULAT[facility] - MEDICINE [facility] [place] [place] [facility] Nov 25, 2023 08:30 AM AMBULATORY - NONE [facility] [place] [facility] Jan 31, 2024 10:00 AM AMBULATORY - MEDICINE [facility] Active, Pending, and Scheduled Orders This section includes a listing of several types of active, pending, and scheduled orders, including clinic medications orders, diagnostic test orders, procedure orders and consult orders; where the start date of the order is 45 days before the date of the Encounter or 45 days after the date of theEncounter. The data comes from all [facility]. Test Date/Time Test Type Test Details Facility Name Aug 02, 2023 12:00 AM Laboratory - Chemi stry Order MICROALBUMIN CREATININE RATIO PANEL URINE (RANDOM) [facility] Aug 02, 2023 12:00 AM Laboratory - Chemi stry Order BASIC METABOLIC PANEL (non-fasting) BLOOD (SST-SERUM) [facility] Aug 02, 2023 12:00 AM Laboratory - Chemi stry Order LIPID PANEL, NON FASTING BLOOD (SST-SERUM) [facility] Aug 02, 2023 12:00 AM Laboratory - Chemi stry Order LIVER FUNCTION BLOOD (SST-SERUM) [facility] Aug 02, 2023 12:00 AM Laboratory - Chemi stry Order CBC AND DIFF (AUTO) BLOOD (LAV-BLOOD) [facility] Aug 02, 2023 12:00 AM Laboratory - Chemi stry Order HEMOGLOBIN A1C PANEL BLOOD (LAV-BLOOD) [facility] Aug 02, 2023 12:00 AM Laboratory - Chemi stry Order TSH BLOOD (SST-SERUM) [facility] Aug 02, 2023 12:00 AM Laboratory - Chemi stry Order PSA BLOOD (SST-SERUM) [facility] Social History: Smoking Status (Most current) and [...] Facil ity Feb [facility]23 10[facility] Tobacco Use History This section includes a history of the smoking, or tobacco-related health factors, that were collected on or before the date of the Encounter. The data comes from the [place] facility where the Encounter took place. Date/Time Smoking Status/Tobacco Use Comment F acility Feb 24, 2023 10:28 [facility] Feb 20, 2014 02:07 PM TOBACCO INPATIENT NO USE 30 DAYS [facility] Advance Directives: All historical and current [...] 2014 ADVANCE DIRECTIVE DISCUSSION KASANDRA HERMAN JR [facility] September 15, 2012 ADVANCE DIRECTIVE ARISTEO LOVELL Encounter Notes: All associated encounter notes This section contains the clinical notes associated to the Encounter. Date/Time Encounter Note(s) Provider Source Aug 02, 2023 02:23 PM PREVENTIVE MEDICIN E NURSING NOTE: LOCAL TITLE: CLINICAL REMINDERS/NURSING STANDARD TITLE: PREVENTIVE MEDICINE NURSING NOTE DATE OF NOTE: AUG 02, 2023@14:23 ENTRY DATE: AUG 02, 2023@14:23:31 AUTHOR: BYRON LOVING COSIGNER: URGENCY: STATUS: COMPLETED CLINICAL REMINDERS/NURSING Has ADDENDA Sexual Orientation: The patient thinks of their sexual orientation as: Straight or Heterosexual RHS Screen: RHS Screen Environmental Check Upon inquiry, the individual reports that the environment is safe to proceed. Informed Consent to Screen and Document The individual consents to proceed with screening. The individual consents to documentation of responses. PRIMARY SCREEN: In the past 12 months, how often did a current or former intimate partner (e.g., boyfriend, girlfriend, , , sexual partner): 1. Scream or curse at you Never 2. Insult or talk down to you Never 3. Threaten you with harm Never 4. Physically hurt you Never 5. Force or pressure you to have sexual contact against your will, or when you were unable to say no Never ?? The HITS tool (items 1-4 above) is [place] copyright protected by Dash Weems MD, and the user has full rights to use it throughout the [place] system. PRIMARY SCREEN RESULT: The Primary Screen is NEGATIVE. The individual answered never to all forms of IPV above (i.e., answered never to all 5 items) The individual accepts education and/or resources: No EDUCATION: The individual indicated readiness to learn. Education offered during this session as noted above. The individual indicated understanding by asking relevant questions and making appropriate comments. No barriers to learning were observed or identified. Advance Directive Screen MH AD: Patient has an Advance Directive on file at this [facility]. No updates are needed at this time. The patient received education about Advance Directives and written notification of his/her rights. COVID VACCINE - WILL SCHEDULE WHEN READY EYE CARE - PATIENT SEES DR. HART IN [place], [place] PLEASE REQUEST MOST RECENT EYE EXAM /luis m/ BYRON LOVING LPN LPN Signed: 08/02/2023 14:25 Receipt Acknowledged By: 08/03/2023 08:59 /es/ KADEN NICHOLSON 08/03/2023 ADDENDUM STATUS: COMPLETED MINING SUPPORT WORKER REQUESTED RECORDS. /luis m/ KADEN NICHOLSON Signed: 08/03/2023 08:59 BYRON LOVING
--- OUTSIDE RECORDS SUMMARY | 2024-04-03 10:41 | XMS_ITS | Encounter Summary ---
Author Name [facility] [place] Address [address] [place] [id number] Care Team Providers Care Scientific Research Manager Name Role Phone JARETH MELGAR Primary [...] Name Patient's Relationship to Policy Lucia [facility] SUPPLEMEN RONNA HAMPS HIRE COUNT Y LASHAE Apr 18, 2014 [id number] KODAK CESAR PATIENT [place] SUPPLEMEN RONNA MEDEX 2 Apr 18, 2014 [id number] KODAK CESAR [place] SUPPLEMEN RONNA MEDEX 2 Apr 18, 2014 [id number] KODAK CESAR PATIENT [place] MED[place] SUPPLEMEN RONNA HAMPS HIRE COUNT Y LASHAE Apr 18, 2014 [id number] KODAK CESAR [place] SUPPLEMEN RONNA MEDEX 2 Apr 18, 2014 [id number] KODAK CESAR [place] MEDICARE SUPPLEMEN RONNA LEIFPS HIRE COUNT Y LASHAE Apr 18, 2014 [id number] KODAK CESAR PATIENT CAMP LUZMARIA-WN R [place] SPECIAL CLASS CAMP [place] August 23, 2023 NING DUTTA [id number] KODAK CESAR PATIENT MEDICARE (WNR) MEDICARE () PART B Nov 16, 2012 PART B [id number] MR49 KODAK CESAR PATIENT MEDICARE (WNR) MEDICARE () PART A Nov 16, 2012 PART A [id number] MR49 KODAK CESAR PATIENT MEDICARE (WNR) MEDICARE () PART A Nov 16, 2012 PART A [id number] [phone] KODAK CESAR PATIENT MEDICARE (WNR) MEDICARE () PART A Nov 16, 2012 PART A [id number] KODAK CESAR PATIENT MEDICARE (WNR) MEDICARE () PART B Nov 16, 2012 PART B [id number] [phone] KODAK CESAR PATIENT MEDICARE (WNR) MEDICARE () PART B Nov 16, 2012 PART B [id number] KODAK CESAR PATIENT MEDICARE (WNR) MEDICARE () PART A Nov 16, 2012 PART A [id number] MR49 KODAK CESAR PATIENT MEDICARE (WNR) MEDICARE () PART B Nov 16, 2012 PART B [id number] MR49 [phone] KODAK CESAR PATIENT MEDICARE (WNR) MEDICARE () PART A Nov 16, 2012 PART A [id number] MR49 [phone] KODAK CESAR PATIENT MEDICARE (WNR) MEDICARE () PART B Nov 16, 2012 PART B [id number] MR49 KODAK CESAR PATIENT MEDICARE (WNR) MEDICARE () PART A Nov 16, 2012 PART A [id number] MR49 KODAK CESAR PATIENT MEDICARE (WNR) MEDICARE (M) PART B Nov 16, 2012 PART B [id number] MR49 [id number] KODAK CESAR PATIENT Selected Encounter This section includes the information on record at [place] for the Encounter. Date/Time Encounter Type Encounter Description Reason Provider Source Jul 26, 2023 02:30 PM THERAPEUTIC EXERCISES PHYSICAL THERAPY ICD-10-CM M25.551 Pain in right hip MIKAYLA LEACH [facility] Encounter Template Text not used by [place] Assessments - Encounter Diagnoses This section includes the primary and secondary diagnoses documented for the Encounter. Date/Time Primary/Secondary Diagnosis Diagnosis Name Provider Source Aug 12, 2023 03:25 PM PRIMARY Pain in right hip MILIND LEACH [facility] Plan of Treatment: Future Appointments (+ 6 months) and Future Tests (+/- 45 days) The Plan of Treatment section includes future care activities for the patient from all [place] treatmentfacilities. This section includes future appointments and future orders which are active, pending or scheduled. Future Appointments This section includes appointments that were scheduled to occur 6 months from the date of the Encounter, up to a maximum of 20 appointments. The data comes from all [place] treatment facilities. Appointment Date/Time Appointment Type Appointme nt Facility Name Aug 02, 2023 02:00 PM [facility] Nov 24, 2023 12:30 PM AM[place]UL[place]ORY - [place]ICINE [place] [facility] [place] [facility] Nov 24, 2023 03:30 PM AM[place]ORY - [place]ICINE [place] [facility] Nov 25, 2023 08:30 AM [facility] [place] [facility] Active, Pending, and Scheduled Orders This section includes a listing of several types of active, pending, and scheduled orders, including clinic medications orders, diagnostic test orders, procedure orders and consult orders; where the start date of the order is 45 days before the date of the Encounter or 45 days after the date of theEncounter. The data comes from all [place] treatment [facility]. Test Date/Time Test Type Test Details Facility Name Aug 02, 2023 12:00 AM Laboratory - Chemi stry Order BASIC METABOLIC PANEL (non-fasting) BLOOD (SST-SERUM) [facility] Aug 02, 2023 12:00 AM Laboratory - Chemi stry Order MICROALBUMIN CREATININE RATIO PANEL URINE (RANDOM) [facility] Aug 02, 2023 12:00 AM Laboratory - Chemi stry Order LIPID PANEL, NON FASTING BLOOD (SST-SERUM) [facility] Aug 02, 2023 12:00 AM Laboratory - Chemi stry Order LIVER FUNCTION BLOOD (SST-SERUM) [facility] Aug 02, 2023 12:00 AM Laboratory - Chemi stry Order CBC AND DIFF (AUTO) BLOOD (LAV-BLOOD) [facility] Aug 02, 2023 12:00 AM Laboratory - Chemi stry Order HEMOGLOBIN A1C PANEL BLOOD (LAV-BLOOD) [facility] Aug 02, 2023 12:00 AM Laboratory - Chemi stry Order TSH BLOOD (SST-SERUM) [facility] Aug 02, 2023 12:00 AM Laboratory - Chemi stry Order PSA BLOOD (SST-SERUM) [facility] Social History: Smoking Status (Most current) and Tobacco Use (All prior to encounter date) This section includes the most current, and the historical, smoking and tobacco- related health factors from the [place] facility where the Encounter took place. Current Smoking Status This section includes the most current smoking, or tobacco-related health factor, from the [place] facility where the Encounter took place. Date/Time Current Smoking Status Comment Facil [facility] Feb 23, 2022 02:00 PM VA-TOBACCO FORMER USER [facility] Tobacco Use History This section includes a history of the smoking, or tobacco-related health factors, that were collected on or before the date of the Encounter. The data comes from the [place] facility where the Encounter took place. Date/Time Smoking Status/Tobacco Use Comment F acility Feb 23, 2022 02:00 PM VA-TOBACCO QUIT 15 YRS OR MORE [facility] Feb 23, 2021 01:30 PM VA-TOBACCO FORMER USER [facility] Feb 23, 2021 01:30 PM VA-TOBACCO QUIT 15 YRS OR MORE [facility] Jan 29, 2020 10:00 AM VA-TOBACCO FORMER USER [facility] Jan 29, 2020 10:00 AM VA-TOBACCO QUIT 5 TO < 15 YRS [facility] Jun 27, 2018 10:40 AM VA-TOBACCO FORMER USER [facility] Jun 27, 2018 10:40 AM VA-TOBACCO QUIT 15 YRS OR MORE [facility] Jan 10, 2018 01:34 PM QUIT TOBACCO USE > 7 YEARS AGO [facility] Jun 01, 2016 08:49 AM LIFETIME NON-TOBACCO USER [facility] May 12, 2015 08:23 AM QUIT TOBACCO USE > 7 YEARS AGO quit > 30 yrs ago [facility] Nov 14, 2007 02:44 PM QUIT TOBACCO USE > 7 YEARS AGO Patient states he quit smoking in 1982. [facility] Advance Directives: All historical and current Section Date Range: From patient's date of to the date document was created. This section includes ALL of a patient's completed or amended [place] Advance and Rescinded Directives. The entries below indicate that a directive exists for the patient, but an actual copy is not included with this document. The data comes from all [place] facilities. Date Advance Directives Provider Source Feb 20, 2014 ADVANCE DIRECTIVE DISCUSSION KASANDRA HERMAN [facility] [place] September 15, 2012 ADVANCE DIRECTIVE ARISTEO LOVELL Encounter Notes: All associated encounter notes This section contains the clinical notes associated to the Encounter. Date/Time Encounter Note(s) Provider Source Jul 26, 2023 03:26 PM PHYSICAL THERAPY D ISCHARGE NOTE: LOCAL TITLE: PHYSICAL THERAPY DISCHARGE NOTE STANDARD TITLE: PHYSICAL THERAPY DISCHARGE NOTE DATE OF NOTE: JUL 26, 2023@15:26 ENTRY DATE: JUL 26, 2023@15:26:15 AUTHOR: NEGRO LEACH EXP COSIGNER: URGENCY: STATUS: COMPLETED Initial Evaluation date: 06/30/23 Treatment #: eval+3 Treatment time: 30 min Diagnosis: Pain in right Hip (ICD-10-CM M25.551) (Primary) Provider: ROB Hoytan prefers Jesus, service dog is Nicolas SUBJECTIVE: [place] states he has not had any hip pain for over the past week. He has resumed his full activities including chopping wood. He feels he is ready to discharge from one on one PT. He is walking more than 30 minutes daily with his service animal Nicolas. OBJECTIVE: Today's treatment: THERAPEUTIC EXERCISE: MINUTES: 10 Nu step 10 min level 6 SELF CARE/EDUCATION: MINUTES: -- [place] was educated on the implementation of the home exercise routine. They were able to verbalize and comprehend the purpose of the movements and could perform the activities independently. Access Code: [email or web address] URL: [email or web address] Date: 07/26/2023 Prepared by: Negro Leach Exercises - Recumbent Bike - 1 x daily - 3 x weekly - 2 sets - 1 reps - Supine Bridge - 1 x daily - 5 x weekly - 2 sets - 15-25 reps - Clamshell with Resistance - 1 x daily - 5 x weekly - 2 sets - 15-25 reps - Quadruped Hip Abduction and External Rotation - 1 x daily - 5 x weekly - 2 sets - 15-25 reps - Quadruped Alternating Leg Extensions - 1 x daily - 5 x weekly - 2 sets - 15- 25 reps - Bridge with Heels on [place] Ball - 1 x daily - 5 x weekly - 2 sets - 15-25 reps - Sidelying Hip Abduction - 1 x [...] - 2 sets - 15- 25 reps MMT / Myotomes (R) (L) *pain Hip flex L2 5 5 Int rot: 5 5 Ext rot: 5 5 Knee flex L5: 5 5 Extension L3 5 5 SLS greater than 10 seconds bilaterally ASSESSMENT: Excellent outcome in PT, all goals met. Advised to continue with the home exercises and daily walking routine. GOALS: 1.)Pain no greater than a 2/10 -MET 2.)30 minutes of cardio daily -MET 3.)10 seconds of SLS -MET 4.)Hip strength at least a 4+/5 -MET 5.)Rx HEP in 4 visits -MET PLAN: Discharged to a home exercise routine, all goals met. is in agreement with the plan of care. /luis m/ NEGRO LEACH DPStella Physical Therapist Signed: 07/26/2023 15:30 NEGRO LEACH [facility]
--- OUTSIDE RECORDS SUMMARY | 2024-04-03 10:41 | XMS_ITS | Encounter Summary ---
Author Name [facility] [place] Organization [facility] [place] Address [address] [place] [address] Care Team Providers Care Digital Campaign Specialist Name Role Phone JARETH MELGAR Primary Care [...] Name Patient's Relationship to Policy Lucia [facility] MEDICARE SUPPLEMEN RONNA HAMPS HIRE COUNT Y LASHAE Apr 18, 2014 [id number] K[place]AK CESAR [place]IENT [place] SUPP[place] MEDEX 2 Apr 18, 2014 [id number] [place] 2 Apr 18, 2014 [id number] KODAK CESAR PATIENT BCBS [place] MEDICARE SUPPLEMEN RONNA HAMPS HIRE COUNT Y LASHAE Apr 18, 2014 [id number] [place] C[place] SUPPLE[place] MED[place] 2 Apr 18, 2014 [id number] [phone] [place] C[place] PATIENT [place] SUPPLEMEN RONNA HAMPS HIRE COUNT Y LASHAE Apr 18, 2014 [id number] [phone] KODAK CESAR PATIENT CAMP LUZMARIA-WN R [place] SPECIAL CLASS NING [place] August 23, 2023 NING DUTTA [id number] KODKA CESAR PATIENT MEDICARE (WNR) MEDICARE () PART A Nov 16, 2012 PART A [id number] MR49 KODAK CESAR PATIENT MEDICARE (WNR) MEDICARE () PART B Nov 16, 2012 PART B [id number] MR49 K[place] CESAR PATIENT MEDICARE (WNR) MEDICARE () PART A Nov 16, 2012 PART A [id number] K[place]AK CESAR PATIENT MEDICARE (WNR) MEDICARE () PART B Nov 16, 2012 PART B [id number] [phone] [place] CESAR PATIENT MEDICARE (WNR) MEDICARE () PART A Nov 16, 2012 PART A [id number] MR49 KODAK CESAR PATIENT MEDICARE (WNR) MEDICARE () PART B Nov 16, 2012 PART B [id number] MR49 K[place]AK CESAR PATIENT MEDICARE (WNR) MEDICARE () PART A Nov 16, 2012 PART A [id number] [place] CESAR PATIENT MEDICARE (WNR) MEDICARE () PART B Nov 16, 2012 PART B [id number] [place]AK CESAR PATIENT MEDICARE (WNR) MEDICARE () PART A Nov 16, 2012 PART A [id number] MR49 KODAK CESAR PATIENT MEDICARE (WNR) MEDICARE (M) PART B Nov 16, 2012 PART B [id number] MR49 KODAK CESAR PATIENT MEDICARE (WNR) MEDICARE () PART A Nov 16, 2012 PART A [id number] [id number] [phone] KODAK CESAR PATIENT MEDICARE (WNR) MEDICARE (M) PART B Nov 16, 2012 PART B [id number] MR49 KODAK CESAR PATIENT Selected Encounter This section includes the information on record at [place] for the Encounter. Date/Time Encounter Type Encounter Description Reason Provider Source Aug 02, 2023 02:00 PM OFFICE O/P EST MOD 30 MIN PRIMARY CARE/MEDICINE ICD-10-CM I48.91 Unspecified atrial fibrillation JARETH SCHAEFFER Amando Encounter Template Text not used by [place] Assessments - Encounter Diagnoses This section includes the primary and secondary diagnoses documented for the Encounter. Date/Time Primary/Secondary Diagnosis Diagnosis Name Provider Source Aug 07, 2023 09:10 PM PRIMARY Unspecified atrial fibrillation ROB-BOSJARETH PAREDES [place] Aug 07, 2023 09:10 PM SECONDARY Athscl heart disease of [place] coronary artery w/o ang pctrs ROB-JARETH GONZALEZ [facility] Aug 07, 2023 09:10 PM SECONDARY Basal cell carcinoma of skin, unspecified CONNIEAZDIN-BOSKO JARETH BEAR [facility] Aug 07, 2023 09:10 PM SECONDARY Benign prostatic hyperplasia without lower urinry tract symp ROB-JARETH GONZALEZ [place] Aug 07, 2023 09:10 PM SECONDARY Gross hematuria ROB-BOSJARETH PAREDES [place] Aug 07, 2023 09:10 PM SECONDARY Headache, unspecified CONNIEAZDIN-BOSKO MARIANELA,JARETH Walls [place] Aug 07, 2023 09:10 PM SECONDARY Insomnia, unspecified NADAZDIN-BOSKO MARIANELA,JARETH [facility] Aug 07, 2023 09:10 PM SECONDARY Mixed hyperlipidemia YGDIN-BOSKO JARETH BEAR [facility] Aug 07, 2023 09:10 PM SECONDARY Obstructive sleep apnea (adult) (pediatric) ROB-BOSKO JARETH BEAR [place] Aug 07, 2023 09:10 PM SECONDARY Other obesity ROB-JARETH GONZALEZ [place] Aug 07, 2023 09:10 PM SECONDARY Pain in right hip NADJARETH MANCUSO [place] Aug 07, 2023 09:10 PM SECONDARY Pain in unspecified hip JARETH GIL [place] Aug 07, 2023 09:10 PM SECONDARY Post-traumatic stress disorder, chronic JARETH GIL [place] Aug 07, 2023 09:10 PM SECONDARY Presence of cardiac pacemaker JARETH GIL [place] Plan of Treatment: Future Appointments (+ 6 months) and Future Tests (+/- 45 days) The Plan of Treatment section includes future care activities for the patient from all [place] [facility] This section includes future appointments and future orders which are active, pending or scheduled. Future Appointments This section includes appointments that were scheduled to occur 6 months from the date of the Encounter, up to a maximum of 20 appointments. The data comes from all [facility]. Appointment Date/Time Appointment Type Appointme nt Facility Name Nov 24, 2023 12:30 PM AMBULATORY - [facility]ICINE [facility] Nov 24, 2023 03:30 PM AM[place]ULATORY [place] [facility] Nov 25, 2023 08:30 AM [facility] [place] [facility] Jan 31, 2024 10:00 AM [facility] Active, Pending, and Scheduled Orders This section includes a listing of several types of active, pending, and scheduled orders, including clinic medications orders, diagnostic test orders, procedure orders and consult orders; where the start date of the order is 45 days before the date of the Encounter or 45 days after the date of theEncounter. The data comes from all [facility]. Test Date/Time Test Type Test Details Facility Name Aug 02, 2023 12:00 AM Laboratory - Chemi stry Order MICROALBUMIN CREATININE RATIO PANEL URINE (RANDOM) [facility] Aug 02, 2023 12:00 AM Laboratory - Chemi stry Order BASIC METABOLIC PANEL (non-fasting) BLOOD (SST-SERUM) [facility] Aug 02, 2023 12:00 AM Laboratory - Chemi stry Order LIPID PANEL, NON FASTING BLOOD (SST-SERUM) [facility] Aug 02, 2023 12:00 AM Laboratory - Chemi stry Order LIVER FUNCTION BLOOD (SST-SERUM) [facility] Aug 02, 2023 12:00 AM Laboratory - Chemi stry Order TSH BLOOD (SST-SERUM) [facility] Aug 02, 2023 12:00 AM Laboratory - Chemi stry Order PSA BLOOD (SST-SERUM) [facility] Aug 02, 2023 12:00 AM Laboratory - Chemi stry Order HEMOGLOBIN A1C PANEL BLOOD (LAV-BLOOD) [facility] Aug 02, 2023 12:00 AM Laboratory - Chemi stry Order CBC AND DIFF (AUTO) BLOOD (LAV-BLOOD) [facility] Vital Signs: All taken on the encounter date This section contains inpatient and outpatient Vital Signs collected on the date of the Encounter. Date/Time Temperature Pulse Blood Pressure Respiratory Rate 02 Pain Height Weight Body Mass Index Source Aug 02, 2023 02:10 PM 98.6 68 130/81 95 267 39 [facility] I[facility] Social History: Smoking Status (Most current) and [...] PM VA-TOBACCO QUIT 15 YRS OR MORE [place] Tobacco Use History This section includes a history of the smoking, or tobacco-related health factors, that were collected on or before the date of the Encounter. The data comes from the [place] facility where the Encounter took place. Date/Time Smoking Status/Tobacco Use Comment F acility Feb 23, 2022 02:00 PM VA-TOBACCO QUIT 15 YRS OR MORE [place] Feb 23, 2021 01:30 PM VA-TOBACCO FORMER USER [place] Feb 23, 2021 01:30 PM VA-TOBACCO QUIT 15 YRS OR MORE [place] Jan 29, 2020 10:00 AM VA-TOBACCO FORMER USER [place] Jan 29, 2020 10:00 AM VA-TOBACCO QUIT 5 TO < 15 YRS [place] Jun 27, 2018 10:40 AM VA-TOBACCO FORMER USER [place] Jun 27, 2018 10:40 AM VA-TOBACCO QUIT 15 YRS OR MORE [place] Jan 10, 2018 01:34 PM QUIT TOBACCO USE > 7 YEARS AGO [place] Jun 01, 2016 08:49 AM LIFETIME NON-TOBACCO USER [place] May 12, 2015 08:23 AM QUIT TOBACCO USE > 7 YEARS AGO quit > 30 yrs ago [place] Nov 14, 2007 02:44 PM QUIT TOBACCO USE > 7 YEARS AGO Patient states he quit smoking in 1982. [place] Advance Directives: All historical and current Section Date Range: From patient's date of to the date document was created. This section includes ALL of a patient's completed or amended [place] Advance and Rescinded Directives. The entries below indicate that a directive exists for the patient, but an actual copy is not included with this document. The data comes from all [place] facilities. Date Advance Directives Provider Source Feb 20, 2014 ADVANCE DIRECTIVE DISCUSSION KASANDRA HERMAN [facility] [place] [facility] September 15, 2012 ADVANCE DIRECTIVE ARISTEO LOVELL Encounter Notes: All associated encounter notes This section contains the clinical notes associated to the Encounter. Date/Time Encounter Note(s) Provider Source Aug 09, 2023 10:23 AM MEDICATION MGT NOT E: LOCAL TITLE: OUTPATIENT MEDICATION REQUEST STANDARD TITLE: MEDICATION MGT NOTE DATE OF NOTE: AUG 09, 2023@10:23 ENTRY DATE: AUG 09, 2023@10:23:38 AUTHOR: BOO SILVA EXP COSIGNER: URGENCY: STATUS: COMPLETED Medication Request Date of Request: Jul UBROGEPANT TAB 100MG TAKE ONE TABLET BY MOUTH ONE TIME (TAKE AT ONSET OF HEADACHE. IF NEEDED, SECOND DOSE MAY BE TAKEN AT LEAST 2 HOURS AFTER INITIAL DOSE) Quantity: 9 Refills: 3 Requests for MAIL /luis m/ BOO SILVA RN REGISTERED NURSE Signed: 08/09/2023 10:24 Receipt Acknowledged By: 08/10/2023 16:25 /luis m/ JARETH MELGAR MD PHYSICIAN BOO SILVA Aug 02, 2023 09:18 AM PHYSICIAN NOTE: LOCAL TITLE: NOTE STANDARD TITLE: PHYSICIAN NOTE DATE OF NOTE: AUG 02, 2023@09:18 ENTRY DATE: AUG 02, 2023@09:18:04 AUTHOR: Keaton MELGAR EXP COSIGNER: URGENCY: STATUS: COMPLETED NOTE Has ADDENDA Pt is 77 y/o M with PMH of obesity, HL, CAD w/o hx of PR, PCM for CHB, paroxismal AFib on DOAC, FIONA, GERD, BCC, pernicious anemia and mild cognitive disorder on meds, lumbar spinal stenosis s/p decompression surgery 11/13/2018, PTSD Last visit 02/2023 PCP is [place] Other providers: --ortho Dr Ward -- back surgery --cardiology- Dr. Freeman in [facility] follows his pacer-remotely ,approved for MRI use- UTD --urology non [facility] - -[id number] -- [facility] --eye [facility] eye [facility]- [place] - annually UTD --neurology non [facility] -H/A RTC 6m --dermatology [facility] 2022 s/p BCC removal --> RTC 6m --physiatry [place] Patient reports feeling good here today with his service dog Nicolas since last visit: #02/2023 New right hip pain Seen in urgent care Right hip x-ray showed osteoarthritis, calcific tendinitis/bursitis. Patient started on NSAIDs/Tylenol prn per PT note [place] states he initially injured his right hip in February 2023 from an unknown cause. He trialed 2 visits of physical therapy in early 2023 and felt the region was too painful to continue with exercise based PT. Patient evaluated by [facility] 05/31/23.He received a hip injection 05/2023 and pain has reduced to a 0/10. He was diagnosed with iliopsoas tendonitis right side with recommendation to perform PT for 4-6 weeks. completed physical therapy 07/2023 Denies any hip pain since last week resumed his full activities including chopping wood, owns [address] land, walking, clearing wood He is walking the dog more than 30 minutes daily #obesity weight 286->267 lbs, BMI 42.4-->38 in november 2022 started topiramate by neurology for H/a and weight loss eating more frozen berries, vegetables and fish one cheating day/week avoiding cookies, chips/sandwiches #HL/CAD compliant with medications- apixaban/statin no h/o HTN denies CP/SOB/WING/palpitations/dizzi ness /claudication denies h/o CVA/PR #FIONA compliant with BiPAP #h/o BCC s/p MOHS 2022 --> needs new derm referral =scheduled for 11/2023 #LUTS - incontinence and frequency improved on tolteridone no nocturia if avoids liquids close to bed time denies recent hematuria complinat with finasteride/tolteridone #h/o Gross hematuria,2018, 09/2019 Urology evaluation in september/2019, had negative cystoscopy started on finasteride PSA 2, 01/2022 --> PSA 1.03 (02/2023) Cystoscopy 04/2021 showed neovascularity of prostate Urology Dr Mckeon -last visit 07/2023 #paroxismal AFib Dx 2021 PCM interrogation -> noted paroxismal AFib [id number] = 2 apixaban 5mg BID denies palpitations, dizziness,sx of bleeding #H/A: on divalproex, topiramate PPX and abortive Rx ubrogepant, often using abortive RX >3 times a week h/o Right temporal pain (ESR, CRP 2020- negative), none recently PAST MEDICAL HISTORY: -- Obesity -- HL -- prediabetes -- CAD cath 07/29/16 50% stenosis of the distal RCA and 30% left Cx -- CHB s/p PCM 07/27/16 [facility]. (h/o syncope) [employer] MRI pacer DDD 60-130 -- paroxismal AFib Dx 2021 on DOAC -- FIONA on BiAP -Respiratory Therapy [facility] follows -- GERD -EGD 2004 wnl -- Pernicious anemia B12 deficity -- Male hypogonadism -- BPH -- hematuria -- Lipomatosis -- BCC s/p Mohs 2022 -- Neuritis AND/OR radiculitis due to displacement of lumbar intervertebral dis -- Lumbar spinal stenosis 11/13/2018 lumbar laminotomy bilateral with decompression partial facetectomy, L4-L5 - pain resolved after surgery -- right shoulder pain,resolved after injection 2022 -- R hip pain 05/2023 iliopsoas tendonitis -resovled with PT and injection -- Insomnia -- Adjustment reaction with mixed emotional features -- PTSD PAST SURGICAL HISTORY: -- s/p LS decompression surgery 11/13/[address] Ward -- neck surgery -- PCM -- cholecystectomy -- laser prostate ALLERGIES: Gabapentin/swelling - rash MEDICATIONS: APIXABAN 5MG BID ROSUVASTATIN CA 40MG TOLTERODINE TARTRATE 4MG DAILY FOR FREQUENT URINATION FINASTERIDE 5MG GALANTAMINE HYDROBROMIDE 24MG FOR MEMORY --LORAZEPAM 0.5MG DAILY seldomly - for social anxiety PAROXETINE 60MG trazadone 100mg hs PRAZOSIN 1MG BEDTIME PRN CYANOCOBALAMIN 1000 MCG/ML monthly TOPIRAMATE 75MG AT DINNER TIME DIVALPROEX 500MG 24HR (ER) EVERY MORNING FOR HEADACHE UBROGEPANT 100MG TAB TAKE ONE TABLET BY MOUTH ONE TIME ACTIVE (TAKE AT ONSET OF HEADACHE. 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 --Caffeine:decaf daily once --EtOH: 1x/month one drink --Tob: former smoker, quit 40+ yrs ago --MJ:denies --Illicits:denies --Sexual activity: --Eye: non VAUTD --Dental: partial dentures --Hospitalizations: none recently ROS: Constitutional: no fever/no chills, no ns Eyes: no decreased vision/blurry vision Ears/Nose/Throat: no hearing change Respiratory: no cough/wheezing/SOB Cardiovascular: no CP /palpitations/leg edema Gastrointestinal: no abdominal pain/bloody/black stools,v,n,c,d :no dysuria/hematuria/LUTS + improved of tolteridone MSK: no pain Neuro: no dizziness walking w/o assistance PHYSICAL EXAM: Vital Signs: Blood Pressure: 130/81 (08/02/2023 14:10) 117/71 (02/24/2023 10:17) 135/83 (05/13/2022 12:05) 105/73 (02/23/2021 13:46) Pulse: 68 (08/02/2023 14:10) Respiration:16 Temperature: 98.6 F [37.0 C] (08/02/2023 14:10) BMI 39-->42.4--> 38.5 Patient Weight: 267 lb [121.11 kg] (08/02/2023 14:10) 265 lb [120.20 kg] (02/24/2023 10:17) 286.8 lb [130.09 kg] (05/13/2022 12:05) 265 lb [120.5 kg] (02/23/2021 13:46) 260 lb [118.2 kg] (12/28/2018 08:43) GA: obese male, NAD, alert and oriented HEENT: normal NECK: supple, no LAD CVS: RRR Lungs: CTA b/l abd: BS +, NT/ND EXT: no edema neuro: no focal deficits LABORATORY: --11/2022-- WBC: 7.72 HGB: 14.0 HCT: 43.7 MCV: 87.1 PLT: 250 MICROALB/CR RATIO: 11.8 MICROALBUMIN URINE: 3.8 CREATININE URINE: 321.49 HGB A1C (WR): 5.8 H GLUCOSE: 125 H UREA NITROGEN: 19 CREATININE-EGFR: 0.95 eGFR CKD-EPI 2020: 83 SODIUM: 140 POTASSIUM: 4.0 CHLORIDE: 107 CO2: 23 PROTEIN,TOTAL: 6.7 ALBUMIN: 4.1 ALKALINE PHOSPHATASE: 55 SGOT: 16 SGPT: 10 CHOLESTEROL: 121 TRIGLYCERIDE: 219 H LDL CHOL: 45 CHOL/HDL RATIO: 3.8 HDL: 32 L TSH (Access): 2.66 ---- PROSTATIC ASSAYS ---- SERUM Feb 21 Feb 18 Apr 29 Jan 17 Reference 2022 2020 2017 2014 PSA 1.03 2.94 1.27 2.54 ng/mL 0 - 4 2020 VITAMIN D TOTAL: 33 2019 VIT. B12 (WROX): 567 IMAGING: ECHO:12/2014 EF 63, mild LVH, mod diastolic disf, LAD EK NSR #02/2021 FOOT LEFT XR severe first MTP joint space narrowing (base of the Great toe), with marginal osteophytes at the articular margins, including prominent dorsal osteophyte at the first metatarsal head. Mild appearing hallux valgus. There is insertional Achilles tendon enthesophyte spurring (AKA posterior calcaneal spurring). ASSESSMENT/PLAN: Pt is 77 y/o M with PMH of obesity, HL, CAD w/o hx of PR, PCM for CHB, paroxismal AFib on DOAC, FIONA, GERD, BCC, pernicious anemia and mild cognitive disorder on meds, lumbar spinal stenosis s/p decompression surgery 11/13/2018, PTSD #paroxismal AFib Dx 2021 PCM interrogation - noted paroxismal AFib [id number] = 2 c/w apixaban 5mg BID #CAD: asymptomatic #HL LDL 45 -c/w rosuvastatin - dietary changes, weight loss #CHB s/p PCM-> followed by non [facility] cardiology #prediabetes A1C 5.8 #Obesity BMI 37-->42-> 38 -disscussed dietary changes, cut down pasta, bread, rice (high TG) -c/w regular exercise #FIONA encouraged daily BiPAP use # PTSD --> f/w MH # Ins[facility] improved [facility] Followed in weekly support group (high combat [place]) [facility] #h/o Gross hematuria,09/2019 : #BPH: sx well controlled Urology evaluation in september/2019, restarted on finasteride 02/2021-> PSA 1.03 (02/2023) TOLTERODINE 4MG daily had negative cystoscopy 2019 f/u urology #chronic headache with autonomic features -adequate sleep, hydration, BiPAP use -PPX DIVALPROEX 500MG 24HR (ER) -topiramate 75 mg hs -abortive UBROGEPANT -f/w non [facility] neurology --> next visit november 2023 #h/o BCC (back) s/p Mohs 2022 ->f/w dermatology #right hip pain 2/2 iliopsoas tendonitis right side: resolved with steroid injection and PT Healthcare maintenance: --Lipids: LDL 45 (11/2022) --Diabetes: A1c 5.8(11/2022) --Colon CA (50-75): stopped screening Colonoscopy 2004 [place] single benign polyp 04/2020 negative colonoscopy, hemorrhoids, repeat colonoscopy only for sx given pt's age --Lung CA: n/a --PSA PSA 1.03 (02/2023)-> f/w urology --AAA (smoker/65): 2020 no AAA --Influenza (yrly): 2022 --COVID-19 (MODERNA) x3 --PCV13 2014 --PCV23: --RZV (>50yrs, x2): 2018x2 --TDAP: 03/2020 --Hep C screen: 2015 neg --HIV screen: --DEXA: --Advanced Directives: Address at next visit: HL, HM, obesity Return to clinic to see me in _6__ months, sooner PRN. Virtual ( ), F2F ( x) ( x)fasting labs ordered prior to f/u routine ( )request records from outside providers --please place [facility] dermatology consults--> [place]- continuity of care h/o BCC - f/u scheduled for 11/2023 --please place [facility] neurology consults--> [place]- continuity of care H/A --please obtain most recent urology note Dr Mckeon . thanks Medication Reconciliation: Outpatient: Has the patient been taking medications as documented in the EMLR? YES: The patient has been taking medications as documented in the EMLR. Essential Medication List for Review used to complete this medication reconciliation. INCLUDED IN THIS LIST: Alphabetical list of active outpatient prescriptions dispensed from this [facility] (local) and dispensed from another [place] or DoD facility (remote) as well as inpatient orders (local, pending and active), local clinic medications, locally documented non-VA medications, and local prescriptions that have or been discontinued in the past 90 days. - All changes in medications, including all non-VA/Herbal/OTC medications were entered into CPRS. - If there were any medications the patient should no longer take, they were discontinued. - The patient/caregiver was instructed to update this list, discard old lists, and take this list to the next appointment, whether with a VA or non-VA provider. /luis m/ JARETH MELGAR MD PHYSICIAN Signed: 08/07/2023 21:10 Receipt Acknowledged By: 08/08/2023 10:57 /luis m/ KADEN NICHOLSON 08/08/2023 15:22 /luis m/ BOO SILVA RN REGISTERED NURSE 08/08/2023 ADDENDUM STATUS: COMPLETED BLADDER BLOWER REQUESTED RECORDS. /luis m/ KADEN NICHOLSON Signed: 08/08/2023 10:58 ANDREEA MELGAR [place]
--- OUTSIDE RECORDS SUMMARY | 2024-04-03 10:41 | XMS_ITS | Encounter Summary ---
Author Name [facility] [place] Address [address] [place] [address] Care Team Providers Care Emblem Drawer In Name Role Phone JARETH MELGAR Primary Care [...] Patient's Relationship to Policy Lucia ANURAG REYES [facility] MEDICARE SUPP[employer]MEN [employer]NA HAMPS HIRE COUNT Y LASHAE Apr 18, 2014 [id number] KODAK CESAR PATIENT [place] MED[place] SU[place]MEN [place] MEDEX 2 Apr 18, 2014 [id number] KODAK CESAR PATIENT [place] SU[place] MEDEX 2 Apr 18, 2014 [id number] KODAK CESAR [place] 2 Apr 18, 2014 [id number] KODAK CESAR PAT[place] HIRE COUNT Y LASHAE Apr 18, 2014 [id number] KODAK CESAR PATIENT [place] SU[employer] [place]NA [employer]AMPS HIRE COUNT Y LASHAE Apr 18, 2014 [id number] KODAK CESAR PATIENT [place] [facility] [place] August 23, 2023 CAMP LUZMARIA [id number] [phone] KODAK CESAR PATIENT MEDICARE (WNR) MEDICARE () PART A Nov 16, 2012 PART A [id number] MR49 KODAK CESAR PATIENT MEDICARE (WNR) MEDICARE () PART B Nov 16, 2012 PART B [id number] MR49 KODAK CESAR PATIENT MEDICARE (WNR) MEDICARE () PART A Nov 16, 2012 PART A [id number] KODAK CESAR PATIENT MEDICARE (WNR) MEDICARE () PART A Nov 16, 2012 PART A [id number] [phone] KODAK CESAR PATIENT MEDICARE (WNR) MEDICARE () PART B Nov 16, 2012 PART B [id number] KODAK CESAR PATIENT MEDICARE (WNR) MEDICARE () PART B Nov 16, 2012 PART B [id number] [phone] KODAK CESAR PATIENT MEDICARE (WNR) MEDICARE () PART A Nov 16, 2012 PART A [id number] MR49 KODAK CESAR PATIENT MEDICARE (WNR) MEDICARE () PART B Nov 16, 2012 PART B [id number] MR49 KODAK CESAR PATIENT MEDICARE (WNR) MEDICARE () PART A Nov 16, 2012 PART A [id number] MR49 KODAK CESAR PATIENT MEDICARE (WNR) MEDICARE () PART B Nov 16, 2012 PART B [id number] MR49 [phone] KODAK CESAR PATIENT MEDICARE (WNR) MEDICARE () PART A Nov 16, 2012 PART A [id number] MR49 KODAK CESAR PATIENT MEDICARE (WNR) MEDICARE (M) PART B Nov 16, 2012 PART B [id number] MR49 KODAK CESAR PATIENT Selected Encounter This section includes the information on record at [place] for the Encounter. Date/Time Encounter Type Encounter Description Reason Pro vider Source Aug 08, 2023 11:31 PM Outpatient Encounter ADMIN PAT ACTIVTIES (MASNONCT) IHE Encounter Template Text not used by [place] Plan of Treatment: Future Appointments (+ 6 months) and Future Tests (+/- 45 days) The Plan of Treatment section includes future care activities for the [facility] [place] [facility] This section includes future appointments and future orders which are active, pending or scheduled. Future Appointments This section includes appointments that were scheduled to occur 6 months from the date of the Encounter, up to a maximum of 20 appointments. The data comes from all [facility]. Appointment Date/Time Appointment Type Appointme nt Facility Name Nov 24, 2023 12:30 PM AMBULATORY - [facility] Nov 24, 2023 03:30 PM [place] [facility] Nov 25, 2023 08:30 AM [facility] Jan 31, 2024 10:00 AM [facility] - [facility] Active, Pending, and Scheduled Orders [...] MICROALBUMIN CREATININE RATIO PANEL URINE (RANDOM) [facility] Aug 02, 2023 12:00 AM Laboratory - Chemi stry Order BASIC METABOLIC PANEL (non-fasting) BLOOD (SST-SERUM) [facility] Aug 02, 2023 12:00 AM Laboratory - Chemi stry Order LIPID PANEL, NON FASTING BLOOD (SST-SERUM) [facility] Aug 02, 2023 12:00 AM Laboratory - Chemi stry Order LIVER FUNCTION BLOOD (SST-SERUM) [facility] Aug 02, 2023 12:00 AM Laboratory - Chemi stry Order CBC AND DIFF (AUTO) BLOOD (LAV-BLOOD) [facility] Aug 02, 2023 12:00 AM Laboratory - Chemi stry Order HEMOGLOBIN A1C PANEL BLOOD (LAV-BLOOD) [facility] Aug 02, 2023 12:00 AM Laboratory - Chemi stry Order TSH BLOOD (SST-SERUM) [facility] Aug 02, 2023 12:00 AM Laboratory - Chemi stry Order PSA BLOOD (SST-SERUM) [facility] Social History: Smoking Status (Most current) and Tobacco Use (All prior to encounter date) This section includes the most current, and the historical, smoking and tobacco- related health factors from the [place] facility where the Encounter took place. Current Smoking Status This section includes the most current smoking, or tobacco-related health factor, from the [place] facility where the Encounter took place. Date/Time Current Smoking Status Comment Facil ity Feb 24, 2023 10:28 AM [place]-TOBACCO FORMER USER [facility] Tobacco Use History This section includes a history of the smoking, or tobacco-related health factors, that were collected on or before the date of the Encounter. The data comes from the [place] facility where the Encounter took place. Date/Time Smoking Status/Tobacco Use Comment F acility Feb 24, 2023 10:28 AM [place]-TOBACCO QUIT 15 YRS OR MORE [facility] Feb 20, 2014 02:07 PM TOBACCO INPATIENT NO USE 30 DAYS [facility] Advance Directives: All historical and current Section Date Range: From patient's date of to the date document was created. This section includes ALL of a patient's completed or amended [place] Advance and Rescinded Directives. The entries below indicate that a directive exists for the patient, but an actual copy is not included with this document. The data comes from all [place] facilities. Date Advance Directives Provider Source Feb 20, 2014 ADVANCE DIRECTIVE DISCUSSION KASANDRA HERMAN JR [facility] September 15, 2012 ADVANCE DIRECTIVE ARISTEO LOVELL Encounter Notes: All associated encounter notes This section contains the clinical notes associated to the Encounter. Date/Time Encounter Note(s) Provider Source Aug 08, 2023 11:31 PM PHARMACY NOTE: LOCAL TITLE: V1 PHARMACY CUSTOMER CARE MEDICATION RENEWAL STANDARD TITLE: PHARMACY NOTE DATE OF NOTE: AUG 08, 2023@23:31 ENTRY DATE: AUG 08, 2023@23:31:41 AUTHOR: ROBBIE AYALA EXP COSIGNER: URGENCY: STATUS: COMPLETED Date: Jul Division: [facility] referred by Pharmacy Call Center for medication renewal: Non-controlled/maintenanc e medication Medications requested: [id number] UBROGEPANT 100MG TAB Defer to primary care provider To be mailed . Please review and renew if appropriate. *This note was generated by [facility] [facility] Customer Care. If you have any questions or need assistance, do not contact this author. Please refer all questions to your local, on-site pharmacy departments. /luis m/ ROBBIE AYALA CPhT Procurement Inspector, [place]/Pharmacy Customer Care Signed: 08/08/2023 23:31 Receipt Acknowledged By: 08/09/2023 10:24 /es/ BOO SILVA RN REGISTERED NURSE 08/10/2023 16:09 /es/ JARETH MELGAR MD PHYSICIAN ROBBIE AYALA [place] [facility]
--- OUTSIDE RECORDS SUMMARY | 2024-04-03 10:42 | XMS_ITS | Encounter Summary ---
Author Name [facility] [place] Address [address] [place] [address] Care Team Providers Care Sternman Name Role Phone JARETH MELGAR Primary Care [...] Patient's Relationship to Policy Lucia ANURAG REYES [facility] MEDICARE SUPP[employer]MEN [employer]ONNA HAMPS HIRE COUNT Y LASHAE Apr 18, 2014 [id number] KODAK CESAR PATIENT BCBS [place] MEDICARE SUPPLEMEN RONNA MEDEX 2 Apr 18, 2014 [id number] KODAK CESAR PATIENT [place] SUPP[employer] MEDEX 2 Apr 18, 2014 [id number] [phone] [id number] KODAK CESAR PATIENT [place] MEDICARE SUPP[employer]MEN [employer]NA HAMPS HIRE COUNT Y LASHAE Apr 18, 2014 [id number] [phone] KODAK CESAR PATIENT [place] MED[place] SUPP[place] MEDEX 2 Apr 18, 2014 [id number] KODAK CESAR PATIENT [facility] [place] MEDICARE SUPPLEMEN RONNA HAMPS HIRE COUNT Y LASHAE Apr 18, 2014 [id number] KODAK CESAR PATIENT CAMP [place]-WN R [place] SPECIAL CLASS CAMP [place] August 23, 2023 CAMP LUZMARIA [id number] [phone] KODAK CESAR PATIENT MEDICARE (WNR) MEDICARE () PART A Nov 16, 2012 PART A [id number] MR49 KODAK CESAR PATIENT MEDICARE (WNR) MEDICARE () PART B Nov 16, 2012 PART B [id number] MR49 KODAK CESAR PATIENT MEDICARE (WNR) MEDICARE () PART B Nov 16, 2012 PART B [id number] MR49 [phone] KODAK CESAR PATIENT MEDICARE (WNR) MEDICARE () PART A Nov 16, 2012 PART A [id number] MR49 KODAK CESAR PATIENT MEDICARE (WNR) MEDICARE () PART A Nov 16, 2012 PART A [id number] KODAK CESAR PATIENT MEDICARE (WNR) MEDICARE () PART B Nov 16, 2012 PART B [id number] 97A KODAK CESAR PATIENT MEDICARE (WNR) MEDICARE () PART A Nov 16, 2012 PART A [id number] MR49 KODAK CESAR PATIENT MEDICARE (WNR) MEDICARE () PART A Nov 16, 2012 PART A [id number] KODAK CESAR PATIENT MEDICARE (WNR) MEDICARE () PART B Nov 16, 2012 PART B [id number] MR49 KODAK CESAR PATIENT MEDICARE (WNR) MEDICARE () PART B Nov 16, 2012 PART B [id number] [phone] KODAK CESAR PATIENT MEDICARE (WNR) MEDICARE () PART A Nov 16, 2012 PART A [id number] MR49 KODAK CESAR PATIENT MEDICARE (WNR) MEDICARE (M) PART B Nov 16, 2012 PART B [id number] MR49 KODAK CESAR PATIENT Selected Encounter This section includes the information on record at [place] for the Encounter. Date/Time Encounter Type Encounter Description Reason Pro vider Source Oct 25, 2023 02:56 PM Outpatient Encounter ADMIN PAT ACTIVTIES (MASNONCT) IHE Encounter Template Text not used by [place] Plan of Treatment: Future Appointments (+ 6 months) and Future Tests (+/- 45 days) The Plan of Treatment section includes future care activities for the patient from all [place] treatmentfacilities. This section includes future appointments and future orders which are active, pending or scheduled. Future Appointments This section includes appointments that were scheduled to occur 6 months from the date of the Encounter, up to a maximum of 20 appointments. The data comes from all [place] treatment facilities. Appointment Date/Time Appointment Type Appointme nt Facility Name Nov 24, 2023 12:30 PM AMBULATORY - MEDICINE [facility] Nov 24, 2023 03:30 PM AMBULATORY - MEDICINE [facility] Nov 25, 2023 08:30 AM [facility] [place] [facility] Jan 31, 2024 10:00 AM AMBULATORY - MEDICINE [facility] [place] [facility] Feb 14, 2024 11:30 AM AMBULATORY - MEDICINE [facility] Mar 06, 2024 02:00 PM AMBULATORY - MEDICINE [facility] Social History: Smoking Status (Most current) and Tobacco Use (All prior to encounter date) This section includes the most current, and the historical, smoking and tobacco- related health factors from the [place] facility where the Encounter took place. Current Smoking Status This section includes the most current smoking, or tobacco-related health factor, from the [place] facility where the Encounter took place. Date/Time Current Smoking Status Dilia hinds Feb 24, 2023 10:28 AM [place] Tobacco Use History This section includes a history of the smoking, or tobacco-related health factors, that were collected on or before the date of the Encounter. The data comes from the [place] facility where the Encounter took place. Date/Time Smoking Status/Tobacco Use Comment F acility Feb 24, 2023 10:28 AM VA-TOBACCO QUIT 15 YRS OR MORE [facility] Feb 20, 2014 02:07 PM TOBACCO INPATIENT NO USE 30 DAYS [facility] Advance Directives: All historical and current Section Date Range: From patient's date of to the date document was created. This section includes ALL of a patient's completed or amended [place] Advance and Rescinded Directives. The entries below indicate that a directive exists for the patient, but an actual copy is not included with this document. The data comes from all [place] facilities. Date Advance Directives Provider Source Feb 20, 2014 ADVANCE DIRECTIVE DISCUSSION KASANDRA HERMAN JR [facility] September 15, 2012 ADVANCE DIRECTIVE ARISTEO LOVELL Encounter Notes: All associated encounter notes This section contains the clinical notes associated to the Encounter. Date/Time Encounter Note(s) Provider Source Oct 25, 2023 02:56 PM ADMINISTRATIVE NOT E: LOCAL TITLE: CCC: SCHEDULING ADMINISTRATION STANDARD TITLE: ADMINISTRATIVE NOTE DATE OF NOTE: OCT 25, 2023@14:56:31 ENTRY DATE: OCT 25, 2023@14:56:31 AUTHOR: MINNIE MOSES COSIGNER: URGENCY: STATUS: COMPLETED CCC: SCHEDULING ADMINISTRATION Has ADDENDA Patient Demographics Patient Name: KODAK CESAR Patient Primary Phone: [phone] Patient Primary Address: [address] [place] [id number] Patient : 1945 Patient Age: 77 Caller/Recipient Relation to Patient: Self Administrative Administrative Note Reason: Medication Renewal [place] Medications Refill/Renewal Request: please renew and mail TOPIRAMATE 25MG TAB Pt has none left CYANOCOBALAMIN 1000MCG/ML INJ /es/ MINNIE MOSES [id number] Signed: 10/25/2023 14:56 Receipt Acknowledged By: 10/26/2023 06:55 /es/ JARETH MELGAR MD PHYSICIAN 10/27/2023 19:41 /es/ DAVID MACEDO,RN-BC REGISTERED NURSE (RN) for MICHAELA ZAYNAB 10/26/2023 ADDENDUM STATUS: COMPLETED Vitamin B12 renewed, topiramate to be mailed beginning of November/ JARETH MELGAR MD PHYSICIAN Signed: 10/26/2023 06:56 MINNIE MOSES [facility]
--- OUTSIDE RECORDS SUMMARY | 2024-04-03 10:42 | XMS_ITS | Encounter Summary ---
Author Name [place] Address [address] [place] [address] Care Team Providers Care Nuclear Medicine Technologist Name Role Phone JARETH MELGAR Primary Care [...] Patient's Relationship to Policy Lucia ANURAG REYES [facility] MEDICARE SUPPLEMEN RONNA HAMPS HIRE COUNT Y LASHAE Apr 18, 2014 [id number] KODAK CESAR PATIENT [place]BS [place] MEDICARE SUPPLEMEN RONNA MEDEX 2 Apr 18, 2014 [id number] KODAK CESAR PATIENT [place] MED[place] SUPPLEMEN [place]ON[place] MEDEX 2 Apr 18, 2014 [id number] KODAK CESAR PATIENT [place] SUPP[place]MEN [place] HAMPS HIRE COUNT Y LASHAE Apr 18, 2014 [id number] KODAK CESAR PATIENT [place] SUPPLEMEN [place] MEDEX 2 Apr 18, 2014 [id number] KODAK CESAR PATIENT BCBS OF [facility] MEDICARE SUPPLEMEN RONNA HAMPS HIRE COUNT Y LASHAE Apr 18, 2014 [id number] KODAK CESAR PATIENT CAMP [place]-WN R [place] SPECIAL CLASS CAMP [place] August 23, 2023 NING DUTTA [id number] [phone] KODAK CESAR PATIENT MEDICARE (WNR) MEDICARE () PART A Nov 16, 2012 PART A [id number] MR49 KODAK CESAR PATIENT MEDICARE (WNR) MEDICARE () PART B Nov 16, 2012 PART B [id number] MR49 [phone] KODAK CESAR PATIENT MEDICARE (WNR) MEDICARE () PART A Nov 16, 2012 PART A [id number] KODAK CESAR PATIENT MEDICARE (WNR) MEDICARE () PART B Nov 16, 2012 PART B [id number] 97A KODAK CESAR PATIENT MEDICARE (WNR) MEDICARE () PART A Nov 16, 2012 PART A [id number] KODAK CESAR PATIENT MEDICARE (WNR) MEDICARE () PART B Nov 16, 2012 PART B [id number] KODAK CESAR PATIENT MEDICARE (WNR) MEDICARE () PART A Nov 16, 2012 PART A [id number] MR49 [phone] KODAK CESAR PATIENT MEDICARE (WNR) MEDICARE () PART B Nov 16, 2012 PART B [id number] MR49 KODAK CESAR PATIENT MEDICARE (WNR) MEDICARE () PART A Nov 16, 2012 PART A [id number] MR49 KODAK CESAR PATIENT MEDICARE (WNR) MEDICARE () PART A Nov 16, 2012 PART A [id number] MR49 [phone] KODAK CESAR PATIENT MEDICARE (WNR) MEDICARE () PART B Nov 16, 2012 PART B [id number] MR49 KODAK CESAR PATIENT MEDICARE (WNR) MEDICARE (M) PART B Nov 16, 2012 PART B [id number] MR49 KODAK CESAR PATIENT Selected Encounter This section includes the information on record at [place] for the Encounter. Date/Time Encounter Type Encounter Description Reason Pro vider Source May 31, 2023 12:00 AM Outpatient Encounter COMMUNITY CARE CONSULT IHE Encounter Template Text not used by [place] Plan of Treatment: Future Appointments (+ 6 months) and Future Tests (+/- 45 days) The Plan of Treatment section includes future care activities for the patient from all [place] [facility]. This section includes future appointments and future orders which are active, pending or scheduled. Future Appointments This section includes appointments that were scheduled to occur 6 months from the date of the Encounter, up to a maximum of 20 appointments. The data comes from all [place] treatment facilities. Appointment Date/Time Appointment Type Appointme nt Facility Name Jun 28, 2023 12:50 PM AMBULATORY - MEDICINE [facility] [place] [facility] Jun 30, 2023 09:00 AM AMBULATORY - REHAB [facility] Jul 11, 2023 02:30 PM AMBULATORY - REHAB [facility]IC[facility] Jul 18, 2023 02:30 PM AMBULATORY - REHAB [facility]IC[facility] Jul 26, 2023 02:30 PM AMBULATORY - REHAB [facility]IC[facility] Aug 02, 2023 02:00 PM AMBULATORY - MEDICINE [facility] Nov 24, 2023 12:30 PM AMBULATORY - MEDICINE [facility] [place] [facility] Nov 24, 2023 03:30 PM AMBULATORY - MEDICINE [facility] [place] [facility] Nov 25, 2023 08:30 AM [facility]ORY - NONE [facility] Social History: Smoking Status (Most current) and Tobacco Use (All prior to encounter date) This section includes the most current, and the historical, smoking and tobacco- related health factors from the [place] facility where the Encounter took place. Current Smoking Status This section includes the most current smoking, or tobacco-related health factor, from the [place] facility where the Encounter took place. Date/Time Current Smoking Status Dilia hinds Feb 24, 2023 10:28 AM VA-TOBACCO FORMER USER [place] [facility] Tobacco Use History This section includes a history of the smoking, or tobacco-related health factors, that were collected on or before the date of the Encounter. The data comes from the [place] facility where the Encounter took place. Date/Time Smoking Status/Tobacco Use Comment F acility Feb 24, 2023 10:28 AM [place]-TOBACCO QUIT 15 YRS OR MORE [facility] Feb 20, 2014 02:07 PM TOBACCO INPATIENT NO USE 30 DAYS [facility] Advance Directives: All historical and current Section Date Range: From patient's date of to the date document was created. This section includes ALL of a patient's completed or amended [place] Advance and Rescinded Directives. The entries below indicate that a directive exists for the patient, but an actual copy is not included with this document. The data comes from all [place] facilities. Date Advance Directives Provider Source Feb 20, 2014 ADVANCE DIRECTIVE DISCUSSION KASANDRA HERMAN JR [facility] September 15, 2012 ADVANCE DIRECTIVE ARISTEO LOVELL Encounter Notes: All associated encounter notes This section contains the clinical notes associated to the Encounter. Date/Time Encounter Note(s) Provider Source May 31, 2023 12:00 AM NONVA CONSULT: LOCAL TITLE: COMMUNITY CARE-CONSULT RESULT NOTE STANDARD TITLE: NONVA CONSULT DATE OF NOTE: MAY 31, 2023 ENTRY DATE: OCT 18, 2023@08:48:30 AUTHOR: AMARA BERNARD COSIGNER: URGENCY: STATUS: COMPLETED VistA Imaging - Scanned Document SCANNED DOCUMENT SIGNATURE NOT REQUIRED Electronically Filed: 10/18/2023 by: TAMMY BERNARD Telecommunication Tower Technician TAMMY BERNARD [facility]
--- OUTSIDE RECORDS SUMMARY | 2024-04-03 10:42 | XMS_ITS | Encounter Summary ---
Author Name [facility] [place] Address [address] [place] [address] Care Team Providers Care Operating Table Assembler Name Role Phone JARETH MELGAR Primary Care [...] Patient's Relationship to Policy Lucia ANURAG REYES [facility] MEDICARE SUPPLEMEN RONNA HAMPS HIRE COUNT Y LASHAE Apr 18, 2014 [id number] KODAK CESAR PATIENT [place] MEDIC[place] SUPPLEMEN RONNA MEDEX 2 Apr 18, 2014 [id number] KODAK CESAR PATIENT [place] MED[place] SUPPLEMEN RONNA MEDEX 2 Apr 18, 2014 [id number] OKDAK CESAR PATIENT [place] MED[place] SUPPLEMEN [place]ONNA HAMPS HIRE COUNT Y LASHAE Apr 18, 2014 [id number] KODAK CESAR PATIENT [place] SUPPLEMEN [place] MEDEX 2 Apr 18, 2014 [id number] KODAK CESAR PATIENT [place] SUPPLEMEN RONNA HAMPS HIRE COUNT Y LASHAE Apr 18, 2014 [id number] KODAK CESAR PATIENT CAMP [place]WN R [place] [facility] [place] August 23, 2023 CAMP LUZMARIA [id number] KODAK CESAR PATIENT MEDICARE (WNR) MEDICARE () PART A Nov 16, 2012 PART A [id number] MR49 [phone] KODAK CESAR PATIENT MEDICARE (WNR) MEDICARE () PART B Nov 16, 2012 PART B [id number] MR49 KODAK CESAR PATIENT MEDICARE (WNR) MEDICARE () PART A Nov 16, 2012 PART A [id number] 97A KODAK CESAR PATIENT MEDICARE (WNR) MEDICARE () PART B Nov 16, 2012 PART B [id number] 97A KODAK CESAR PATIENT MEDICARE (WNR) MEDICARE () PART A Nov 16, 2012 PART A [id number] MR49 [phone] KODAK CESAR PATIENT MEDICARE (WNR) MEDICARE () PART B Nov 16, 2012 PART B [id number] MR49 [phone] KODAK CESAR PATIENT MEDICARE (WNR) MEDICARE () PART A Nov 16, 2012 PART A [id number] MR49 KODAK CESAR PATIENT MEDICARE (WNR) MEDICARE () PART A Nov 16, 2012 PART A [id number] KODAK CESAR PATIENT MEDICARE (WNR) MEDICARE () PART B Nov 16, 2012 PART B [id number] 97A KODAK CESAR PATIENT MEDICARE (WNR) MEDICARE () PART B Nov 16, 2012 PART B [id number] MR49 KODAK CESAR PATIENT MEDICARE (WNR) MEDICARE () PART A Nov 16, 2012 PART A [id number] MR49 [id number] KODAK CESAR PATIENT MEDICARE (WNR) MEDICARE (M) PART B Nov 16, 2012 PART B [id number] MR49 KODAK CESAR PATIENT Selected Encounter This section includes the information on record at NH for the Encounter. Date/Time Encounter Type Encounter Description Reason Pro vider Source Nov 09, 2023 02:47 PM Outpatient Encounter ADMIN PAT ACTIVTIES (MASNONCT) IHE Encounter Template Text not used by NH Plan of Treatment: Future Appointments (+ 6 months) and Future Tests (+/- 45 days) The Plan of Treatment section includes future care activities for the patient from all NH treatmentfacilities. This section includes future appointments and future orders which are active, pending or scheduled. Future Appointments This section includes appointments that were scheduled to occur 6 months from the date of the Encounter, up to a maximum of 20 appointments. The data comes from all NH treatment facilities. Appointment Date/Time Appointment Type Appointme nt Facility Name Nov 24, 2023 12:30 PM [facility] Nov 24, 2023 03:30 PM [facility] Nov 25, 2023 08:30 AM [facility] [place] [facility] Jan 31, 2024 10:00 AM AMBULATORY - MEDICINE [facility] [place] [facility] Feb 14, 2024 11:30 AM AMBULATORY - MEDICINE [facility] Mar 06, 2024 02:00 PM AMBULATORY - MEDICINE [facility] Social History: Smoking Status (Most current) and Tobacco Use (All prior to encounter date) This section includes the most current, and the historical, smoking and tobacco- related health factors from the NH facility where the Encounter took place. Current Smoking Status This section includes the most current smoking, or tobacco-related health factor, from the NH facility where the Encounter took place. Date/Time Current Smoking Status Dilia hinds Feb 24, 2023 10:28 AM [facility]CO [facility] Tobacco Use History This section includes a history of the smoking, or tobacco-related health factors, that were collected on or before the date of the Encounter. The data comes from the NH facility where the Encounter took place. Date/Time Smoking Status/Tobacco Use Comment F acility Feb 24, 2023 10:28 AM NH-TOBACCO QUIT 15 YRS OR MORE [facility] Feb 20, 2014 02:07 PM TOBACCO INPATIENT NO USE 30 DAYS [facility] Advance Directives: All historical and current Section Date Range: From patient's date of to the date document was created. This section includes ALL of a patient's completed or amended [place] Advance and Rescinded Directives. The entries below indicate that a directive exists for the patient, but an actual copy is not included with this document. The data comes from all NH facilities. Date Advance Directives Provider Source Feb 20, 2014 ADVANCE DIRECTIVE DISCUSSION KASANDRA HERMAN JR [facility] September 15, 2012 ADVANCE DIRECTIVE ARISTEO LOVELL Encounter Notes: All associated encounter notes This section contains the clinical notes associated to the Encounter. Date/Time Encounter Note(s) Provider Source Nov 09, 2023 02:47 PM ADMINISTRATIVE NOTE: LOCAL TITLE: CCC: SCHEDULING ADMINISTRATION STANDARD TITLE: ADMINISTRATIVE NOTE DATE OF NOTE: NOV 09, 2023@14:47:09 ENTRY DATE: NOV 09, 2023@14:47:09 AUTHOR: PEDRO PABLO FERRARA EXP COSIGNER: URGENCY: STATUS: COMPLETED CCC: SCHEDULING ADMINISTRATION Has ADDENDA Patient Demographics Patient Name: KODAK CESAR Patient Primary Phone: [phone] Patient Primary Address: [address] [place] [id number] Patient : 1945 Patient Age: 77 Caller/Recipient Relation to Patient: Self Administrative Administrative Note Reason: Other NH Medications Refill/Renewal Request: Rx # - Medication Name - Dosage - SIG - Number of Refills - Facility - Status [id number] - TOLTERODINE TARTRATE 4MG SA CAP - 1 CAPSULE - TAKE ONE CAPSULE BY MOUTH ONCE DAILY FOR FREQUENT URINATION - 0 - [facility] - 631 - ACTIVE Administrative Note Comments: Refill medication /es/ PEDRO PABLO FERRARA VISN [facility] A[facility] Signed: 11/09/2023 14:47 Receipt Acknowledged By: 11/13/2023 15:12 /es/ BYRON LOVING LPN LPN 11/09/2023 23:25 /es/ JARETH MELGAR MD PHYSICIAN 11/09/2023 ADDENDUM STATUS: COMPLETED Prescribed by urology /luis m/ JARETH MELGAR MD PHYSICIAN Signed: 11/09/2023 23:28 PEDRO PABLO FERRARA [facility]
--- OUTSIDE RECORDS SUMMARY | 2024-04-03 10:42 | XMS_ITS | Encounter Summary ---
Author Name [facility] [place] Organization [place] Address [address] [place] [address] Care Team Providers Care Visitor Service Assistant Name Role Phone JARETH MELGAR Primary Care [...] HIRE COUNT Y LASHAE Apr 18, 2014 [id number] KODAK CESAR PATIENT [place] MEDICARE SUPPLEMEN RONNA MEDEX 2 Apr 18, 2014 [id number] KODAK CESAR PATIENT [place] SUPPLEMEN RON[place] MEDEX 2 Apr 18, 2014 [id number] KODAK CESAR PATIENT [place] SUPPLEMEN [place]NA HAMPS HIRE COUNT Y LASHAE Apr 18, 2014 [id number] KODAK CESAR PATIENT [place] MED[place] SUPPLEMEN RONNA MEDEX 2 Apr 18, 2014 [id number] KODAK CESAR PATIENT BCBS OF [facility] MEDICARE SUPPLEMEN [place]NNA HAMPS HIRE COUNT Y LASHAE Apr 18, 2014 [id number] KODAK CESAR PATIENT CAMP [place]-WN R [place] [facility] [place] August 23, 2023 NING DUTTA [id number] KODAK CESAR PATIENT MEDICARE (WNR) MEDICARE () PART A Nov 16, 2012 PART A [id number] MR49 [phone] KODAK CESAR PATIENT MEDICARE (WNR) MEDICARE () PART B Nov 16, 2012 PART B [id number] MR49 KODAK CESAR PATIENT MEDICARE (WNR) MEDICARE () PART B Nov 16, 2012 PART B [id number] MR49 KODAK CESAR PATIENT MEDICARE (WNR) MEDICARE () PART A Nov 16, 2012 PART A [id number] MR49 [phone] [id number] KODAK CESAR PATIENT MEDICARE (WNR) MEDICARE () PART A Nov 16, 2012 PART A [id number] [id number] [phone] KODAK CESAR PATIENT MEDICARE (WNR) MEDICARE () PART B Nov 16, 2012 PART B [id number] [id number] [phone] KODAK CESAR PATIENT MEDICARE (WNR) MEDICARE () PART A Nov 16, 2012 PART A [id number] MR49 [phone] KODAK CESAR PATIENT MEDICARE (WNR) MEDICARE () PART A Nov 16, 2012 PART A [id number] [id number] KODAK CESAR PATIENT MEDICARE (WNR) MEDICARE () PART B Nov 16, 2012 PART B [id number] MR49 KODAK CESAR PATIENT MEDICARE (WNR) MEDICARE () PART B Nov 16, 2012 PART B [id number] KODAK CESAR PATIENT MEDICARE (WNR) MEDICARE () PART A Nov 16, 2012 PART A [id number] MR49 KODAK CESAR PATIENT MEDICARE (WNR) MEDICARE (M) PART B Nov 16, 2012 PART B [id number] MR49 KODAK CESAR PATIENT Selected Encounter This section includes the information on record at [place] for the Encounter. Date/Time Encounter Type Encounter Description Reason Pro vider Source Nov 12, 2023 06:28 PM Outpatient Encounter PRIMARY CARE/MEDICINE IHE Encounter Template Text not used by [place] Plan of Treatment: Future Appointments (+ 6 months) and Future Tests (+/- 45 days) The Plan of Treatment section includes future care activities for the patient from all [place] treatmentfacilities. This section includes future appointments and future orders which are active, pending or scheduled. Future Appointments This section includes appointments that were scheduled to occur 6 months from the date of the Encounter, up to a maximum of 20 appointments. The data comes from all [place] treatment facilities. Appointment Date/Time Appointment Type Appointme nt Facility Name Nov 24, 2023 12:30 PM AMBULATORY - MEDICINE [facility] [facility] Nov 24, 2023 03:30 PM AMBULATORY - MEDICINE [facility] [place] [facility] Nov 25, 2023 08:30 AM AMBULATORY - NONE [place] [facility] [place] [facility] Jan 31, 2024 10:00 AM AMBULATORY - MEDICINE [facility] [place] [facility] Feb 14, 2024 11:30 AM AMBULATORY - MEDICINE [facility] Mar 06, 2024 02:00 PM AMBULATORY - MEDICINE [facility] [place] [facility] Social History: Smoking Status (Most current) and Tobacco Use (All prior to encounter date) This section includes the most current, and the historical, smoking and tobacco- related health factors from the [place] facility where the Encounter took place. Current Smoking Status This section includes the most current smoking, or tobacco-related health factor, from the [place] facility where the Encounter took place. Date/Time Current Smoking Status Dilia hinds Feb 24, 2023 10:28 AM VA-TOBACCO FORMER USER [place] [facility] Tobacco Use History This section includes a history of the smoking, or tobacco-related health factors, that were collected on or before the date of the Encounter. The data comes from the [place] facility where the Encounter took place. Date/Time Smoking Status/Tobacco Use Comment F acility Feb 24, 2023 10:28 AM [place]-TOBACCO QUIT 15 YRS OR MORE [facility] Feb 20, 2014 02:07 PM TOBACCO INPATIENT NO USE 30 DAYS [facility] Advance Directives: All historical and current Section Date Range: From patient's date of to the date document was created. This section includes ALL of a patient's completed or amended [place] Advance and Rescinded Directives. The entries below indicate that a directive exists for the patient, but an actual copy is not included with this document. The data comes from all [place] facilities. Date Advance Directives Provider Source Feb 20, 2014 ADVANCE DIRECTIVE DISCUSSION KASANDRA HERMAN JR [facility] September 15, 2012 ADVANCE DIRECTIVE ARISTEO LOVELL Encounter Notes: All associated encounter notes This section contains the clinical notes associated to the Encounter. Date/Time Encounter Note(s) Provider Source Nov 12, 2023 06:31 PM ADMINISTRATIVE NOT E: LOCAL TITLE: ADMINISTRATIVE NOTE STANDARD TITLE: ADMINISTRATIVE NOTE DATE OF NOTE: NOV 12, 2023@18:31 ENTRY DATE: NOV 12, 2023@18:32 AUTHOR: YUE BASILIO EXP COSIGNER: URGENCY: STATUS: COMPLETED Received fax from [facility] with most recent visit note and request for community care - urology for continuing care. Consult entered, held for provider review per policy. Note sent to [facility]. /luis m/ Yue Basilio RN Registered Nurse Signed: 11/12/2023 18:32 YUE BASILIOFIELD
--- OUTSIDE RECORDS SUMMARY | 2024-04-03 10:42 | XMS_ITS ---
Author Name [place] Address [address] [place] [address] Care Team Providers Care Iron Cutter Name Role Phone JARETH MELGAR Primary Care [...] Patient's Relationship to Policy Lucia ANURAG REYES [facility] MEDICARE SUPPLEMEN RONNA HAMPS HIRE COUNT Y LASHAE Apr 18, 2014 [id number] KODAK CESAR PATIENT [place] MED[place] SUPPLEMEN RONNA MEDEX 2 Apr 18, 2014 [id number] KODAK CESAR PATIENT [place] SUPPLEMEN RONNA MEDEX 2 Apr 18, 2014 [id number] KODAK CESAR PATIENT [place] SUPPLEMEN RONNA HAMPS HIRE COUNT Y LASHAE Apr 18, 2014 [id number] KODAK CESAR PATIENT [place] MED[place] SUPPLEMEN RONNA MEDEX 2 Apr 18, 2014 [id number] [phone] KODAK CESAR PATIENT [place] SUPPLEMEN RONNA HAMPS HIRE COUNT Y LASHAE Apr 18, 2014 [id number] KODAK CESAR PATIENT CAMP [place]-WN R [place] SPECIAL CLASS C[place] August 23, 2023 NING DUTTA [id number] [phone] KODAK CESAR PATIENT MEDICARE (WNR) MEDICARE () PART A Nov 16, 2012 PART A [id number] MR49 KODAK CESAR PATIENT MEDICARE (WNR) MEDICARE () PART B Nov 16, 2012 PART B [id number] MR49 KODAK CESAR PATIENT MEDICARE (WNR) MEDICARE () PART A Nov 16, 2012 PART A [id number] KODAK CESAR PATIENT MEDICARE (WNR) MEDICARE () PART B Nov 16, 2012 PART B [id number] KODAK CESAR PATIENT MEDICARE (WNR) MEDICARE () PART A Nov 16, 2012 PART A [id number] MR49 [phone] KODAK CESAR PATIENT MEDICARE (WNR) MEDICARE () PART B Nov 16, 2012 PART B [id number] MR49 KODAK CESAR PATIENT MEDICARE (WNR) MEDICARE () PART A Nov 16, 2012 PART A [id number] KODAK CESAR PATIENT MEDICARE (WNR) MEDICARE () PART B Nov 16, 2012 PART B [id number] KODAK CESAR PATIENT MEDICARE (WNR) MEDICARE () PART A Nov 16, 2012 PART A [id number] MR49 [phone] KODAK CESAR PATIENT MEDICARE (WNR) MEDICARE () PART B Nov 16, 2012 PART B [id number] MR49 KODAK CESAR PATIENT MEDICARE (WNR) MEDICARE () PART A Nov 16, 2012 PART A [id number] MR49 [id number] KODAK CESAR PATIENT MEDICARE (WNR) MEDICARE (M) PART B Nov 16, 2012 PART B [id number] MR49 KODAK CESAR PATIENT Selected Encounter This section includes the information on record at [place] for the Encounter. Date/Time Encounter Type Encounter Description Reason Pro vider Source Jun 17, 2023 12:00 PM Outpatient Encounter COMMUNITY CARE CONSULT IHE Encounter Template Text not used by [facility] Plan of Treatment: Future Appointments (+ 6 months) and Future Tests (+/- 45 days) The Plan of Treatment section includes [facility] [place] [facility] This section includes future appointments and future orders which are active, pending or scheduled. Future Appointments This section includes appointments that were scheduled to occur 6 months from the date of the Encounter, up to a maximum of 20 appointments. The data comes from all [place] treatment facilities. Appointment Date/Time Appointment Type Appointme nt Facility Name Jun 28, 2023 12:50 PM AMBULATORY - MEDICINE [facility] [place] [place] [facility] Jun 30, 2023 09:00 AM AMBULATORY - REHAB [facility]IC[facility] Jul 11, 2023 02:30 PM AMBULATORY - REHAB MEDICIN [facility] Jul 18, 2023 02:30 PM AMBULATORY - REHAB MEDICIN [facility] Jul 26, 2023 02:30 PM AMBULATORY - REHAB MEDICIN [facility] Aug 02, 2023 02:00 PM AMBULATORY - MEDICINE [facility] Nov 24, 2023 12:30 PM AM[facility]ULATORY - [facility]IC[facility] [place] [facility] Nov 24, 2023 03:30 PM AMBULATORY - MEDICINE [facility] [place] [facility] Nov 25, 2023 08:30 AM [facility] Social History: Smoking Status (Most current) and Tobacco Use (All prior to encounter date) This section includes the most current, and the historical, smoking and tobacco- related health factors from the [place] facility where the Encounter took place. Current Smoking Status This section includes the most current smoking, or tobacco-related health factor, from the [place] facility where the Encounter took place. Date/Time Current Smoking Status Dilia hinds Feb 24, 2023 10:28 AM [facility]ACCO [facility] Tobacco Use History This section includes a history of the smoking, or tobacco-related health factors, that were collected on or before the date of the Encounter. The data comes from the [place] facility where the Encounter took place. Date/Time Smoking Status/Tobacco Use Comment F acility Feb 24, 2023 10:28 AM [place]-TOBACCO QUIT 15 YRS OR MORE [facility] Feb 20, 2014 02:07 PM TOBACCO INPATIENT NO USE 30 DAYS [facility] Advance Directives: All historical and current Section Date Range: From patient's date of to the date document was created. This section includes ALL of a patient's completed or amended [place] Advance and Rescinded Directives. The entries below indicate that a directive exists for the patient, but an actual copy is not included with this document. The data comes from all [place] facilities. Date Advance Directives Provider Source Feb 20, 2014 ADVANCE DIRECTIVE DISCUSSION KASANDRA HERMAN JR [facility] September 15, 2012 ADVANCE DIRECTIVE ARISTEO LOVELL Encounter Notes: All associated encounter notes This section contains the clinical notes associated to the Encounter. Date/Time Encounter Note(s) Provider Source Jun 17, 2023 12:00 PM NONVA CONSULT: LOCAL TITLE: COMMUNITY CARE-CONSULT RESULT NOTE STANDARD TITLE: NONVA CONSULT DATE OF NOTE: JUN 17, 2023@12:00 ENTRY DATE: AUGUST 23, 2023@12:21:19 AUTHOR: VÍCTOR GARLAND EXP COSIGNER: URGENCY: STATUS: COMPLETED VistA Imaging - Scanned Document SCANNED DOCUMENT SIGNATURE NOT REQUIRED Electronically Filed: 08/23/2023 by: VÍCTOR GARLAND PARTY SUPPLY SPECIALIST VÍCTOR GARLAND [facility]
--- OUTSIDE RECORDS SUMMARY | 2024-04-03 10:42 | XMS_ITS | Encounter Summary ---
Author Name [place] Organization [place] Address [address] [place] [address] Care Team Providers Care Personal Counselor Name Role Phone JARETH MELGAR Primary Care [...] Patient's Relationship to Policy Lucia ANURAG REYES [facility] MEDICARE SUPPLEMEN RONNA HAMPS HIRE COUNT Y LASHAE Apr 18, 2014 [id number] KODAK CESAR PATIENT BCBS [place] MEDICARE SUPPLEMEN RONNA MEDEX 2 Apr 18, 2014 [id number] KODAK CESAR PATIENT [place] MED[place] SUPPLEMEN RONNA MEDEX 2 Apr 18, 2014 [id number] KODAK CESAR PATIENT [place] MED[place] SUPPLEMEN RONNA HAMPS HIRE COUNT Y LASHAE Apr 18, 2014 [id number] KODAK CESAR PATIENT [place] MEDIC[place] SUPPLEMEN RONNA MEDEX 2 Apr 18, 2014 [id number] KODAK CESAR PATIENT BCBS OF [facility] MEDICARE SUPPLEMEN RONNA HAMPS HIRE COUNT Y LASHAE Apr 18, 2014 [id number] KODAK CESAR PATIENT CAMP [place]-WN R [place] SPECIAL CLASS C[facility] [place] August 23, 2023 CAMP LUZMARIA [id number] KODAK CESAR PATIENT MEDICARE (WNR) MEDICARE () PART B Nov 16, 2012 PART B [id number] MR49 [phone] KODAK CESAR PATIENT MEDICARE (WNR) MEDICARE () PART A Nov 16, 2012 PART A [id number] MR49 KODAK CESAR PATIENT MEDICARE (WNR) MEDICARE () PART A Nov 16, 2012 PART A [id number] KODAK CESAR PATIENT MEDICARE (WNR) MEDICARE () PART B Nov 16, 2012 PART B [id number] 97A KODAK CESAR PATIENT MEDICARE (WNR) MEDICARE () PART A Nov 16, 2012 PART A [id number] KODAK CESAR PATIENT MEDICARE (WNR) MEDICARE () PART B Nov 16, 2012 PART B [id number] KODAK CESAR PATIENT MEDICARE (WNR) MEDICARE () PART A Nov 16, 2012 PART A [id number] MR49 KODAK CESAR PATIENT MEDICARE (WNR) MEDICARE () PART B Nov 16, 2012 PART B [id number] [id number] KODAK CESAR PATIENT MEDICARE (WNR) MEDICARE () PART A Nov 16, 2012 PART A [id number] MR49 [phone] [id number] KODAK CESAR PATIENT MEDICARE (WNR) MEDICARE () PART B Nov 16, 2012 PART B [id number] MR49 [phone] [id number] KODAK CESAR PATIENT MEDICARE (WNR) MEDICARE () PART A Nov 16, 2012 PART A [id number] MR49 KODAK CESAR PATIENT MEDICARE (WNR) MEDICARE (M) PART B Nov 16, 2012 PART B [id number] MR49 KODAK CESAR PATIENT Selected Encounter This section includes the information on record at [place] for the Encounter. Date/Time Encounter Type Encounter Description Reason Pro vider Source Sep 30, 2023 01:17 PM Outpatient Encounter PRIMARY CARE/MEDICINE IHE Encounter [...] 24, 2023 12:30 PM AMBULATORY - MEDICINE [facility] [place] [facility] Nov 24, 2023 03:30 PM AMBULATORY - MEDICINE [facility] [facility] Nov 25, 2023 08:30 AM AMBULATORY - NONE [place] [facility] [place] [facility] Jan 31, 2024 10:00 AM AMBULATORY - MEDICINE [facility] [place] [facility] Feb 14, 2024 11:30 AM AMBULATORY - MEDICINE [facility] Mar 06, 2024 02:00 PM AMBULATORY - MEDICINE [facility] Social History: Smoking Status (Most current) [...] Dilia hinds Feb 24, 2023 10:28 AM [facility] Tobacco Use History This section includes a history of the smoking, or tobacco-related health factors, that were collected on or before the date of the Encounter. The data comes from the [place] facility where the Encounter took place. Date/Time Smoking Status/Tobacco Use Comment F acility Feb 24, 2023 10:28 AM [place]-TOBACCO QUIT 15 YRS OR MORE [facility] Feb 20, 2014 02:07 PM TOBACCO INPATIENT NO USE 30 DAYS [facility] Advance Directives: All historical and current [...] 2014 ADVANCE DIRECTIVE DISCUSSION KASANDRA HERMAN JR [facility] September 15, 2012 ADVANCE DIRECTIVE ARISTEO LOVELL Encounter Notes: All associated encounter notes This section contains the clinical notes associated to the Encounter. Date/Time Encounter Note(s) Provider Source Sep 30, 2023 01:17 PM ADMINISTRATIVE NOT E: LOCAL TITLE: FAX/MAIL RECEIVED STANDARD TITLE: ADMINISTRATIVE NOTE DATE OF NOTE: SEP 30, 2023@13:17 ENTRY DATE: SEP 30, 2023@13:17:38 AUTHOR: MEAGAN VARGAS EXP COSIGNER: URGENCY: STATUS: COMPLETED Document Received On: Sep Document Type: Office Visit Note Date of Service: May Facility and or Provider: Contact Information: PCP of Record: JARETH MELGAR Next visit with PCP: 11/24/2023 12:30 COM CARE-NEUROLOGY 11/24/2023 15:30 COM CARE-DERMATOLOGY 11/25/2023 08:30 CWM/NO/DENTAL/RDH2 AM 01/17/2024 15:30 CWM/SO/PACT 5 Primary Care May keep copies of this document for up to 14 days and send the original for scanning. placed provider mailbox /luis m/ MEAGAN NICHOLSON Signed: 09/30/2023 13:18 MEAGAN VARGAS [place]
--- OUTSIDE RECORDS SUMMARY | 2024-04-03 10:42 | XMS_ITS | Encounter Summary ---
Author Name Department of [facility] [place]) Organization [facility] [place] [facility] [place] Address [address] [place] [address] Care Team Providers Care Jamb Cutter Name Role Phone JARETH MELGAR Primary [...] HIRE COUNT Y LASHAE Apr 18, 2014 [id number] KODAK CESAR PATIENT [place] SUPPLEMEN RONNA MEDEX 2 Apr 18, 2014 [id number] KODAK CESAR PATIENT [place] SUPPLEMEN [place]ON[place] MEDEX 2 Apr 18, 2014 [id number] KODAK CESAR PATIENT [place] MED[place] SUPPLEMEN RONNA HAMPS HIRE COUNT Y LASHAE Apr 18, 2014 [id number] KODAK CESAR PATIENT [place] SUPPLEMEN RONNA MEDEX 2 Apr 18, 2014 [id number] [phone] KODAK CESAR PATIENT BCBS OF [facility] MEDICARE SUPPLEMEN RONNA HAMPS HIRE COUNT Y LASHAE Apr 18, 2014 [id number] KODAK CESAR PATIENT CAMP LUZMARIA-WN R [place] SPECIAL CLASS CAMP [place] August 23, 2023 CAMP LUZMARIA [id number] KODAK CESAR PATIENT MEDICARE (WNR) MEDICARE () PART A Nov 16, 2012 PART A [id number] MR49 KODAK CESAR PATIENT MEDICARE (WNR) MEDICARE () PART B Nov 16, 2012 PART B [id number] MR49 KODAK CESAR PATIENT MEDICARE (WNR) MEDICARE () PART A Nov 16, 2012 PART A [id number] KODAK CESAR PATIENT MEDICARE (WNR) MEDICARE () PART A Nov 16, 2012 PART A [id number] MR49 KODAK CESAR PATIENT MEDICARE (WNR) MEDICARE () PART B Nov 16, 2012 PART B [id number] KODAK CESAR PATIENT MEDICARE (WNR) MEDICARE () PART B Nov 16, 2012 PART B [id number] MR49 KODAK CESAR PATIENT MEDICARE (WNR) MEDICARE () PART A Nov 16, 2012 PART A [id number] MR49 [phone] KODAK CESAR PATIENT MEDICARE (WNR) MEDICARE () PART B Nov 16, 2012 PART B [id number] MR49 KODAK CESAR PATIENT MEDICARE (WNR) MEDICARE () PART A Nov 16, 2012 PART A [id number] KODAK CESAR PATIENT MEDICARE (WNR) MEDICARE () PART B Nov 16, 2012 PART B [id number] 97A KODAK CESAR PATIENT MEDICARE (WNR) MEDICARE () PART A Nov 16, 2012 PART A [id number] MR49 [phone] KODAK CESAR PATIENT MEDICARE (WNR) MEDICARE (M) PART B Nov 16, 2012 PART B [id number] MR49 KODAK CESAR PATIENT Selected Encounter This section includes the information on record at MD for the Encounter. Date/Time Encounter Type Encounter Description Reason Pro vider Source Jun 08, 2023 12:00 AM Outpatient Encounter EVENT (HISTORICAL) IHE Encounter Template Text not used by MD Plan of Treatment: Future Appointments (+ 6 months) and Future Tests (+/- 45 days) The Plan of Treatment section includes future care activities for the patient from all MD treatmentfacilities. This section includes future appointments and [...] 2023 12:50 PM AMBULATORY - MEDICINE [facility] [place] [facility] Jun 30, 2023 09:00 AM AMBULATORY - REHAB MEDICIN [facility] Jul 11, 2023 02:30 PM AMBULATORY - REHAB MEDICIN [facility] Jul 18, 2023 02:30 PM AMBULATORY - REHAB MEDICIN [facility] Jul 26, 2023 02:30 PM AMBULATORY - REHAB MEDICIN [facility] Aug 02, 2023 02:00 PM AMBULATORY - MEDICINE [facility] Nov 24, 2023 12:30 PM AMBULATORY - MEDICINE [facility] [place] [facility] Nov 24, 2023 03:30 PM AMBULATORY - MEDICINE [facility] [place] [facility] Nov 25, 2023 08:30 AM AMBULATORY - NONE [place] [facility] [place] [facility] Social History: Smoking Status (Most current) [...] 24, 2023 10:28 AM VA-TOBACCO FORMER USER [facility] Tobacco Use History This section includes a history of the smoking, or tobacco-related health factors, that were collected on or before the date of the Encounter. The data comes from the MD facility where the Encounter took place. Date/Time Smoking Status/Tobacco Use Comment F acility Feb 24, 2023 10:28 AM VA-TOBACCO QUIT 15 YRS OR MORE [facility] Feb 20, 2014 02:07 PM TOBACCO INPATIENT NO USE 30 DAYS [facility] Advance Directives: All historical and current Section Date Range: From patient's date of to the date document was created. This section includes ALL of a patient's completed or amended MD Advance and Rescinded Directives. The entries below indicate that a directive exists for the patient, but an actual copy is not included with this document. The data comes from all MD facilities. Date Advance Directives Provider Source Feb 20, 2014 ADVANCE DIRECTIVE DISCUSSION KASANDRA HERMAN JR [facility] September 15, 2012 ADVANCE DIRECTIVE ARISTEO LOVELL Encounter Notes: All associated encounter notes This section contains the clinical notes associated to the Encounter. Date/Time Encounter Note(s) Provider Source Jun 08, 2023 12:00 AM NONVA NOTE: LOCAL TITLE: NON-VA OUTPATIENT NOTES STANDARD TITLE: NONVA NOTE DATE OF NOTE: JUN 08, 2023 ENTRY DATE: AUGUST 31, 2023@15:40:05 AUTHOR: VÍCTOR GARLAND EXP COSIGNER: URGENCY: STATUS: COMPLETED VistA Imaging - Scanned Document SCANNED DOCUMENT SIGNATURE NOT REQUIRED Electronically Filed: 08/31/2023 by: VÍCTOR GARLAND EPIC AMBULATORY ANALYSTS VÍCTOR GARLAND [facility]
--- OUTSIDE RECORDS SUMMARY | 2024-04-03 10:43 | XMS_ITS | Encounter Summary ---
Author Name Department of Vetera Affairs ([place]) Organization Department of Vetera Affairs ([place]) Address [address] [place] [address] Care Team Providers Care Duty Engineer Name Role Phone JARETH MELGAR Primary Care [...] Patient's Relationship to Policy Lucia ANURAG [facility] MEDICARE SUPPLEMEN RONNA HAMPS HIRE COUNT Y LASHAE Apr 18, 2014 [id number] KODAK CESAR PATIENT [place] SUPPLEMEN [place]ON[place] MEDEX 2 Apr 18, 2014 [id number] KODAK CESAR PATIENT [place] SUPPLEMEN [place] MEDEX 2 Apr 18, 2014 [id number] KODAK CESAR PATIENT [place] SUPPLEMEN [place]NA HAMPS HIRE COUNT Y LASHAE Apr 18, 2014 [id number] KODAK CESAR PATIENT [place] SUPPLEMEN RON[place] MEDEX 2 Apr 18, 2014 [id number] KODAK CESAR PATIENT [place] MEDICARE [id number] RONNA HAMPS HIRE COUNT Y LASHAE Apr 18, 2014 [id number] [phone] KODAK CESAR PATIENT CAMP LUZMARIA-WN R [place] SPECIAL CLASS CAMP [place] August 23, 2023 NING DUTTA [id number] KODAK CESAR PATIENT MEDICARE (WNR) MEDICARE () PART A Nov 16, 2012 PART A [id number] MR49 [phone] KODAK CESAR PATIENT MEDICARE (WNR) MEDICARE () PART B Nov 16, 2012 PART B [id number] MR49 KODAK CESAR PATIENT MEDICARE (WNR) MEDICARE () PART B Nov 16, 2012 PART B [id number] MR49 [phone] KODAK CESAR PATIENT MEDICARE (WNR) MEDICARE () PART A Nov 16, 2012 PART A [id number] MR49 KODAK CESAR PATIENT MEDICARE (WNR) MEDICARE () PART A Nov 16, 2012 PART A [id number] KODAK CESAR PATIENT MEDICARE (WNR) MEDICARE () PART B Nov 16, 2012 PART B [id number] 97A KODAK CESAR PATIENT MEDICARE (WNR) MEDICARE () PART A Nov 16, 2012 PART A [id number] MR49 KODAK CESAR PATIENT MEDICARE (WNR) MEDICARE () PART A Nov 16, 2012 PART A [id number] [phone] KODAK CESAR PATIENT MEDICARE (WNR) MEDICARE () PART B Nov 16, 2012 PART B [id number] MR49 KODAK CESAR PATIENT MEDICARE (WNR) MEDICARE () PART B Nov 16, 2012 PART B [id number] [phone] KODAK CESAR PATIENT MEDICARE (WNR) MEDICARE () PART A Nov 16, 2012 PART A [id number] MR49 [phone] KODAK CESAR PATIENT MEDICARE (WNR) MEDICARE (M) PART B Nov 16, 2012 PART B [id number] MR49 KODAK CESAR PATIENT Selected Encounter This section includes the information on record at OR for the Encounter. Date/Time Encounter Type Encounter Description Reason Pro vider Source Nov 24, 2023 08:14 AM Outpatient Encounter DENTAL IHE Encounter Template Text not used by OR Plan of Treatment: Future Appointments (+ 6 [...] Appointment Type Appointme nt Facility Name Nov 25, 2023 08:30 AM AMBULATORY - NONE [facility] Jan 31, 2024 10:00 AM AMBULATORY - MEDICINE [facility] Feb 14, 2024 11:30 AM AMBULATORY - MEDICINE [facility] Mar 06, 2024 02:00 PM [facility] May 24, 2024 09:45 AM AMBULATORY - NONE [facility] Social History: Smoking Status (Most current) [...] Facil ity Feb 24, 2023 10:28 AM OR-TOBACCO FORMER USER [facility] Tobacco Use History This section includes a history of the smoking, or tobacco-related health factors, that were collected on or before the date of the Encounter. The data comes from the [place] facility where the Encounter took place. Date/Time Smoking Status/Tobacco Use Comment F acility Feb 24, 2023 10:28 AM VA-TOBACCO QUIT 15 YRS OR MORE [facility] Feb 20, 2014 02:07 PM TOBACCO INPATIENT NO USE 30 DAYS [facility] Advance Directives: All historical and current [...] 2014 ADVANCE DIRECTIVE DISCUSSION KASANDRA HERMAN JR [facility] September 15, 2012 ADVANCE DIRECTIVE ARISTEO LOVELL Encounter Notes: All associated encounter notes This section contains the clinical notes associated to the Encounter. Date/Time Encounter Note(s) Provider Source Nov 24, 2023 08:14 AM DENTISTRY TELEPHON E ENCOUNTER NOTE: LOCAL TITLE: TELEPHONE NOTE/DENTAL STANDARD TITLE: DENTISTRY TELEPHONE ENCOUNTER NOTE DATE OF NOTE: NOV 24, 2023@08:14 ENTRY DATE: NOV 24, 2023@08:14:48 AUTHOR: SUJIT ROBERTO EXP COSIGNER: URGENCY: STATUS: COMPLETED Spoke with pt to confirm dental appointment on 11/25/2023 at 8:30 am. /luis m/ SUJIT ROBERTO ADVANCED TABLE HAND Signed: 11/24/2023 08:15 SUJIT ROBERTO [facility]
--- OUTSIDE RECORDS SUMMARY | 2024-04-03 10:43 | XMS_ITS | Encounter Summary ---
Author Name [facility] [place] Organization [place] Address [address] [place] [address] Care Team Providers Care Window Glass Installer Name Role Phone JARETH MELGAR Primary Care [...] HIRE COUNT Y LASHAE Apr 18, 2014 [id number] KODAK CESAR PATIENT [place] SUPPLEMEN RONNA MEDEX 2 Apr 18, 2014 [id number] KODAK CESAR [place] MEDEX 2 Apr 18, 2014 [id number] KODAK CESAR PATIENT [place] MED[place] SUPPLEMEN RONNA HAMPS HIRE COUNT Y LASHAE Apr 18, 2014 [id number] KODAK CESAR PAT[place]MEN R[place] MEDEX 2 Apr 18, 2014 [id number] KODAK CESAR PATIENT BCBS OF [facility] MEDICARE SUPPLEMEN RONNA HAMPS HIRE COUNT Y LASHAE Apr 18, 2014 [id number] [phone] KODAK CESAR PATIENT CAMP LUZ[place]-WN R [place] SPECIAL CLASS CAMP [place] August 23, 2023 CAMP LUZMARIA [id number] [phone] KODAK CESAR PATIENT MEDICARE (WNR) MEDICARE () PART A Nov 16, 2012 PART A [id number] MR49 KODAK CESAR PATIENT MEDICARE (WNR) MEDICARE () PART B Nov 16, 2012 PART B [id number] MR49 [phone] KODAK CESAR PATIENT MEDICARE (WNR) MEDICARE () PART A Nov 16, 2012 PART A [id number] KODAK CESAR PATIENT MEDICARE (WNR) MEDICARE () PART B Nov 16, 2012 PART B [id number] [phone] KODAK CESAR PATIENT MEDICARE (WNR) MEDICARE () PART A Nov 16, 2012 PART A [id number] KODAK CESAR PATIENT MEDICARE (WNR) MEDICARE () PART B Nov 16, 2012 PART B [id number] KODAK CESAR PATIENT MEDICARE (WNR) MEDICARE () PART A Nov 16, 2012 PART A [id number] MR49 KODAK CESAR PATIENT MEDICARE (WNR) MEDICARE () PART B Nov 16, 2012 PART B [id number] MR49 [id number] KODAK CESAR PATIENT MEDICARE (WNR) MEDICARE () PART A Nov 16, 2012 PART A [id number] MR49 KODAK CESAR PATIENT MEDICARE (WNR) MEDICARE () PART B Nov 16, 2012 PART B [id number] MR49 KODAK CESAR PATIENT MEDICARE (WNR) MEDICARE () PART A Nov 16, 2012 PART A [id number] MR49 KODAK CESAR PATIENT MEDICARE (WNR) MEDICARE (M) PART B Nov 16, 2012 PART B [id number] MR49 KODAK CESAR PATIENT Selected Encounter This section includes the information on record at [place] for the Encounter. Date/Time Encounter Type Encounter Description Reason Pro vider Source Dec 27, 2023 12:00 AM Outpatient Encounter EVENT (HISTORICAL) IHE Encounter Template Text not used by VA Plan of Treatment: Future Appointments (+ 6 months) and Future Tests (+/- 45 days) The Plan of Treatment section includes future care activities for the patient from all [place] treatmentfacilities. This section includes future appointments and future orders which are active, pending or scheduled. Future Appointments This section includes appointments that were scheduled to occur 6 months from the date of the Encounter, up to a maximum of 20 appointments. The data comes from all [place] treatment facilities. Appointment Date/Time Appointment Type Appointme nt Facility Name Jan 31, 2024 10:00 AM [facility] Feb 14, 2024 11:30 AM AMBULATORY - MEDICINE [facility] Mar 06, 2024 02:00 PM [facility] May 24, 2024 09:45 AM AMBULATORY - NONE [facility] Social History: Smoking Status (Most current) and Tobacco Use (All prior to encounter date) This section includes the most current, and the historical, smoking and tobacco- related health factors from the [place] facility where the Encounter took place. Current Smoking Status This section includes the most current smoking, or tobacco-related health factor, from the VA facility where the Encounter took place. Date/Time Current Smoking Status Comment Facil ity Feb 24, 2023 10:28 AM [place]-TOBACCO FORMER USER [facility] Tobacco Use History This section includes a history of the smoking, or tobacco-related health factors, that were collected on or before the date of the Encounter. The data comes from the [place] facility where the Encounter took place. Date/Time Smoking Status/Tobacco Use Comment F acility Feb 24, 2023 10:28 AM [place]-TOBACCO QUIT [facility] YRS OR MORE [facility] Feb 20, 2014 02:07 PM TOBACCO INPATIENT NO USE 30 DAYS [facility] Advance Directives: All historical and current Section Date Range: From patient's date of to the date document was created. This section includes ALL of a patient's completed or amended [place] Advance and Rescinded Directives. The entries below indicate that a directive exists for the patient, but an actual copy is not included with this document. The data comes from all [place] facilities. Date Advance Directives Provider Source Feb 20, 2014 ADVANCE DIRECTIVE DISCUSSION KASANDRA HERMAN JR [facility] September 15, 2012 ADVANCE DIRECTIVE ARISTEO LOVELL Encounter Notes: All associated encounter notes This section contains the clinical notes associated to the Encounter. Date/Time Encounter Note(s) Provider Source Dec 27, 2023 12:00 AM NURSING ADMINISTRATIVE NOTE: LOCAL TITLE: NON-VA PRESCRIPTION STANDARD TITLE: NURSING ADMINISTRATIVE NOTE DATE OF NOTE: DEC 27, 2023 ENTRY DATE: JAN 12, 2024@13:39:57 AUTHOR: AMARA BERNARD COSIGNER: URGENCY: STATUS: COMPLETED VistA Imaging - Scanned Document SCANNED DOCUMENT SIGNATURE NOT REQUIRED Electronically Filed: 01/12/2024 by: TAMMY BERNARD Hand Woven Carpet And Rug Mender AMARA BERNARD [facility]
--- OUTSIDE RECORDS SUMMARY | 2024-04-03 10:43 | XMS_ITS | Encounter Summary ---
Author Name Department [place] Organization [place] Address [address] [place] [address] Care Team Providers Care Sales Hunter Name Role Phone JARETH MELGAR Primary Care [...] Name Patient's Relationship to Policy [facility] SUPPLEMEN RONNA HAMPS HIRE COUNT Y LASHAE Apr 18, 2014 [id number] KODAK CESAR PATIENT [place] SUPPLEMEN RONNA MEDEX 2 Apr 18, 2014 [id number] KODAK CESAR PATIENT [place] SUPPLEMEN RON[place] MEDEX 2 Apr 18, 2014 [id number] KODAK CESAR PATIENT [place] SUPPLEMEN [place] HAMPS HIRE COUNT Y LASHAE Apr 18, 2014 [id number] KODAK CESAR PATIENT [place] SUPPLEMEN RON[place] MEDEX 2 Apr 18, 2014 [id number] KODAK CESAR PATIENT [place] SUPP[place]MEN RONNA [place]IFPS HIRE COUNT Y LASHAE Apr 18, 2014 [id number] KODAK CESAR PATIENT CAMP LU[place]-WN R [place] SPECIAL CLASS CAMP [place] August 23, 2023 CAMP LUZMARIA [id number] KODAK CESAR PATIENT MEDICARE (WNR) MEDICARE () PART B Nov 16, 2012 PART B [id number] MR49 KODAK CESAR PATIENT MEDICARE (WNR) MEDICARE () PART A Nov 16, 2012 PART A [id number] MR49 [phone] KODAK CESAR PATIENT MEDICARE (WNR) MEDICARE () PART A Nov 16, 2012 PART A [id number] KODAK CESAR PATIENT MEDICARE (WNR) MEDICARE () PART A Nov 16, 2012 PART A [id number] 97A KODAK CESAR PATIENT MEDICARE (WNR) MEDICARE () PART B Nov 16, 2012 PART B [id number] 97A KODAK CESAR PATIENT MEDICARE (WNR) MEDICARE () PART B Nov 16, 2012 PART B [id number] [phone] KODAK CESAR PATIENT MEDICARE (WNR) MEDICARE () PART A Nov 16, 2012 PART A [id number] MR49 KODAK CESAR PATIENT MEDICARE (WNR) MEDICARE () PART B Nov 16, 2012 PART B [id number] MR49 KODAK CESAR PATIENT MEDICARE (WNR) MEDICARE () PART A Nov 16, 2012 PART A [id number] MR49 [phone] KODAK CESAR PATIENT MEDICARE (WNR) MEDICARE () PART B Nov 16, 2012 PART B [id number] MR49 KODAK CESAR PATIENT MEDICARE (WNR) MEDICARE () PART A Nov 16, 2012 PART A [id number] MR49 KODAK CESAR PATIENT MEDICARE (WNR) MEDICARE (M) PART B Nov 16, 2012 PART B [id number] MR49 KODAK CESAR PATIENT Selected Encounter This section includes the information on record at [place] for the Encounter. Date/Time Encounter Type Encounter Description Reason Provider Source Nov 25, 2023 08:30 AM CLEAN/INSPECT ANDRE PART DENT DENTAL ICD-10-CM K03.6 Deposits [accretions] on teeth BELBHARATHHEV,NADESTEFANIA HDA IHE Encounter Template Text not used by [place] Assessments - Encounter Diagnoses This section includes the primary and secondary diagnoses documented for the Encounter. Date/Time Primary/Secondary Diagnosis Diagnosis Name Provider Source Nov 25, 2023 09:33 AM PRIMARY Deposits [accretions] on teeth [facility]DA[facility] [place] [facility] Plan of Treatment: Future Appointments (+ 6 months) and Future Tests (+/- 45 days) The Plan of Treatment section includes future care activities for the patient from all [place] treatmentfacilities. This section includes future appointments and future orders which are active, pending or scheduled. Future Appointments This section includes appointments that were scheduled to occur 6 months from the date of the Encounter, up to a maximum of 20 appointments. The data comes from all [place] treatment facilities. Appointment Date/Time Appointment Type Appointme nt Facility Name Jan 31, 2024 10:00 AM AM[facility]ULATORY - [facility] Feb 14, 2024 11:30 AM AMBULATORY - MEDICINE [facility] Mar 06, 2024 02:00 PM AMBULATORY - MEDICINE [facility] [place] [facility] May 24, 2024 09:45 AM [facility] Social History: Smoking Status (Most current) and Tobacco Use (All prior to encounter date) This section includes the most current, and the historical, smoking and tobacco- related health factors from the VA facility where the Encounter took place. Current Smoking Status This section includes the most current smoking, or tobacco-related health factor, from the VA facility where the Encounter took place. Date/Time Current Smoking Status Comment Conrad hinds Feb 24, 2023 10:28 AM VA-TOBACCO FORMER USER [facility] Tobacco Use History This section includes a history of the smoking, or tobacco-related health factors, that were collected on or before the date of the Encounter. The data comes from the [place] facility where the Encounter took place. Date/Time Smoking Status/Tobacco Use Comment Danny lai Feb 24, 2023 10:28 AM VA-TOBACCO QUIT 15 YRS OR MORE [facility] Feb 20, 2014 02:07 PM TOBACCO INPATIENT NO USE 30 DAYS [facility] Advance Directives: All historical and current Section Date Range: From patient's date of to the date document was created. This section includes ALL of a patient's completed or amended [place] Advance and Rescinded Directives. The entries below indicate that a directive exists for the patient, but an actual copy is not included with this document. The data comes from all [place] facilities. Date Advance Directives Provider Source Feb 20, 2014 ADVANCE DIRECTIVE DISCUSSION KASANDRA HERMAN JR [facility] September 15, 2012 ADVANCE DIRECTIVE ARISTEO LOVELL Encounter Notes: All associated encounter notes This section contains the clinical notes associated to the Encounter. Date/Time Encounter Note(s) Provider Source Nov 25, 2023 09:29 AM DENTISTRY NOTE: LOCAL TITLE: DENTAL NOTE STANDARD TITLE: DENTISTRY NOTE DATE OF NOTE: NOV 25, 2023@09:29 ENTRY DATE: NOV 25, 2023@09:33:08 AUTHOR: TRENT RODRIGUEZ EXP COSIGNER: URGENCY: STATUS: COMPLETED Patient Name: KODAK CESAR, : 1945, Age: 77 Visit: S: Nov 25, 2023@08:30 [facility] 2 AM. Primary PCE Diagnosis: K03.6 (Deposits [accretions] [...] treatment LAST RADIOGRAPHS: PANO 12/06 BWX 12/06 pa's 06/11 NEW RADIOGRAPHS:not due SOFT TISSUE SCREENING: no abnormalities noted EXAMINATION: not due ORAL HYGIENE ASSESSMENT: plaque light stain light PERIODONTAL ASSESSMENT: calculus moderate inflamation severe bop moderate probing deepth 2-4 mm recession general REVIEWED ORAL HEALTH REPORT: CARIES RISK: moderate GUM DISEASE: high ORAL CANCER RISK: low DENTAL TREATMENT PROVIDED: PROPHYLAXIS: hand scaling, piezo, sol[place] islander CLEAN/INSPECT MAX COMP DENT. CLEAN/INSPECT ANDRE PART DENT. TOPICAL FLUORIDE APPLICATION - [place] pre post procedular rinse 30 sec ORAL HYGIENE INSTRUCTIONS GIVEN TO PATIENT: review cervical brushing technique recomended 2 times a day, review flossing technique 2 times a day. Explain importance of daily plaque removal. Discuss possible cause of recession. Discuss perio condition w pt power brush recomended to effective plaque removal Pt understood DISPOSITION: 6 MONTHS RECARE - - - - - - - - - - - - - - - - - - - - - - - - - - - - - - NV: 6 mo recall pa's jorge luis mendes/ TRENT RODRIGUEZ RDH [facility], DENTAL SERVICE Signed: 11/25/2023 09:33 TRENT RODRIGUEZ [facility]
--- OUTSIDE RECORDS SUMMARY | 2024-04-03 10:43 | XMS_ITS ---
Author Name [facility] [place] Organization [facility] [place] Address [address] [place] [address] Care Team Providers Care Astrobiologist Name Role Phone JARETH MELGAR Primary Care [...] Patient's Relationship to Policy Lucia ANURAG REYES [facility] MEDICARE SUPPLEMEN RONNA HAMPS HIRE COUNT Y LASHAE Apr 18, 2014 [id number] KODAK CESAR PATIENT [place] MED[place] SUPPLEMEN RONNA MEDEX 2 Apr 18, 2014 [id number] KODAK CESAR PATIENT [place] MED[place] SUPPLEMEN RONNA MEDEX 2 Apr 18, 2014 [id number] KODAK CESAR PATIENT [place] SUPPLEMEN [employer]NA HAMPS HIRE COUNT Y LASHAE Apr 18, 2014 [id number] KODAK CESAR PATIENT [place] SUPPLEMEN RON[place] MEDEX 2 Apr 18, 2014 [id number] KODAK CESAR PATIENT BCBS OF [facility] MEDICARE SUPPLEMEN RONNA HAMPS HIRE COUNT Y LASHAE Apr 18, 2014 [id number] KODAK CESAR PATIENT CAMP LUZMARIA-WN R [place] SPECIAL CLASS CAMP [place] August 23, 2023 NING DUTTA [id number] [phone] KODAK CESAR PATIENT MEDICARE (WNR) MEDICARE () PART A Nov 16, 2012 PART A [id number] MR49 KODAK CESAR PATIENT MEDICARE (WNR) MEDICARE () PART B Nov 16, 2012 PART B [id number] MR49 KODAK CESAR PATIENT MEDICARE (WNR) MEDICARE () PART A Nov 16, 2012 PART A [id number] KODAK CESAR PATIENT MEDICARE (WNR) MEDICARE () PART B Nov 16, 2012 PART B [id number] [phone] KODAK CESAR PATIENT MEDICARE (WNR) MEDICARE () PART A Nov 16, 2012 PART A [id number] MR49 KODAK CESAR PATIENT MEDICARE (WNR) MEDICARE () PART B Nov 16, 2012 PART B [id number] MR49 KODAK CESAR PATIENT MEDICARE (WNR) MEDICARE () PART A Nov 16, 2012 PART A [id number] MR49 [phone] KODAK CESAR PATIENT MEDICARE (WNR) MEDICARE () PART A Nov 16, 2012 PART A [id number] KODAK CESAR PATIENT MEDICARE (WNR) MEDICARE (M) PART B Nov 16, 2012 PART B [id number] KODAK CESAR PATIENT MEDICARE (WNR) MEDICARE () PART B Nov 16, 2012 PART B [id number] MR49 KODAK CESAR PATIENT MEDICARE (WNR) MEDICARE () PART A Nov 16, 2012 PART A [id number] MR49 [phone] KODAK CESAR PATIENT MEDICARE (WNR) MEDICARE (M) PART B Nov 16, 2012 PART B [id number] MR49 [phone] KODAK CESAR PATIENT Selected Encounter This section includes the information on record at [place] for the Encounter. Date/Time Encounter Type Encounter Description Reason Pro vider Source Jun 15, 2023 12:00 AM Outpatient Encounter COMMUNITY CARE CONSULT IHE Encounter Template Text not used by VA Plan of Treatment: Future Appointments (+ 6 months) and Future Tests (+/- 45 days) The Plan of Treatment section includes future care activities for the patient [facility] [place] [facility] This section includes future appointments and future orders which are active, pending or scheduled. Future Appointments This section includes appointments that were scheduled to occur 6 months from the date of the Encounter, up to a maximum of 20 appointments. The data comes from all [place] treatment facilities. Appointment Date/Time Appointment Type Appointme nt Facility Name Jun 28, 2023 12:50 PM AMBULATORY - MEDICINE [facility] [place] [facility] Jun 30, 2023 09:00 AM AMBULATORY - REHAB MEDICIN [facility] Jul 11, 2023 02:30 PM AMBULATORY - REHAB MEDICIN [facility] Jul 18, 2023 02:30 PM AMBULATORY - REHAB MEDICIN [facility] Jul 26, 2023 02:30 PM AMBULATORY - REHAB MEDICIN [facility] Aug 02, 2023 02:00 PM AMBULATORY - MEDICINE [facility] Nov 24, 2023 12:30 PM AMBULATORY - MEDICINE [facility] [place] [facility] Nov 24, 2023 03:30 PM AMBULATORY - MEDICINE [facility] [place] [facility] Nov 25, 2023 08:30 AM AMBULATORY - NONE [place] [facility] Social History: Smoking Status (Most current) and Tobacco Use (All prior to encounter date) This section includes the most current, and the historical, smoking and tobacco- related health factors from the [place] facility where the Encounter took place. Current Smoking Status This section includes the most current smoking, or tobacco-related health factor, from the [place] facility where the Encounter took place. Date/Time Current Smoking Status Dilia hinds Feb 24, 2023 10:28 AM VA-TOBACCO FORMER USER PR [facility] Tobacco Use History This section includes a history of the smoking, or tobacco-related health factors, that were collected on or before the date of the Encounter. The data comes from the [place] facility where the Encounter took place. Date/Time Smoking Status/Tobacco Use Comment F acility Feb 24, 2023 10:28 AM VA-TOBACCO QUIT 15 YRS OR MORE [facility] Feb 20, 2014 02:07 PM TOBACCO INPATIENT NO USE 30 DAYS [facility] Advance Directives: All historical and current Section Date Range: From patient's date of to the date document was created. This section includes ALL of a patient's completed or amended [place] Advance and Rescinded Directives. The entries below indicate that a directive exists for the patient, but an actual copy is not included with this document. The data comes from all [place] facilities. Date Advance Directives Provider Source Feb 20, 2014 ADVANCE DIRECTIVE DISCUSSION KASANDRA HERMAN JR [facility] September 15, 2012 ADVANCE DIRECTIVE ARISTEO LOVELL Encounter Notes: All associated encounter notes This section contains the clinical notes associated to the Encounter. Date/Time Encounter Note(s) Provider Source Jun 15, 2023 12:00 AM NONVA CONSULT: LOCAL TITLE: COMMUNITY CARE-CONSULT RESULT NOTE STANDARD TITLE: NONVA CONSULT DATE OF NOTE: JUN 15, 2023 ENTRY DATE: NOV 24, 2023@08:26:23 AUTHOR: VÍCTOR GARLAND EXP COSIGNER: URGENCY: STATUS: COMPLETED VistA Imaging - Scanned Document SCANNED DOCUMENT SIGNATURE NOT REQUIRED Electronically Filed: 11/24/2023 by: VÍCTOR GARLAND PROPERTY MAINTENANCE SUPERVISOR VÍCTOR GARLAND [facility]
--- OUTSIDE RECORDS SUMMARY | 2024-04-03 10:43 | XMS_ITS | Encounter Summary ---
Author Name [facility] [place] Address [address] [place] [address] Care Team Providers Care Lab Rep Name Role Phone JARETH MELGAR Primary Care [...] Patient's Relationship to Policy Lucia ANURAG REYES [facility] MEDICARE SUPPLEMEN RONNA HAMPS HIRE COUNT Y LASHAE Apr 18, 2014 [id number] KODAK CESAR PATIENT BC[place] MED[place] SUPPLEMEN RONNA MEDEX 2 Apr 18, 2014 [id number] KODAK CESAR PATIENT [place] MED[place] SUPPLEMEN RONNA MEDEX 2 Apr 18, 2014 [id number] KODAK CESAR PATIENT BCBS [place] MEDICARE SUPPLEMEN RONNA HAMPS HIRE COUNT Y LASHAE Apr 18, 2014 [id number] KODAK CESAR PATIENT BCBS [place] MEDICARE SUPPLEMEN RONNA MEDEX 2 Apr 18, 2014 [id number] KODAK CESAR PATIENT [facility] MEDICARE SUPPLEMEN RONNA HAMPS HIRE COUNT Y LASHAE Apr 18, 2014 [id number] [phone] KODAK CESAR PATIENT CAMP LUZMARIA-WN R CT SPECIAL CLASS CAMP [place] August 23, 2023 CAMP LUZMARIA [id number] KODAK CESAR PATIENT MEDICARE (WNR) MEDICARE () PART A Nov 16, 2012 PART A [id number] MR49 KODAK CESAR PATIENT MEDICARE (WNR) MEDICARE () PART B Nov 16, 2012 PART B [id number] MR49 [phone] KODAK CESAR PATIENT MEDICARE (WNR) MEDICARE () PART B Nov 16, 2012 PART B [id number] MR49 KODAK CESAR PATIENT MEDICARE (WNR) MEDICARE () PART A Nov 16, 2012 PART A [id number] MR49 KODAK CESAR PATIENT MEDICARE (WNR) MEDICARE () PART A Nov 16, 2012 PART A [id number] KODAK CESAR PATIENT MEDICARE (WNR) MEDICARE () PART B Nov 16, 2012 PART B [id number] [phone] KODAK CESAR PATIENT MEDICARE (WNR) MEDICARE () PART A Nov 16, 2012 PART A [id number] MR49 KODAK CESAR PATIENT MEDICARE (WNR) MEDICARE () PART A Nov 16, 2012 PART A [id number] KODAK CESAR PATIENT MEDICARE (WNR) MEDICARE () PART B Nov 16, 2012 PART B [id number] MR49 [phone] KODAK CESAR PATIENT MEDICARE (WNR) MEDICARE () PART B Nov 16, 2012 PART B [id number] KODAK CESAR PATIENT MEDICARE (WNR) MEDICARE () PART A Nov 16, 2012 PART A [id number] MR49 KODAK CESAR PATIENT MEDICARE (WNR) MEDICARE (M) PART B Nov 16, 2012 PART B [id number] MR49 KODAK CESAR PATIENT Selected Encounter This section includes the information on record at CT for the Encounter. Date/Time Encounter Type Encounter Description Reason Pro vider Source Dec 13, 2023 11:41 AM Outpatient Encounter ADMIN PAT ACTIVTIES (MASNONCT) IHE Encounter Template Text not used by CT Plan of Treatment: Future Appointments (+ 6 months) and Future Tests (+/- 45 days) The Plan of Treatment section includes future care activities for the patient from all CT treatmentfacilities. This section includes future appointments and future orders which are active, pending or scheduled. Future Appointments This section includes appointments that were scheduled to occur 6 months from the date of the Encounter, up to a maximum of 20 appointments. The data comes from all [place] treatment facilities. Appointment Date/Time Appointment Type Appointme nt Facility Name Jan 31, 2024 10:00 AM [facility] Feb 14, 2024 11:30 AM AMBULATORY - MEDICINE [facility] Mar 06, 2024 02:00 PM [facility] May 24, 2024 09:45 AM AMBULATORY - NONE [facility] Social History: Smoking Status (Most current) and Tobacco Use (All prior to encounter date) This section includes the most current, and the historical, smoking and tobacco- related health factors from the [place] facility where the Encounter took place. Current Smoking Status This section includes the most current smoking, or tobacco-related health factor, from the [place] facility where the Encounter took place. Date/Time Current Smoking Status Comment Facil ity Feb 24, 2023 10:[address]-TOBACCO FORMER USER [facility] Tobacco Use History This section includes a history of the smoking, or tobacco-related health factors, that were collected on or before the date of the Encounter. The data comes from the CT facility where the Encounter took place. Date/Time Smoking Status/Tobacco Use Comment F acility Feb 24, 2023 10:[address]-TOBACCO QUIT 15 YRS OR MORE [facility] Feb 20, 2014 02:07 PM TOBACCO INPATIENT NO USE 30 DAYS [facility] Advance Directives: All historical and current Section Date Range: From patient's date of to the date document was created. This section includes ALL of a patient's completed or amended CT Advance and Rescinded Directives. The entries below indicate that a directive exists for the patient, but an actual copy is not included with this document. The data comes from all CT facilities. Date Advance Directives Provider Source Feb 20, 2014 ADVANCE DIRECTIVE DISCUSSION KASANDRA HERMAN JR [facility] September 15, 2012 ADVANCE DIRECTIVE ARISTEO LOVELL Encounter Notes: All associated encounter notes This section contains the clinical notes associated to the Encounter. Date/Time Encounter Note(s) Provider Source Dec 13, 2023 11:41 AM ADMINISTRATIVE NOTE: LOCAL TITLE: CCC: SCHEDULING ADMINISTRATION STANDARD TITLE: ADMINISTRATIVE NOTE DATE OF NOTE: DEC 13, 2023@11:41:34 ENTRY DATE: DEC 13, 2023@11:41:34 AUTHOR: FLYNN RODRIGUEZ EXP COSIGNER: URGENCY: STATUS: COMPLETED Patient Demographics Patient Name: KODAK CESAR Patient Primary Phone: [phone] Patient Primary Address: [address] [place] [id number] Patient : 1945 Patient Age: 78 Caller/Recipient Relation to Patient: Self Administrative Administrative Note Reason: Medication Renewal CT Medications Refill/Renewal Request: [place] has requested the below medication to be renewed and refill mailed. [id number] - APIXABAN 5MG TAB - 1 TABLET - TAKE ONE TABLET BY MOUTH TWICE DAILY - 0 - DUNKIRK - 631BY - ACTIVE IMPORTANT: This note was created by [facility] Clinical Contact Center staff. Please do not alert the staff member by adding them as a signer for future communications. Alerts are not monitored by this user. /luis m/ FLYNN RODRIGUEZ VISN 1 [facility] AMSA Signed: 12/13/2023 11:41 Receipt Acknowledged By: 12/16/2023 10:26 /luis m/ MONTSE TANG NP NURSE PRACTITIONER for JARETH MELGAR 12/16/2023 10:02 /es/ MICHAELA WORTHY RN REGISTERED NURSE MICHAELFLYNN [facility]
--- OUTSIDE RECORDS SUMMARY | 2024-04-03 10:43 | XMS_ITS | Encounter Summary ---
Author Name [facility] [place] Address [address] [place] [address] Care Team Providers Care Mop Maker Name Role Phone JARETH MELGAR Primary [...] Patient's Relationship to Policy Lucia ANURAG [facility] MEDICARE SUPPLEMEN RONNA HAMPS HIRE COUNT Y LASHAE Apr 18, 2014 [id number] KODAK CESAR PATIENT [place] MED[place] SUPPLEMEN RONNA MEDEX 2 Apr 18, 2014 [id number] KODAK CESAR PATIENT [place] MED[place] SUPPLEMEN RONNA MEDEX 2 Apr 18, 2014 [id number] KODAK CESAR PATIENT [place] MED[place] SUPPLEMEN RONNA HAMPS HIRE COUNT Y LASHAE Apr 18, 2014 [id number] KODAK CESAR PATIENT [place] MED[place] SUPPLEMEN RONNA MEDEX 2 Apr 18, 2014 [id number] KODAK CESAR PATIENT [place] SUPPLEMEN RONNA HAMPS HIRE COUNT Y LASHAE Apr 18, 2014 [id number] KODAK CESAR PATIENT CAMP LUZMARIA-WN R [place] SPECIAL CLASS CAMP [place] August 23, 2023 NING DUTTA [id number] KODAK CESAR PATIENT MEDICARE (WNR) MEDICARE () PART A Nov 16, 2012 PART A [id number] MR49 [phone] KODAK CESAR PATIENT MEDICARE (WNR) MEDICARE () PART B Nov 16, 2012 PART B [id number] MR49 [phone] KODAK CESAR PATIENT MEDICARE (WNR) MEDICARE () PART A Nov 16, 2012 PART A [id number] [phone] [id number] KODAK CESAR PATIENT MEDICARE (WNR) MEDICARE () PART B Nov 16, 2012 PART B [id number] KODAK CESAR PATIENT MEDICARE (WNR) MEDICARE () PART A Nov 16, 2012 PART A [id number] KODAK CESAR PATIENT MEDICARE (WNR) MEDICARE () PART B Nov 16, 2012 PART B [id number] KODAK CESAR PATIENT MEDICARE (WNR) MEDICARE () PART A Nov 16, 2012 PART A [id number] MR49 KODAK CESAR PATIENT MEDICARE (WNR) MEDICARE () PART B Nov 16, 2012 PART B [id number] MR49 [id number] KODAK CESAR PATIENT MEDICARE (WNR) MEDICARE () PART A Nov 16, 2012 PART A [id number] MR49 [phone] KODAK CESAR PATIENT MEDICARE (WNR) MEDICARE () PART B Nov 16, 2012 PART B [id number] MR49 KODAK CESAR PATIENT MEDICARE (WNR) MEDICARE () PART A Nov 16, 2012 PART A [id number] MR49 [phone] KODAK CESAR PATIENT MEDICARE (WNR) MEDICARE (M) PART B Nov 16, 2012 PART B [id number] MR49 KODAK CESAR PATIENT Selected Encounter This section includes the information on record at [place] for the Encounter. Date/Time Encounter Type Encounter Description Reason Pro vider Source Nov 24, 2023 12:00 AM Outpatient Encounter COMMUNITY CARE [...] 25, 2023 08:30 AM [facility] Jan 31, 2024 10:00 AM [facility]ULAT[facility] - MED[facility] Feb 14, 2024 11:30 AM AMBULATORY - MEDICINE [facility] Mar 06, 2024 02:00 PM AMBULATORY - MEDIC[facility] May 24, 2024 09:45 AM AMBULATORY - NONE [facility] Social History: Smoking Status (Most current) [...] Facil ity Feb 24, 2023 10:28 AM [place]-TOBACCO FORMER USER [facility] Tobacco Use [...] this document. The data comes from all [place] facilities. Date Advance Directives Provider Source Feb 20, 2014 ADVANCE DIRECTIVE DISCUSSION KASANDRA HERMAN JR [facility] September 15, 2012 ADVANCE DIRECTIVE ARISTEO LOVELL Encounter Notes: All associated encounter notes This section contains the clinical notes associated to the Encounter. Date/Time Encounter Note(s) Provider Source Nov 24, 2023 12:00 AM NONVA CONSULT: LOCAL TITLE: COMMUNITY CARE-CONSULT RESULT NOTE STANDARD TITLE: NONVA CONSULT DATE OF NOTE: NOV 24, 2023 ENTRY DATE: DEC 22, 2023@10:12:45 AUTHOR: AMARA BERNARD EXP COSIGNER: URGENCY: STATUS: COMPLETED VistA Imaging - Scanned Document SCANNED DOCUMENT SIGNATURE NOT REQUIRED Electronically Filed: 12/22/2023 by: TAMMY BERNARD Baker Apprentice TAMMY BERNARD [facility] Nov 24, 2023 12:00 AM NONVA CONSULT: LOCAL TITLE: COMMUNITY CARE-CONSULT RESULT NOTE STANDARD TITLE: NONVA CONSULT DATE OF NOTE: NOV 24, 2023 ENTRY DATE: DEC 22, 2023@06:14:18 AUTHOR: AMARA BERNARD EXP COSIGNER: URGENCY: STATUS: COMPLETED VistA Imaging - Scanned Document SCANNED DOCUMENT SIGNATURE NOT REQUIRED Electronically Filed: 12/22/2023 by: TAMMY BERNARD Baker Apprentice TAMMY BERNARD [facility]
--- OUTSIDE RECORDS SUMMARY | 2024-04-03 10:44 | XMS_ITS | Encounter Summary ---
Author Name [facility] [facility] [place] [facility] [place] Address [address] [place] [address] Care Team Providers Care Art Display Maker Name Role Phone JARETH MELGAR Primary [...] HIRE COUNT Y LASHAE Apr 18, 2014 [id number] KODAK CESAR PATIENT BCBS [place] MEDICARE SUPPLEMEN RONNA MEDEX 2 Apr 18, 2014 [id number] KODAK CESAR PATIENT [place] MED[place] SUPPLEMEN RONNA MEDEX 2 Apr 18, 2014 [id number] KODAK CESAR PATIENT [place] MED[place] SUPPLEMEN RONNA HAMPS HIRE COUNT Y LASHAE Apr 18, 2014 [id number] KODAK CESAR PATIENT BCBS [place] MEDICARE SUPPLEMEN RONNA MEDEX 2 Apr 18, 2014 [id number] [phone] KODAK CESAR PATIENT BCBS OF [facility] MEDICARE SUPPLEMEN RONNA HAMPS HIRE COUNT Y LASHAE Apr 18, 2014 [id number] [phone] KODAK CESAR PATIENT CAMP LUZ[place]-WN R [place] SPECIAL CLASS CAMP [place] August 23, 2023 NING DUTTA [id number] KODAK CESAR PATIENT MEDICARE (WNR) MEDICARE () PART A Nov 16, 2012 PART A [id number] MR49 KODAK CESAR PATIENT MEDICARE (WNR) MEDICARE () PART B Nov 16, 2012 PART B [id number] MR49 KODAK CESAR PATIENT MEDICARE (WNR) MEDICARE () PART B Nov 16, 2012 PART B [id number] [id number] [phone] [id number] KODAK CESAR PATIENT MEDICARE (WNR) MEDICARE () PART A Nov 16, 2012 PART A [id number] MR49 KODAK CESAR PATIENT MEDICARE (WNR) MEDICARE () PART A Nov 16, 2012 PART A [id number] [phone] KODAK CESAR PATIENT MEDICARE (WNR) MEDICARE () PART B Nov 16, 2012 PART B [id number] KODAK CESAR PATIENT MEDICARE (WNR) MEDICARE () PART A Nov 16, 2012 PART A [id number] MR49 KODAK CESAR PATIENT MEDICARE (WNR) MEDICARE () PART A Nov 16, 2012 PART A [id number] KODAK CESAR PATIENT MEDICARE (WNR) MEDICARE () PART B Nov 16, 2012 PART B [id number] MR49 KODAK CESAR PATIENT MEDICARE (WNR) MEDICARE () PART B Nov 16, 2012 PART B [id number] [phone] KODAK CESAR PATIENT MEDICARE (WNR) MEDICARE () PART A Nov 16, 2012 PART A [id number] MR49 KODAK CESAR PATIENT MEDICARE (WNR) MEDICARE (M) PART B Nov 16, 2012 PART B [id number] MR49 KODAK CESAR PATIENT Selected Encounter This section includes the information on record at [place] for the Encounter. Date/Time Encounter Type Encounter Description Reason Pro vider Source Jan 31, 2024 12:00 AM Outpatient Encounter COMMUNITY CARE CONSULT [...] Date/Time Appointment Type Appointme nt Facility Name Feb 14, 2024 11:30 AM [facility] Mar 06, 2024 02:00 PM [facility] [place] [facility] [place] [facility] May 24, 2024 09:45 AM [facility] NONE [place] [facility] Active, Pending, and Scheduled Orders This section includes a listing of several types of active, pending, and scheduled orders, including clinic medications orders, diagnostic test orders, procedure orders and consult orders; where the start date of the order is 45 days before the date of the Encounter or 45 days after the date of theEncounter. The data comes from all [place] treatment facilities. Test Date/Time Test Type Test Details Facility Name Feb 14, 2024 01:11 PM Consult Order COMMUNITY CARE-CARDIOLOGY Cons Nursing Program Coordinator's Choice [facility] Lab Results: +/- 30 days of the encounter This section includes the Chemistry and Hematology Lab Results on record with [place] for the patient. Radiology Reports and Pathology Reports are provided separately, in subsequent sections. Lab Results This section contains the Chemistry/Hematology Results that were resulted 30 days before or 30 daysafter the date of the Encounter. Date/Time Source Result Type Result - Unit Interpretation Reference Range Comment Feb 13, 2024 07:49 AM [facility] PSA Specimen Type: SERUM No comment entered. Ordering Provider: JARETH GIL Report Released Date/Time: Feb 10, 2024 03:59 PM Reporting Lab: [facility] [address] [facility] [address] Performing Lab: [facility] [address] [facility] [address] PSA 0.91 ng/mL 0.00-4.00 Feb 13, 2024 07:49 AM [facility] MICROALBUMIN CREATININE RATIO PANEL Spe cimen Type: URINE No comment entered. Ordering Provider: JARETH GIL Report Released Date/Time: Feb 10, 2024 03:59 PM Reporting Lab: [facility] [address] [facility] [address] Performing Lab: [address] [address] MICROALBUMIN/C REATININE RATIO 8.5 mg/g 0-29.9 MICROALBUMIN,Q UANTITATIVE 2.2 mg/dL RR UNAVAIL CREATININE URINE 259.58 mg/dL Feb 13, 2024 07:49 AM [facility] HEMOGLOBIN A1C PANEL Specimen Type: BLOOD Comment: Values obtained from A1C measurements can vary. For atypical A1C assays, a reported value of 7.0 could actually be between 6.72 and 7.28 if measured by a reference method. A reported value of 9.0 could actually be between 8.73 and 9.27. Ref: http://www.ngs p.org/CAPdata. asp Ordering Provider: JARETH GIL Report Released Date/Time: Feb 10, 2024 03:59 PM Reporting Lab: [facility] [address] [facility] [address] Performing Lab: [address] [address] HEMOGLOBIN A1C 5.7 H 4.0-5.6 Feb 13, 2024 07:49 AM [facility] LIPID PANEL, NON FASTING Specimen Type: SERUM No comment entered. Ordering Provider: JARETH GIL Report Released Date/Time: Feb 10, 2024 03:59 PM Reporting Lab: [place] [address] [facility] [address] Performing Lab: [facility] [place] [facility] [address] [facility] [address] CHOLESTEROL 155 mg/dL TRIGLYCERIDE 248 mg/dL H 0-150 LDL calculated 66 mg/dL 0-129 CHOL/HDL 4.0 HDL CHOLESTEROL 39 mg/dL L 40-60 Feb 13, 2024 07:49 AM [facility] LIVER FUNCTION Specimen Type: SERUM No comment entered. Ordering Provider: JARETH GIL Report Released Date/Time: Feb 10, 2024 03:59 PM Reporting Lab: [facility] [address] [address] Performing Lab: [address] [address] PROTEIN,TOTAL 6.2 g/dL 6.0-8.3 ALBUMIN 3.8 g/dL 3.5-5.0 ALKALINE PHOSPHATASE 48 U/L 40-150 AST 12 U/L 5-34 ALT 11 U/L BILIRUBIN, TOTAL 0.4 mg/dL 0.2-1.2 Feb 13, 2024 07:49 AM [facility] TSH Specimen Type: SERUM No comment entered. Ordering Provider: JARETH GIL Report Released Date/Time: Feb 10, 2024 03:59 PM Reporting Lab: [facility] [place] [address] [address] Performing Lab: [facility] [place] [facility] [address] TSH 3.86 u[IU]/mL 0.35-5.00 Feb 13, 2024 07:49 AM [facility] BASIC METABOLIC PANEL (non-fasting) Spe cimen Type: SERUM No comment entered. Ordering Provider: JARETH GIL Report Released Date/Time: Feb 10, 2024 03:59 PM Reporting Lab: [facility] [place] [address] [address] Performing Lab: [facility] [address] UREA NITROGEN 19 mg/dL 7-25 GLUCOSE 132 mg/dL H 65-100 SODIUM 140 mmol/L 135-145 POTASSIUM 4.0 mmol/L 3.5-5.0 CHLORIDE 110 mmol/L 100-110 CO2 22 meq/L 20-30 CREATININE, Serum 1.23 mg/dL 0.50-1.40 eGFR(CKD-EPI 2020) 61 mL/min >60 Feb 13, 2024 07:49 AM [facility] CBC AND DIFF (AUTO) Specimen Type: BLOOD No comment entered. Ordering Provider: JARETH GIL Report Released Date/Time: Feb 10, 2024 03:59 PM Reporting Lab: [facility] [address] [facility] [address] Performing Lab: [facility] [address] [facility] [address] WBC 8.03 10*3/uL 4.50-11.00 RBC 5.03 10*6/uL 4.23-5.66 HGB 14.1 g/dL 12.8-17 HCT 43.1 39.2-50.4 MCV 85.7 fL 82-99 MCHC 32.7 g/dL 30.8-35.1 PLT 235 10*3/uL 140-360 RDW-CV 14.3 12.0-16.0 MONO, ABS 0.72 10*3/uL 0.30-1.10 MCH 28.0 pg 26.2-32.6 NEUT % 51.9 43.7-75.8 LYMPH % 33.9 14.0-42.3 MONO % 9.0 5.1-13.7 EOS % 4.5 0.4-6.8 BASO % 0.5 0.1-2.0 NEUT, ABS 4.17 10*3/uL 2.20-7.60 LYMPH, ABS 2.72 10*3/uL 1.00-3.20 EOS, ABS 0.36 10*3/uL 0.03-0.44 BASO, ABS 0.04 10*3/uL 0.01-0.13 IMMATURE GRAN % 0.2 0.0-0.7 IMMATURE GRAN, ABS 0.02 10*3/uL 0.00-0.06 NRBC % 0.0 0.0-0.0 NRBC, ABS 0.00 10*3/uL 0.00-0.00 Social History: Smoking Status (Most current) and [...] Facil ity Feb 24, 2023 10:28 AM [place]-TOBACCO FORMER USER [facility] Tobacco Use History This section includes a history of the smoking, or tobacco-related health factors, that were collected on or before the date of the Encounter. The data comes from the [place] facility where the Encounter took place. Date/Time Smoking Status/Tobacco Use Comment F acility Feb 24, 2023 10:28 AM [place]-TOBACCO QUIT 15 YRS OR MORE [facility] Feb 20, 2014 02:07 PM TOBACCO INPATIENT NO USE 30 DAYS [facility] Advance Directives: All historical and current Section [...] 2014 ADVANCE DIRECTIVE DISCUSSION KASANDRA HERMAN JR [facility] September 15, 2012 ADVANCE DIRECTIVE ARISTEO LOVELL Encounter Notes: All associated encounter notes This section contains the clinical notes associated to the Encounter. Date/Time Encounter Note(s) Provider Source Jan 31, 2024 12:00 AM NONVA CONSULT: LOCAL TITLE: COMMUNITY CARE-CONSULT RESULT NOTE STANDARD TITLE: NONVA CONSULT DATE OF NOTE: JAN 31, 2024 ENTRY DATE: MAR 09, 2024@07:32:48 AUTHOR: CANDY LIN COSIGNER: URGENCY: STATUS: COMPLETED VistA Imaging - Scanned Document SCANNED DOCUMENT SIGNATURE NOT REQUIRED Electronically Filed: 03/09/2024 by: CANDY LIN BARBECUE COOK CANDY LIN [facility]
--- OUTSIDE RECORDS SUMMARY | 2024-04-03 10:44 | XMS_ITS | Encounter Summary ---
Author Name [facility] [place] [facility] [place] [facility] [place] Address [address] [place] [address] Care Team Providers Care Basket Turner Name Role Phone JARETH MELGAR Primary Care [...] Patient's Relationship to Policy Lucia ANURAG REYES [facility] MEDICARE SUPPLEMEN RONNA HAMPS HIRE COUNT Y LASHAE Apr 18, 2014 [id number] KODAK CESAR PATIENT [place] MEDICARE SUPPLEMEN RONNA MEDEX 2 Apr 18, 2014 [id number] KODAK CESAR PATIENT [place] MED[place] SUPPLEMEN RONNA MEDEX 2 Apr 18, 2014 [id number] KODAK CESAR PATIENT [place] MED[place] SUPPLEMEN RONNA HAMPS HIRE COUNT Y LASHAE Apr 18, 2014 [id number] KODAK CESAR PATIENT [place] MED[place] SUPPLEMEN RONNA MEDEX 2 Apr 18, 2014 [id number] KODAK CESAR PATIENT BCBS OF [facility] MEDICARE SUPPLEMEN RONNA HAMPS HIRE COUNT Y LASHAE Apr 18, 2014 [id number] KODAK CESAR PATIENT CAMP LUZMARIA-WN R [place] SPECIAL CLASS CAMP [place] August 23, 2023 NING DUTTA [id number] KODAK CESAR PATIENT MEDICARE (WNR) MEDICARE () PART A Nov 16, 2012 PART A [id number] MR49 KODAK CESAR PATIENT MEDICARE (WNR) MEDICARE () PART B Nov 16, 2012 PART B [id number] MR49 [phone] KODAK CESAR PATIENT MEDICARE (WNR) MEDICARE () PART B Nov 16, 2012 PART B [id number] MR49 KODAK CESAR PATIENT MEDICARE (WNR) MEDICARE () PART A Nov 16, 2012 PART A [id number] MR49 KODAK CESAR PATIENT MEDICARE (WNR) MEDICARE () PART A Nov 16, 2012 PART A [id number] KODAK CESAR PATIENT MEDICARE (WNR) MEDICARE () PART B Nov 16, 2012 PART B [id number] KODAK CESAR PATIENT MEDICARE (WNR) MEDICARE () PART A Nov 16, 2012 PART A [id number] MR49 KODAK CESAR PATIENT MEDICARE (WNR) MEDICARE () PART A Nov 16, 2012 PART A [id number] [phone] KODAK CESAR PATIENT MEDICARE (WNR) MEDICARE () PART B Nov 16, 2012 PART B [id number] MR49 KODAK CESAR PATIENT MEDICARE (WNR) MEDICARE () PART B Nov 16, 2012 PART B [id number] [phone] KODAK CESAR PATIENT MEDICARE (WNR) MEDICARE () PART A Nov 16, 2012 PART A [id number] MR49 KODAK CESAR PATIENT MEDICARE (WNR) MEDICARE (M) PART B Nov 16, 2012 PART B [id number] MR49 KODAK CESAR PATIENT Selected Encounter This section includes the information on record at [place] for the Encounter. Date/Time Encounter Type Encounter Description Reason Pro vider Source Nov 24, 2023 12:00 PM Outpatient Encounter COMMUNITY CARE CONSULT IHE Encounter Template Text not used by [facility] Plan of Treatment: Future Appointments (+ 6 months) and Future Tests (+/- 45 days) The Plan of Treatment section includes future care activities for the patient from all [place] treatmentfacilities. This section includes future appointments and future orders which are active, pending or scheduled. Future Appointments This section includes appointments that were scheduled to occur 6 months from the date of the Encounter, up to a maximum of 20 appointments. The data comes from all [place] treatment facilities. Appointment Date/Time Appointment Type Appointme nt Facility Name Nov 25, 2023 08:30 AM [facility] Jan 31, 2024 10:00 AM [facility] Feb 14, 2024 11:30 AM AM[facility]ULATORY - MEDICINE [facility] Mar 06, 2024 02:00 PM AM[facility]ULATORY [facility] May 24, 2024 09:45 AM AMBULATORY - NONE [facility] Social History: Smoking Status (Most current) and Tobacco Use (All prior to encounter date) This section includes the most current, and the historical, smoking and tobacco- related health factors from the [place] facility where the Encounter took place. Current Smoking Status This section includes the most current smoking, or tobacco-related health factor, from the [place] facility where the Encounter took place. Date/Time Current Smoking Status Comment Facil ity Feb 24, 2023 10:28 AM [place]-TOBACCO FORMER USER [facility] Tobacco Use History This section includes a history of the smoking, or tobacco-related health factors, that were collected on or before the date of the Encounter. The data comes from the [place] facility where the Encounter took place. Date/Time Smoking Status/Tobacco Use Comment F acility Feb 24, 2023 10:28 AM [place]-TOBACCO QUIT 15 YRS OR MORE [facility] Feb 20, 2014 02:07 PM TOBACCO INPATIENT NO USE 30 DAYS [facility] Advance Directives: All historical and current Section Date Range: From patient's date of to the date document was created. This section includes ALL of a patient's completed or amended [place] Advance and Rescinded Directives. The entries below indicate that a directive exists for the patient, but an actual copy is not included with this document. The data comes from all [place] facilities. Date Advance Directives Provider Source Feb 20, 2014 ADVANCE DIRECTIVE DISCUSSION KASANDRA HERMAN JR [facility] September 15, 2012 ADVANCE DIRECTIVE ARISTEO LOVELL Encounter Notes: All associated encounter notes This section contains the clinical notes associated to the Encounter. Date/Time Encounter Note(s) Provider Source Nov 24, 2023 12:00 PM NONVA CONSULT: LOCAL TITLE: COMMUNITY CARE-CONSULT RESULT NOTE STANDARD TITLE: NONVA CONSULT DATE OF NOTE: NOV 24, 2023@12:00 ENTRY DATE: FEB 02, 2024@10:56:04 AUTHOR: CHARLY CHAN EXP COSIGNER: URGENCY: STATUS: COMPLETED VistA Imaging - Scanned Document SCANNED DOCUMENT SIGNATURE NOT REQUIRED Electronically Filed: 02/02/2024 by: CHARLY CHAN SHARED SERVICES MANAGER CHARLY CHAN [facility]
--- OUTSIDE RECORDS SUMMARY | 2024-04-03 10:44 | XMS_ITS | Encounter Summary ---
Author Name [facility] [place] Organization [facility] [place] Address [address] [place] [address] Care Team Providers Care Expansion Joint Finisher Name Role Phone JARETH MELGAR Primary Care [...] HIRE COUNT Y LASHAE Apr 18, 2014 [id number] KODAK CESAR PATIENT [employer]BS CT MEDICARE SUPPLEMEN RONNA MEDEX 2 Apr 18, 2014 [id number] KODAK CESAR PATIENT BCBS CT MEDICARE SUPPLEMEN RONNA MEDEX 2 Apr 18, 2014 [id number] KODAK CESAR PATIENT BCBS CT MEDICARE SUPPLEMEN RONNA HAMPS HIRE COUNT Y LASHAE Apr 18, 2014 [id number] KODAK CESAR PATIENT BCBS CT MEDICARE SUPPLEMEN RONNA MEDEX 2 Apr 18, 2014 [id number] KODAK CESAR PATIENT [place] MEDICARE SUPPLEMEN RONNA HAMPS HIRE COUNT Y LASHAE Apr 18, 2014 [id number] KODAK CESAR PATIENT CAMP [place] [facility] [place] August 23, 2023 NING DUTTA [id number] KODAK CESAR PATIENT MEDICARE (WNR) MEDICARE () PART B Nov 16, 2012 PART B [id number] MR49 KODAK CESAR PATIENT MEDICARE (WNR) MEDICARE () PART A Nov 16, 2012 PART A [id number] MR49 KODAK CESAR PATIENT MEDICARE (WNR) MEDICARE () PART A Nov 16, 2012 PART A [id number] [phone] KODAK CESAR PATIENT MEDICARE (WNR) MEDICARE () PART A Nov 16, 2012 PART A [id number] [phone] KODAK CESAR PATIENT MEDICARE (WNR) MEDICARE () PART B Nov 16, 2012 PART B [id number] [phone] KODAK CESAR PATIENT MEDICARE (WNR) MEDICARE () PART B Nov 16, 2012 PART B [id number] KODAK CESAR PATIENT MEDICARE (WNR) MEDICARE () PART A Nov 16, 2012 PART A [id number] MR49 KODAK CESAR PATIENT MEDICARE (WNR) MEDICARE () PART B Nov 16, 2012 PART B [id number] MR49 KODAK CESAR PATIENT MEDICARE (WNR) MEDICARE () PART A Nov 16, 2012 PART A [id number] MR49 KODAK CESAR PATIENT MEDICARE (WNR) MEDICARE () PART B Nov 16, 2012 PART B [id number] MR49 KODAK CESAR PATIENT MEDICARE (WNR) MEDICARE () PART A Nov 16, 2012 PART A [id number] MR49 KODAK CESAR PATIENT MEDICARE (WNR) MEDICARE (M) PART B Nov 16, 2012 PART B [id number] MR49 KODAK CESAR PATIENT Selected Encounter This section includes the information on [place] at [place] for the Encounter. Date/Time Encounter Type Encounter Description Reason Provider Source Feb 10, 2024 04:02 PM IMMUNIZATION ADMIN PRIMARY CARE/MEDICINE ICD-10-CM Z23. Encounter for immunization JARETH SCHAEFFER Encounter Template Text not used by [place] Assessments - Encounter Diagnoses This section includes the primary and secondary diagnoses documented for the Encounter. Date/Time Primary/Secondary Diagnosis Diagnosis Name Provider Source Feb 10, 2024 04:02 PM SECONDARY Encounter for immunization [facility]OAIB LOVING [facility] Plan of Treatment: Future Appointments (+ [...] 06, 2024 02:00 PM AMBULATORY - MEDICINE [facility] May 24, 2024 09:45 AM AMBULATORY - NONE [facility] Active, Pending, and Scheduled Orders This section includes a listing of several types of active, pending, and scheduled orders, including clinic medications orders, diagnostic test orders, procedure orders and consult orders; where the start date of the order is 45 days before the date of the Encounter or 45 days after the date of theEncounter. The data comes from all [place] treatment facilities. Test Date/Time Test Type Test Details Facility Name Feb 14, 2024 01:11 PM Consult Order COMM[facility]ITY [facility]-CARDIOLOGY Cons [facility] Lab Results: +/- 30 days of the encounter This section includes the Chemistry and Hematology Lab Results on record with [place] for the patient. Radiology Reports and Pathology Reports are provided separately, in subsequent sections. Lab Results This section contains the Chemistry/Hematology Results that were resulted 30 days before or 30 daysafter the date of the Encounter. Date/Time Source Result Type Result - Unit Interpretation Reference Range Comment Feb 13, 2024 07:49 AM [facility] PSA Specimen Type: SERUM No comment entered. Ordering Provider: JARETH GIL Report Released Date/Time: Feb 10, 2024 03:59 PM Reporting Lab: [facility] [address] [address] Performing Lab: [facility] [address] PSA 0.91 ng/mL 0.00-4.00 Feb 13, 2024 07:49 AM [facility] MICROALBUMIN CREATININE RATIO PANEL Spe cimen Type: URINE No comment entered. Ordering Provider: JARETH GIL Report Released Date/Time: Feb 10, 2024 03:59 PM Reporting Lab: [facility]ITAL[facility] [address] [address] Performing Lab: [facility] [address] MICROALBUMIN/C REATININE RATIO 8.5 mg/g 0-29.9 MICROALBUMIN,Q UANTITATIVE 2.2 mg/dL RR UNAVAIL CREATININE URINE 259.58 mg/dL Feb 13, 2024 07:49 AM [facility] LIPID PANEL, NON FASTING Specimen Type: SERUM No comment entered. Ordering Provider: JARETH GIL Report Released Date/Time: Feb 10, 2024 03:59 PM Reporting Lab: [facility] [address] Performing Lab: [facility] [address] CHOLESTEROL 155 mg/dL TRIGLYCERIDE 248 mg/dL H 0-150 LDL calculated 66 mg/dL 0-129 CHOL/HDL 4.0 HDL CHOLESTEROL 39 mg/dL L 40-60 Feb 13, 2024 07:49 AM [facility] BASIC METABOLIC PANEL (non-fasting) Spe cimen Type: SERUM No comment entered. Ordering Provider: JARETH GIL Report Released Date/Time: Feb 10, 2024 03:59 PM Reporting Lab: [facility] [address] [facility] [address] Performing Lab: [address] [address] UREA NITROGEN 19 mg/dL 7-25 GLUCOSE 132 mg/dL H 65-100 SODIUM 140 mmol/L 135-145 POTASSIUM 4.0 mmol/L 3.5-5.0 CHLORIDE 110 mmol/L 100-110 CO2 22 meq/L 20-30 CREATININE, Serum 1.23 mg/dL 0.50-1.40 eGFR(CKD-EPI 2020) 61 mL/min >60 Feb 13, 2024 07:49 AM [facility] HEMOGLOBIN A1C PANEL Specimen Type: BLOOD Comment: [...] Feb 10, 2024 03:59 PM Reporting Lab: [address] [address] Performing Lab: [address] [address] HEMOGLOBIN A1C 5.7 H 4.0-5.6 Feb 13, 2024 07:49 AM [facility] LIVER FUNCTION Specimen Type: SERUM No comment entered. Ordering Provider: JARETH GIL Report Released Date/Time: Feb 10, 2024 03:59 PM Reporting Lab: [address] [address] Performing Lab: [address] [address] PROTEIN,TOTAL 6.2 g/dL 6.0-8.3 ALBUMIN 3.8 g/dL 3.5-5.0 ALKALINE PHOSPHATASE 48 U/L 40-150 AST 12 U/L 5-34 ALT 11 U/L BILIRUBIN, TOTAL 0.4 mg/dL 0.2-1.2 Feb 13, 2024 07:49 AM [facility] TSH Specimen Type: SERUM No comment entered. Ordering Provider: JARETH GIL Report Released Date/Time: Feb 10, 2024 03:59 PM Reporting Lab: [address] [address] Performing Lab: [address] [address] TSH 3.86 u[IU]/mL 0.35-5.00 Feb 13, 2024 07:49 AM [facility] CBC AND DIFF (AUTO) Specimen Type: BLOOD No comment entered. Ordering Provider: JARETH GIL Report Released Date/Time: Feb 10, 2024 03:59 PM Reporting Lab: [address] [address] Performing Lab: [address] [address] WBC 8.03 10*3/uL 4.50-11.00 RBC 5.03 10*6/uL [...] 0.0 0.0-0.0 NRBC, ABS 0.00 10*3/uL 0.00-0.00 Immunizations: All administered on the encounter date This section contains immunizations associated to the Encounter. Immunization Series Date Issued Reaction Comments INFLUENZA, HIGH-DOSE, TRIVALENT, PF Feb 13 Social History: Smoking Status (Most current) and [...] Current Smoking Status Comment Facil ity Feb 10, 2024 04:02 PM [place]-TOBACCO FORMER USER [facility] Tobacco Use History This section includes a history of the smoking, or tobacco-related health factors, that were collected on or before the date of the Encounter. The data comes from the [place] facility where the Encounter took place. Date/Time Smoking Status/Tobacco Use Comment F acility Feb 10, 2024 04:02 PM [place]-TOBAC[place] QUIT 15 YRS OR MORE [facility] Feb 24, 2023 10:28 AM [place]-TOBACCO FORMER USER [facility] Feb 24, 2023 10:28 AM [place]-TOBACCO QUIT 15 YRS OR MORE [facility] Feb 20, 2014 02:07 PM TOBACCO INPATIENT NO USE 30 DAYS [facility] Advance Directives: All historical and [...] 20, 2014 ADVANCE DIRECTIVE DISCUSSION [facility]DRA [facility] [place] [facility] September 15, 2012 ADVANCE DIRECTIVE ARISTEO LOVELL Encounter Notes: All associated encounter notes This section contains the clinical notes associated to the Encounter. Date/Time Encounter Note(s) Provider Source Feb 10, 2024 04:02 PM PREVENTIVE MEDICIN E NURSING NOTE: LOCAL TITLE: CLINICAL REMINDERS/NURSING STANDARD TITLE: PREVENTIVE MEDICINE NURSING NOTE DATE OF NOTE: FEB 10, 2024@16:02 ENTRY DATE: FEB 10, 2024@16:02:26 AUTHOR: TALIA LOVING COSIGNER: URGENCY: STATUS: COMPLETED CLINICAL REMINDERS/NURSING Has ADDENDA CONTACTED AND REMINDED OF UPCOMING APPT, AND THE NEED FOR FASTING LABS PRIOR TO APPT. Suicide Screen: C-SSRS Screening [place] Suicide Severity Rating Scale (C-SSRS) screener 1. Over the past month, have you wished you were or wished you could go to sleep and not wake up? No 2. Over the past month, have you had any actual thoughts of killing yourself? No 3. Over the past month, have you been thinking about how you might do this? Response not required due to responses to other questions. 4. Over the past month, have you had these thoughts and had some intention of acting on them? Response not required due to responses to other questions. 5. Over the past month, have you started to work out or worked out the details of how to kill yourself? Response not required due to responses to other questions. 6. If yes, at any time in the past month did you intend to carry out this plan? Response not required due to responses to other questions. 7. In your lifetime, have you ever done anything, started to do anything, or prepared to do anything to end your life (for example, collected pills, obtained a gun, gave away valuables, went to the roof but didn't jump)? No 8. If YES, was this within the past 3 months? Response not required due to responses to other questions. Depression Screening: Perform PHQ-2 A PHQ-2 screen was performed. The score was 3 which is a positive screen for depression. Over the past two weeks, how often have you been bothered by the following problems? 1. Little interest or pleasure in doing things Several days 2. Feeling down, depressed, or hopeless More than half the days Licensed Independent Provider notified of positive screen and need for follow-up. Name of provider notified: Dr. Mckeon - patient in treatment at [facility] Tobacco Use Screening: The patient is a former tobacco user. The patient quit fifteen or more years ago. Alcohol Use Screen (AUDIT-C): Alcohol Screen: SCREEN FOR ALCOHOL (AUDIT-C) An alcohol screening test (AUDIT-C) was negative (score=1). 1. How often did you have a drink containing alcohol in the past year? Consider a drink to be a 12 ounce can or bottle of regular beer, 8 ounces of malt liquor, a 5 ounce glass of table wine, or a 1.5 ounce shot of liquor (like scotch, gin, or vodka). Monthly or less 2. How many drinks containing alcohol did you have on a typical day when you were drinking in the past year? One or two drinks 3. How often did you have six or more drinks on one occasion in the past year? Never /luis m/ TALIA LOVNIG LPN LPN Signed: 02/10/2024 16:03 02/14/2024 ADDENDUM STATUS: COMPLETED Depression Screening: Perform PHQ-2 A PHQ-2 screen was performed. The score was 0 which is a negative screen for depression. Over the past two weeks, how often have you been bothered by the following problems? 1. Little interest or pleasure in doing things Not at all 2. Feeling down, depressed, or hopeless Not at all COVID VACCINE - WILL SCHEDULE WHEN READY. /luis m/ TALIA LOVING LPN LPN Signed: 02/14/2024 12:41 02/14/2024 ADDENDUM STATUS: COMPLETED Influenza Immunization: Influenza, High-Dose, Trivalent, Preservative Free (Fluzone-Syringe) Administered: INFLUENZA, HIGH-DOSE, TRIVALENT, PF Date Administered: Feb 14, 2024 13:25 Press Setter: SANOFI PASTEUR Lot: [id number] Exp Date: Oct 15, 2024 [facility]: [id number] Admin Route/Site: INTRAMUSCULAR/RIGHT DELTOID Dosage: 0.5mL Vaccine Information Statement(s): INFLUENZA(FLU) VACC(INACTIVATED OR RECOMBINANT)VIS Nov 21, 2020 ([place]) Order By: Policy Administered By: Talia Loving The Influenza Vaccine Information Statement (VIS) was reviewed with the patient/caregiver which lists the benefits and risks of the vaccine and the risks of not receiving the Influenza vaccine. The patient/caregiver denied any prior severe reaction to this vaccine or its components or a severe allergic reaction, such as anaphylaxis, to any vaccine or any injectable therapy. The patient/caregiver gave verbal consent to receive the vaccine. /luis m/ TALIA LOVING LPN LPN Signed: 02/14/2024 13:25 TALIA LOVING [facility]
--- OUTSIDE RECORDS SUMMARY | 2024-04-03 10:44 | XMS_ITS | Encounter Summary ---
Author Name [facility] [facility] [place] [facility] [place] Address [address] [place] [address] Care Team Providers Care Strategic Buyer Name Role Phone JARETH MELGAR Primary Care [...] HIRE COUNT Y LASHAE Apr 18, 2014 [id number] KODAK CESAR [place] SUPPLEMEN RONNA MEDEX 2 Apr 18, 2014 [id number] KODAK CESAR [place] SUPPLEMEN [place] MEDEX 2 Apr 18, 2014 [id number] KODAK CESAR PATIENT [place] MEDICARE SUPPLEMEN RONNA HAMPS HIRE COUNT Y LASHAE Apr 18, 2014 [id number] KODAK CESAR [place] SUPPLEMEN RON[place] MEDEX 2 Apr 18, 2014 [id number] OKDAK CESAR PATIENT BCBS OF [facility] MEDICARE SUPPLEMEN RONNA HAMPS HIRE COUNT Y LASHAE Apr 18, 2014 [id number] [phone] KODAK CESAR PATIENT CAMP LU[place]-WN R [place] SPECIAL CLASS CAMP [place] August 23, 2023 CAMP LUZMARIA [id number] [phone] KODAK CESAR PATIENT MEDICARE (WNR) MEDICARE () PART A Nov 16, 2012 PART A [id number] [id number] [phone] KODAK CESAR PATIENT MEDICARE (WNR) MEDICARE () PART B Nov 16, 2012 PART B [id number] MR49 KODAK CESAR PATIENT MEDICARE (WNR) MEDICARE () PART A Nov 16, 2012 PART A [id number] KODAK CESAR PATIENT MEDICARE (WNR) MEDICARE () PART A Nov 16, 2012 PART A [id number] MR49 KODAK CESAR PATIENT MEDICARE (WNR) MEDICARE () PART B Nov 16, 2012 PART B [id number] [phone] KODAK CESAR PATIENT MEDICARE (WNR) MEDICARE () PART B Nov 16, 2012 PART B [id number] MR49 KODAK CESAR PATIENT MEDICARE (WNR) MEDICARE () PART A Nov 16, 2012 PART A [id number] MR49 KODAK CESAR PATIENT MEDICARE (WNR) MEDICARE () PART B Nov 16, 2012 PART B [id number] MR49 KODAK CESAR PATIENT MEDICARE (WNR) MEDICARE () PART A Nov 16, 2012 PART A [id number] KODAK CESAR PATIENT MEDICARE (WNR) MEDICARE () PART B Nov 16, 2012 PART B [id number] KODAK CESAR PATIENT MEDICARE (WNR) MEDICARE () PART A Nov 16, 2012 PART A [id number] MR49 KODAK CESAR PATIENT MEDICARE (WNR) MEDICARE (M) PART B Nov 16, 2012 PART B [id number] [id number] [phone] KODAK CESAR PATIENT Selected Encounter This section includes the information on [place] at [place] for the Encounter. Date/Time Encounter Type Encounter Description Reason Pro vider Source Apr 18, 2023 12:00 AM Outpatient Encounter EVENT (HISTORICAL) IHE Encounter Template Text not used by [place] Plan of Treatment: Future Appointments (+ 6 months) and Future Tests (+/- 45 days) The Plan of Treatment section includes future care activities for the [facility] [place] [facility] This section includes future appointments and future orders which are active, pending or scheduled. Future Appointments This section includes appointments that were scheduled to occur 6 months from the date of the Encounter, up to a maximum of 20 appointments. The data comes from all [place] treatment facilities. Appointment Date/Time Appointment Type Appointme nt Facility Name Apr 25, 2023 02:30 PM AMBULATORY - REHAB MEDICIN [facility] May 27, 2023 07:15 AM AMBULATORY - NONE [place] [facility] [place] [facility] May 27, 2023 07:30 AM AM[place] NONE [place] [facility] [place] [facility] May 30, 2023 03:30 PM AM[place]ORY [place]ICINE [place] [facility] [place] [facility] Jun 28, 2023 12:50 PM AM[place]ATORY [place]INE [place] [facility] [place] [facility] Jun 30, 2023 09:00 AM AMBULATORY - REHAB MEDICIN [facility] Jul 11, 2023 02:30 PM AMBULATORY - REHAB MEDICIN [facility] Jul 18, 2023 02:30 PM AMBULATORY - REHAB MEDICIN [facility] Jul 26, 2023 02:30 PM AMBULATORY - REHAB MEDICIN [facility] Aug 02, 2023 02:00 PM AMBULATORY - MEDICINE [facility] Social History: Smoking Status (Most current) and Tobacco Use (All prior to encounter date) This section includes the most current, and the historical, smoking and tobacco- related health factors from the [place] facility where the Encounter took place. Current Smoking Status This section includes the most current smoking, or tobacco-related health factor, from the [place] facility where the Encounter took place. Date/Time Current Smoking Status Comment Facil ity Feb 24, 2023 10:28 AM [place]-TOBACCO FORMER USER [facility] Tobacco Use History This section includes a history of the smoking, or tobacco-related health factors, that were collected on or before the date of the Encounter. The data comes from the [place] facility where the Encounter took place. Date/Time Smoking Status/Tobacco Use Comment F acility Feb 24, 2023 10:28 AM [place]-TOBACCO QUIT 15 YRS OR MORE [facility] Feb 20, 2014 02:07 PM TOBACCO INPATIENT NO USE 30 DAYS [facility] Advance Directives: All historical and current Section Date Range: From patient's date of to the date document was created. This section includes ALL of a patient's completed or amended [place] Advance and Rescinded Directives. The entries below indicate that a directive exists for the patient, but an actual copy is not included with this document. The data comes from all [place] facilities. Date Advance Directives Provider Source Feb 20, 2014 ADVANCE DIRECTIVE DISCUSSION KASANDRA HERMAN JR [facility] September 15, 2012 ADVANCE DIRECTIVE ARISTEO LOVELL
--- OUTSIDE RECORDS SUMMARY | 2024-04-03 10:44 | XMS_ITS | Encounter Summary ---
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 Member Name Role Phone JARETH MELGAR Primary Care [...] Name Patient's Relationship to Policy Lucia [facility]AG [facility] MEDICARE SUPPLEMEN RONNA HAMPS HIRE COUNT Y LASHAE Apr 18, 2014 [id number] [place] C[place] SUPPLEMEN [place] MEDEX 2 Apr 18, 2014 [id number] [place] 2 Apr 18, 2014 [id number] [place] CESAR PATIENT [place] MED[place] SUPPLEMEN RONNA HAMPS HIRE COUNT Y LASHAE Apr 18, 2014 [id number] [place] MED[place] 2 Apr 18, 2014 [id number] [place] C[place] PATIENT [place] SUPPLEMEN RONNA HAMPS HIRE COUNT Y LASHAE Apr 18, 2014 [id number] KODAK CESAR PATIENT CAMP LUZMARIA-WN R [place] SPECIAL CLASS [place] August 23, 2023 NING DUTTA [id number] [place]AK CESAR PATIENT MEDICARE (WNR) MEDICARE () PART A Nov 16, 2012 PART A [id number] [phone] [place] CESAR PATIENT MEDICARE (WNR) MEDICARE (M) PART B Nov 16, 2012 PART B [id number] [place] CESAR PATIENT MEDICARE (WNR) MEDICARE (M) PART A Nov 16, 2012 PART A [id number] MR49 [place] CESAR PATIENT MEDICARE (WNR) MEDICARE () PART B Nov 16, 2012 PART B [id number] MR49 [place] CESAR PATIENT MEDICARE (WNR) MEDICARE () PART A Nov 16, 2012 PART A [id number] MR49 [place] CESAR PATIENT MEDICARE (WNR) MEDICARE () PART B Nov 16, 2012 PART B [id number] MR49 [place] CESAR PATIENT MEDICARE (WNR) MEDICARE () PART A Nov 16, 2012 PART A [id number] MR49 [place] CESAR PATIENT MEDICARE (WNR) MEDICARE (M) PART B Nov 16, 2012 PART B [id number] MR49 [place] CESAR PATIENT MEDICARE (WNR) MEDICARE (M) PART A Nov 16, 2012 PART A [id number] [place] CESAR PATIENT MEDICARE (WNR) MEDICARE (M) PART B Nov 16, 2012 PART B [id number] [place] CESAR PATIENT MEDICARE (WNR) MEDICARE (M) PART A Nov 16, 2012 PART A [id number] MR49 KODAK CESAR PATIENT MEDICARE (WNR) MEDICARE (M) PART B Nov 16, 2012 PART B [id number] MR49 KODAK CESAR PATIENT Selected Encounter This section includes the information on record at [place] for the Encounter. Date/Time Encounter Type Encounter Description Reason Provider Source Feb 14, 2024 11:30 AM OFFICE O/P EST MOD 30 MIN PRIMARY CARE/MEDICINE ICD-10-CM I48.91 Unspecified atrial fibrillation JARETH SCHAEFFER Amando Encounter Template Text not used by [place] Assessments - Encounter Diagnoses This section includes the primary and secondary diagnoses documented for the Encounter. Date/Time Primary/Secondary Diagnosis Diagnosis Name Provider Source Feb 14, 2024 01:18 PM PRIMARY Unspecified atrial fibrillation ROB-BOSKO JARETH BEAR [place] Feb 14, 2024 01:18 PM SECONDARY Athscl heart disease of [place] coronary artery w/o ang pctrs ROB-BOSJARETH PAREDES [facility] Feb 14, 2024 01:18 PM SECONDARY Basal cell carcinoma of skin, unspecified CONNIEAZDIN-BOSKO MARIANELAJARETH [facility] Feb 14, 2024 01:18 PM SECONDARY Benign prostatic hyperplasia without lower urinry tract symp ROB-BOSKO JARETH BEAR [place] Feb 14, 2024 01:18 PM SECONDARY Headache, unspecified CONNIEAZDIN-BOSKO MARIANELA,JARETH [facility] Feb 14, 2024 01:18 PM SECONDARY Impaired fasting glucose YGDIN-BOSKO JARETH BEAR [facility] Feb 14, 2024 01:18 PM SECONDARY Insomnia, unspecified NADAZDIN-BOSKO MARIANELA,JARETH [facility] Feb 14, 2024 01:18 PM SECONDARY Mixed hyperlipidemia CONNIEAZDIN-BOSKO MARIANELAJARETH [facility] Feb 14, 2024 01:18 PM SECONDARY Obesity, unspecified NADAZDIN-BOSKO MARIANELA,JARETH [facility] Feb 14, 2024 01:18 PM SECONDARY Obstructive sleep apnea (adult) (pediatric) YGDIN-BOSKO JARETH BEAR [facility] Feb 14, 2024 01:18 PM SECONDARY Pain in unspecified hip NADAZDIN-BOSKO MARIANELA,OGNJENKA M ADRIÁN Feb 14, 2024 01:18 PM SECONDARY Presence of cardiac pacemaker JARETH GIL [place] Plan of Treatment: Future Appointments (+ 6 months) and Future Tests (+/- 45 days) The Plan of Treatment section includes future care activities for the patient from all [place] treatmentfacilities. This section includes future appointments and future orders which are active, pending or scheduled. Future Appointments This section includes appointments that were scheduled to occur 6 months from the date of the Encounter, up to a maximum of 20 appointments. The data comes from all [place] treatment facilities. Appointment Date/Time Appointment Type Appointme nt Facility Name Mar 06, 2024 02:00 PM [facility] [place] [facility] May 24, 2024 09:45 AM [facility]ULAT[facility] NONE [facility] Active, Pending, and Scheduled Orders This section includes a listing of several types of active, pending, and scheduled orders, including clinic medications orders, diagnostic test orders, procedure orders and consult orders; where the start date of the order is 45 days before the date of the Encounter or 45 days after the date of theEncounter. The data comes from all [place] treatment facilities. Test Date/Time Test Type Test Details Facility Name Feb 14, 2024 01:11 PM Consult Order [facility] Inspector Of Weights And Measures's Choice [place] Lab Results: +/- 30 days of the encounter This section includes the Chemistry and Hematology Lab Results on record with [place] for the patient. Radiology Reports and Pathology Reports are provided separately, in subsequent sections. Lab Results This section contains the Chemistry/Hematology Results that were resulted 30 days before or 30 daysafter the date of the Encounter. Date/Time Source Result Type Result - Unit Interpretation Reference Range Comment Feb 13, 2024 07:49 AM [place] PSA Specimen Type: SERUM No comment entered. Ordering Provider: JARETH GIL Report Released Date/Time: Feb 10, 2024 03:59 PM Reporting Lab: [address] [address] Performing Lab: [address] [address] PSA 0.91 ng/mL 0.00-4.00 Feb 13, 2024 07:49 AM [place] MICROALBUMIN CREATININE RATIO PANEL Spe cimen Type: URINE No comment entered. Ordering Provider: JARETH GIL Report Released Date/Time: Feb 10, 2024 03:59 PM Reporting Lab: [address] [address] Performing Lab: [address] [address] MICROALBUMIN/C REATININE RATIO 8.5 mg/g 0-29.9 MICROALBUMIN,Q UANTITATIVE 2.2 mg/dL RR UNAVAIL CREATININE URINE 259.58 mg/dL Feb 13, 2024 07:49 AM [place] BASIC METABOLIC PANEL (non-fasting) Spe cimen Type: SERUM No comment entered. Ordering Provider: JARETH GIL Report Released Date/Time: Feb 10, 2024 03:59 PM Reporting Lab: [address] [address] Performing Lab: [address] [address] UREA NITROGEN 19 mg/dL 7-25 GLUCOSE 132 mg/dL H 65-100 SODIUM 140 mmol/L 135-145 POTASSIUM 4.0 mmol/L 3.5-5.0 CHLORIDE 110 mmol/L 100-110 CO2 22 meq/L 20-30 CREATININE, Serum 1.23 mg/dL 0.50-1.40 eGFR(CKD-EPI 2020) 61 mL/min >60 Feb 13, 2024 07:49 AM [place] HEMOGLOBIN A1C PANEL Specimen Type: BLOOD Comment: [...] 10, 2024 03:59 PM Reporting Lab: [facility] [address] [address] Performing Lab: [facility] [address] [address] HEMOGLOBIN A1C 5.7 H 4.0-5.6 Feb 13, 2024 07:49 AM [place] LIPID PANEL, NON FASTING Specimen Type: SERUM No comment entered. Ordering Provider: JARETH GIL Report Released Date/Time: Feb 10, 2024 03:59 PM Reporting Lab: [facility] [address] [address] Performing Lab: [address] [address] CHOLESTEROL 155 mg/dL TRIGLYCERIDE 248 mg/dL H 0-150 LDL calculated 66 mg/dL 0-129 CHOL/HDL 4.0 HDL CHOLESTEROL 39 mg/dL L 40-60 Feb 13, 2024 07:49 AM [place] LIVER FUNCTION Specimen Type: SERUM No comment entered. Ordering Provider: JARETH GIL Report Released Date/Time: Feb 10, 2024 03:59 PM Reporting Lab: [address] [address] Performing Lab: [address] [address] PROTEIN,TOTAL 6.2 g/dL 6.0-8.3 ALBUMIN 3.8 g/dL 3.5-5.0 ALKALINE PHOSPHATASE 48 U/L 40-150 AST 12 U/L 5-34 ALT 11 U/L BILIRUBIN, TOTAL 0.4 mg/dL 0.2-1.2 Feb 13, 2024 07:49 AM [place] TSH Specimen Type: SERUM No comment entered. Ordering Provider: JARETH GIL Report Released Date/Time: Feb 10, 2024 03:59 PM Reporting Lab: [facility] [address] [address] Performing Lab: [address] [address] TSH 3.86 u[IU]/mL 0.35-5.00 Feb 13, 2024 07:49 AM [place] CBC AND DIFF (AUTO) Specimen Type: BLOOD No comment entered. Ordering Provider: JARETH GIL Report Released Date/Time: Feb 10, 2024 03:59 PM Reporting Lab: [facility] [address] [address] Performing Lab: [facility] [address] [address] WBC 8.03 10*3/uL 4.50-11.00 RBC 5.03 10*6/uL [...] 0.0 0.0-0.0 NRBC, ABS 0.00 10*3/uL 0.00-0.00 Vital Signs: All taken on the encounter date This section contains inpatient and outpatient Vital Signs collected on the date of the Encounter. Date/Time Temperature Pulse Blood Pressure Respiratory Rate SP02 Pain Height Weight Body Mass Index Source Feb 14, 2024 12:38 PM 98.2 92 119/79 95 260 38 [facility] [place] Social History: Smoking Status (Most current) [...] 23, 2022 02:00 PM VA-TOBACCO FORMER USER [place] Tobacco Use History This section includes a history of the smoking, or tobacco-related health factors, that were collected on or before the date of the Encounter. The data comes from the [place] facility where the Encounter took place. Date/Time Smoking Status/Tobacco Use Comment F acility Feb 23, 2022 02:00 PM VA-TOBACCO QUIT 15 YRS OR MORE [place] Feb 23, 2021 01:30 PM VA-TOBACCO FORMER USER [place] Feb 23, 2021 01:30 PM VA-TOBACCO QUIT 15 YRS OR MORE [place] Jan 29, 2020 10:00 AM VA-TOBACCO FORMER USER [place] Jan 29, 2020 10:00 AM VA-TOBACCO QUIT 5 TO < 15 YRS [place] Jun 27, 2018 10:40 AM VA-TOBACCO FORMER USER [place] Jun 27, 2018 10:40 AM VA-TOBACCO QUIT 15 YRS OR MORE [place] Jan 10, 2018 01:34 PM QUIT TOBACCO USE > 7 YEARS AGO [place] Jun 01, 2016 08:49 AM LIFETIME NON-TOBACCO USER [place] May 12, 2015 08:23 AM QUIT TOBACCO USE > 7 YEARS AGO quit > 30 yrs ago [place] Nov 14, 2007 02:44 PM QUIT TOBACCO USE > 7 YEARS AGO Patient states he quit smoking in 1982. [place] Advance Directives: All historical and current Section Date Range: From patient's date of to the date document was created. This section includes ALL of a patient's completed or amended [place] Advance and Rescinded Directives. The entries below indicate that a directive exists for the patient, but an actual copy is not included with this document. The data comes from all [facility]. Date Advance Directives Provider Source Feb 20, 2014 ADVANCE DIRECTIVE DISCUSSION KASANDRA HERMAN [facility] [place] [facility] September 15, 2012 ADVANCE DIRECTIVE ARISTEO LOVELL LD Encounter Notes: All associated encounter notes This section contains the clinical notes associated to the Encounter. Date/Time Encounter Note(s) Provider Source Feb 14, 2024 11:25 AM PHYSICIAN NOTE: LOCAL TITLE: NOTE STANDARD TITLE: PHYSICIAN NOTE DATE OF NOTE: FEB 14, 2024@11:25 ENTRY DATE: FEB 12, 2024@23:47:53 AUTHOR: Keaton MELGAR EXP COSIGNER: URGENCY: STATUS: COMPLETED NOTE Has ADDENDA Pt is 78 y/o M with PMH of obesity, HL, CAD w/o hx of CO, PCM for CHB, paroxismal AFib on DOAC, IFONA, GERD, BCC, pernicious anemia and mild cognitive disorder on meds, lumbar spinal stenosis s/p decompression surgery 11/13/2018, PTSD Last visit 07/2023 PCP is [place] Other providers: --pain management [facility] --ortho Dr Ward -- back surgery --cardiology- Dr. Freeman in [facility] follows his pacer-remotely,approved for MRI use- UTD --urology non [facility] -Dr Mckeon -RTCq6m --[facility] - Vet center --eye PV eye ass- lizzieke - annually UTD --neurology non [facility] -H/A RTC 6m --dermatology [facility] 2022 s/p BCC removal --> RTC 6m --physiatry [place] Patient reports feeling good his service dog Nicolas is in training since last visit: #new left hip pain due to iliopsoas tendonitis seen by pain service at [facility] pain resolved with steroid injection #obesity weight 286->267 --> 360 lbs, BMI 42.4-->38 in november 2022 started topiramate by neurology for H/a and weight loss eating more frozen berries, vegetables and fish one cheating day/week avoiding cookies, chips/sandwiches #h/o BCC s/p MOHS 2022, s/p left druze surgery 11/2023 ->f/w derm scheduled for 03/2024 #HL/CAD compliant with medications- apixaban/statin no h/o HTN denies CP/SOB/WING/palpitations/dizzi ness /claudication #FIONA compliant with BiPAP #paroxismal AFib Dx 2021 PCM interrogation -> noted paroxismal AFib [id number] = 2 apixaban 5mg BID denies palpitations, dizziness, sx of bleeding #H/A: on divalproex, topiramate PPX and abortive Rx ubrogepant, often using abortive RX >3 times a week h/o Right temporal pain (ESR, CRP 2020- negative), none recently #LUTS - incontinence and frequency not improved on tolteridone no nocturia if avoids liquids close to bed time denies recent hematuria compliant with finasteride/tolteridone changed to something else pt does not remember what #h/o Gross hematuria,2019, 09/2019 Urology evaluation in september/2019, had negative cystoscopy started on finasteride PSA 2, 01/2022 --> PSA 1.03 (02/2023)->0.91 (2023) Cystoscopy 04/2021 showed neovascularity of prostate Urology Dr Mckeon -last visit 12/2023 PAST MEDICAL HISTORY: -- Obesity -- HL -- prediabetes -- CAD cath 07/29/16 50% stenosis of the distal RCA and 30% left Cx -- CHB s/p PCM 07/27/16 [facility] (h/o syncope) [employer] MRI pacer DDD 60-130 [...] laser prostate ALLERGIES: Gabapentin/swelling - rash MEDICATIONS: --APIXABAN 5MG BID --ROSUVASTATIN CA 40MG --TOLTERODINE TARTRATE 4MG DAILY FOR FREQUENT URINATION- not teking --FINASTERIDE 5MG --GALANTAMINE HYDROBROMIDE 24MG FOR MEMORY --LORAZEPAM 0.5MG DAILY seldomly - for social anxiety --PAROXETINE 60MG --trazadone 100mg hs --PRAZOSIN 1MG BEDTIME PRN --CYANOCOBALAMIN 1000 MCG/ML monthly --TOPIRAMATE 50MG TAB TAKE ONE TABLET BY MOUTH TWICE DAILY ACTIVE --TOPIRAMATE 75MG AT DINNER TIME --DIVALPROEX 500MG 24HR (ER) EVERY MORNING FOR HEADACHE --UBROGEPANT 100MG TAB TAKE ONE TABLET BY MOUTH ONE TIME ACTIVE (TAKE AT ONSET OF HEADACHE. 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 will restart once his dog comes back from training --Caffeine:decaf daily once --EtOH: 1x/month one drink --Tob: former smoker, quit 40+ yrs ago --MJ:denies --Illicits:denies --Sexual activity: --Eye: non VA UTD --Dental: partial dentures --Hospitalizations: none recently ROS: Constitutional: no fever/no chills, no ns Eyes: no decreased vision/blurry vision Ears/Nose/Throat: no hearing change Respiratory: no cough/wheezing/SOB Cardiovascular: no CP /palpitations/leg edema Gastrointestinal: no abdominal pain/bloody/black stools,v,n,c,d :no dysuria/hematuria/LUTS + improved of tolteridone MSK: Left hip pain Neuro: no dizziness walking w/o assistance PHYSICAL EXAM: Vital Signs: Blood Pressure: 119/79 (02/14/2024 12:38) 130/81 (08/02/2023 14:10) 117/71 (02/24/2023 10:17) 135/83 (05/13/2022 12:05) 105/73 (02/23/2021 13:46) Pulse: 92 (02/14/2024 12:38) Respiration:16 Temperature: 98.2 F [36.8 C] (02/14/2024 12:38) BMI 39-->42.4--> 38.5 -->38 Patient Weight: 260 lb [117.93 kg] (02/14/2024 12:38) 267 lb [121.11 kg] (08/02/2023 14:10) 265 lb [120.20 kg] (02/24/2023 10:17) 286.8 lb [130.09 kg] (05/13/2022 12:05) 265 lb [120.5 kg] (02/23/2021 13:46) 260 lb [118.2 kg] (12/28/2018 08:43) GA: obese male, NAD, AOx3 HEENT: normal NECK: supple, no LAD CVS: RRR Lungs: CTA b/l abd: BS +, NT/ND EXT: no edema neuro: no focal deficits LABORATORY: 01/2024 WBC: 8.03 HGB: 14.1 HCT: 43.1 MCV: 85.7 PLT: 235 MICROALB/CR RATIO: 8.5 MICROALBUMIN URINE: 2.2 CREATININE URINE: 259.58 PROSTATIC SP ANTIGEN: 0.91 TSH (Access): 3.86 BLOOD Oct Nov 18 May 12 Feb 18 Reference 2023 2022 2022 2020 HGB-A1c 5.7 H 5.8 H 6.2 H 5.7 H % 4 - 5.6 GLUCOSE: 132 H UREA NITROGEN: 19 CREATININE-EGFR: 1.23 eGFR CKD-EPI 2020: 61 SODIUM: 140 POTASSIUM: 4.0 CHLORIDE: 110 CO2: 22 PROTEIN,TOTAL: 6.2 ALBUMIN: 3.8 ALKALINE PHOSPHATASE: 48 BILIRUBIN,TOT.: 0.4 SGOT: 12 SGPT: 11 CHOLESTEROL: 155 TRIGLYCERIDE: 248 H LDL CHOL: 66 CHOL/HDL RATIO: 4.0 HDL: 39 L 2020 VITAMIN D TOTAL: 33 2020 VIT. B12 (WROX): 567 IMAGING: ECHO:12/2014 EF 63, mild LVH, mod diastolic disf, LAD EK NSR #02/2021 FOOT LEFT XR severe first MTP joint space narrowing (base of the Great toe), with marginal osteophytes at the articular margins, including prominent dorsal osteophyte at the first metatarsal head. Mild appearing hallux valgus. There is insertional Achilles tendon enthesophyte spurring (AKA posterior calcaneal spurring). #2022 Right hip x-ray showed osteoarthritis, calcific tendinitis/bursitis. ASSESSMENT/PLAN: Pt is 78 y/o M with PMH of obesity, HL, CAD w/o hx of CO, PCM for CHB, paroxismal AFib on DOAC, FIONA, GERD, BCC, pernicious anemia and mild cognitive disorder on meds, lumbar spinal stenosis s/p decompression surgery 11/13/2018, PTSD #paroxismal AFib Dx 2021 PCM interrogation - noted paroxismal AFib [id number] = 2 Patient is asymptomatic -c/w apixaban 5mg BID #CAD: asymptomatic, norotensive #HL LDL 66 -c/w rosuvastatin - dietary changes, weight loss #CHB s/p PCM followed by non [facility] cardiology--> patient requested referral to a local community care cardiology to transfer care from [place] #prediabetes A1C 5.7 #Obesity BMI 37-->42-> 38 -disscussed dietary changes, cut down pasta, bread, rice (high TG) -restart regular exercise #FIONA encouraged daily BiPAP use # PTSD --> f/w # Insomnia improved -f/w [facility] for counseling qt Followed in weekly support group (high combat [place]) at the [facility]et [facility] #h/o Gross hematuria,09/2019: #BPH:Sx uncontrolled Urology evaluation in september/2019, restarted on finasteride 02/2021-> PSA 0.91(01/2024) had negative cystoscopy 2019 TOLTERODINE 4MG daily -->switched to some new medication still has not stared taking - per pt will obtain urology notes f/u urology #chronic headache with autonomic features -adequate sleep, hydration, BiPAP use -PPX DIVALPROEX 500MG 24HR (ER) -topiramate 50mg BID -abortive UBROGEPANT -f/w non [facility] neurology --> next visit 03/2024 #h/o BCC (back) s/p Mohs 2022, 11/2023 ->f/w dermatology #bilateral hip pain 2/2 iliopsoas tendonitis right side: R resolved with steroid injection and PT L has been improving after steroid injection Healthcare maintenance: --Lipids: LDL 66 (01/2024) --Diabetes: A1c 5.7(01/2024) --Colon CA (50-75): stopped screening Colonoscopy 2004 [place] single benign polyp 04/2020 negative colonoscopy, hemorrhoids, repeat colonoscopy only for sx given pt's age --Lung CA: n/a --PSA PSA 0.91(01/2024)-> f/w urology --AAA (smoker/65): 2020 no AAA --Influenza (yrly): 2022 --COVID-19 (MODERNA) x3 --PCV13 2014 --PCV23: --RZV (>50yrs, x2): 2019x2 --TDAP: 03/2020 --Hep C screen: 2016 neg --HIV screen: --DEXA: --Advanced Directives: Address at next visit: HL, HM, obesity Return to clinic to see me in _6__ months, sooner PRN. Virtual ( ), F2F ( x) ( x)fasting labs ordered prior to f/u routine (x )request records from outside providers please get last note from urology non [facility] -Dr Mckeon Depression Screening: Perform PHQ-2 A PHQ-2 screen was performed. The score was 3 which is a positive screen for depression. Over the past two weeks, how often have you been bothered by the following problems? 1. Little interest or pleasure in doing things More than half the days 2. Feeling down, depressed, or hopeless Several days Follow-Up Pos PTSD/Depression: I have reviewed the results of the Mental Health screens and have evaluated the patient. Based on the evaluation, the following disposition plan will be implemented: Already receiving needed treatment. Contact information and instructions for accessing emergency services provided. Medication Reconciliation: Outpatient: Has the patient been taking medications as documented in the EMLR? YES: The patient has been taking medications as documented in the EMLR. Essential Medication List for Review used to complete this medication reconciliation. INCLUDED IN THIS LIST: Alphabetical list of active outpatient prescriptions dispensed from this VA (local) and dispensed from another VA or DoD facility (remote) as well as [...] whether with a VA or non-VA provider. Eye Care At-Risk Screen : Patient identified to be at risk for the following eye condition(s): MACULAR DEGENERATION: Macular Degeneration Risk Factors Information: Reminder Term: VA-AMD RISK FACTORS Encounter Diagnosis: 08/02/2023@14:00 I25.10 (ICD-10-CM) Atherosclerotic Heart Disease of [place] Coronary Artery without Angina Pectoris rank: SECONDARY Prov. Narr. - Coronary atherosclerosis ([facility] [id number]) Action: No Referral Ordered: Eye exam completed elsewhere by an Signal Maintainer Helper or Milling Machine Set Up Operator Exam Information: Date: April, ? Exact date is unknown Findings/Comment non VA /luis m/ JARETH MELGAR MD PHYSICIAN Signed: 02/14/2024 13:18 Receipt Acknowledged By: 02/14/2024 13:31 /luis m/ MACK NICHOLSON 02/14/2024 ADDENDUM STATUS: COMPLETED Records requested from [facility] as directed Dr. Jignesh Mckeon M.D. /luis m/ MACK NICHOLSON Signed: 02/14/2024 13:32 ANDREEA MELGAR [facility]
--- OUTSIDE RECORDS SUMMARY | 2024-04-03 10:44 | XMS_ITS | Encounter Summary ---
Author Name [facility] [place] Address [address] [place] [address] Care Team Providers Care Stitcher Hand Name Role Phone JARETH MELGAR Primary Care [...] HIRE COUNT Y LASHAE Apr 18, 2014 [id number] KODAK CESAR PATIENT [place] SU[place]LE[place] RON[place] MEDEX 2 Apr 18, 2014 [id number] KODAK CESAR PATIENT [place] SUPP[place] MEDEX 2 Apr 18, 2014 [id number] KODAK CESAR PATIENT [place] HAMPS HIRE COUNT Y LASHAE Apr 18, 2014 [id number] KODAK CESAR PATIENT [place] MED[place] 2 Apr 18, 2014 [id number] KODAK CESAR PATIENT [facility] MEDICARE SUPPLEMEN RONNA HAMPS HIRE COUNT Y LASHAE Apr 18, 2014 [id number] KODAK CESAR PATIENT [place] [place] [facility] [place] August 23, 2023 CAMP LUZMARIA [id number] [phone] KODAK CESAR PATIENT MEDICARE (WNR) MEDICARE () PART B Nov 16, 2012 PART B [id number] MR49 KODAK CESAR PATIENT MEDICARE (WNR) MEDICARE () PART A Nov 16, 2012 PART A [id number] MR49 [phone] KODAK CESAR PATIENT MEDICARE (WNR) MEDICARE () PART A Nov 16, 2012 PART A [id number] KODAK CESAR PATIENT MEDICARE (WNR) MEDICARE () PART A Nov 16, 2012 PART A [id number] [id number] KODAK CESAR PATIENT MEDICARE (WNR) MEDICARE () PART B Nov 16, 2012 PART B [id number] KODAK CESAR PATIENT MEDICARE (WNR) MEDICARE () PART B Nov 16, 2012 PART B [id number] KODAK CESAR PATIENT MEDICARE (WNR) MEDICARE () PART A Nov 16, 2012 PART A [id number] MR49 KODAK CESAR PATIENT MEDICARE (WNR) MEDICARE () PART B Nov 16, 2012 PART B [id number] MR49 KODAK CESAR PATIENT MEDICARE (WNR) MEDICARE () PART A Nov 16, 2012 PART A [id number] MR49 KODAK CESAR PATIENT MEDICARE (WNR) MEDICARE () PART B Nov 16, 2012 PART B [id number] MR49 [phone] KODAK CESAR PATIENT MEDICARE (WNR) MEDICARE () PART A Nov 16, 2012 PART A [id number] MR49 KODAK CESAR PATIENT MEDICARE (WNR) MEDICARE (M) PART B Nov 16, 2012 PART B [id number] MR49 KODAK CESAR PATIENT Selected Encounter This section includes the information on record at [place] for the Encounter. Date/Time Encounter Type Encounter Description Reason Pro vider Source Jan 23, 2024 06:21 PM Outpatient Encounter ADMIN PAT ACTIVTIES (MASNONCT) IHE Encounter Template Text not used by [place] Plan of Treatment: Future Appointments (+ 6 months) and Future Tests (+/- 45 days) The Plan of Treatment section includes future care activities for the patient from all [place] treatmentfacilities. This section includes future appointments and future orders which are active, pending or scheduled. Future Appointments This section includes appointments that were scheduled to occur 6 months from the date of the Encounter, up to a maximum of 20 appointments. The data comes from all [place] treatment facilities. Appointment Date/Time Appointment Type Appointme nt Facility Name Jan 31, 2024 10:00 AM [facility] Feb 14, 2024 11:30 AM [facility] MEDICINE [facility] Mar 06, 2024 02:00 PM [facility] May 24, 2024 09:45 AM AMBULATORY - NONE [facility] Active, Pending, and Scheduled Orders This section includes a listing of several types of active, pending, and scheduled orders, including clinic medications orders, diagnostic test orders, procedure orders and consult orders; where the start date of the order is 45 days before the date of the Encounter or 45 days after the date of theEncounter. The data comes from all [place] treatment facilities. Test Date/Time Test Type Test Details Facility Name Feb 14, 2024 01:11 PM Consult Order COMMUNITY CARE-CARDIOLOGY Cons [employer] [facility] Lab Results: +/- 30 days of the encounter This section includes the Chemistry and Hematology Lab Results on record with [place] for the patient. Radiology Reports and Pathology Reports are provided separately, in subsequent sections. Lab Results This section contains the Chemistry/Hematology Results that were resulted 30 days before or 30 daysafter the date of the Encounter. Date/Time Source Result Type Result - Unit Interpretation Reference Range Comment Feb 13, 2024 07:49 AM [facility] PSA Specimen Type: SERUM No comment entered. Ordering Provider: JARETH GIL Report Released Date/Time: Feb 10, 2024 03:59 PM Reporting Lab: [address] [address] Performing Lab: [address] [address] PSA 0.91 ng/mL 0.00-4.00 Feb 13, 2024 07:49 AM [facility] MICROALBUMIN CREATININE RATIO PANEL Spe cimen Type: URINE No comment entered. Ordering Provider: JARETH GIL Report Released Date/Time: Feb 10, 2024 03:59 PM Reporting Lab: [address] [address] Performing Lab: [address] [address] MICROALBUMIN/C REATININE RATIO 8.5 mg/g 0-29.9 MICROALBUMIN,Q UANTITATIVE 2.2 mg/dL RR UNAVAIL CREATININE URINE 259.58 mg/dL Feb 13, 2024 07:49 AM [facility] LIPID PANEL, NON FASTING Specimen Type: SERUM No comment entered. Ordering Provider: JARETH GIL Report Released Date/Time: Feb 10, 2024 03:59 PM Reporting Lab: [address] [address] Performing Lab: [address] [address] CHOLESTEROL 155 mg/dL TRIGLYCERIDE 248 mg/dL H 0-150 LDL calculated 66 mg/dL 0-129 CHOL/HDL 4.0 HDL CHOLESTEROL 39 mg/dL L 40-60 Feb 13, 2024 07:49 AM [facility] BASIC METABOLIC PANEL (non-fasting) Spe cimen Type: SERUM No comment entered. Ordering Provider: JARETH GIL Report Released Date/Time: Feb 10, 2024 03:59 PM Reporting Lab: [address] [place] [address] Performing Lab: [facility] [address] [facility] [address] UREA NITROGEN 19 mg/dL 7-25 GLUCOSE 132 mg/dL H 65-100 SODIUM 140 mmol/L 135-145 POTASSIUM 4.0 mmol/L 3.5-5.0 CHLORIDE 110 mmol/L 100-110 CO2 22 meq/L 20-30 CREATININE, Serum 1.23 mg/dL 0.50-1.40 eGFR(CKD-EPI 2020) 61 mL/min >60 Feb 13, 2024 07:49 AM [facility] HEMOGLOBIN A1C PANEL Specimen Type: BLOOD Comment: [...] Feb 10, 2024 03:59 PM Reporting Lab: [address] [address] Performing Lab: [address] [address] HEMOGLOBIN A1C 5.7 H 4.0-5.6 Feb 13, 2024 07:49 AM [facility] LIVER FUNCTION Specimen Type: SERUM No comment entered. Ordering Provider: JARETH GIL Report Released Date/Time: Feb 10, 2024 03:59 PM Reporting Lab: [address] [address] Performing Lab: [address] [address] PROTEIN,TOTAL 6.2 g/dL 6.0-8.3 ALBUMIN 3.8 g/dL 3.5-5.0 ALKALINE PHOSPHATASE 48 U/L 40-150 AST 12 U/L 5-34 ALT 11 U/L BILIRUBIN, TOTAL 0.4 mg/dL 0.2-1.2 Feb 13, 2024 07:49 AM [facility] TSH Specimen Type: SERUM No comment entered. Ordering Provider: JARETH GIL Report Released Date/Time: Feb 10, 2024 03:59 PM Reporting Lab: [address] [address] Performing Lab: [address] [address] TSH 3.86 u[IU]/mL 0.35-5.00 Feb 13, 2024 07:49 AM [facility] CBC AND DIFF (AUTO) Specimen Type: BLOOD No comment entered. Ordering Provider: JARETH GIL Report Released Date/Time: Feb 10, 2024 03:59 PM Reporting Lab: [address] [address] Performing Lab: [address] [address] WBC 8.03 10*3/uL 4.50-11.00 RBC 5.03 10*6/uL [...] and tobacco- related health factors from the [place] facility where the Encounter took place. Current Smoking Status This section includes the most current smoking, or tobacco-related health factor, from the [place] facility where the Encounter took place. Date/Time Current Smoking Status Comment Facil ity Feb 24, 2023 10:28 AM [place]-TOBACCO FORMER USER [facility] Tobacco Use History This section includes a history of the smoking, or tobacco-related health factors, that were collected on or before the date of the Encounter. The data comes from the [place] facility where the Encounter took place. Date/Time Smoking Status/Tobacco Use Comment F acility Feb 24, 2023 10:28 AM [place]-TOBACCO QUIT 15 YRS OR MORE [facility] Feb 20, 2014 02:07 PM TOBACCO INPATIENT NO USE 30 DAYS [facility] Advance Directives: All historical and current Section Date Range: From patient's date of to the date document was created. This section includes ALL of a patient's completed or amended [place] Advance and Rescinded Directives. The entries below indicate that a directive exists for the patient, but an actual copy is not included with this document. The data comes from all [place] facilities. Date Advance Directives Provider Source Feb 20, 2014 ADVANCE DIRECTIVE DISCUSSION KASANDRA HERMAN JR [facility] September 15, 2012 ADVANCE DIRECTIVE ARISTEO LOVELL Encounter Notes: All associated encounter notes This section contains the clinical notes associated to the Encounter. Date/Time Encounter Note(s) Provider Source Jan 23, 2024 06:21 PM PHARMACY NOTE: LOCAL TITLE: V1 PHARMACY CUSTOMER CARE MEDICATION RENEWAL STANDARD TITLE: PHARMACY NOTE DATE OF NOTE: JAN 23, 2024@18:21 ENTRY DATE: JAN 23, 2024@18:21:58 AUTHOR: STREET,JEFERSON R EXP COSIGNER: URGENCY: STATUS: COMPLETED Date: Jan Division: [place] Pt referred by Pharmacy Call Center for medication renewal: Non-controlled/maintenanc e medication Medications requested: [id number] DIVALPROEX 500MG 24HR (ER) SA TAB has 4 days of medication remaining, please alert outpatient pharmacy when order is placed so it can be expedited Defer to primary care provider To be mailed . Please review and renew if appropriate. *This note was generated by [facility]/[place] Pharmacy Customer Care. If you have any questions or need assistance, do not contact this author. Please refer all questions to your local, on-site pharmacy departments. /luis m/ JEFERSON STREET CPhT JEEP DRIVER, [place]/PHARMACY CUSTOMER CARE Signed: 01/23/2024 18:22 Receipt Acknowledged By: 01/25/2024 12:17 /luis m/ MONTSE TANG NP NURSE PRACTITIONER for JARETH MELGAR 01/24/2024 16:29 /luis m/ MICHAELA WORTHY RN REGISTERED NURSE [address] [place] [facility]
== END 2024-04-03 12:21 | disposition home or self-care (01) ==
LOC: HO.HUSH 10:34
PROVIDERS: PCP Internal Medicine; Visit Provider Urology
DX: N40.1 Benign prostatic hyperplasia with lower urinary tract symptoms (principal); N32.81 Overactive bladder
CPT/HCPCS: 99213

== ENCOUNTER → 2024-04-03 10:34 | Outpatient (BNVA) | payer OTHER, SELFPAY | PROVIDERS: PCP Internal Medicine; Visit Provider Urology ==

== ENCOUNTER 2024-09-19 14:13 | Outpatient (AMB) | payer OTHER, SELFPAY ==
--- OUTSIDE RECORDS SUMMARY | 2024-09-19 14:17 | XMS_ITS | Encounter Summary ---
Author Name [facility] [place] [facility] [place] Address [address] [place] [address] Care Team Providers Care Aquatic Director Name Role Phone JARETH MELGAR Primary Care [...] HIRE COUNT Y LASHAE Apr 18, 2014 [id number] [phone] KODAK CESAR PATIENT [place] SU[place] MEDEX 2 Apr 18, 2014 [id number] KODAK CESAR PATIENT [place] HAMPS HIRE COUNT Y LASHAE Apr 18, 2014 [id number] KODAK CESAR PATIENT [place] MED[place] 2 Apr 18, 2014 [id number] KODAK CESAR [place] MED[place] 2 Apr 18, 2014 [id number] KODAK CESAR PATIENT [place]PP[place]MEN [place] HAMPS HIRE COUNT Y LASHAE Apr 18, 2014 [id number] KODAK CESAR PATIENT CAMP [place]-WN R [place] [facility] [place] August 23, 2023 NING DUTTA [id number] KODAK CESAR PATIENT MEDICARE (WNR) MEDICARE () PART A Nov 16, 2012 PART A [id number] [id number] [phone] KODAK CESAR PATIENT MEDICARE (WNR) MEDICARE () PART B Nov 16, 2012 PART B [id number] MR49 [phone] KODAK CESAR PATIENT MEDICARE (WNR) MEDICARE () PART A Nov 16, 2012 PART A [id number] KODAK CESAR PATIENT MEDICARE (WNR) MEDICARE () PART A Nov 16, 2012 PART A [id number] KODAK CESAR PATIENT MEDICARE (WNR) MEDICARE () PART B Nov 16, 2012 PART B [id number] [phone] KODAK CESAR PATIENT MEDICARE (WNR) MEDICARE () PART A Nov 16, 2012 PART A [id number] [id number] [phone] KODAK CESAR PATIENT MEDICARE (WNR) MEDICARE () PART B Nov 16, 2012 PART B [id number] [phone] KODAK CESAR PATIENT MEDICARE (WNR) MEDICARE () PART B Nov 16, 2012 PART B [id number] MR49 KODAK CESAR PATIENT MEDICARE (WNR) MEDICARE () PART A Nov 16, 2012 PART A [id number] MR49 KODAK CESAR PATIENT MEDICARE (WNR) MEDICARE () PART B Nov 16, 2012 PART B [id number] MR49 KODAK CESAR PATIENT MEDICARE (WNR) MEDICARE () PART A Nov 16, 2012 PART A [id number] MR49 [phone] KODAK CESAR PATIENT MEDICARE (WNR) MEDICARE ([place]) PART B Nov 16, 2012 PART B [id number] MR49 KODAK CESAR PATIENT Selected Encounter This section includes the information on record at [place] for the Encounter. Date/Time Encounter Type Encounter Description Reason Pro vider Source Sep 19, 2024 09:30 AM Outpatient Encounter PRIMARY CARE/MEDICINE IHE Encounter Template Text not used by [place] Plan of Treatment: Future Appointments (+ 6 [...] Date/Time Appointment Type Appointme nt Facility Name Oct 15, 2024 11:00 AM AMBULATORY - MEDICINE [facility] Jan 29, 2025 01:45 PM [facility] Active, Pending, and Scheduled Orders This section includes a listing of several types of active, pending, and scheduled orders, including clinic medications orders, diagnostic test orders, procedure orders and consult orders; where the start date of the order is 45 days before the date of the Encounter or 45 days after the date of theEncounter. The data comes from all [place] treatment facilities. Test Date/Time Test Type Test Details Facility Name Sep 17, 2024 12:53 PM Consult Order COMMUNITY CARE-UROLOGY Cons [employer] Sep 19, 2024 10:28 AM Laboratory - Chemi stry Order PSA BLOOD (SST-SERUM) [facility] Sep 19, 2024 10:28 AM Laboratory - Chemi stry Order VITAMIN D (25-OH) BLOOD (SST-SERUM) SP ONCE [facility] Sep 19, 2024 10:28 AM Laboratory - Chemi stry Order BASIC METABOLIC PANEL (fasting) BLOOD (SST-SERUM) [facility] Sep 19, 2024 10:28 AM Laboratory - Chemi stry Order LIPID PANEL FASTING BLOOD (SST-SERUM) [facility] Sep 19, 2024 10:28 AM Laboratory - Chemi stry Order LIVER FUNCTION BLOOD (SST-SERUM) [facility] Sep 19, 2024 10:28 AM Laboratory - Chemi stry Order TSH BLOOD (SST-SERUM) [facility] Lab Results: +/- 30 days of the encounter This section includes the Chemistry and Hematology Lab Results on record with [place] for the patient. Radiology Reports and Pathology Reports are provided separately, in subsequent sections. Lab Results This section contains the Chemistry/Hematology Results that were resulted 30 days before or 30 daysafter the date of the Encounter. Date/Time Source Result Type Result - Unit Interpretation Reference Range Specimen Type Comment Sep 19, 2024 10:28 AM [facility] HEMOGLOBIN A1C PANEL BLOOD Specimen T ype: BLOOD Comment: Values obtained from A1C measurements can vary. For atypical A1C assays, a reported value of 7.0 could actually be between 6.72 and 7.28 if measured by a reference method. A reported value of 9.0 could actually be between 8.73 and 9.27. Ref: http://www.ngsp .org/CAPdata.as p Ordering Provider: JARETH KUNZ Report Released Date/Time: Sep 19, 2024 10:10 AM Reporting Lab: [address] [address] Performing Lab: [address] [address] HEMOGLOBIN A1C 5.8 H 4.0-5.6 Sep 19, 2024 10:28 AM [facility] MICROALBUMIN CREATININE RATIO PANEL URINE Specimen Type: URINE No comment entered. Ordering Provider: JARETH MELGAR Report Released Date/Time: Sep 19, 2024 10:10 AM Reporting Lab: [facility] [address] [facility] [address] Performing Lab: [address] [address] MICROALBUMIN/CREATININE RATIO 7.7 mg/g 0 -29.9 MICROALBUMIN,QUANTITATIVE 2.1 mg/dL RR U NAVAIL CREATININE URINE 271.68 mg/dL H 63-166 Sep 19, 2024 10:28 AM [facility] CBC AND DIFF (AUTO) BLOOD Specimen Ty pe: BLOOD No comment entered. Ordering Provider: JARETH MELGAR Report Released Date/Time: Sep 19, 2024 10:10 AM Reporting Lab: [facility] [address] [facility] [facility] [address] Performing Lab: [place] JAMISON CLEMENTESamm ALEX [facility] [address] [facility] [facility] [facility] [address] WBC 6.65 10*3/uL 4.50-11.00 RBC 4.81 10*6/uL 4.23-5.66 HGB 13.6 g/dL 12.8-17 HCT 42.2 39.2-50.4 MCV 87.7 fL 82-99 MCHC 32.2 g/dL 30.8-35.1 PLT 222 10*3/uL 140-360 MPV 10.1 fL 9.2-12.4 RDW-CV 14.0 12.0-16.0 MONO, ABS 0.61 10*3/uL 0.30-1.10 MCH 28.3 pg 26.2-32.6 NEUT % 52.0 43.7-75.8 LYMPH % 35.0 14.0-42.3 MONO % 9.2 5.1-13.7 EOS % 3.3 0.4-6.8 BASO % 0.3 0.1-2.0 NEUT, ABS 3.46 10*3/uL 2.20-7.60 LYMPH, ABS 2.33 10*3/uL 1.00-3.20 EOS, ABS 0.22 10*3/uL 0.03-0.44 BASO, ABS 0.02 10*3/uL 0.01-0.13 IMMATURE GRAN % 0.2 0.0-0.7 IMMATURE GRAN, ABS 0.01 10*3/uL 0.00-0.0 6 NRBC % 0.0 0.0-0.0 NRBC, ABS 0.00 10*3/uL 0.00-0.00 Vital Signs: All taken on the encounter date This section contains inpatient and outpatient Vital Signs collected on the date of the Encounter. Date/Time Temperature Pulse Blood Pressure Respiratory Rate SP02 Pain Height Weight Body Mass Index Source Sep 19, 2024 09:42 AM 97.1 F 92 /min 121/78 mm[Hg] 93 % 268.6 lb 39 [place] Social History: Smoking Status (Most current) [...] 23, 2022 02:00 PM [place]-TOBACCO FORMER USER [facility] Tobacco Use History This section includes a history of the smoking, or tobacco-related health factors, that were collected on or before the date of the Encounter. The data comes from the [place] facility where the Encounter took place. Date/Time Smoking Status/Tobacco Use Comment F acility Feb 23, 2022 02:00 PM VA-TOBACCO QUIT 15 YRS OR MORE [facility] Feb 23, 2021 01:30 PM VA-TOBACCO FORMER USER [facility] Feb 23, 2021 01:30 PM VA-TOBACCO QUIT 15 YRS OR MORE [facility] Jan 29, 2020 10:00 AM VA-TOBACCO FORMER USER [facility] Jan 29, 2020 10:00 AM VA-TOBACCO QUIT 5 TO < 15 YRS [facility] Jun 27, 2018 10:40 AM VA-TOBACCO FORMER USER [facility] Jun 27, 2018 10:40 AM VA-TOBACCO QUIT 15 YRS OR MORE [facility] Jan 10, 2018 01:34 PM QUIT TOBACCO USE > 7 YEARS AGO [facility] Jun 01, 2016 08:49 AM LIFETIME NON-TOBACCO USER [facility] May 12, 2015 08:23 AM QUIT TOBACCO USE > 7 YEARS AGO quit > 30 yrs ago [facility] Nov 14, 2007 02:44 PM QUIT TOBACCO USE > 7 YEARS AGO Patient states he quit smoking in 1982. [facility] Advance Directives: All historical and current Section Date Range: From patient's date of to the date document was created. This section includes ALL of a patient's completed or amended [place] Advance and Rescinded Directives. The entries below indicate that a directive exists for the patient, but an actual copy is not included with this document. The data comes from all [facility]. Date Advance Directives Provider Source Feb 20, 2014 ADVANCE DIRECTIVE DISCUSSION KASANDRA HERMAN [facility] [facility] September 15, 2012 ADVANCE DIRECTIVE ARISTEO LOVELL
--- NOTE | 2024-09-19 14:20 | A.OFFVIS_ITS ---
Intake Visit Reasons: 6 month Intake Note: Patient is present for 6M F/U Urology Medication:TOLTERODINE,FESOTERDINE,FINASTERIDE Antibiotic Allergy:GABAPENTIN Blood Thinner:APIXABAN Professor Of Pathology Required: No Allergies gabapentin Allergy (Unknown, Verified 09/19/24 14:23) Unknown No Known Allergies [No Known Allergies*] Allergy (Verified 09/19/24 14:23) HPI Comments Details: Timo is a pleasant male. He is a patient of . He is seen for the following urologic conditions - lower urinary tract symptoms - gross hematuria Six-month follow-up Start festoridine prescriptions sent to [place] - Urinary incontinence predominantly at night - Frequent nocturnal urination - Involuntary leakage, requiring use of absorbent products - Dark, blood-colored urine noted, particularly concerning for anticoagulation therapy - Previous use of Tolterodine for managing symptoms - Reports enjoying drinking significant water daily which exacerbates nighttime symptoms - No specific bladder pain noted; discusses irritation related to blood presence due to anticoagulant therapy. Gross hematuria Repeat episode of gross hematuria Investigations - cystoscopy 05/09 neovascularity of prostate Gross hematuria response to finasteride - 3x a week Continue finasteride Lower urinary tract symptoms Underwent laser prostatectomy 2018 Improved symptoms since then with effective stream and emptying Has had episode of hematuria Placed on finasteride for recurrent hematuria PSA 11/05 3.1, 02/06 2.0, 02/07 1.0, 06/11 1.0, 11/08 1.7 Urinary urgency and frequency PFSH Medical History Spinal stenosis Hyperlipidemia Erectile dysfunction Benign prostatic hyperplasia with lower urinary tract symptoms Surgical History History of prostate surgery Review of Systems Const Denies chills and Denies fever(s) Card Reports no additional complaints and Denies syncope Resp Denies cough GI Denies abdominal pain and Denies heartburn Reports as per HPI and Denies change in libido Neuro Denies syncope Psych Denies change in libido Endo Denies change in libido Physical Exam Const General: cooperative, healthy appearing, comfortable and no acute distress Orientation/consciousness: patient oriented x3 HEENT Face and sinus: Yes normal facial exam Mouth: moist mucous membranes Neck Neck: Yes normal visual inspection, Yes full ROM and Yes trachea midline Chest Chest palpation & inspection: normal inspection of the chest Resp Effort & Inspection: normal respiratory effort, able to speak in complete sentences and no respiratory distress GI Inspection: Yes normal to inspection Back/Spine/Pelvis Cervical Spine: normal cervical lordosis Thoracic/Lumbar Spine: thoracic and lumbar spine normal to inspection Skin General skin exam: no rashes or lesions noted Neuro General: patient oriented x3, gait normal, tone normal and moves all extremities Extrem General: Yes normal to inspection and Yes capillary refill normal Assessment & Plan Assessment & Plan (1) Overactive bladder: Code(s): N32.81 - Overactive bladder Category: Medical (2) Erectile dysfunction: Code(s): N52.9 - Male erectile dysfunction, unspecified Category: Medical (3) Benign prostatic hyperplasia with lower urinary tract symptoms: Code(s): N40.1 - Benign prostatic hyperplasia with lower urinary tract symptoms Category: Medical Plan Plan 1. Benign Prostatic Hyperplasia Switch to Fesoterodine, [facility] sent for 90 days. Improvement expected in bladder stabilization. 2. Chronic Anticoagulant Therapy Monitor risks of urinary bleeding due to therapy. Banana Handler direction prioritized for anticoagulation. 3. Urinary Incontinence Transition to Fesoterodine. Moderate water intake to 64-80 ounces daily. 4. Suspected Agent Dellroy Exposure Monitor for any malignant symptoms. Regular prostate screening advised. Discussion Notes I discussed with the patient the focus on improving urinary symptoms associated with benign prostatic hyperplasia while balancing the need for anticoagulant therapy due to cardiovascular health. We reviewed switching from Tolterodine to Fesoterodine, as it has shown effective bladder symptom control. Understanding the potential for Agent Dellroy-related implications, the patient will remain vigilant in appsence of active cancer. No immediate invasive procedures planned unless symptoms worsen. All interventions discussed include minimal side effects outside of potential initial adjustment period for new medication. Follow-up in six months, and prescriptions processed through [facility]. Patient Instructions - Switch from Tolterodine to Fesoterodine medication as prescribed. - Limit daily water intake to between 64-80 ounces. - Monitor for any changes in urinary symptoms, particularly increased bleeding, and contact if concerned. - Attend follow-up in six months for re-evaluation. - Continue current cardiovascular management, ensuring no changes to anticoagulation without consulting cardiology. - Be aware of any new symptoms that could suggest malignancy, given past exposure history. Medications: Refilled fesoterodine ER (Toviaz) 8 mg PO DAILY 90 tabs 1RF 90 days N32.81 - Overactive bladder Patient Instructions: This note is constructed using voice recognition software. While every effort has been made to ensure accuracy photo intern errors may have been included. Imaging studies, laboratory and physical exam results were discussed and reviewed in detail. No major barriers to patient understanding were identified. An opportunity to ask questions regarding the treatment plan was provided. All questions were answered. The patient expressed understanding and agreement with the above treatment plan. The patient is aware they should contact our office by phone for worsening of their current condition or the appearance of new urologic symptoms. Compliance is encouraged with any medications and followup testing that is ordered. It is a privilege to participate in the urologic care of your patient. If you h ave any questions or concerns regarding treatment for the above conditions, or other urologic issues, please do not hesitate to contact me. The office telephone contact is [phone]. Sincerely, Dr Jignesh Mckeon MD, [facility] - Urology Compassionate Specialist Care for the Genitourinary System Coding Level of Care Code Est Pt Level 4 (85466) Complex EM visit Add On G2211 Diagnoses Overactive bladder N32.81 Erectile dysfunction N52.9 Benign prostatic hyperplasia with lower urinary tract symptoms N40.1
== END 2024-09-19 15:40 | disposition home or self-care (01) ==
LOC: HO.HUSH 14:14
PROVIDERS: PCP Internal Medicine; Visit Provider Urology
DX: N32.81 Overactive bladder (principal); N52.9 Male erectile dysfunction, unspecified; N40.1 Benign prostatic hyperplasia with lower urinary tract symptoms
CPT/HCPCS: 99214; G2211

== ENCOUNTER → 2024-09-19 14:13 | Outpatient (BNVA) | payer OTHER, SELFPAY | PROVIDERS: PCP Internal Medicine; Visit Provider Urology | DX: N32.81 Overactive bladder (principal); N52.9 Male erectile dysfunction, unspecified; N40.1 Benign prostatic hyperplasia with lower urinary tract symptoms | CPT/HCPCS: 99212 ==